=== PATIENT | female | born 1975 ===

== ENCOUNTER 2020-09-15 10:47 | Outpatient (REF) | payer MEDICAID, SELFPAY | END 2020-09-15 10:48 | disposition home or self-care (01) | LOC: HO.LAB 10:47 | PROVIDERS: Visit Provider Internal Medicine | DX: Z20.822 Contact with and (suspected) exposure to COVID-19 (principal) | CPT/HCPCS: 36415; C9803; U0003 ==

== ENCOUNTER 2020-10-30 13:14 | Outpatient (REF) | payer MEDICAID, SELFPAY | END 2020-10-30 13:15 | disposition home or self-care (01) | LOC: HO.LAB 13:14 | PROVIDERS: Visit Provider Internal Medicine | DX: Z20.822 Contact with and (suspected) exposure to COVID-19 (principal) | CPT/HCPCS: 36415; C9803; U0003; U0005 ==

== ENCOUNTER 2021-05-01 22:16 | Emergency (ER) | payer MEDICAID, SELFPAY ==
--- NOTE | ~2021-05-01 | XR_ITS ---
EXAMINATION: XR ANKLE, RIGHT CLINICAL INFORMATION: Trauma. COMPARISON: None TECHNIQUE: AP, lateral, and mortise views of the right ankle. FINDINGS: Soft tissue swelling at the lateral malleolus. There is no fracture. No dislocation. Ankle mortise is congruent. Small plantar calcaneal spur. XR/XR ankle RT 2V IMPRESSION: Soft tissue swelling at lateral malleolus. No acute osseous abnormality.
[2021-05-01 22:56] VITALS: BP 139/80; PULSE 77; RESP 16; TEMP 36.5; O2SAT 97; BMI 28.8
[2021-05-02] VITALS: BP 126/73; PULSE 63; RESP 16; TEMP 37.2; O2SAT 97
--- NOTE | 2021-05-02 00:45 | ED.LOWEXIN ---
HPI - Extremity Injury (Lower) General Chief Complaint: Extremity Injury, Lower Stated Complaint: Ankle sprain Time Seen by Provider: 05/02/21 00:44 Source: patient Mode of arrival: ambulatory Limitations: no limitations History of Present Illness HPI Narrative: 46 years old female is is here today after sustaining injury to her right ankle. Patient reports that she was walking on the sidewalk and stepped in to softer pavement and end up twisting her ankle. Patient denies any other injury, denies fall. MD complaint: ankle injury Onset (ago): hour(s) Type of Injury: eversion Place: street/outdoors Severity: moderate Relieving factors: nothing Related Data Previous Rx's Medication Instructions Recorded ibuprofen 600 mg tablet 600 mg PO Q8H PRN #20 tab 05/02/21 Allergies Allergy/AdvReac Type Severity Reaction Status Date / Time oxycodone [OXYCODONE] Allergy Unknown SEIZURES Verified 05/01/21 22:55 Review of Systems Review of Systems: Constitutional : No Weight loss, No Fever, No Chills, No Night Sweats, No Fatigue, No Malaise ENT/Mouth : No Hearing loss, No Ear Pain, No Nasal Congestion, No Sinus Pain, No Hoarseness, No sore throat, No Rhinorrhea, No Swallowing Difficulty Eyes: No Eye Pain, No Swelling, No Redness, No Foreign Body, No Discharge, No Vision Changes Cardiovascular : No Chest Pain, No SOB, No Dyspnea on Exertion, No Orthopnea, No Edema, No Palpitations Respiratory : No Cough, No Sputum, No Wheezing, No Smoke Exposure, No Dyspnea Gastrointestinal : No Nausea, No Vomiting, No Diarrhea, No Constipation, No abdominal Pain, No Hematochezia, No Melena Genitourinary : no irregular bleeding, No Dysuria, No Urinary Frequency, No Hematuria, No Urinary Incontinence, No Urgency, No Flank Pain, No Urinary Flow Changes, No Hesitancy Musculoskeletal : joint pain, No Myalgias, Joint Swelling, R ankle pain Skin : No Skin Lesions, No rash Neuro : No Weakness, No Numbness, No Paresthesias, No Loss of Consciousness, No Dizziness, No Headache Psych : No Anxiety/Panic, No Depression, No SI/HI/AH/VH, No Social Issues, Yes all other systems are reviewed and are negative [facility] Past Medical History Medical History (Updated 05/02/21 @ 00:56 by Priya Penaloza [facility]) Anxiety Depression Diabetes Social History Social History Advance Directives: No Advance Directives Information Provided: No Physical Exam Vital Signs: Vital Signs: Last Vital Signs Temp 98.9 F 05/02/21 00:00 Pulse 63 05/02/21 00:00 Resp 16 05/02/21 00:00 BP 126/73 05/02/21 00:00 Pulse Ox 97 05/02/21 00:00 Body Mass Index 28.8 Const: General: healthy appearing, no acute distress and well developed Nutritional Appearance: well nourished Orientation/consciousness: patient oriented x3 HENMT: Head: Yes normal to inspection, Yes normocephalic and Yes atraumatic Ears: hearing grossly normal bilaterally General nose exam: Normal external nose present Face and sinus: Yes normal facial exam Mouth: Normal oral and palatal mucosa present Neck: Neck: Yes normal visual inspection, Yes full ROM and Yes trachea midline Thyroid: Thyroid normal Resp: Auscultation: clear to auscultation bilaterally Cardio: Rate: regular rate Rhythm: regular rhythm GI: Inspection: Yes normal to inspection and No distended Palpation (GI): No hepatosplenomegaly present Auscultation: normal bowel sounds Skin: General skin exam: elasticity normal, turgor normal and dry skin Neuro: General: patient oriented x3 Extrem: Right upper extremity: normal to inspection, full ROM and normal capillary refill Left upper extremity: normal to inspection, full ROM and normal capillary refill Right lower extremity: normal capillary refill, cyanosis and ankle (Outer ankle swelling) Left lower extremity: normal to inspection and full ROM Course Course Course Narrative: 46 years old female is here today for complaints of right ankle pain. Patient was walking on the sidewalk stepped into a soft therapy pavement and twisted her ankle. Left outer ankle swelling. X-ray negative for fracture showed soft tissue swelling, will send patient home with air cast, ice for the next 3 days and ibuprofen. Patient is agreeable to plan of care and verbalizes understanding of instructions. She was given the opportunity to ask questions all questions answered. Discharge Plan Discharge Clinical Impression: Ankle sprain and strain Patient Disposition: Home, Self-Care Instructions: Ankle Sprain (ED) Additional Instructions: You were seen here today after sustaining an ankle injury. Your x-rays negative for fracture. There is mild swelling to the outer area of your ankle. Please make sure you ice the area for the next 3 days, elevate and rest. You may take ibuprofen to help with pain. Please follow-up with your primary care doctor next week. If your symptoms will not get better I am giving you phone number to orthopedic surgeon. You may return to emergency department if her symptoms will get worse or if you experience any additional concerning symptoms. Prescriptions: New ibuprofen 600 mg tablet 600 mg PO Q8H PRN (Reason: pain) Qty: 20 RF: 0 Referrals: Carlos Josue MD [Physician] - 2 days Name,MD Ney [Primary Care Provider] - 2 days Stand Alone Forms: Work/School Release Interventions: ED Discharge Assessment Last Done: 05/02/21 01:04 Discharge Date/Time: 05/02/21 01:04
[2021-05-02] MEDS: Ibuprofen 600 MG TABLET PO (01:01)
== END 2021-05-02 01:04 | disposition home or self-care (01) ==
PROVIDERS: Emergency Provider Internal Medicine; PCP Internal Medicine Geriatric Medicine
DX: S93.401A Sprain of unspecified ligament of right ankle, initial encounter (principal); M25.571 Pain in right ankle and joints of right foot; X50.1XXA Overexertion from prolonged static or awkward postures, initial encounter; Y93.9 Activity, unspecified; Y92.480 Sidewalk as the place of occurrence of the external cause; Y99.9 Unspecified external cause status
CPT/HCPCS: 73600; 99283; 99284

== ENCOUNTER 2021-07-14 14:27 | Outpatient (REF) | payer MEDICAID, SELFPAY ==
--- NOTE | ~2021-07-14 | MM_ITS ---
EXAMINATION: MM DIAGNOSTIC DIGITAL BREAST TOMOSYNTHESIS, BILATERAL US DIAGNOSTIC ULTRASOUND BREAST, RIGHT CLINICAL INFORMATION: Franklin sized nodule noted by patient 2-3 weeks, recently decreased in size. The lifetime risk of breast cancer based on the Tyrer-Cuzick Model is 6%. COMPARISON: Mammography: 04/10/2019, 03/09/2018, 06/28/2016 TECHNIQUE: Digital breast tomosynthesis is performed in both the craniocaudal and mediolateral oblique views along with computer-aided detection (CAD). Synthesized 2D images are generated from the tomosynthesis. Ultrasound right breast is targeted to the area of clinical concern periareolar 7:00 through 11:00 position. Grayscale imaging and color Doppler are performed without and with harmonics. FINDINGS: There are scattered areas of fibroglandular density (ACR BI-RADS breast composition Category b). Parenchymal pattern is similar to prior exams. There is no developing density or interval mass or architectural abnormality. No skin thickening or coarsening of the Javier's ligaments. The axilla and skin contours are unremarkable. There are some scattered vascular calcifications bilateral posterior breasts. Ultrasound demonstrates no cystic or solid mass or architectural abnormality. No focal duct ectasia. No skin thickening or edema tracking in soft tissue planes. Results are discussed with the patient at time of visit. MM/MM tomosynthesis diagnostic BI IMPRESSION: No mammographic evidence of malignancy. Unremarkable targeted right breast ultrasound. ASSESSMENT: BI-RADS 2: Benign RECOMMENDATION: 1. Patient should be managed based on the clinical impression. If clinically indicated, further evaluation may be considered with surgical consult. Decision to proceed with biopsy should be based on clinical grounds and degree of clinical concern. 2. Otherwise, routine annual screening mammography. This patient's information was entered into a reminder system with a target due date for their next mammogram.
== END 2021-07-14 14:28 | disposition home or self-care (01) ==
LOC: HO.MAMMO 14:27
PROVIDERS: PCP Internal Medicine Geriatric Medicine; Visit Provider Registered Nurse Community Health
DX: N63.13 Unspecified lump in the right breast, lower outer quadrant (principal)
CPT/HCPCS: 76642; 77062; 77066

== ENCOUNTER 2023-05-25 10:00 | Emergency (ER) | payer MEDICAID, SELFPAY ==
--- NOTE | ~2023-05-25 | CT_ITS ---
EXAMINATION: CT ANGIOGRAM OF THE CHEST WITH AND WITHOUT CONTRAST (CT PULMONARY ANGIOGRAM FOR PE) CLINICAL INFORMATION: Reason for Exam elevated D-dimer and hypoxia rule out PE COMPARISON: None available. TECHNIQUE: Prior to contrast administration, noncontrast localization images were obtained. Subsequently, multidetector volumetric imaging was performed from the thoracic inlet to below the diaphragms following the administration of 65 mL Omnipaque 350 intravenous contrast. No contrast reaction reported Sagittal, coronal, and MIP oblique sagittal reformatted images were obtained on the CT workstation, uploaded to PACS, and reviewed. This CT examination was performed using dose optimization techniques as appropriate, variously including the following: *Automated exposure control *Adjustment of mA and/or kV according to patient size (this includes techniques or standardized protocols for targeted exams where dose is matched to indication/reason for exam; i.e. extremities or head) *Use of iterative reconstruction technique Total exam dose-length product 250 mGy-cm FINDINGS: QUALITY OF STUDY/CONTRAST BOLUS: Satisfactory. PULMONARY ARTERIES: No pulmonary emboli. THORACIC AORTA: No aneurysm. LUNG: No focal consolidation, nodules or masses. PLEURA: No pleural effusion or pneumothorax. MEDIASTINUM: Normal heart size. No pericardial effusion. No hilar or mediastinal lymphadenopathy. No evidence of septal bowing or right heart strain. CORONARY ARTERY CALCIFICATION: None visualized on this study. CHEST WALL/AXILLA: No axillary or internal mammary lymphadenopathy. OSSEOUS STRUCTURES: No acute or suspicious osseous abnormality. UPPER ABDOMEN: Unremarkable. No reflux of contrast into the hepatic veins to suggest elevated right heart pressures. CT/CT angio chest PE protocol IMPRESSION: No evidence for pulmonary embolism. No active cardiopulmonary disease. VTE: negative
--- NOTE | ~2023-05-25 | XR_ITS ---
EXAMINATION: XR CHEST CLINICAL INFORMATION: Hypoxia. COMPARISON: None available. TECHNIQUE: Frontal view of the chest was obtained. FINDINGS: The lungs are well expanded. No focal consolidation. No pleural effusion. Cardiac silhouette is within normal limits. XR/XR chest 1V IMPRESSION: No acute abnormality.
[2023-05-25 10:05] VITALS: BP 179/103; PULSE 83; RESP 18; TEMP 36.6; O2SAT 85; BMI 26.6
[2023-05-25 10:19] LABS: MANUAL DIFF FLAG NO
[2023-05-25 10:21] LABS: Basophils Percent Auto 0.1 % (0-2); Eosinophils Absolute Auto 0.1 X10*3/uL (0.0-0.4); Eosinophils Percent Auto 0.9 % (0-4); Hemoglobin 11.6 g/dl (12.0-16.0); Imm Gran Abs Auto 0.03 X10*3/uL (0.00-0.03); Imm Gran Pct Auto 0.3 % (0.0-0.4); Lymphocytes Absolute Auto 1.3 X10*3/uL (1.2-4.9); Lymphocytes Percent Auto 14.4 % (20-40); Mean Corpuscular HGB Conc 35.2 g/dl (31.0-35.0); Mean Corpuscular Hemoglobin 30.1 pg (27.0-33.0); Mean Corpuscular Volume 85.5 fL (80.0-98.0); Mean Platelet Volume 10.6 fL (9.4-12.3); Monocytes Absolute Auto 0.4 X10*3/uL (0.1-1.2); Monocytes Percent Auto 4.6 % (2-11); Neutrophils Absolute Auto 7.3 x10*3/uL (2.0-8.3); Neutrophils Percent Auto 79.7 % (45-73); Platelet Count 251 X10*3/uL (160-400); Red Blood Count 3.86 X10*6/uL (4.20-5.50); Red Cell Distribution Width 12.1 % (11.0-16.0); White Blood Count 9.1 X10*3/uL (4.8-10.8)
[2023-05-25 10:46] LABS: Anion Gap 10 (12-20); Blood Urea Nitrogen 20 mg/dL (9-16); Calcium 9.2 mg/dL (8.4-10.2); Carbon Dioxide 24 mmol/L (22-29); Chloride 104 mmol/L (96-108); Creatinine Clr Calc Pharmacy 50.2; Estimated Glomerular Filt Rate 45; Glucose Random 392 mg/dL (60-115); Sodium 134 mmol/L (135-145)
--- NOTE | 2023-05-25 11:35 | ED_ITS ---
HPI - Nausea/Vomiting/Diarrhea General Chief complaint: Nausea/Vomiting/Diarrhea Stated complaint: High Blood Pressure Vomiting Etc Time Seen by Provider: 05/25/23 11:26 Source: patient Mode of arrival: ambulatory Limitations: no limitations History of Present Illness HPI Narrative: 48-year-old female with history of hypertension, and type 2 diabetes. Patient started this morning with nonbloody watery diarrhea and abdominal cramps then started to have nausea and vomiting, a family member also complaining of similar symptoms., patient declined eating a bad food, no recent travel, no recent use of antibiotic. No fever, no chills. Patient was sent from PCP office for possible dehydration. Related Data Previous Rx's Medication Instructions Recorded ibuprofen 600 mg tablet 600 mg PO Q8H PRN pain #20 tabs 05/02/21 Allergies Allergy/AdvReac Type Severity Reaction Status Date / Time oxycodone [OXYCODONE] Allergy Unknown SEIZURES Verified 05/25/23 10:05 Review of Systems 2 Review of Systems: All other systems are reviewed and are negative Constitutional: Reports as per HPI and Reports no additional constitutional complaints Eyes: Reports as per HPI and Reports no additional eye complaints Reports system reviewed and no additional complaints, except as documented Cardiovascular: Reports as per HPI and Reports no additional cardiovascular complaints Respiratory: Reports as per HPI and Reports no additional respiratory complaints Gastrointestinal: Reports as per HPI and Reports no additional gastrointestinal complaints Genitourinary: Reports no additional female genitourinary complaints Musculoskeletal: Reports no additional musculoskeletal complaints Skin/Breast: Reports system reviewed and no additional complaints, except as docu Psychiatric: Reports no additional psychiatric complaints Endocrine: Reports no additional endocrine complaints Hematologic/Lymphatic: Reports no additional hematologic/lymphatic complaints Allergic/Immunologic: Reports no additional allergic/immunologic complaints Reports system reviewed and no additional complaints, except as documented and Reports Abnormal speech present [facility] Past Medical History Medical History Depression Anxiety Diabetes Social History Social History Alcohol intake: never Smoked in Last 30 Days: No Use of substances other than those prescribed or required for medical reasons: No Advance Directives: No Advance Directives Information Provided: Yes Patient : No Physical Exam 2 Vital Signs: Vital Signs: Last Vital Signs Temp 98.8 F 05/25/23 15:36 Pulse 84 05/25/23 15:36 Resp 18 05/25/23 15:36 BP 184/98 H 05/25/23 15:36 Pulse Ox 97 05/25/23 15:36 O2 Del Method Room Air 05/25/23 15:36 BMI result Body Mass Index 26.6 Vital signs have been reviewed and appear to be correct. Blood pressure elevated. Heart rate normal. Respiratory rate normal. Temperature normal. Oxygen saturation normal. Appearance: Alert. Oriented X3. No acute distress. Head: Normal external exam. Normocephalic. Atraumatic. No Oneal signs noted. No raccoon eyes noted Eyes: PERRLA. EOMI. Conjunctiva and sclera normal. Eyelids normal. ENT: TM's Normal. Pharynx normal. Uvula midline. Moist mucous membranes. No trismus noted. No drooling noted. No muffled voice noted. Neck: Normal inspection. Neck supple. FROM. No adenopathy. Thyroid Normal. No meningeal signs. No neck mass noted. CVS: Normal heart rate and rhythm. Heart sound normal. No murmurs noted. Pulses normal throughout. Respiratory: No respiratory distress. Painless inspiration. Breath sounds normal. No wheezes/rales/rhonchi noted. Chest nontender. No accessory muscle usage noted or decreased air movement noted. Abdomen: Soft and nontender. Bowel sounds normal in all 4 quadrants. No distention noted. No organomegaly noted. No visible injury noted. Back: No CVA tenderness. Full range of motion noted. Skin: Skin warm and dry. Normal skin color. Normal skin turgor. No rashes/lesions/lacerations noted. Extremities: No lower extremity edema. Extremities exhibit normal range of motion. Extremities nontender. Neuro: Oriented X 3. Cranial nerve exam: II-XII are grossly intact No motor deficit. No sensory deficit. Reflexes normal. Course Course Course Narrative: a 48-year-old female with history of type 2 diabetes and hypertension came in with nausea, vomiting, and diarrhea with exposure to a sick contact ( daughter with similar symptoms at home). Could not take her blood pressure/diabetes medication have a high blood pressure in emergency department patient was given amlodipine 5 mg with partial improvement of blood pressure, headache is going away, able to tolerate p.o. intake. Due to elevated D-dimer patient had a CT angio of the chest which shows no pulmonary embolism. Patient was instructed to follow-up with PCP and keep monitoring blood pressure and BS at home Medications Administered Discontinued Medications Generic Name Dose Route Start Last Admin Trade Name Naseem PRN Reason Stop Dose Admin Al Hydroxide/Mg Hydroxide 30 ml 05/25/23 11:33 05/25/23 12:08 Magnesium Hydrox/Alum Hydrox 30 Ml Oral.Susp PO 05/25/23 11:34 30 ml ONCE ONE Administration Amlodipine Besylate 5 mg 05/25/23 14:30 05/25/23 14:42 Amlodipine Besylate 5 Mg Tablet PO 05/25/23 14:31 5 mg ONCE ONE Administration Protocol Famotidine 20 mg 05/25/23 11:33 05/25/23 12:08 Famotidine/Pf 20 Mg/2 Ml Vial IVPUSH 05/25/23 11:34 20 mg ONCE ONE Administration Sodium Chloride 1,000 mls @ 999 mls/hr 05/25/23 11:26 05/25/23 13:15 Ns IV 05/25/23 12:26 Infused .Q1H1M ONE Infusion Insulin Human Regular 5 unit 05/25/23 11:26 05/25/23 12:13 Insulin Regular, Human 100 Unit/Ml 3 Ml Vial IVPUSH 05/25/23 11:27 5 unit ONCE ONE Administration Iohexol 100 ml 05/25/23 14:47 05/25/23 14:47 Iohexol 350 Mg/Ml 100 Ml Infus..Btl IV 05/25/23 14:48 65 ml ONCE ONE Administration Loperamide HCl 2 mg 05/25/23 11:33 05/25/23 12:09 Loperamide Hcl 2 Mg Capsule PO 05/25/23 11:34 2 mg ONCE ONE Administration Ondansetron HCl 4 mg 05/25/23 11:33 05/25/23 12:08 Ondansetron Hcl 4 Mg/2 Ml Vial IVPUSH 05/25/23 11:34 4 mg ONCE ONE Administration Medical Decision Making Differential Diagnosis Differential Diagnoses: The differential diagnosis associated with the presentation includes ( pulmonary embolism, pneumonia, pneumothorax, gastroenteritis, dehydration, electrolyte abnormality, severe anemia, hypertensive emergency.) Admission/Observation Consideration of admission/observation: Escalation of care including admission/observation considered Lab Data MDM Lab Attestation statement: I reviewed the patient's lab results. 05/25/23 10:15 05/25/23 10:15 Labs: Lab Results 05/25/23 05/25/23 05/25/23 Range/Units 10:15 11:54 12:05 WBC 9.1 (4.8-10.8) X10*3/uL RBC 3.86 L (4.20-5.50) X10*6/uL Hgb 11.6 L (12.0-16.0) g/dl Hct 33.0 L (37.0-47.0) % MCV 85.5 (80.0-98.0) fL MCH 30.1 (27.0-33.0) pg MCHC 35.2 H (31.0-35.0) g/dl RDW 12.1 (11.0-16.0) % Plt Count 251 (160-400) X10*3/uL MPV 10.6 (9.4-12.3) fL Immature Gran % (Auto) 0.3 (0.0-0.4) % Neut % (Auto) 79.7 H (45-73) % Lymph % (Auto) 14.4 L (20-40) % [place] % (Auto) 4.6 (2-11) % Eos % (Auto) 0.9 (0-4) % Baso % (Auto) 0.1 (0-2) % Lymph # (Auto) 1.3 (1.2-4.9) X10*3/uL [place] # (Auto) 0.4 (0.1-1.2) X10*3/uL Eos # (Auto) 0.1 (0.0-0.4) X10*3/uL Baso # (Auto) 0.0 (0.0-0.2) X10*3/uL Abs Immat Gran (auto) 0.03 (0.00-0.03) X10*3/uL Absolute Neuts (auto) 7.3 (2.0-8.3) x10*3/uL Absolute Nucleated RBC 0.000 (0.0-0.012) X10*3/uL Nucleated RBC % (auto) 0.0 (0.0-0.2) /100WBC D-Dimer High Sensitivty 298 NG/ML Sodium 134 L (135-145) mmol/L Potassium 4.0 (3.3-5.1) mmol/L Chloride 104 (96-108) mmol/L Carbon Dioxide 24 (22-29) mmol/L Anion Gap 10 L (12-20) BUN 20 H (9-16) mg/dL Creatinine 1.27 (0.5-1.4) mg/dL Estim Creat Clear Calc 50.2 Estimated GFR 45 POC Glucose 364 H* (60-115) mg/dL Random Glucose 392 H* (60-115) mg/dL Calcium 9.2 (8.4-10.2) mg/dL Troponin I High Sens < 2.7 (<3.5-17.0) ng/L Urine Color Yellow Urine Appearance Clear Urine pH 6.0 (5.0-9.0) Ur Specific [place] 1.025 (1.005-1.025) Urine Protein >=1000 (4+) H (Neg-Trace) mg/dL Urine Glucose (UA) >=1000 H (Negative) mg/dL Urine Ketones Negative (Negative) mg/dL Urine Blood Small (1+) H (Negative) Urine Nitrite Negative (Negative) Ur Leukocyte Esterase Negative (Negative) Urine RBC 0-2 (0-2) /HPF Urine WBC 0-5 (0-5) /HPF Ur Squamous Epith Cells 0-2 (0-2) /HPF Urine Bacteria None Seen (None Seen) Hyaline Casts 0-2 (0-2) /LPF 05/25/23 Range/Units 13:38 WBC (4.8-10.8) X10*3/uL RBC (4.20-5.50) X10*6/uL Hgb (12.0-16.0) g/dl Hct (37.0-47.0) % MCV (80.0-98.0) fL MCH (27.0-33.0) pg MCHC (31.0-35.0) g/dl RDW (11.0-16.0) % Plt Count (160-400) X10*3/uL MPV (9.4-12.3) fL Immature Gran % (Auto) (0.0-0.4) % Neut % (Auto) (45-73) % Lymph % (Auto) (20-40) % [place] % (Auto) (2-11) % Eos % (Auto) (0-4) % Baso % (Auto) (0-2) % Lymph # (Auto) (1.2-4.9) X10*3/uL [place] # (Auto) (0.1-1.2) X10*3/uL Eos # (Auto) (0.0-0.4) X10*3/uL Baso # (Auto) (0.0-0.2) X10*3/uL Abs Immat Gran (auto) (0.00-0.03) X10*3/uL Absolute Neuts (auto) (2.0-8.3) x10*3/uL Absolute Nucleated RBC (0.0-0.012) X10*3/uL Nucleated RBC % (auto) (0.0-0.2) /100WBC D-Dimer High Sensitivty NG/ML Sodium (135-145) mmol/L Potassium (3.3-5.1) mmol/L Chloride (96-108) mmol/L Carbon Dioxide (22-29) mmol/L Anion Gap (12-20) BUN (9-16) mg/dL Creatinine (0.5-1.4) mg/dL Estim Creat Clear Calc Estimated GFR POC Glucose 205 H (60-115) mg/dL Random Glucose (60-115) mg/dL Calcium (8.4-10.2) mg/dL Troponin I High Sens (<3.5-17.0) ng/L Urine Color Urine Appearance Urine pH (5.0-9.0) Ur Specific [place] (1.005-1.025) Urine Protein (Neg-Trace) mg/dL Urine Glucose (UA) (Negative) mg/dL Urine Ketones (Negative) mg/dL Urine Blood (Negative) Urine Nitrite (Negative) Ur Leukocyte Esterase (Negative) Urine RBC (0-2) /HPF Urine WBC (0-5) /HPF Ur Squamous Epith Cells (0-2) /HPF Urine Bacteria (None Seen) Hyaline Casts (0-2) /LPF Independent Interpretation I performed an independent interpretation of an: CT Scan ( CTA chest: No evidence of pulmonary embolism.) Radiology Impression Discussion of test interpretation with radiology: I have reviewed the radiologist's reading. Chronic Conditions Patient?s care impacted by: Diabetes and Hypertension Discharge Plan Discharge Clinical Impression: Gastroenteritis, Hypertension, Diabetes Patient Disposition: Still a Patient Instructions: Gastroenteritis (ED) Additional Instructions: take your medication as directed and prescribed. Prescriptions: No Action ibuprofen 600 mg tablet 600 mg PO Q8H PRN (Reason: pain) Qty: 20 0RF Referrals: Name,MD Ney [Primary Care Provider] -
[2023-05-25 11:55] VITALS: BP 206/98; PULSE 91; RESP 18; TEMP 36.8; O2SAT 98
[2023-05-25 12:04] LABS: Appearance Urine Clear; Color Urine Yellow; Glucose Urine UA >=1000 mg/dL (Negative); Leukocyte Esterase Urine Negative (Negative); Nitrite Urine Negative (Negative); Specific Gravity - Urine 1.025 (1.005-1.025); UMIC TRIGGER UACC YES; Urine Blood Small (1+) (Negative); Urine Ketones Negative (Negative); Urine Protein >=1000 (4+) mg/dL (Neg-Trace)
[2023-05-25] MEDS: 0.9 % Sodium Chloride 1,000 ML 999 ML IV (12:08)
[2023-05-25] MEDS: ondansetron HCL 4 MG/2 ML VIAL IVPUSH (12:08)
[2023-05-25] MEDS: Famotidine/PF 20 MG/2 ML VIAL IVPUSH (12:08)
[2023-05-25] MEDS: Magnesium Hydrox/Alum Hydrox 30 ML ORAL.SUSP PO (12:08)
[2023-05-25] MEDS: Loperamide HCl 2 MG CAPSULE PO (12:09)
[2023-05-25 12:10] VITALS: BP 186/100; PULSE 90; RESP 20; O2SAT 98
[2023-05-25] MEDS: Insulin Regular, Human 100 UNIT/ML 3 ML VIAL IVPUSH (12:13)
[2023-05-25 12:15] LABS: Bacteria Urine None Seen (None Seen); Hyaline Casts Urine 0-2 /LPF (0-2); RBC Urine 0-2 /HPF (0-2); Squamous Epithelial Cell Urine 0-2 /HPF (0-2); WBC Urine 0-5 /HPF (0-5)
[2023-05-25 12:15] LABS: Glucose, Whole Blood 364 mg/dL (60-115)
[2023-05-25 12:16] VITALS: BP 180/93; PULSE 83
[2023-05-25 12:18] LABS: D Dimer High Sensitivity 298 NG/ML
[2023-05-25 12:23] LABS: Troponin-I High Sensitivity < 2.7 ng/L (<3.5-17.0)
[2023-05-25 13:44] LABS: Glucose, Whole Blood 205 mg/dL (60-115)
[2023-05-25 14:28] VITALS: BP 182/110; PULSE 90; RESP 13; TEMP 36.8; O2SAT 100
[2023-05-25] MEDS: amLODIPine Besylate 5 MG TABLET PO (14:42)
[2023-05-25] MEDS: iohexoL 350 MG/ML 100 ML INFUS..BTL IV (14:47)
--- NOTE | 2023-05-25 15:14 | PC.NURSE ---
Assumed care of patient at 1500, patient is resting on stretcher comfortably, offers no complaints to this RN other than headache. respirations even and unlabored, skin pwd, no apparent distress. Requesting sandwich, this RN educated patient that we are waiting on CT scan results then we can discuss the possibility of having food. Patient satisfied with answer
[2023-05-25 15:36] VITALS: BP 184/98; PULSE 84; RESP 18; TEMP 37.1; O2SAT 97
== END 2023-05-25 16:13 | disposition home or self-care (01) ==
PROVIDERS: Emergency Provider Emergency Medicine; PCP Internal Medicine Geriatric Medicine
DX: K52.9 Noninfective gastroenteritis and colitis, unspecified (principal); I10 Essential (primary) hypertension; E11.9 Type 2 diabetes mellitus without complications; R11.2 Nausea with vomiting, unspecified; Z79.899 Other long term (current) drug therapy
CPT/HCPCS: 36415; 71045; 71275; 80048; 81001; 81003; 82947; 84484; 85025; 85379; 96361; 96374; 96375; 99285; J2405; Q9967

== ENCOUNTER 2023-05-25 18:01 | Outpatient (REF) | payer MEDICAID, SELFPAY ==
[2023-05-25 18:59] LABS: Influenza A PCR NEGATIVE (Negative); Influenza B PCR NEGATIVE (Negative); Resp Syncy Virus RNA Qual PCR NEGATIVE (Negative); SARS COV2 PCR INHOUSE NEGATIVE (Negative)
== END 2023-05-25 18:02 | disposition home or self-care (01) ==
LOC: HO.HHCLNP 18:01
PROVIDERS: Visit Provider Emergency Medicine
DX: R68.89 Other general symptoms and signs (principal); Z20.822 Contact with and (suspected) exposure to COVID-19
CPT/HCPCS: 0241U

== ENCOUNTER 2023-08-05 19:53 | Outpatient (REF) | payer MEDICAID, SELFPAY ==
[2023-08-05 19:59] LABS: Appearance Urine Clear; Color Urine Yellow; Glucose Urine UA >=1000 mg/dL (Negative); Leukocyte Esterase Urine Negative (Negative); Nitrite Urine Positive (Negative); Specific Gravity - Urine >= 1.030 (1.005-1.025); UMIC TRIGGER UACC YES; Urine Blood Trace (Negative); Urine Ketones Negative (Negative); Urine Protein >=1000 (4+) mg/dL (Neg-Trace)
[2023-08-05 20:04] LABS: Bacteria Urine 2+ (None Seen); Hyaline Casts Urine 0-2 /LPF (0-2); RBC Urine 0-2 /HPF (0-2); UACC Culture Trigger YES
== END 2023-08-05 19:54 | disposition home or self-care (01) ==
LOC: HO.HHCLNP 19:53
PROVIDERS: Visit Provider Emergency Medicine
DX: R60.0 Localized edema (principal)
CPT/HCPCS: 81001; 87086

== ENCOUNTER 2023-08-06 07:45 | Outpatient (REF) | payer MEDICAID, SELFPAY ==
[2023-08-06 08:04] LABS: MANUAL DIFF FLAG NO
[2023-08-06 08:12] LABS: Basophils Percent Auto 0.5 % (0-2); Eosinophils Absolute Auto 0.1 X10*3/uL (0.0-0.4); Hematocrit 32.9 % (37.0-47.0); Imm Gran Abs Auto 0.02 X10*3/uL (0.00-0.03); Imm Gran Pct Auto 0.3 % (0.0-0.4); Lymphocytes Absolute Auto 1.8 X10*3/uL (1.2-4.9); Lymphocytes Percent Auto 27.9 % (20-40); Mean Corpuscular HGB Conc 33.4 g/dl (31.0-35.0); Mean Corpuscular Hemoglobin 28.9 pg (27.0-33.0); Mean Corpuscular Volume 86.4 fL (80.0-98.0); Mean Platelet Volume 11.2 fL (9.4-12.3); Monocytes Absolute Auto 0.5 X10*3/uL (0.1-1.2); Neutrophils Percent Auto 62.3 % (45-73); Platelet Count 223 X10*3/uL (160-400); Red Blood Count 3.81 X10*6/uL (4.20-5.50); Red Cell Distribution Width 12.2 % (11.0-16.0); White Blood Count 6.4 X10*3/uL (4.8-10.8)
[2023-08-06 08:38] LABS: B Type Natriuretic Peptide 140 pg/mL (<100)
[2023-08-06 08:45] LABS: Alanine Aminotransferase 10 U/L (0-31); Albumin Level 2.6 g/dL (3.5-5.0); Alkaline Phosphatase 78 U/L (39-117); Anion Gap 13 (12-20); Aspartate Amino Transferase 11 U/L (5-31); Bilirubin Total 0.2 mg/dL (0.0-1.0); Blood Urea Nitrogen 33 mg/dL (9-16); Calcium 8.4 mg/dL (8.4-10.2); Carbon Dioxide 21 mmol/L (22-29); Chloride 105 mmol/L (96-108); Estimated Glomerular Filt Rate 35; Potassium 4.5 mmol/L (3.3-5.1); Sodium 134 mmol/L (135-145); Total Protein 6.3 g/dL (6.5-8.0)
[2023-08-06 08:56] LABS: Glucose Random 442 mg/dL (60-115)
[2023-08-06 08:57] LABS: TSH reflex Free T4 1.27 uIU/mL (0.32-4.0)
== END 2023-08-06 07:46 | disposition home or self-care (01) ==
LOC: HO.LAB 07:45
PROVIDERS: Visit Provider Emergency Medicine
DX: R60.0 Localized edema (principal)
CPT/HCPCS: 36415; 80053; 83880; 84443; 85025

== ENCOUNTER 2023-08-26 10:02 | Emergency (ER) | payer MEDICAID, SELFPAY ==
--- NOTE | ~2023-08-26 | CT_ITS ---
EXAMINATION: CT ABDOMEN AND PELVIS WITHOUT CONTRAST CLINICAL INFORMATION: Kidney stone, blood in UA COMPARISON: 05/27/2023 TECHNIQUE: Multidetector volumetric imaging was performed from the superior aspect of the liver through the pubic symphysis. Sagittal and coronal reformatted images were obtained on the technologist's workstation. This CT examination was performed using dose optimization techniques as appropriate, variously including the following: *Automated exposure control *Adjustment of mA and/or kV according to patient size (this includes techniques or standardized protocols for targeted exams where dose is matched to indication/reason for exam; i.e. 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 Phleboliths. Nonobstructive bowel pattern. Grade 1 anterolisthesis L5 on S1 LUNG BASES: The visualized lung bases are unremarkable. LIVER, GALLBLADDER, AND BILIARY TREE: The liver is normal in size, shape, and attenuation. No focal hepatic lesion or biliary ductal dilatation is present. Possible gallbladder sludge with no evidence of radiopaque gallstones, gallbladder wall thickening, or obvious pericholecystic inflammatory changes. PANCREAS: Unremarkable. SPLEEN: Unremarkable. ADRENAL GLANDS: Unremarkable. KIDNEYS AND URETERS: The kidneys are normal in size, shape, and attenuation. No hydronephrosis or hydroureter. Tiny left renal calcifications appear to be related to vessels when comparing with 05/25/2019 contrast-enhanced CT. No perinephric stranding. BLADDER: Decompressed. GASTROINTESTINAL TRACT: Moderately distended stomach, mild wall thickening not excluded. Nonobstructive bowel pattern. Possible mild terminal ileum thickening but no inflammatory changes. Appendix not seen. No right lower quadrant inflammatory stranding. Nonobstructive bowel pattern. No colonic pathology recognized. ABDOMINAL WALL: Small fat filled umbilical hernia. LYMPH NODES: Normal. VASCULAR: Atherosclerotic calcifications nonaneurysmal aorta. Normal caliber inferior vena cava. PELVIC VISCERA: Possible small right-sided uterine fibroid. Likely bilateral ovarian cysts. Phleboliths. OSSEOUS STRUCTURES: Bilateral pars defects, grade 1 anterolisthesis L5 on S1. CT/CT abdomen pelvis wo IV con IMPRESSION: No significant intra-abdominal or pelvic pathology. Possible terminal ileal thickening without inflammatory changes. Gallbladder sludge not excluded. Fleischner guidelines were followed.
[2023-08-26 10:17] VITALS: BP 150/86; PULSE 96; RESP 18; TEMP 36.8; O2SAT 99; BMI 26.2
--- NOTE | 2023-08-26 11:43 | ECG_ITS ---
Test Reason : STOMACH BURNING Blood Pressure : / mmHG Vent. Rate : 103 BPM Atrial Rate : 103 BPM P-R Int : 160 ms QRS Dur : 076 ms QT Int : 354 ms P-R-T Axes : 066 056 062 degrees QTc Int : 463 ms Sinus tachycardia Otherwise normal ECG No previous ECGs available Referred By: Tan Porter Electronically Signed By:LUKE MILLS
[2023-08-26 12:08] LABS: MANUAL DIFF FLAG NO
[2023-08-26 12:10] LABS: Basophils Percent Auto 0.3 % (0-2); Eosinophils Percent Auto 0.1 % (0-4); Hematocrit 34.1 % (37.0-47.0); Hemoglobin 11.8 g/dl (12.0-16.0); Imm Gran Abs Auto 0.03 X10*3/uL (0.00-0.03); Imm Gran Pct Auto 0.4 % (0.0-0.4); Lymphocytes Absolute Auto 1.6 X10*3/uL (1.2-4.9); Lymphocytes Percent Auto 21.1 % (20-40); Mean Corpuscular HGB Conc 34.6 g/dl (31.0-35.0); Mean Corpuscular Hemoglobin 29.1 pg (27.0-33.0); Mean Corpuscular Volume 84.2 fL (80.0-98.0); Mean Platelet Volume 11.1 fL (9.4-12.3); Monocytes Absolute Auto 0.5 X10*3/uL (0.1-1.2); Monocytes Percent Auto 6.7 % (2-11); Neutrophils Absolute Auto 5.3 x10*3/uL (2.0-8.3); Neutrophils Percent Auto 71.4 % (45-73); Platelet Count 248 X10*3/uL (160-400); Red Blood Count 4.05 X10*6/uL (4.20-5.50); Red Cell Distribution Width 12.4 % (11.0-16.0); White Blood Count 7.4 X10*3/uL (4.8-10.8)
[2023-08-26 12:16] LABS: INTERNATIONAL NORM RATIO 0.9 (0.9-1.1); Prothrombin Time 11.5 SEC (11.1-13.3)
[2023-08-26 12:18] LABS: Partial Thromboplastin Time 25.8 SEC (26.0-36.4)
[2023-08-26 12:31] LABS: Troponin-I High Sensitivity 6.8 ng/L (<3.5-17.0)
--- NOTE | 2023-08-26 12:33 | ED.GENADULT ---
HPI - General Adult General Chief complaint: General Medical Stated complaint: Vomiting Not Feeling Well Time Seen by Provider: 08/26/23 11:33 Source: patient Mode of arrival: ambulatory Limitations: no limitations History of Present Illness HPI narrative: 48-year-old female history of diabetes, GERD, and hypertension presents to ED headache and acid burning sensation in the abdomen since 08/24. patient denies any diarrhea, chest pain, shortness of breath, dysuria hematuria. Patient states no fever or chills. Related Data Previous Rx's Medication Instructions Recorded ibuprofen 600 mg tablet 600 mg PO Q8H PRN pain #20 tabs 05/02/21 famotidine 20 mg tablet (Pepcid) 20 mg PO BID 5 days #10 tabs 08/26/23 naproxen 500 mg tablet 500 mg PO BID PRN pain 7 days #14 08/26/23 tabs losartan 50 mg tablet 50 mg PO DAILY #30 tabs 08/31/23 metoclopramide HCl 10 mg tablet 10 mg PO Q6H PRN nausea and 08/31/23 (Reglan) vomiting #14 tabs Allergies Allergy/AdvReac Type Severity Reaction Status Date / Time oxycodone [OXYCODONE] Allergy Unknown SEIZURES Verified 08/31/23 13:44 Review of Systems Review of Systems: acid burning sensation in abdomen since 08/14 and headache. Yes all other systems are reviewed and are negative PMF Past Medical History Medical History Depression Anxiety Diabetes Social History Social History Unable to assess alcohol history related to: Unable to respond Alcohol intake: never Smoked in Last 30 Days: No Use of substances other than those prescribed or required for medical reasons: Yes Substance Use Type: Marijuana Advance Directives: No Advance Directives Information Provided: No Patient : No Physical Exam ED Vital Signs: Vital Signs - 24 hr 08/26/23 10:17 08/26/23 14:35 08/26/23 16:39 Temperature 98.2 F 98.7 F Pulse Rate 96 80 Respiratory Rate 18 18 18 Blood Pressure 150/86 H 182/88 H Pulse Oximetry 99 99 Oxygen Delivery Method Room Air Room Air BMI result Body Mass Index 26.2 Const General: cooperative, healthy appearing, comfortable, no acute distress, well developed, alert, awake and Physically active Orientation/consciousness: oriented to person, oriented to place, oriented to time and patient oriented x3 [facility] Head: Yes normal to inspection, Yes No palpable skull fracture present, Yes normocephalic and Yes atraumatic Throat: Yes posterior oropharynx normal, Yes tonsils normal and Yes uvula midline Eyes General: appearance normal, both eyes and all related structures Neck Neck: Yes normal visual inspection, Yes full ROM, Yes no lymphadenopathy, Yes no meningeal signs, Yes trachea midline, Yes supple, No anterior neck swelling and No tender Chest Chest palpation & inspection: normal inspection of the chest and normal palpation of entire chest wall Resp Effort & Inspection: normal respiratory effort and able to speak in complete sentences Auscultation: clear to auscultation bilaterally Cardio Jugular venous distension: no JVD Heart sounds: S1 normal heart sound present and S2 normal heart sound present GI Inspection: Yes normal to inspection Palpation (GI): Soft to palpation, not firm, nontender, no guarding and not rigid General: Yes no CVA tenderness Back/Spine/Pelvis Back: no CVA tenderness and No back tenderness Skin General skin exam: no rashes or lesions noted, elasticity normal and turgor normal Neuro General: oriented to person, oriented to place, oriented to time, patient oriented x3, gait normal, tone normal, moves all extremities, Normal light touch and pain sensation, no meningeal signs, no focal motor deficits, CN's II-XI intact bilaterally and normal sensation to monofilament Extrem General: Yes normal to inspection and Yes full ROM Psych Appearance: grossly normal, well kempt and not disheveled Medications Administered Discontinued Medications Generic Name Dose Route Start Last Admin Trade Name Edgarq PRN Reason Stop Dose Admin Al Hydroxide/Mg Hydroxide 30 ml 08/26/23 12:28 08/26/23 13:39 Magnesium Hydrox/Alum Hydrox 30 Ml Oral.Susp PO 08/26/23 12:29 30 ml ONCE ONE Administration Belladonna Alkaloids/Phenobarbital 10 ml 08/26/23 12:28 08/26/23 13:39 Phenobarb/Hyoscy/Atropine/Scop 10 Ml Elixir PO 08/26/23 12:29 10 ml ONCE ONE Administration Famotidine 20 mg 08/26/23 12:28 08/26/23 13:39 Famotidine 20 Mg Tablet PO 08/26/23 12:29 20 mg ONCE ONE Administration Sodium Chloride 1,000 mls @ 999 mls/hr 08/26/23 12:44 08/26/23 16:01 Ns IV 08/26/23 13:44 Infused .Q1H1M STA Infusion Sodium Chloride 1,000 mls @ 999 mls/hr 08/26/23 12:45 08/26/23 16:02 Ns IV 08/26/23 13:45 Infused .Q1H1M KIRT Infusion Ketorolac Tromethamine 30 mg 08/26/23 14:20 08/26/23 14:32 Ketorolac Tromethamine 30 Mg/Ml Vial IVPUSH 08/26/23 14:21 30 mg ONCE ONE Administration Lidocaine HCl 15 ml 08/26/23 12:28 08/26/23 13:39 Lidocaine Hcl Viscous 2 % 15 Ml Solution MUCOUS MEM 08/26/23 12:29 15 ml ONCE ONE Administration Ondansetron HCl 4 mg 08/26/23 14:20 08/26/23 14:31 Ondansetron Hcl 4 Mg/2 Ml Vial IVPUSH 08/26/23 14:21 4 mg ONCE ONE Administration Medical Decision Making Medical Decision Making MDM Narrative: 48-year-old female history of diabetes hypertension and GERD presents to ED for acid burning sensation and stomach since the 24 of August with some nausea. Patient states no fever chills diarrhea chest pain or shortness of breath. Patient denies any recent trauma. EKG labs ordered. GI cocktail ordered. 5:37pm: Patient's 2 troponin negative. EKG negative STEMI. COVID influenza swab negative. Urine shows some blood patient was sent for CT scans to make sure there is no kidney stones. CT scan came back negative for kidney stones. CT scan showed sludge in the gallbladder without any signs of cholecystitis. Patient informed of this. Patient's symptoms resolved after fluids Zofran and Toradol. lipase 80. CT scan CT scan normal. Differential Diagnosis Differential Diagnoses: The differential diagnosis associated with the presentation includes ( Myocardial infarction, acid reflux, cholecystitis, pancreatitis,) Lab Data 08/26/23 12:02 08/26/23 12:02 Labs: Lab Results 08/26/23 08/26/23 08/26/23 Range/Units 12: 14:30 14:35 WBC 7.4 (4.8-10.8) X10*3/uL RBC 4.05 L (4.20-5.50) X10*6/uL Hgb 11.8 L (12.0-16.0) g/dl Hct 34.1 L (37.0-47.0) % MCV 84.2 (80.0-98.0) fL MCH 29.1 (27.0-33.0) pg MCHC 34.6 (31.0-35.0) g/dl RDW 12.4 (11.0-16.0) % Plt Count 248 (160-400) X10*3/uL MPV 11.1 (9.4-12.3) fL Immature Gran % (Auto) 0.4 (0.0-0.4) % Neut % (Auto) 71.4 (45-73) % Lymph % (Auto) 21.1 (20-40) % [place] % (Auto) 6.7 (2-11) % Eos % (Auto) 0.1 (0-4) % Baso % (Auto) 0.3 (0-2) % Lymph # (Auto) 1.6 (1.2-4.9) X10*3/uL [place] # (Auto) 0.5 (0.1-1.2) X10*3/uL Eos # (Auto) 0.0 (0.0-0.4) X10*3/uL Baso # (Auto) 0.0 (0.0-0.2) X10*3/uL Abs Immat Gran (auto) 0.03 (0.00-0.03) X10*3/uL Absolute Neuts (auto) 5.3 (2.0-8.3) x10*3/uL Absolute Nucleated RBC 0.000 (0.0-0.012) X10*3/uL Nucleated RBC % (auto) 0.0 (0.0-0.2) /100WBC PT 11.5 (11.1-13.3) SEC INR 0.9 (0.9-1.1) APTT 25.8 L (26.0-36.4) SEC Sodium 133 L (135-145) mmol/L Potassium 3.8 (3.3-5.1) mmol/L Chloride 101 (96-108) mmol/L Carbon Dioxide 23 (22-29) mmol/L Anion Gap 13 (12-20) BUN 15 (9-16) mg/dL Creatinine 1.33 (0.5-1.4) mg/dL Estim Creat Clear Calc 47.5 Estimated GFR 43 POC Glucose (60-115) mg/dL Random Glucose 370 H* (60-115) mg/dL Calcium 8.9 (8.4-10.2) mg/dL Magnesium 1.7 (1.6-2.6) mg/dL Total Bilirubin 0.4 (0.0-1.0) mg/dL AST 13 (5-31) U/L ALT 11 (0-31) U/L Alkaline Phosphatase 89 (39-117) U/L Troponin I High Sens 6.8 D 6.7 (<3.5-17.0) ng/L Total Protein 6.7 (6.5-8.0) g/dL Albumin 2.8 L (3.5-5.0) g/dL Lipase 80 H (8-78) U/L Beta HCG, Quant < 2 mIU/mL Urine Color Yellow Urine Appearance Clear Urine pH 7.5 (5.0-9.0) Ur Specific [place] 1.025 (1.005-1.025) Urine Protein >=1000 (4+) H (Neg-Trace) mg/dL Urine Glucose (UA) >=1000 H (Negative) mg/dL Urine Ketones Trace (Negative) mg/dL Urine Blood Trace H (Negative) Urine Nitrite Negative (Negative) Ur Leukocyte Esterase Negative (Negative) Urine RBC 3-5 H (0-2) /HPF Urine WBC 6-10 H (0-5) /HPF Ur Squamous Epith Cells 3-5 (0-2) /HPF Urine Bacteria 1+ (None Seen) Hyaline Casts 3-5 (0-2) /LPF COVID-19 ([place]) Negative (Negative) COVID-19 Clin Com See Note Influenza Type A (K[facility]) Negative (Negative) Influenza Type B (KAM) Negative (Negative) Influenza A & B Note See Note S. pyogenes GrpA KAM Negative (Negative) 08/26/23 Range/Units 15:47 WBC (4.8-10.8) X10*3/uL RBC (4.20-5.50) X10*6/uL Hgb (12.0-16.0) g/dl Hct (37.0-47.0) % MCV (80.0-98.0) fL MCH (27.0-33.0) pg MCHC (31.0-35.0) g/dl RDW (11.0-16.0) % Plt Count (160-400) X10*3/uL MPV (9.4-12.3) fL Immature Gran % (Auto) (0.0-0.4) % Neut % (Auto) (45-73) % Lymph % (Auto) (20-40) % [place] % (Auto) (2-11) % Eos % (Auto) (0-4) % Baso % (Auto) (0-2) % Lymph # (Auto) (1.2-4.9) X10*3/uL [place] # (Auto) (0.1-1.2) X10*3/uL Eos # (Auto) (0.0-0.4) X10*3/uL Baso # (Auto) (0.0-0.2) X10*3/uL Abs Immat Gran (auto) (0.00-0.03) X10*3/uL Absolute Neuts (auto) (2.0-8.3) x10*3/uL Absolute Nucleated RBC (0.0-0.012) X10*3/uL Nucleated RBC % (auto) (0.0-0.2) /100WBC PT (11.1-13.3) SEC INR (0.9-1.1) APTT (26.0-36.4) SEC Sodium (135-145) mmol/L Potassium (3.3-5.1) mmol/L Chloride (96-108) mmol/L Carbon Dioxide (22-29) mmol/L Anion Gap (12-20) BUN (9-16) mg/dL Creatinine (0.5-1.4) mg/dL Estim Creat Clear Calc Estimated GFR POC Glucose 325 H (60-115) mg/dL Random Glucose (60-115) mg/dL Calcium (8.4-10.2) mg/dL Magnesium (1.6-2.6) mg/dL Total Bilirubin (0.0-1.0) mg/dL AST (5-31) U/L ALT (0-31) U/L Alkaline Phosphatase (39-117) U/L Troponin I High Sens (<3.5-17.0) ng/L Total Protein (6.5-8.0) g/dL Albumin (3.5-5.0) g/dL Lipase (8-78) U/L Beta HCG, Quant mIU/mL Urine Color Urine Appearance Urine pH (5.0-9.0) Ur Specific [place] (1.005-1.025) Urine Protein (Neg-Trace) mg/dL Urine Glucose (UA) (Negative) mg/dL Urine Ketones (Negative) mg/dL Urine Blood (Negative) Urine Nitrite (Negative) Ur Leukocyte Esterase (Negative) Urine RBC (0-2) /HPF Urine WBC (0-5) /HPF Ur Squamous Epith Cells (0-2) /HPF Urine Bacteria (None Seen) Hyaline Casts (0-2) /LPF COVID-19 ([place]) (Negative) COVID-19 Clin Com Influenza Type A ([facility]) (Negative) Influenza Type B ([facility]) (Negative) Influenza A & B Note S. pyogenes GrpA KAM (Negative) Independent Interpretation I performed an independent interpretation of an: CT Scan Radiology Impression Discussion of test interpretation with radiology: I have reviewed the radiologist's reading. Prescription Management I considered prescription management with: Pain Medication and Other Discharge Plan Discharge Clinical Impression: Gastroesophageal reflux disease, Sludge in gallbladder, Hyperglycemia due to diabetes mellitus Patient Disposition: Home, Self-Care Instructions: Biliary Colic (ED), Gastroesophageal Reflux Disease (ED), Diabetic Hyperglycemia (ED) Additional Instructions: EKG and blood work came back negative for signs of heart attack. Urine came back negative for infection. CT scan showed sludge in the gallbladder Without any signs of cholecystitis. CT scan negative for pancreatitis. You're strep, covid, and infleunza came back negative. You will be given copy of CAT scan and follow-up with your primary care provider. return to ED for any worsening abdominal pain, nausea, vomiting, fever, chills, flank pain, back pain, dysuria, hematuria, inability tolerate solid food / liquid, or any other concerning symptoms. Prescriptions: New famotidine [Pepcid] 20 mg tablet 20 mg PO BID 5 Days Qty: 10 0RF naproxen 500 mg tablet 500 mg PO BID PRN (Reason: pain) 7 Days Qty: 14 0RF No Action ibuprofen 600 mg tablet 600 mg PO Q8H PRN (Reason: pain) Qty: 20 0RF metoclopramide HCl [Reglan] 10 mg tablet 10 mg PO Q6H PRN (Reason: nausea and vomiting) Qty: 14 0RF losartan 50 mg tablet 50 mg PO DAILY Qty: 30 0RF Stand Alone Forms: Work/School Release Interventions: ED Discharge Assessment Last Done: 08/26/23 17:57 Discharge Date/Time: 08/26/23 17:57 Print Language: Singaporean
[2023-08-26 12:38] LABS: Alanine Aminotransferase 11 U/L (0-31); Albumin Level 2.8 g/dL (3.5-5.0); Alkaline Phosphatase 89 U/L (39-117); Anion Gap 13 (12-20); Aspartate Amino Transferase 13 U/L (5-31); Bilirubin Total 0.4 mg/dL (0.0-1.0); Blood Urea Nitrogen 15 mg/dL (9-16); Calcium 8.9 mg/dL (8.4-10.2); Carbon Dioxide 23 mmol/L (22-29); Chloride 101 mmol/L (96-108); Creatinine Clr Calc Pharmacy 47.5; Estimated Glomerular Filt Rate 43; Glucose Random 370 mg/dL (60-115); HCG Quantitative < 2 mIU/mL; Lipase 80 U/L (8-78); Magnesium 1.7 mg/dL (1.6-2.6); Potassium 3.8 mmol/L (3.3-5.1); Sodium 133 mmol/L (135-145); Total Protein 6.7 g/dL (6.5-8.0)
[2023-08-26] MEDS: 0.9 % Sodium Chloride 1,000 ML 999 ML IV ×2 (13:10→14:33)
[2023-08-26] MEDS: Magnesium Hydrox/Alum Hydrox 30 ML ORAL.SUSP PO (13:39)
[2023-08-26] MEDS: Lidocaine HCl Viscous 2 % 15 ML SOLUTION MUCOUS MEM (13:39)
[2023-08-26] MEDS: PHENobarb/Hyoscy/Atropine/Scop 10 ML ELIXIR PO (13:39)
[2023-08-26] MEDS: Famotidine 20 MG TABLET PO (13:39)
[2023-08-26] MEDS: ondansetron HCL 4 MG/2 ML VIAL IVPUSH (14:31)
[2023-08-26] MEDS: Ketorolac Tromethamine 30 MG/ML VIAL IVPUSH (14:32)
[2023-08-26 14:35] VITALS: RESP 18
[2023-08-26 14:44] LABS: Appearance Urine Clear; Color Urine Yellow; Glucose Urine UA >=1000 mg/dL (Negative); Leukocyte Esterase Urine Negative (Negative); Nitrite Urine Negative (Negative); PH 7.5 (5.0-9.0); Specific Gravity - Urine 1.025 (1.005-1.025); UMIC TRIGGER UACC YES; Urine Blood Trace (Negative); Urine Ketones Trace mg/dL (Negative); Urine Protein >=1000 (4+) mg/dL (Neg-Trace)
[2023-08-26 14:54] LABS: Bacteria Urine 1+ (None Seen); IDNOW Serial# 08D9AD1C; Strep A Nucleic Acid Negative (Negative); UACC Culture Trigger YES
[2023-08-26 14:59] LABS: COVID-19 Test Negative (Negative); IDNOW Serial# 9DB6401D; IDNOW Serial# BCCEAD1C; Influenza A Negative (Negative); Influenza B2 Negative (Negative)
[2023-08-26 15:04] LABS: Troponin-I High Sensitivity 6.7 ng/L (<3.5-17.0)
[2023-08-26 15:52] LABS: Glucose, Whole Blood 325 mg/dL (60-115)
[2023-08-26 16:39] VITALS: BP 182/88; PULSE 80; RESP 18; TEMP 37.1; O2SAT 99
== END 2023-08-26 17:57 | disposition home or self-care (01) ==
PROVIDERS: Physician Assistant; Emergency Provider Emergency Medicine; PCP Internal Medicine Geriatric Medicine
DX: K21.9 Gastro-esophageal reflux disease without esophagitis (principal); E11.65 Type 2 diabetes mellitus with hyperglycemia; K82.9 Disease of gallbladder, unspecified; R51.9 Headache, unspecified; I10 Essential (primary) hypertension; E11.9 Type 2 diabetes mellitus without complications; Z11.52 Encounter for screening for COVID-19
CPT/HCPCS: 36415; 74176; 80053; 81001; 82947; 83690; 83735; 84484; 84702; 85025; 85610; 85730; 87086; 87502; 87635; 87651; 93005; 96361; 96374; 96375; 99284; 99285; J1885; J2405

== ENCOUNTER → 2023-08-26 11:43 | Outpatient (BNV) | payer MEDICAID, SELFPAY | PROVIDERS: Emergency Provider Emergency Medicine; PCP Internal Medicine Geriatric Medicine; Visit Provider Internal Medicine | DX: R11.10 Vomiting, unspecified (principal) | CPT/HCPCS: 93010 ==

== ENCOUNTER 2023-08-31 13:12 | Emergency (ER) | payer MEDICAID, SELFPAY ==
--- NOTE | 2023-08-31 13:39 | ED.GENADULT ---
HPI - General Adult General Chief complaint: Abdominal Pain Stated complaint: L Eye Infection Stomach Pain Vomiting Related Data Previous Rx's Medication Instructions Recorded ibuprofen 600 mg tablet 600 mg PO Q8H PRN pain #20 tabs 05/02/21 famotidine 20 mg tablet (Pepcid) 20 mg PO BID 5 days #10 tabs 08/26/23 naproxen 500 mg tablet 500 mg PO BID PRN pain 7 days #14 08/26/23 tabs losartan 50 mg tablet 50 mg PO DAILY #30 tabs 08/31/23 metoclopramide HCl 10 mg tablet 10 mg PO Q6H PRN nausea and 08/31/23 (Reglan) vomiting #14 tabs Allergies Allergy/AdvReac Type Severity Reaction Status Date / Time oxycodone [OXYCODONE] Allergy Unknown SEIZURES Verified 08/31/23 13:44 [facility] Past Medical History Onset Date is defined in the Problem List Problems that require an onset date and time if occurred within 24 hrs of arrival to the ED Aortic Dissection and Rupture; Neurologic impairment; Cardiopulmonary Arrest; Endotracheal Intubation; Insertion or Replacement of Mechanical Circulatory Assist Device Medical History Depression Anxiety Diabetes Social History Social History Unable to assess alcohol history related to: Unable to respond Alcohol intake: never Smoked in Last 30 Days: No Use of substances other than those prescribed or required for medical reasons: Yes Substance Use Type: Marijuana Advance Directives: No Advance Directives Information Provided: No Patient : No Physical Exam ED Vital Signs: BMI result Body Mass Index 25.8 Course Course Course Narrative: RME: 48 yo F w/ PMHx DM, GERD, HTN presenting to the ED c/o N/V, lightheadedness, and L eye pain x Tuesday. Was seen in our ED on 08/26 for abdominal sx and had negative w/u. Saw PCP yesterday and as given Rx Augmentin for eye but has been unable to keep it down. +decreased PO intake abdomen soft w/RUQ/epiagstric ttp. Pt keeping L eye closed on exam. No appreciable crusting/erythema or swelling Labs, UA, VA ordered Full HPI, ROS and PE to be performed by primary ED provider. Medical Decision Making Lab Data 08/31/23 14:28 08/31/23 14:28 Labs: Lab Results 08/31/23 Range/Units 14:28 WBC 9.2 (4.8-10.8) X10*3/uL RBC 4.32 (4.20-5.50) X10*6/uL Hgb 12.6 (12.0-16.0) g/dl Hct 36.0 L (37.0-47.0) % MCV 83.3 (80.0-98.0) fL MCH 29.2 (27.0-33.0) pg MCHC 35.0 (31.0-35.0) g/dl RDW 12.6 (11.0-16.0) % Plt Count 255 (160-400) X10*3/uL MPV 11.3 (9.4-12.3) fL Immature Gran % (Auto) 0.3 (0.0-0.4) % Neut % (Auto) 80.1 H (45-73) % Lymph % (Auto) 14.0 L (20-40) % [place] % (Auto) 5.1 (2-11) % Eos % (Auto) 0.1 (0-4) % Baso % (Auto) 0.4 (0-2) % Lymph # (Auto) 1.3 (1.2-4.9) X10*3/uL [place] # (Auto) 0.5 (0.1-1.2) X10*3/uL Eos # (Auto) 0.0 (0.0-0.4) X10*3/uL Baso # (Auto) 0.0 (0.0-0.2) X10*3/uL Abs Immat Gran (auto) 0.03 (0.00-0.03) X10*3/uL Absolute Neuts (auto) 7.4 (2.0-8.3) x10*3/uL Absolute Nucleated RBC 0.000 (0.0-0.012) X10*3/uL Nucleated RBC % (auto) 0.0 (0.0-0.2) /100WBC Sodium 136 (135-145) mmol/L Potassium 4.0 (3.3-5.1) mmol/L Chloride 103 (96-108) mmol/L Carbon Dioxide 23 (22-29) mmol/L Anion Gap 14 (12-20) BUN 20 H (9-16) mg/dL Creatinine 1.45 H (0.5-1.4) mg/dL Estim Creat Clear Calc 43.3 Estimated GFR 39 Random Glucose 431 H* (60-115) mg/dL Calcium 9.1 (8.4-10.2) mg/dL Magnesium 1.8 (1.6-2.6) mg/dL Total Bilirubin 0.5 (0.0-1.0) mg/dL Direct Bilirubin 0.1 (0.0-0.5) mg/dL AST 13 (5-31) U/L ALT 11 (0-31) U/L Alkaline Phosphatase 90 (39-117) U/L Total Protein 7.3 (6.5-8.0) g/dL Albumin 3.0 L (3.5-5.0) g/dL Lipase 46 (8-78) U/L Discharge Plan Discharge Clinical Impression: Abdominal pain Patient Disposition: Left W/O Completing Treatment Prescriptions: No Action ibuprofen 600 mg tablet 600 mg PO Q8H PRN (Reason: pain) Qty: 20 0RF metoclopramide HCl [Reglan] 10 mg tablet 10 mg PO Q6H PRN (Reason: nausea and vomiting) Qty: 14 0RF losartan 50 mg tablet 50 mg PO DAILY Qty: 30 0RF famotidine [Pepcid] 20 mg tablet 20 mg PO BID 5 Days Qty: 10 0RF naproxen 500 mg tablet 500 mg PO BID PRN (Reason: pain) 7 Days Qty: 14 0RF Discharge Date/Time: 08/31/23 16:53
[2023-08-31 13:41] VITALS: BP 184/101; PULSE 100; RESP 20; TEMP 37.1; O2SAT 99; BMI 25.8
[2023-08-31 15:12] LABS: Alanine Aminotransferase 11 U/L (0-31); Alkaline Phosphatase 90 U/L (39-117); Anion Gap 14 (12-20); Aspartate Amino Transferase 13 U/L (5-31); Bilirubin Direct 0.1 mg/dL (0.0-0.5); Bilirubin Total 0.5 mg/dL (0.0-1.0); Blood Urea Nitrogen 20 mg/dL (9-16); Calcium 9.1 mg/dL (8.4-10.2); Carbon Dioxide 23 mmol/L (22-29); Chloride 103 mmol/L (96-108); Creatinine Clr Calc Pharmacy 43.3; Estimated Glomerular Filt Rate 39; Glucose Random 431 mg/dL (60-115); Lipase 46 U/L (8-78); Magnesium 1.8 mg/dL (1.6-2.6); Sodium 136 mmol/L (135-145); Total Protein 7.3 g/dL (6.5-8.0)
== END 2023-08-31 16:53 | disposition left against medical advice (07) ==
PROVIDERS: Physician Assistant; Emergency Provider Emergency Medicine; PCP Internal Medicine Geriatric Medicine
DX: R10.9 Unspecified abdominal pain (principal); I10 Essential (primary) hypertension; H57.12 Ocular pain, left eye
CPT/HCPCS: 36415; 76705; 80048; 80076; 83690; 83735; 85025; 99281; 99284

== ENCOUNTER 2023-08-31 16:48 | Emergency (ER) | payer MEDICAID, SELFPAY ==
[2023-08-31 17:29] VITALS: BP 166/81; PULSE 84; RESP 17; TEMP 36.8; O2SAT 98; BMI 25.7
--- NOTE | 2023-08-31 17:59 | ED.GENADULT ---
HPI - General Adult General Chief complaint: Eye Problems Stated complaint: hyperglycemia Time Seen by Provider: 08/31/23 17:27 History of Present Illness HPI narrative: Patient is a 48-year-old female with a history of diabetes. Baseline on metformin which she is noncompliant. Was seen here 2 days ago at that time had some nausea vomiting epigastric pain. CT scan at that time done showed no evidence of obstruction abscess perforation. Patient presented earlier in the day for the high sugar and nausea. She was seen yesterday for a possible preseptal cellulitis to the left thigh. Patient unable to take her antibiotics because she feel nauseous. Not taking her metformin. Labs were drawn in the emergency department earlier shows sugar in the 450 range. Luckily patient's bicarb is normal patient's anion gap is normal. There is no evidence for diabetic ketoacidosis. An ultrasound was done earlier today. The ultrasound showed no evidence of biliary disease. Patient came back from urgent care because of the sugar being too high. She is unable to keep down any fluids. Related Data Previous Rx's Medication Instructions Recorded ibuprofen 600 mg tablet 600 mg PO Q8H PRN pain #20 tabs 05/02/21 famotidine 20 mg tablet (Pepcid) 20 mg PO BID 5 days #10 tabs 08/26/23 naproxen 500 mg tablet 500 mg PO BID PRN pain 7 days #14 08/26/23 tabs losartan 50 mg tablet 50 mg PO DAILY #30 tabs 08/31/23 metoclopramide HCl 10 mg tablet 10 mg PO Q6H PRN nausea and 08/31/23 (Reglan) vomiting #14 tabs Allergies Allergy/AdvReac Type Severity Reaction Status Date / Time oxycodone [OXYCODONE] Allergy Unknown SEIZURES Verified 08/31/23 13:44 Review of Systems Review of Systems: Positive nausea Positive eye pain to the left side Yes all other systems are reviewed and are negative PMFSH Past Medical History Attestation statement: The following information was validated with the patient. Onset Date is defined in the Problem List Problems that require an onset date and time if occurred within 24 hrs of arrival to the ED Aortic Dissection and Rupture; Neurologic impairment; Cardiopulmonary Arrest; Endotracheal Intubation; Insertion or Replacement of Mechanical Circulatory Assist Device Medical History Depression Anxiety Diabetes Social History Social History Unable to assess alcohol history related to: Unable to respond Alcohol intake: never Smoked in Last 30 Days: No Use of substances other than those prescribed or required for medical reasons: Yes Substance Use Type: Marijuana Advance Directives: No Advance Directives Information Provided: No Patient : No Physical Exam ED Vital Signs: Vital Signs - 24 hr 08/31/23 17:29 08/31/23 20:11 08/31/23 20:11 Temperature 98.2 F 98.4 F Pulse Rate 84 103 H Respiratory Rate 17 18 Blood Pressure 166/81 H 217/103 H 205/115 H Pulse Oximetry 98 98 Oxygen Delivery Method Room Air Room Air BMI result Body Mass Index 25.7 Appearance: Alert. Oriented X3. No acute distress. Eyes: Pupils equal, round and reactive to light. Positive redness to the upper eyelid on the left side. There is no probe proptosis. Extraocular muscle was intact. There is no midface tenderness. There is no gross visual changes. There is no mandibular pain. There is no malocclusion noted. There is no mastoid tenderness elicited on palpation ENT: Pharynx normal. Neck: Normal inspection. Neck supple. No lymph nodes noted. No crepitus CVS: Normal heart rate and rhythm. Pulses normal. Normal S1 and S2 Respiratory: No respiratory distress. Breath sounds normal. No Wheezing. No rales Abdomen: Soft and nontender. No rigidity. No distention. good BS x4 Skin: Skin warm and dry. Normal skin color. Normal skin turgor. Extremities: No lower extremity edema. Neurovascular intact to all extremities. No Lacerations. No Rash Neuro: Oriented X 3. No motor deficit. No sensory deficit. Moving all extermities. No slurred speech Medications Administered Discontinued Medications Generic Name Dose Route Start Last Admin Trade Name Freq PRN Reason Stop Dose Admin Sodium Chloride 1,000 mls @ 999 mls/hr 08/31/23 18:00 08/31/23 19:36 Ns IV 08/31/23 19:00 999 mls/hr .Q1H1M KIRT Administration Sodium Chloride 1,000 mls @ 999 mls/hr 08/31/23 18:00 08/31/23 19:36 Ns IV 08/31/23 19:00 999 mls/hr .Q1H1M KIRT Administration Ceftriaxone Sodium 1 gm/ 50 mls @ 100 mls/hr 08/31/23 17:56 08/31/23 20:11 Sodium Chloride IV 08/31/23 18:25 100 mls/hr ONCE ONE Administration Insulin Human Regular 7 unit 08/31/23 17:56 08/31/23 19:37 Insulin Regular, Human 100 Unit/Ml 3 Ml Vial 0.1 unit/kg (7 unit) 08/31/23 17:57 7 unit IVPUSH Administration ONCE ONE Metoclopramide HCl 10 mg 08/31/23 17:55 08/31/23 19:35 Metoclopramide Hcl 10 Mg/2 Ml Vial IVPUSH 08/31/23 17:56 10 mg ONCE ONE Administration Tetracaine HCl 3 drop 08/31/23 18:26 08/31/23 19:29 Tetracaine Hcl 0.5% Oph Kimi 5 Ml Drops EYE-LEFT 08/31/23 18:27 3 drop ONCE ONE Administration Medical Decision Making Medical Decision Making MDM Narrative: Will give patient 2 L of IV fluid. A small dose of insulin. Nausea medication. Monitor closely. CT scan of the head and orbits ordered to rule out the possibility of having orbital cellulitis. Currently in stable condition a dose of antibiotic was ordered. CT scan of the head and CT scan of the orbits showed no acute evidence of bleeding no fracture. There is no evidence for orbital cellulitis. Only preseptal inflammation noted on the left side. Patient's visual acuity on the left is 20 50. Twenty 70 on the right side actually better on the affected side. Patient neurologically intact. Given Reglan given IV fluid given insulin. Sugar coming down. Patient's electrolyte was checked earlier. There is no evidence of diabetic ketoacidosis. Will discharge patient home. Explained to patient the need to take her blood pressure medication along with her diabetes medicine. Patient states understanding. Patient will also take her antibiotic and be closely follow up on an outpatient basis. She had a CT scan done a couple days ago which showed no evidence of obstruction felt there was no need for additional CT scan at this time. Patient also had an ultrasound done earlier today. It showed no evidence of biliary disease. After IV fluids patient's sugar returned to a proximally 220. Nausea resolved. Will discharge patient home Differential Diagnosis Differential Diagnoses: The differential diagnosis associated with the presentation includes Diabetic ketoacidosis, hyperglycemia, hypertension, gastroparesis, preseptal cellulitis, orbital cellulitis Admission/Observation Consideration of admission/observation: Escalation of care including admission/observation considered No need for admission as patient's symptoms improving Lab Data MDM Lab Attestation statement: I reviewed the patient's lab results. Labs: Lab Results 08/31/23 08/31/23 Range/Units 18:51 18:52 Lactic Acid 1.7 (0.5-2.0) mmol/L Urine Color Yellow Urine Appearance Clear Urine pH 7.5 (5.0-9.0) Ur Specific [employer] >= 1.030 H (1.005-1.025) Urine Protein >=1000 (4+) H (Neg-Trace) mg/dL Urine Glucose (UA) >=1000 H (Negative) mg/dL Urine Ketones Trace (Negative) mg/dL Urine Blood Trace H (Negative) Urine Nitrite Negative (Negative) Ur Leukocyte Esterase Negative (Negative) Urine RBC 3-5 H (0-2) /HPF Urine WBC 0-5 (0-5) /HPF Ur Squamous Epith Cells 0-2 (0-2) /HPF Urine Bacteria None Seen (None Seen) Hyaline Casts 11-20 (0-2) /LPF Urine Test NEGATIVE (NEGATIVE) Independent Interpretation I performed an independent interpretation of an: CT Scan (CT scan head was negative. CT scan of the orbits showed no acute evidence of orbital cellulitis) Radiology Impression Discussion of test interpretation with radiology: I have reviewed the radiologist's reading. External Record Review Previous outpatient lab in Prescription Management Nausea medication will be prescribed Chronic Conditions Patient?s care impacted by: Diabetes and Hypertension Discharge Plan Discharge Clinical Impression: Periorbital cellulitis, Acute hyperglycemia Patient Disposition: Home, Self-Care Instructions: Diabetic Hyperglycemia (ED), Periorbital Cellulitis in Adults (ED) Prescriptions: New metoclopramide HCl [Reglan] 10 mg tablet 10 mg PO Q6H PRN (Reason: nausea and vomiting) Qty: 14 0RF losartan 50 mg tablet 50 mg PO DAILY Qty: 30 0RF No Action ibuprofen 600 mg tablet 600 mg PO Q8H PRN (Reason: pain) Qty: 20 0RF famotidine [Pepcid] 20 mg tablet 20 mg PO BID 5 Days Qty: 10 0RF naproxen 500 mg tablet 500 mg PO BID PRN (Reason: pain) 7 Days Qty: 14 0RF Referrals: Physician,Unknown J [Primary Care Provider] - 09/02/23
--- NOTE | 2023-08-31 19:54 | PC.NURSE ---
visual acuity left 20/50 and right 20/70
[2023-08-31 20:11] VITALS: BP 205/115; BP 217/103; PULSE 103; RESP 18; TEMP 36.9; O2SAT 98
--- NOTE | 2023-08-31 20:12 | MHC.EDTECH ---
This tech assumed care of patient at 1900, Hourly rounds and vitals completed BP is elevated 217/103 LT arm, 205/115 RT arm, Avery RN aware at bedside. Second set of blood Cultures obtained and sent to lab. Family at bedside and call [facility] within reach.
[2023-08-31 21:09] VITALS: BP 192/97; PULSE 97; RESP 18; TEMP 36.9; O2SAT 97
== END 2023-08-31 22:20 | disposition home or self-care (01) ==
PROVIDERS: Emergency Provider Emergency Medicine Emergency Medical Services
DX: L03.213 Periorbital cellulitis (principal); E11.65 Type 2 diabetes mellitus with hyperglycemia; R11.2 Nausea with vomiting, unspecified; R10.13 Epigastric pain; R82.90 Unspecified abnormal findings in urine
CPT/HCPCS: 36415; 70450; 70480; 81001; 81025; 82947; 83605; 87040; 96374; 96375; 99284; J0696; J2765

== ENCOUNTER 2023-09-09 13:05 | Emergency (ER) | payer MEDICAID, SELFPAY ==
[2023-09-09 13:11] VITALS: BP 166/98; PULSE 83; O2SAT 99
[2023-09-09 13:50] VITALS: BP 183/92; PULSE 70; RESP 16; TEMP 36.6; O2SAT 98; BMI 25.7
--- NOTE | 2023-09-09 13:50 | ED_ITS ---
HPI - General Adult General Chief complaint: Eye Problems Stated complaint: HAYES/N/V [id number] PER EMS Time Seen by Provider: 09/09/23 15:12 Source: patient Mode of arrival: ambulatory Limitations: no limitations History of Present Illness HPI narrative: Patient is a 48 year old assigned female at with a history of DM presenting to the emergency department today with continued eye pain and feeling generally unwell. Patient states that she has been on antibiotics for her eye but it doesn't seem to be getting better and now she is feeling generally unwell after being exposed to her grand daughter with COVID-19 and RSV. Patient denies any dizziness, lightheadedness, abdominal pain, nausea, vomiting, fever, chills, double vision, loss of vision, chest pain, difficulty breathing, shortness of breath, back pain, night sweats, pain with urination, increased urinary frequency, increased urinary urgency, blood in her urine or stool, syncope or a near syncopal episode, recent trauma or falls, bowel incontinence, bladder incontinence, bowel retention, bladder retention, or any other complaints at this time. Onset (ago): day(s) Location: eyes Severity: mild Severity scale (1-10): 3 Relieving factors: none Exacerbating factors: none Associated symptoms: denies other symptoms Treatments prior to arrival: none Related Data Previous Rx's Medication Instructions Recorded ibuprofen 600 mg tablet 600 mg PO Q8H PRN pain #20 tabs 05/02/21 famotidine 20 mg tablet (Pepcid) 20 mg PO BID 5 days #10 tabs 08/26/23 naproxen 500 mg tablet 500 mg PO BID PRN pain 7 days #14 08/26/23 tabs losartan 50 mg tablet 50 mg PO DAILY #30 tabs 08/31/23 metoclopramide HCl 10 mg tablet 10 mg PO Q6H PRN nausea and 08/31/23 (Reglan) vomiting #14 tabs Allergies Allergy/AdvReac Type Severity Reaction Status Date / Time oxycodone [OXYCODONE] Allergy Unknown SEIZURES Verified 09/09/23 13:50 Review of Systems Constitutional: Constitutional: Reports no additional constitutional complaints, Denies chills, Denies fever(s) and Denies night sweats Eyes: Eyes: Reports no additional eye complaints, Denies blurry vision, Denies change in vision, Denies diplopia, Denies eye discharge, Denies loss of vision and Reports eye pain ENT: Denies dizziness Cardiovascular: Cardiovascular: Reports no additional cardiovascular complaints, Denies chest pain, Denies lightheadedness, Denies Loss of Consciousness and Denies dyspnea Respiratory: Respiratory: Reports no additional respiratory complaints and Denies dyspnea Gastrointestinal: Gastrointestinal: Reports no additional gastrointestinal complaints, Denies abdominal pain, Denies melena, Denies hematochezia, Denies change in bowel habits and Denies change in stool character Genitourinary: Genitourinary: Denies hematuria, Denies urinary frequency, Denies dysuria, Denies urinary incontinence, Denies urinary hesitancy and Denies urinary urgency Musculoskeletal: Musculoskeletal: Reports no additional musculoskeletal complaints, Denies numbness and Denies tingling Neurologic: Denies dizziness, Denies loss of vision, Denies numbness and Denies tingling Psychiatric: Psychiatric: Reports no additional psychiatric complaints Endocrine: Endocrine: Reports no additional endocrine complaints Hematologic/Lymphatic: Hematologic/Lymphatic: Reports no additional hematologic/lymphatic complaints Allergic/Immunologic: Allergic/Immunologic: Reports no additional allergic/immunologic complaints PMFSH Past Medical History Attestation statement: The following information was validated with the patient. Source: old records reviewed and nursing notes reviewed Onset Date is defined in the Problem List Problems that require an onset date and time if occurred within 24 hrs of arrival to the ED Aortic Dissection and Rupture; Neurologic impairment; Cardiopulmonary Arrest; Endotracheal Intubation; Insertion or Replacement of Mechanical Circulatory Assist Device Medical History Depression Anxiety Diabetes Social History Social History Unable to assess alcohol history related to: Unable to respond Alcohol intake: never Substance Use Type: Marijuana Advance Directives: No Advance Directives Information Provided: No Physical Exam ED Vital Signs: Vital Signs - 24 hr 09/09/23 13:50 Temperature 98 F Pulse Rate 70 Respiratory Rate 16 Blood Pressure 183/92 H Pulse Oximetry 98 Oxygen Delivery Method Room Air BMI result Body Mass Index 25.7 Const General: cooperative, no acute distress, alert and awake Nutritional Appearance: well nourished Orientation/consciousness: patient oriented x3 Limitations: no limitations HENMT Head: Yes normal to inspection and Yes atraumatic Ears: hearing grossly normal bilaterally and external ears normal General nose exam: Normal external nose present, no nasal discharge noted and no epistaxis Face and sinus: Yes normal facial exam, No abrasion and No laceration Mouth: Normal oral and palatal mucosa present, no drooling and no muffled voice Eyes General: appearance normal, both eyes and all related structures Periorbital: periorbital findings normal Eyelids: Yes eyelids normal Conjunctivae: conjunctivae normal Pupils: Equal, round and reactive pupils present EOM: EOMs intact bilaterally Neck Neck: Yes normal visual inspection, Yes full ROM and Yes no lymphadenopathy Chest Chest palpation & inspection: normal inspection of the chest Resp Effort & Inspection: normal respiratory effort and able to speak in complete sentences GI Inspection: Yes normal to inspection Neuro General: patient oriented x3 and moves all extremities Cranial nerves: Yes Equal, round and reactive pupils present Cognition (Neuro): normal cognition Motor exam (neuro): 5/5 motor strength present throughout Sensory Exam: Normal double simultaneous stimulation for sensation Coordination: [id number] test normal Extrem General: Yes normal to inspection, Yes full ROM and Yes capillary refill normal Psych Appearance: grossly normal Mental Status: mental status grossly normal Affect: normal affect Attitude: cooperative Thought process: Normal thought process present Thought content: Normal thought content present Insight: Good insight present (Psych) Course Course Course Narrative: This is an RME: Additional HPI, ROS, PE not included below will be deferred to primary provider. Patient is a 48-year-old female who presents to the emergency department via EMS for evaluation of, she said she has been on oral antibiotics for 10 days for an infection to her left eye, with blurred vision, she states she continues to have severe pain with left eye that radiates to the back of the head. She reports no improvement in symptoms since starting antibiotics. Experiencing nausea and vomiting. She also states that her granddaughter has just test is positive for COVID-19/RSV and she lives with this granddaughter. She has been seen in the emergency department a few times over 2 weeks with similar complaint in addition to her PCP. Of note she did have orbital CT 08/31/2023 without evidence of septal cellulitis. Plan: Labs, viral testing, placed in [facility] pending bed availability Medical Decision Making Medical Decision Making MDM Narrative: Patient is a 48 year old assigned female at with a history of DM presenting to the emergency department today with continued eye pain and feeling generally unwell. Patient's physical exam was unremarkable. Patient refused any lab work. Patient's COVID-19 and influenza tests were negative. I explained my physical exam findings as well as all test results to the patient. I answered all questions asked by the patient. Patient informed me that while she was waiting, she got a phone call from her doctor and was told that her eye issue is from her diabetes and they are going to be managing it. I stressed the importance of the patient taking her medication as prescribed. I stressed the importance of the patient following up with her primary care provider. I stressed the importance of the patient returning to the emergency department im mediately if her symptoms were to worsen or if she were to develop any dizziness, shortness of breath, difficulty breathing, chest pain, blurry vision, loss of vision, nausea, vomiting, abdominal pain, fever, chills, back pain, or any other complaints. Patient verbalized agreement and understanding with this treatment plan and discharge. Differential Diagnosis Differential Diagnoses: The differential diagnosis associated with the presentation includes COVID-19 Influenza Diabetic retinopathy Viral illness Admission/Observation Consideration of admission/observation: Escalation of care including admission/observation considered Patient would have been admitted to the hospital had her work up had any findings where hospital admission was appropriate and her clinical presentation warranted hospital admission. Lab Data MDM Lab Attestation statement: I reviewed the patient's lab results. My interpretation of these studies and their corresponding values is that they are grossly normal. Labs: Lab Results 09/09/23 Range/Units 15:22 COVID-19 ([facility]) Negative (Negative) COVID-19 Clin Com See Note Influenza Type A ([facility]) Negative (Negative) Influenza Type B ([facility]) Negative (Negative) Influenza A & B Note See Note Discharge Plan Discharge Clinical Impression: Viral illness Patient Disposition: Home, Self-Care Instructions: Viral Syndrome (ED) Additional Instructions: Follow up with your primary care provider. Return to the emergency department immediately if your symptoms worsen or if you develop any dizziness, shortness of breath, difficulty breathing, chest pain, blurry vision, loss of vision, nausea, vomiting, abdominal pain, fever, chills, back pain, or any other complaints. Prescriptions: No Action ibuprofen 600 mg tablet 600 mg PO Q8H PRN (Reason: pain) Qty: 20 0RF metoclopramide HCl [Reglan] 10 mg tablet 10 mg PO Q6H PRN (Reason: nausea and vomiting) Qty: 14 0RF losartan 50 mg tablet 50 mg PO DAILY Qty: 30 0RF famotidine [Pepcid] 20 mg tablet 20 mg PO BID 5 Days Qty: 10 0RF naproxen 500 mg tablet 500 mg PO BID PRN (Reason: pain) 7 Days Qty: 14 0RF Referrals: Name,MD Ney [Primary Care Provider] - Print Language: [place]
[2023-09-09 15:50] LABS: IDNOW Serial# 9DB6401D; Influenza A Negative (Negative); Influenza B2 Negative (Negative)
[2023-09-09 16:04] LABS: IDNOW Serial# 152EDE1D
[2023-09-09 16:05] LABS: COVID-19 Test Negative (Negative)
--- NOTE | 2023-09-09 16:16 | PC.NURSE ---
Negative workup pt cleared for dc home by PA.
[2023-09-09 16:21] VITALS: BP 175/85; PULSE 70; RESP 18; TEMP 36.6; O2SAT 99
[2023-09-09] MEDS: Ibuprofen 400 MG TABLET PO (16:25)
== END 2023-09-09 16:27 | disposition home or self-care (01) ==
PROVIDERS: Nurse Practitioner Family; Emergency Provider Emergency Medicine; PCP Internal Medicine Geriatric Medicine
DX: B34.9 Viral infection, unspecified (principal); R51.9 Headache, unspecified; R11.2 Nausea with vomiting, unspecified; Z11.52 Encounter for screening for COVID-19; Z20.828 Contact with and (suspected) exposure to other viral communicable diseases
CPT/HCPCS: 87502; 87635; 99283; 99284

== ENCOUNTER 2023-09-19 11:18 | Emergency (ER) | payer MEDICAID, SELFPAY ==
[2023-09-19] VITALS (7 sets, daily range): BP systolic 150–187; BP diastolic 60–103; PULSE 70–106; RESP 18–20; TEMP 36.7; O2SAT 98–99; BMI 26.3
--- NOTE | 2023-09-19 | ECG_ITS ---
Test Reason : DIZZINESS Blood Pressure : / mmHG Vent. Rate : 073 BPM Atrial Rate : 073 BPM P-R Int : 156 ms QRS Dur : 076 ms QT Int : 416 ms P-R-T Axes : 056 063 074 degrees QTc Int : 458 ms Normal sinus rhythm Possible Left atrial enlargement Borderline ECG When compared with ECG of 26-AUG-2023 11:51, No significant change was found Referred By: Generic ED Physician Electronically Signed By:Roberto Anna
[2023-09-19 12:21] LABS: MANUAL DIFF FLAG NO
[2023-09-19 12:37] LABS: Alanine Aminotransferase 10 U/L (0-31); Albumin Level 2.6 g/dL (3.5-5.0); Alkaline Phosphatase 61 U/L (39-117); Anion Gap 7 (12-20); Aspartate Amino Transferase 13 U/L (5-31); Bilirubin Total 0.1 mg/dL (0.0-1.0); Blood Urea Nitrogen 23 mg/dL (9-16); Calcium 8.4 mg/dL (8.4-10.2); Carbon Dioxide 27 mmol/L (22-29); Chloride 108 mmol/L (96-108); Creatinine Clr Calc Pharmacy 54.8; Estimated Glomerular Filt Rate 48; Glucose Random 163 mg/dL (60-115); Magnesium 1.7 mg/dL (1.6-2.6); Potassium 4.4 mmol/L (3.3-5.1); Sodium 138 mmol/L (135-145); Total Protein 5.9 g/dL (6.5-8.0)
[2023-09-19 12:45] LABS: Troponin-I High Sensitivity 3.1 ng/L (<3.5-17.0)
[2023-09-19 12:53] LABS: Basophils Percent Auto 0.2 % (0-2); Eosinophils Absolute Auto 0.1 X10*3/uL (0.0-0.4); Hematocrit 29.3 % (37.0-47.0); Hemoglobin 9.8 g/dl (12.0-16.0); Imm Gran Abs Auto 0.02 X10*3/uL (0.00-0.03); Imm Gran Pct Auto 0.4 % (0.0-0.4); Lymphocytes Absolute Auto 1.4 X10*3/uL (1.2-4.9); Lymphocytes Percent Auto 29.1 % (20-40); Mean Corpuscular HGB Conc 33.4 g/dl (31.0-35.0); Mean Corpuscular Hemoglobin 29.3 pg (27.0-33.0); Mean Corpuscular Volume 87.5 fL (80.0-98.0); Mean Platelet Volume 10.5 fL (9.4-12.3); Monocytes Absolute Auto 0.3 X10*3/uL (0.1-1.2); Monocytes Percent Auto 5.2 % (2-11); Neutrophils Absolute Auto 3.1 x10*3/uL (2.0-8.3); Neutrophils Percent Auto 64.1 % (45-73); Platelet Count 262 X10*3/uL (160-400); Red Blood Count 3.35 X10*6/uL (4.20-5.50); Red Cell Distribution Width 12.8 % (11.0-16.0); White Blood Count 4.9 X10*3/uL (4.8-10.8)
--- NOTE | 2023-09-19 13:40 | ED_ITS ---
HPI - Dizziness General Chief Complaint: Dizziness Stated Complaint: DIZZY,HIGH BP 170/102,NO MEDS TODAY PER EMS Time Seen by Provider: 09/19/23 13:26 Source: patient Mode of arrival: EMS Limitations: no limitations History of Present Illness HPI Narrative: Patient comes to the emergency room complaining of a near syncopal episode. Patient states that today she was eating breakfast, got up from the chair started walking in the kitchen, started feeling lightheaded and was able to lower herself to the ground. Patient did not pass out. Patient denies chest pain or shortness of breath. Patient initially thought that it was her glucose being low. Her daughter checked immediately and it was in the 120s. Then, patient proceeded to check her blood pressure and it was in the 220s systolic. Patient's family called EMS, blood pressure then was in the 180s. Patient states that she is supposed to be taking losartan but did not take it this morning. At this time, patient states that she feels much better, no chest pain or shortness of breath, no lightheadedness. Of note Patient states that she recently started taking all of her prescribed medications on August 30. For about 7-8 months prior, patient has stopped taking all of her medications due to a ?tragedy? in her family. Patient recently decided to start taking care of herself. Patient denies SI or HI Related Data Previous Rx's Medication Instructions Recorded ibuprofen 600 mg tablet 600 mg PO Q8H PRN pain #20 tabs 05/02/21 famotidine 20 mg tablet (Pepcid) 20 mg PO BID 5 days #10 tabs 08/26/23 naproxen 500 mg tablet 500 mg PO BID PRN pain 7 days #14 08/26/23 tabs losartan 50 mg tablet 50 mg PO DAILY #30 tabs 08/31/23 metoclopramide HCl 10 mg tablet 10 mg PO Q6H PRN nausea and 08/31/23 (Reglan) vomiting #14 tabs ondansetron 4 mg disintegrating 4 mg PO Q8H 3 days #9 tabs 09/09/23 tablet Allergies Allergy/AdvReac Type Severity Reaction Status Date / Time oxycodone [OXYCODONE] Allergy Unknown SEIZURES Verified 09/19/23 11:29 Review of Systems 2 Review of Systems: Constitutional : No Weight loss, No Fever, No Chills, No Night Sweats, No Fatigue, No Malaise ENT/Mouth : No Hearing loss, No Ear Pain, No Nasal Congestion, No Sinus Pain, No Hoarseness, No sore throat, No Rhinorrhea, No Swallowing Difficulty Eyes: No Eye Pain, No Swelling, No Redness, No Foreign Body, No Discharge, No Vision Changes Cardiovascular : No Chest Pain, No SOB, No Dyspnea on Exertion, No Orthopnea, No Edema, No Palpitations Respiratory : No Cough, No Sputum, No Wheezing, No Smoke Exposure, No Dyspnea Gastrointestinal : No Nausea, No Vomiting, No Diarrhea, No Constipation, No abdominal Pain, No Hematochezia, No Melena Genitourinary : no irregular bleeding, No Dysuria, No Urinary Frequency, No Hematuria, No Urinary Incontinence, No Urgency, No Flank Pain, No Urinary Flow Changes, No Hesitancy Musculoskeletal : No joint pain, No Myalgias, No Joint Swelling Skin : No Skin Lesions, No rash Neuro : No Weakness, No Numbness, No Paresthesias, complaining of near syncopal episode Psych : No Anxiety/Panic, No Depression, No SI/HI/AH/VH, No Social Issues, Heme/Lymph: No Bruising, No Bleeding,No Lymphadenopathy Endocrine : No Polyuria, No Polydipsia, No Temperature Intolerance PMFSH Past Medical History Medical History Depression Anxiety Diabetes Social History Social History Unable to assess alcohol history related to: Unable to respond Alcohol intake: never Substance Use Type: Marijuana Advance Directives: No Advance Directives Information Provided: Yes Physical Exam 2 Vital Signs: Vital Signs: Last Vital Signs Temp 98.0 F 09/19/23 11:24 Pulse 78 09/19/23 13:50 Resp 20 09/19/23 13:50 BP 160/82 H 09/19/23 15:27 Pulse Ox 99 09/19/23 13:50 O2 Del Method Room Air 09/19/23 13:50 BMI result Body Mass Index 26.3 Const: Other: Appearance: Alert. Oriented X3. No acute distress. Eyes: Pupils equal, round and reactive to light. ENT: Pharynx normal. Neck: Normal inspection. Neck supple. No lymph nodes noted. No crepitus CVS: Normal heart rate and rhythm. Pulses normal. Normal S1 and S2 Respiratory: No respiratory distress. Breath sounds normal. No Wheezing. No rales Abdomen: Soft and nontender. No rigidity. No distention. Skin: Skin warm and dry. Normal skin color. Normal skin turgor. Extremities: No lower extremity edema. No Lacerations. No Rash Neuro: Oriented X 3. No motor deficit. No sensory deficit. Moving all extremities. No slurred speech. CN 2 through 12 grossly intact Psych: calm, cooperative, normal affect Medications Administered Discontinued Medications Generic Name Dose Route Start Last Admin Trade Name Naseem PRN Reason Stop Dose Admin Losartan Potassium 50 mg 09/19/23 13:39 09/19/23 13:58 Losartan Potassium 50 Mg Tablet PO 09/19/23 13:40 25 mg ONCE ONE Administration Protocol Medical Decision Making Medical Decision Making [facility] Narrative: -my interpretation of labs: Hematology 9.8, slightly lower than usual, patient does have chronic anemia. Troponin negative, chemistry unremarkable -orthostatic vitals negative -patient's blood pressure in the 180s, patient receiving her p.o. dose of losartan 50 mg which she has not taken yet. -patient was given losartan 25 mg. Patient was scared to take the 50 mg that she usually takes. Blood pressure improved to 160 systolic. Patient asymptomatic. -patient states that she is willing to continue taking 50 mg daily. Patient admits that she has not compliant with her medication. At this time, no changes in her blood pressure, patient needs to be compliant with her medications 1st. Patient will keep a log of blood pressures and then follow-up with her primary care physician. -patient states that she has enough tablets at home. Patient will continue taking 50 mg Differential Diagnosis Differential Diagnoses: The differential diagnosis associated with the presentation includes (Hypertension, near syncope, orthostatic hypotension) Admission/Observation Consideration of admission/observation: Escalation of care including admission/observation considered (Given patient's initial symptoms and vitals, patient was considered) Lab Data [facility] Lab Attestation statement: I reviewed the patient's lab results. 09/19/23 12:15 09/19/23 12:15 Labs: Lab Results 09/19/23 09/19/23 Range/Units 12:14 12:15 WBC 4.9 (4.8-10.8) X10*3/uL RBC 3.35 L D (4.20-5.50) X10*6/uL Hgb 9.8 L D (12.0-16.0) g/dl Hct 29.3 L (37.0-47.0) % MCV 87.5 (80.0-98.0) fL MCH 29.3 (27.0-33.0) pg MCHC 33.4 (31.0-35.0) g/dl RDW 12.8 (11.0-16.0) % Plt Count 262 (160-400) X10*3/uL MPV 10.5 (9.4-12.3) fL Immature Gran % (Auto) 0.4 (0.0-0.4) % Neut % (Auto) 64.1 (45-73) % Lymph % (Auto) 29.1 (20-40) % [place] % (Auto) 5.2 (2-11) % Eos % (Auto) 1.0 (0-4) % Baso % (Auto) 0.2 (0-2) % Lymph # (Auto) 1.4 (1.2-4.9) X10*3/uL [place] # (Auto) 0.3 (0.1-1.2) X10*3/uL Eos # (Auto) 0.1 (0.0-0.4) X10*3/uL Baso # (Auto) 0.0 (0.0-0.2) X10*3/uL Abs Immat Gran (auto) 0.02 (0.00-0.03) X10*3/uL Absolute Neuts (auto) 3.1 (2.0-8.3) x10*3/uL Absolute Nucleated RBC 0.000 (0.0-0.012) X10*3/uL Nucleated RBC % (auto) 0.0 (0.0-0.2) /100WBC Sodium 138 (135-145) mmol/L Potassium 4.4 (3.3-5.1) mmol/L Chloride 108 (96-108) mmol/L Carbon Dioxide 27 (22-29) mmol/L Anion Gap 7 L (12-20) BUN 23 H (9-16) mg/dL Creatinine 1.20 (0.5-1.4) mg/dL Estim Creat Clear Calc 54.8 Estimated GFR 48 Random Glucose 163 H (60-115) mg/dL Calcium 8.4 D (8.4-10.2) mg/dL Magnesium 1.7 (1.6-2.6) mg/dL Total Bilirubin 0.1 (0.0-1.0) mg/dL AST 13 (5-31) U/L ALT 10 (0-31) U/L Alkaline Phosphatase 61 (39-117) U/L Troponin I High Sens 3.1 D (<3.5-17.0) ng/L Total Protein 5.9 L (6.5-8.0) g/dL Albumin 2.6 L (3.5-5.0) g/dL Independent Interpretation I performed an independent interpretation of an: EKG Critical Care Time Critical Care Time Critical Care Time: Yes Total Critical Care Time: 60 Attestation: I have personally provided critical care time. Time includes review of lab data, radiology results, discussion with consultants, and monitoring for potential decompensation. Intervention performed as documented. Discharge Plan Discharge Clinical Impression: Hypertension, Near syncope Patient Disposition: Home, Self-Care Instructions: Hypertension (ED) Additional Instructions: Continue taking losartan 50 mg, please be compliant with your medication. Please follow-up with your primary care physician tomorrow. If you have any worsening or new symptoms, please return to the emergency room or call 911 Prescriptions: No Action ibuprofen 600 mg tablet 600 mg PO Q8H PRN (Reason: pain) Qty: 20 0RF metoclopramide HCl [Reglan] 10 mg tablet 10 mg PO Q6H PRN (Reason: nausea and vomiting) Qty: 14 0RF losartan 50 mg tablet 50 mg PO DAILY Qty: 30 0RF famotidine [Pepcid] 20 mg tablet 20 mg PO BID 5 Days Qty: 10 0RF naproxen 500 mg tablet 500 mg PO BID PRN (Reason: pain) 7 Days Qty: 14 0RF ondansetron 4 mg tablet,disintegrating 4 mg PO Q8H 3 Days Qty: 9 0RF
[2023-09-19] MEDS: Losartan Potassium 50 MG TABLET PO (13:58)
== END 2023-09-19 15:57 | disposition home or self-care (01) ==
PROVIDERS: Emergency Provider Emergency Medicine; PCP Internal Medicine Geriatric Medicine
DX: I10 Essential (primary) hypertension (principal); R55 Syncope and collapse; Z91.148 Patient's other noncompliance with medication regimen for other reason; E11.9 Type 2 diabetes mellitus without complications
CPT/HCPCS: 36415; 80053; 83735; 84484; 85025; 93005; 99283; 99285

== ENCOUNTER → 2023-09-19 12:02 | Outpatient (BNV) | payer MEDICAID, SELFPAY | PROVIDERS: Emergency Provider Emergency Medicine; PCP Internal Medicine Geriatric Medicine; Visit Provider Internal Medicine Cardiovascular Disease | DX: I10 Essential (primary) hypertension (principal) | CPT/HCPCS: 93010 ==

== ENCOUNTER 2023-09-20 12:52 | Emergency (ER) | payer MEDICAID, SELFPAY ==
[2023-09-20 13:23] VITALS: BP 186/93; BP 192/82; PULSE 86; PULSE 88; RESP 16; TEMP 37; O2SAT 98; O2SAT 99; BMI 28.3
--- NOTE | 2023-09-20 13:32 | PC.NURSE ---
Pt reports that she was seen here yesterday for similar symptoms, received blood pressure medications and was able to be discharged home. However, symptoms returned this am. Pt endorses 9/10 headache, intermittent tingling in the left arm and bilateral eye blurriness. Pt is alert and oriented x4, skin pwd, respirations even and unlabored, no apparent distress at this time
[2023-09-20 13:35] LABS: Glucose, Whole Blood 190 mg/dL (60-115)
[2023-09-20 14:00] VITALS: PULSE 87; RESP 16; O2SAT 99
[2023-09-20 14:37] LABS: Appearance Urine Clear; Color Urine Yellow; Glucose Urine UA 500 mg/dL (Negative); Leukocyte Esterase Urine Negative (Negative); Nitrite Urine Negative (Negative); PH 6.5 (5.0-9.0); UMIC TRIGGER UACC YES; Urine Blood Negative (Negative); Urine Ketones Negative (Negative); Urine Protein >=1000 (4+) mg/dL (Neg-Trace)
[2023-09-20 14:42] LABS: Bacteria Urine None Seen (None Seen); RBC Urine 0-2 /HPF (0-2); Squamous Epithelial Cell Urine 0-2 /HPF (0-2); WBC Urine 0-5 /HPF (0-5)
[2023-09-20 14:46] LABS: MANUAL DIFF FLAG NO
[2023-09-20 14:47] LABS: Basophils Percent Auto 0.2 % (0-2); Eosinophils Percent Auto 0.5 % (0-4); Hematocrit 31.5 % (37.0-47.0); Hemoglobin 10.7 g/dl (12.0-16.0); Imm Gran Abs Auto 0.01 X10*3/uL (0.00-0.03); Imm Gran Pct Auto 0.2 % (0.0-0.4); Lymphocytes Absolute Auto 1.9 X10*3/uL (1.2-4.9); Lymphocytes Percent Auto 32.8 % (20-40); Mean Corpuscular Hemoglobin 29.1 pg (27.0-33.0); Mean Corpuscular Volume 85.6 fL (80.0-98.0); Mean Platelet Volume 10.2 fL (9.4-12.3); Monocytes Absolute Auto 0.4 X10*3/uL (0.1-1.2); Monocytes Percent Auto 6.3 % (2-11); Neutrophils Absolute Auto 3.5 x10*3/uL (2.0-8.3); Platelet Count 253 X10*3/uL (160-400); Red Blood Count 3.68 X10*6/uL (4.20-5.50); Red Cell Distribution Width 12.5 % (11.0-16.0); White Blood Count 5.9 X10*3/uL (4.8-10.8)
--- NOTE | 2023-09-20 14:49 | ED_ITS ---
HPI - General Adult General Chief complaint: General Medical Stated complaint: DIZZY,HIGH BP 192/82,L ARM/NECK PAIN PER EMS Time Seen by Provider: 09/20/23 14:47 Source: patient Mode of arrival: EMS Limitations: no limitations History of Present Illness HPI narrative: 48-year-old female history of diabetes mellitus, hypertension, depression who presents emergency department for evaluation of headache, blurred vision, numbness, tingling this, lightheadedness, double vision and elevated blood pressures. The patient states that she stopped her blood pressure medications for about 7 months and then restarted them 3 weeks ago. Patient was seen here in the emergency department on 08/31/2023 and diagnosed with periorbital cellulitis and hyperglycemia. At that time the patient had a negative CT scan of the head that a CT scan of the left orbit which was consistent with cellulitis. Patient was seen again yesterday in the emergency department diagnosed with hypertension in your syncope. Patient states that she has not feeling better so she came back to the emergency department. Patient is currently complaining of left-sided headache behind her left eye that wraps around the back of her head. She states this headache is been constant for 1 month. She describes it as a dull, pounding sensation which is 9/10 at its worst. 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 She states that her blood pressure at home was 179/119 and paramedics got a blood pressure of 192/82. Patient states that she has been feeling lightheaded and dizzy. She states that she gets episodes where her lips get numb both hands and feet get numb and she feels like she is going to pass out. She states she has been compliant with her blood pressure medications. Related Data Previous Rx's Medication Instructions Recorded ibuprofen 600 mg tablet 600 mg PO Q8H PRN pain #20 tabs 05/02/21 famotidine 20 mg tablet (Pepcid) 20 mg PO BID 5 days #10 tabs 08/26/23 naproxen 500 mg tablet 500 mg PO BID PRN pain 7 days #14 08/26/23 tabs losartan 50 mg tablet 50 mg PO DAILY #30 tabs 08/31/23 metoclopramide HCl 10 mg tablet 10 mg PO Q6H PRN nausea and 08/31/23 (Reglan) vomiting #14 tabs ondansetron 4 mg disintegrating 4 mg PO Q8H 3 days #9 tabs 09/09/23 tablet [id number] 250 2 tab PO Q6H PRN headache #30 tabs 09/20/23 mg-250 mg-65 mg tablet (Excedrin Migraine) diphenhydramine HCl 25 mg capsule 25 mg PO Q6H PRN headache, 09/20/23 nausea, vomiting #20 caps lorazepam 1 mg tablet 1 mg PO TID PRN anxiety #14 tabs 09/20/23 lorazepam 1 mg tablet (Ativan) 1 mg PO TID PRN anxiety #14 tabs 09/20/23 metoclopramide HCl 10 mg tablet 10 mg PO Q6H PRN nausea and 09/20/23 (Reglan) vomiting #14 tabs Allergies Allergy/AdvReac Type Severity Reaction Status Date / Time oxycodone [OXYCODONE] Allergy Unknown SEIZURES Verified 09/19/23 11:29 Review of Systems 2 Review of Systems: Yes all other systems are reviewed and are negative [facility] Past Medical History Attestation statement: The following information was validated with the patient. [facility] Narrative: Past medical history: Diabetes mellitus, hypertension, depression, anxiety Medical History Depression Anxiety Diabetes Social History Social History Unable to assess alcohol history related to: Unable to respond Alcohol intake: never Smoked in Last 30 Days: No Use of substances other than those prescribed or required for medical reasons: Yes Substance Use Type: Marijuana Substance Use Frequency: Occasionally Advance Directives: No Advance Directives Information Provided: No Patient : No Physical Exam ED Vital Signs: Vital Signs - 24 hr 09/20/23 13:23 09/20/23 14:00 Temperature 98.6 F Pulse Rate 86 87 Respiratory Rate 16 16 Blood Pressure 186/93 H Pulse Oximetry 98 99 Oxygen Delivery Method Room Air Room Air BMI result Body Mass Index 28.3 Vital signs did reveal an elevated blood pressure of 186/93. Exam: General: Awake, alert in no distress Head: Normocephalic, atraumatic EENT: PERRL, patient's left eye is shut but you can open her eye widely. Extraocular muscles reveal a lag of the left eye when it is moving medially and the patient does have double vision, blurred contact however normal, periorbital area has no erythema, increased warmth or proptosis Neck: Supple, no adenopathy, no trachea midline or C-spine tenderness Lung: breath sounds symmetric, no wheezing, rales or rhonchi Chest: symmetric movement, nontender Heart: regular rate and rhythm, normal S1, S2 no murmurs or rubs Abdomen: soft, non-tender, nondistended, normal bowel sounds Back: no vertebral tenderness, no CVAT Extremities: no deformities, moves all extremities symmetrically Neuro: Awake, alert, oriented, normal speech, cranial nerves intact, moves all extremities symmetrically Psych: Pleasant, anxious, cooperative Medications Administered Discontinued Medications Generic Name Dose Route Start Last Admin Trade Name Freq PRN Reason Stop Dose Admin Acetaminophen 975 mg 09/20/23 15:33 09/20/23 15:41 Acetaminophen 325 Mg Tablet PO 09/20/23 15:34 975 mg ONCE STA Administration Diphenhydramine HCl 25 mg 09/20/23 15:33 09/20/23 15:41 Diphenhydramine Hcl 25 Mg Capsule PO 09/20/23 15:34 25 mg ONCE ONE Administration Lorazepam 0.5 mg 09/20/23 15:33 09/20/23 15:41 Lorazepam 0.5 Mg Tablet PO 09/20/23 15:34 0.5 mg ONCE ONE Administration Metoclopramide HCl 10 mg 09/20/23 15:33 09/20/23 15:41 Metoclopramide Hcl 10 Mg Tablet PO 09/20/23 15:34 10 mg ONCE STA Administration Medical Decision Making Medical Decision Making [facility] Narrative: 48-year-old female history of diabetes mellitus, hypertension, depression who presents emergency department for evaluation of headache, blurred vision, numbness, tingling this, lightheadedness, double vision and elevated blood pressures. Patient was noncompliant with a blood pressure medications for 7 month but restarted in 3 months prior pain. Vital signs did reveal an elevated blood pressure otherwise were unremarkable. Examination did reveal a left eye cranial nerve 3 palsy which explains the patient's double vision. Exam is otherwise unremarkable. Following evaluation was ordered: CBC, CMP, urinalysis Patient was treated with the following medications: Acetaminophen 975 mg orally, Ativan 0.5 mg orally, Reglan 10 mg orally and Benadryl 25 mg orally. 16:52 My interpretation patient's laboratory evaluation is as follows: Anemia with an H&H of 10.7 and 31.5. Elevated glucose 158. Patient's headache is most likely consistent with a migraine headache. The patient's symptoms of numbness, lightheadedness, dizziness is most consistent with hyperventilation syndrome secondary to anxiety Patient did get significant improvement of her headache with the above medications. I did discuss hypertension and the fact that antihypertension medications sometimes take 4-6 weeks before they take effect and that she should continue taking medications as prescribed. She was advised to check her blood pressure on Tuesday and Tuesday mornings and not repeat her blood pressure throughout the day. She said do this for 2 weeks and then review them with her PCP. Patient was treated with the following migraine regimen: Reglan 10 mg, Benadryl 25 mg, Excedrin migraine 2 tablets every 6 hours as needed. She was also prescribe Ativan 1.0 mg every 6 hours as needed for anxiety. Differential Diagnosis Differential Diagnoses: The differential diagnosis associated with the presentation includes Differential diagnosis includes was not limited to migraine headache, hypertensive crisis, electrolyte abnormalities, anxiety Admission/Observation Consideration of admission/observation: Escalation of care including admission/observation considered Lab Data [facility] Lab Attestation statement: I reviewed the patient's lab results. 09/20/23 14:42 09/20/23 14:42 Labs: Lab Results 09/20/23 09/20/23 09/20/23 Range/Units 13:32 14:27 14:42 WBC 5.9 (4.8-10.8) X10*3/uL RBC 3.68 L (4.20-5.50) X10*6/uL Hgb 10.7 L (12.0-16.0) g/dl Hct 31.5 L (37.0-47.0) % MCV 85.6 (80.0-98.0) fL MCH 29.1 (27.0-33.0) pg MCHC 34.0 (31.0-35.0) g/dl RDW 12.5 (11.0-16.0) % Plt Count 253 (160-400) X10*3/uL MPV 10.2 (9.4-12.3) fL Immature Gran % (Auto) 0.2 (0.0-0.4) % Neut % (Auto) 60.0 (45-73) % Lymph % (Auto) 32.8 (20-40) % [place] % (Auto) 6.3 (2-11) % Eos % (Auto) 0.5 (0-4) % Baso % (Auto) 0.2 (0-2) % Lymph # (Auto) 1.9 (1.2-4.9) X10*3/uL [place] # (Auto) 0.4 (0.1-1.2) X10*3/uL Eos # (Auto) 0.0 (0.0-0.4) X10*3/uL Baso # (Auto) 0.0 (0.0-0.2) X10*3/uL Abs Immat Gran (auto) 0.01 (0.00-0.03) X10*3/uL Absolute Neuts (auto) 3.5 (2.0-8.3) x10*3/uL Absolute Nucleated RBC 0.000 (0.0-0.012) X10*3/uL Nucleated RBC % (auto) 0.0 (0.0-0.2) /100WBC Sodium 139 (135-145) mmol/L Potassium 3.9 (3.3-5.1) mmol/L Chloride 107 (96-108) mmol/L Carbon Dioxide 24 (22-29) mmol/L Anion Gap 12 (12-20) BUN 20 H (9-16) mg/dL Creatinine 1.04 (0.5-1.4) mg/dL Estim Creat Clear Calc 63.1 Estimated GFR 57 POC Glucose 190 H (60-115) mg/dL Random Glucose 158 H (60-115) mg/dL Calcium 8.6 (8.4-10.2) mg/dL Total Bilirubin 0.2 (0.0-1.0) mg/dL AST 14 (5-31) U/L ALT 10 (0-31) U/L Alkaline Phosphatase 62 (39-117) U/L Total Protein 6.4 L (6.5-8.0) g/dL Albumin 2.8 L (3.5-5.0) g/dL Urine Color Yellow Urine Appearance Clear Urine pH 6.5 (5.0-9.0) Ur Specific [place] 1.020 (1.005-1.025) Urine Protein >=1000 (4+) H (Neg-Trace) mg/dL Urine Glucose (UA) 500 H (Negative) mg/dL Urine Ketones Negative (Negative) mg/dL Urine Blood Negative (Negative) Urine Nitrite Negative (Negative) Ur Leukocyte Esterase Negative (Negative) Urine RBC 0-2 (0-2) /HPF Urine WBC 0-5 (0-5) /HPF Ur Squamous Epith Cells 0-2 (0-2) /HPF Urine Bacteria None Seen (None Seen) Hyaline Casts 3-5 (0-2) /LPF Prescription Management I considered prescription management with: Other (Migraine medications, antianxiety medications) Chronic Conditions Patient?s care impacted by: Diabetes and Hypertension Discharge Plan Discharge Clinical Impression: Anxiety, Acute hyperventilation syndrome Headache, migraine Qualifiers: Migraine type: unspecified Status migrainosus presence: with status migrainosus Intractability: not intractable Qualified Code(s): G43.901 - Migraine, unspecified, not intractable, with status migrainosus Cranial nerve III palsy Qualifiers: Laterality: left Qualified Code(s): 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 Take your blood pressure in the mornings, Mondays , Wednesdays and Fridays and then write down these readings to discuss them with your doctor at your next visit. Do this for 2 weeks. If your doctor thinks that your blood pressures are too high then they will either increase your high blood pressure medication or start you on a more high blood pressure medication. If your doctor changes your blood pressure medications it will take anywhere from 4-6 week before these medications work to reduce your blood pressure. Follow-up with your doctor to discuss your blood pressure readings in 2 weeks Your headache symptoms are consistent with a migraine. I want you to take the following 3 medications together every 6 hours as needed for headache, nausea or vomiting. ? Reglan (metoclopramide) in 10 mg, 1 pill Benadryl 25 mg, 1 pill Excedrin migraine, 2 pills. After you take these medications, lie down in a dark quiet room and try to fall asleep. ?These medications will make you sleepy, do not drive or work after taking these medications. Follow-up with your doctor in 2 days. Please return to the emergency department if your symptoms get worse or if you develop any symptoms that are concerning to you. Take Ativan 1 mg pills, 1 pill every 6 hours as needed for anxiety. ?This medication will make you sleepy, do not drive or work while taking this medication. ?This medication can be addicting, if your concerned about addiction you can ask the pharmacist for less medications or do not get the prescription filled. Prescriptions: New diphenhydramine HCl 25 mg capsule 25 mg PO Q6H PRN (Reason: headache, nausea, vomiting) Qty: 20 0RF lorazepam 1 mg tablet 1 mg PO TID PRN (Reason: anxiety) Qty: 14 0RF Rx Instructions: Patient may ask for partial fill Excedrin Migraine 250-250-65 mg tablet 2 tab PO Q6H PRN (Reason: headache) Qty: 30 0RF metoclopramide HCl [Reglan] 10 mg tablet 10 mg PO Q6H PRN (Reason: nausea and vomiting) Qty: 14 0RF lorazepam [Ativan] 1 mg tablet 1 mg PO TID PRN (Reason: anxiety) Qty: 14 0RF Rx Instructions: Patient may request partial fill if concern for addiction No Action ibuprofen 600 mg tablet 600 mg PO Q8H PRN (Reason: pain) Qty: 20 0RF metoclopramide HCl [Reglan] 10 mg tablet 10 mg PO Q6H PRN (Reason: nausea and vomiting) Qty: 14 0RF losartan 50 mg tablet 50 mg PO DAILY Qty: 30 0RF famotidine [Pepcid] 20 mg tablet 20 mg PO BID 5 Days Qty: 10 0RF naproxen 500 mg tablet 500 mg PO BID PRN (Reason: pain) 7 Days Qty: 14 0RF ondansetron 4 mg tablet,disintegrating 4 mg PO Q8H 3 Days Qty: 9 0RF
[2023-09-20 15:03] LABS: Alanine Aminotransferase 10 U/L (0-31); Albumin Level 2.8 g/dL (3.5-5.0); Alkaline Phosphatase 62 U/L (39-117); Anion Gap 12 (12-20); Aspartate Amino Transferase 14 U/L (5-31); Bilirubin Total 0.2 mg/dL (0.0-1.0); Blood Urea Nitrogen 20 mg/dL (9-16); Calcium 8.6 mg/dL (8.4-10.2); Carbon Dioxide 24 mmol/L (22-29); Chloride 107 mmol/L (96-108); Creatinine Clr Calc Pharmacy 63.1; Estimated Glomerular Filt Rate 57; Glucose Random 158 mg/dL (60-115); Potassium 3.9 mmol/L (3.3-5.1); Sodium 139 mmol/L (135-145); Total Protein 6.4 g/dL (6.5-8.0)
[2023-09-20] MEDS: LORazepam 0.5 MG TABLET PO (15:41)
[2023-09-20] MEDS: diphenhydrAMINE HCL 25 MG CAPSULE PO (15:41)
[2023-09-20] MEDS: Acetaminophen 325 MG TABLET 975 MG PO (15:41)
[2023-09-20] MEDS: Metoclopramide HCl 10 MG TABLET PO (15:41)
== END 2023-09-20 22:12 | disposition home or self-care (01) ==
PROVIDERS: Emergency Provider Emergency Medicine Emergency Medical Services; PCP Internal Medicine Geriatric Medicine
DX: F41.9 Anxiety disorder, unspecified (principal); R06.4 Hyperventilation; G43.901 Migraine, unspecified, not intractable, with status migrainosus; H49.02 Third [oculomotor] nerve palsy, left eye; E11.9 Type 2 diabetes mellitus without complications; Z79.899 Other long term (current) drug therapy
CPT/HCPCS: 36415; 80053; 81001; 82947; 85025; 99283; 99284

== ENCOUNTER 2023-11-11 01:27 | Emergency (ER) | payer MEDICAID, SELFPAY ==
[2023-11-11] VITALS (8 sets, daily range): BP systolic 134–176; BP diastolic 73–87; PULSE 82–101; RESP 16–18; TEMP 36.1–37.1; O2SAT 97–100; BMI 31.9
--- NOTE | ~2023-11-11 | XR_ITS ---
EXAMINATION: XR CHEST CLINICAL INFORMATION: Dyspnea. Cough. COMPARISON: 05/25/2023. TECHNIQUE: Frontal view of the chest was obtained. FINDINGS: No significant abnormality is noted involving the heart, lungs, mediastinum, bony thorax or soft tissues. XR/XR chest 1V IMPRESSION: Unremarkable examination.
--- NOTE | ~2023-11-11 | XR_ITS ---
EXAMINATION: XR KNEE, LEFT CLINICAL INFORMATION: Left knee pain after fall COMPARISON: None available. TECHNIQUE: 2 views of of the left knee. FINDINGS: Bones have normal alignment and joint spaces are maintained. No fracture, subluxation or joint effusion. No arthritic deformity. Peripheral vascular calcifications are noted. XR/XR knee LT 2V IMPRESSION: No acute osseous injury at the left knee.
--- NOTE | ~2023-11-11 | XR_ITS ---
EXAMINATION: XR HIP, LEFT CLINICAL INFORMATION: Left hip pain after fall COMPARISON: None available. TECHNIQUE: Two views of the left hip. FINDINGS: The femoral head is well-positioned within the intact acetabulum. The hip joint space is maintained. No evidence of proximal femoral fracture or acetabular injury. There is no evidence of any significant degenerative or inflammatory arthropathy at the hip. The visualized soft tissues of the hip are unremarkable. There is iliac and femoral artery calcification. Multiple phleboliths are seen in the pelvis. XR/XR hip LT w PEL1V IMPRESSION: No acute abnormality at the left hip.
--- NOTE | ~2023-11-11 | US_ITS ---
EXAMINATION: US VENOUS ULTRASOUND WITH DOPPLER LOWER EXTREMITY, BILATERAL CLINICAL INFORMATION: Pitting edema of lower extremities. COMPARISON: None available. TECHNIQUE: Ultrasound of the deep veins is performed from the hip to the calf with compression sonography and color and pulse Doppler assessment. Spectral analysis with color-flow imaging is performed. FINDINGS: The common femoral vein is compressible and exhibits a normal phasic waveform, bilaterally; this suggests that the iliac veins are widely patent above. Within each proximal thigh, the visualized profunda femoris vein is patent. The visualized greater saphenous veins and saphenofemoral junctions are normal. Superficial femoral vein is patent in the proximal, mid and distal aspect of each thigh. Popliteal veins are normal to the level of the trifurcation, bilaterally, and the visualized posterior tibial and peroneal veins are grossly patent. No evidence of Leonard's cyst. There is edema within subcutaneous tissues of the legs. US/US venous duplex LE BI IMPRESSION: No evidence of deep vein thrombosis in either lower extremity.
[2023-11-11 02:09] LABS: MANUAL DIFF FLAG NO
[2023-11-11 02:12] LABS: Basophils Percent Auto 0.4 % (0-2); Eosinophils Absolute Auto 0.2 X10*3/uL (0.0-0.4); Eosinophils Percent Auto 2.5 % (0-4); Hematocrit 26.2 % (37.0-47.0); Hemoglobin 8.9 g/dl (12.0-16.0); Imm Gran Abs Auto 0.02 X10*3/uL (0.00-0.03); Imm Gran Pct Auto 0.3 % (0.0-0.4); Lymphocytes Absolute Auto 1.9 X10*3/uL (1.2-4.9); Lymphocytes Percent Auto 26.6 % (20-40); Mean Corpuscular Hemoglobin 29.8 pg (27.0-33.0); Mean Corpuscular Volume 87.6 fL (80.0-98.0); Mean Platelet Volume 10.1 fL (9.4-12.3); Monocytes Absolute Auto 0.6 X10*3/uL (0.1-1.2); Monocytes Percent Auto 7.9 % (2-11); Neutrophils Absolute Auto 4.6 x10*3/uL (2.0-8.3); Neutrophils Percent Auto 62.3 % (45-73); Platelet Count 289 X10*3/uL (160-400); Red Blood Count 2.99 X10*6/uL (4.20-5.50); White Blood Count 7.3 X10*3/uL (4.8-10.8)
[2023-11-11 02:29] LABS: Anion Gap 13 (12-20); Blood Urea Nitrogen 34 mg/dL (9-16); Calcium 8.4 mg/dL (8.4-10.2); Carbon Dioxide 20 mmol/L (22-29); Chloride 109 mmol/L (96-108); Creatinine Clr Calc Pharmacy 42.2; Estimated Glomerular Filt Rate 33; Glucose Random 134 mg/dL (60-115); Sodium 138 mmol/L (135-145)
[2023-11-11 03:09] LABS: B Type Natriuretic Peptide 132 pg/mL (<100)
[2023-11-11 05:28] LABS: Glucose, Whole Blood 121 mg/dL (60-115)
--- NOTE | 2023-11-11 07:28 | ED_ITS ---
HPI - General Adult General Chief complaint: Extremity Injury, Lower Stated complaint: swollen legs, high bp, fall Time Seen by Provider: 11/11/23 07:19 Source: patient, RN notes reviewed and old records reviewed Mode of arrival: ambulatory Limitations: no limitations History of Present Illness HPI narrative: 48 year old female with pmhx significant for DM, HTN, depression, and anxiety presents to the ED today for evaluation of LE edema x3 days. She reports swelling of both legs up to her knees. Denies associated pain with this. Denies recent travel or long car rides. Endorses previous OCP use. She reports history of high blood pressure and states her PCP recently increased her amlodipine from 5 mg to 10 mg approximately 7 days ago. Admits to chest discomfort over the past few weeks. No clear relieving or exacerbating factors. Denies chest pain. She denies headache, dizziness, vision changes, shortness of breath, dyspnea, palpitations, nausea or vomiting, numbness/tingling/weakness of the lower extremities. Additionally endorses left knee and left hip pain s/p mechanical slip and fall while at the movies with her grandchildren 4 days ago. Denies head strike or LOC. Takes Aspirin 81 mg daily. No AC. Has been ambulating with steady gait. Related Data Previous Rx's Medication Instructions Recorded ibuprofen 600 mg tablet 600 mg PO Q8H PRN pain #20 tabs 05/02/21 famotidine 20 mg tablet (Pepcid) 20 mg PO BID 5 days #10 tabs 08/26/23 naproxen 500 mg tablet 500 mg PO BID PRN pain 7 days #14 08/26/23 tabs losartan 50 mg tablet 50 mg PO DAILY #30 tabs 08/31/23 metoclopramide HCl 10 mg tablet 10 mg PO Q6H PRN nausea and 08/31/23 (Reglan) vomiting #14 tabs ondansetron 4 mg disintegrating 4 mg PO Q8H 3 days #9 tabs 09/09/23 tablet [id number]-pwinhkvwvddbk-[id number] 250 2 tab PO Q6H PRN headache #30 tabs 09/20/23 mg-250 mg-65 mg tablet (Excedrin Migraine) diphenhydramine HCl 25 mg capsule 25 mg PO Q6H PRN headache, 09/20/23 nausea, vomiting #20 caps lorazepam 1 mg tablet 1 mg PO TID PRN anxiety #14 tabs 09/20/23 lorazepam 1 mg tablet (Ativan) 1 mg PO TID PRN anxiety #14 tabs 09/20/23 metoclopramide HCl 10 mg tablet 10 mg PO Q6H PRN nausea and 09/20/23 (Reglan) vomiting #14 tabs Allergies Allergy/AdvReac Type Severity Reaction Status Date / Time oxycodone [OXYCODONE] Allergy Unknown SEIZURES Verified 09/19/23 11:29 Review of Systems 2 Review of Systems: Constitutional: No fever, chills, fatigue, night sweats, weight changes ENT/Mouth: No ear pain, hearing loss, nasal congestion, sinus pain, rhinorrhea, sore throat Eyes: No eye pain, swelling, redness, vision changes, discharge Cardio: No chest pain, palpitations, DIETZ, orthopnea, + 1+ pitting edema to b/l LE Pulm: No SOB, cough, sputum, wheezing, dyspnea, hemoptysis GI: No nausea, vomiting, hematemesis, abdominal pain, diarrhea, constipation, hematochezia, melena : No irregular bleeding, dysuria, frequency, urgency, hesitancy, hematuria, flank pain, urinary flow changes, urinary incontinence or retention MSK: No back pain, neck pain, joint pain, myalgias Skin: No lesions, rashes Neuro: No weakness, numbness, paresthesias, LOC, dizziness, headache Psych: No anxiety/panic, depression, SI/HI, AH/VH All other systems reviewed and are negative. [facility] Past Medical History Attestation statement: The following information was validated with the patient. Source: old records reviewed and nursing notes reviewed Medical History Depression Anxiety Diabetes Social History Social History Unable to assess alcohol history related to: Unable to respond Alcohol intake: never Substance Use Type: Marijuana Advance Directives: No Advance Directives Information Provided: No Physical Exam ED Vital Signs: Vital Signs - 24 hr 11/11/23 01:41 11/11/23 05:19 11/11/23 06:14 Temperature 97.0 F 98.4 F 97.7 F Pulse Rate 95 97 101 H Respiratory Rate 18 18 16 Blood Pressure 154/73 H 156/84 H 176/85 H Pulse Oximetry 98 100 98 Oxygen Delivery Method Room Air Room Air Room Air 11/11/23 08:41 11/11/23 08:42 11/11/23 08:42 Temperature Pulse Rate 89 89 93 Respiratory Rate 16 Blood Pressure 154/80 H 154/80 H 134/87 Pulse Oximetry 98 Oxygen Delivery Method Room Air 11/11/23 08:43 Temperature Pulse Rate 94 Respiratory Rate Blood Pressure 151/86 H Pulse Oximetry Oxygen Delivery Method BMI result Body Mass Index 31.9 Hypertensive, vitals otherwise WNL brief episode of tachycardia, no normalized. Const General: cooperative, comfortable and no acute distress Orientation/consciousness: patient oriented x3 Limitations: no limitations HENMT Head: Yes normal to inspection, Yes normocephalic and Yes atraumatic Eyes General: appearance normal, both eyes and all related structures Conjunctivae: conjunctivae normal Sclerae: sclerae normal Pupils: Equal, round and reactive pupils present Neck Neck: Yes normal visual inspection, Yes full ROM, Yes no lymphadenopathy and Yes no JVD Chest Chest palpation & inspection: normal inspection of the chest and normal palpation of entire chest wall Resp Effort & Inspection: normal respiratory effort and able to speak in complete sentences Auscultation: clear to auscultation bilaterally and no crackles Cardio Other: + 2+ popliteal, DP/PT pulses b/l. Jugular venous distension: no JVD Rate: regular rate Rhythm: regular rhythm GI Inspection: Yes normal to inspection Palpation (GI): Soft to palpation and nontender General: Yes no CVA tenderness Back/Spine/Pelvis Back: no CVA tenderness Skin General skin exam: no rashes or lesions noted, no ecchymosis, no petechiae and no purpura Neuro Other: Strength 5/5 intact throughout.?Sensation intact to light touch.? Neurovascular intact distally.? General: patient oriented x3, gait normal and moves all extremities Cranial nerves: Yes Equal, round and reactive pupils present Gait exam (Neuro): Normal gait present Motor exam (neuro): 5/5 motor strength present throughout Extrem Other: + No calf tenderness bilaterally. Bilateral 1+ pitting edema to lower extremities, nontender. 2+PT/DP pulses b/l. 2+ popliteal pulses b/l. No obvious joint effusion or cellulitic changes/ warmth noted to skin. Full ROM intact to left hip and left knee. There small abrasions noted to anterior left knee. No active bleeding or cellulitic changes. Strength 5/5 intact throughout. Ambulating with steady gait. General: Yes full ROM, Yes capillary refill normal and Yes normal exam except as noted Course Course Course Narrative: 906-- CBC showing a normocytic anemia with an H&H of 8.9/26.2. This is decreased from H&H of 10.7/31.5 on 09/20/2023 and H&H of 9.8/29.3 on 09/19/2023. Patient endorses mild fatigue over the last few months. I discussed this finding with my attending physician Dr. Prakash who recommends ortho vitals and OBS. If both are negative, she can follow up outpatient for this. We discussed possible blood transfusion and have decided against this as hemoglobin of approximately 9 does not warrant transfusion. Chemistry without acute electrolyte abnormality requiring intervention. BNP 132. No concern for congestive heart failure or fluid overload. ANGELIA with a BUN of 34 and creatinine of 1.65. When compared to priors, this appears chronic and to be around patient's baseline. This was also discussed with my attending physician. Lasix will be held at this time to prevent further ANGELIA. Chest x-ray unremarkable. > awaiting venous duplex of lower extremities and x-rays. 1036-- delta troponin flat > unlikely ACS. Given patient's normocytic anemia, OBS was obtained and returned negative. There is no concern for acute GI bleed. Patient does state that her menstrual period began yesterday however I do not believe this is the cause of the drop in H&H. Orthostatic vital signs show a decrease in systolic from 15 to 134 from supine to seated however this corrected on standing with a systolic BP of 151. She was asymptomatic during orthostatic vital signs. Venous duplex of bilateral lower extremities do not exhibit acute DVT. X-ray of left knee does not exhibit acute fracture or dislocation. X-ray of left hip does not show acute fracture or dislocation. Informed patient of all workup results. Advised patient to elevate legs to help with swelling. I do not feel it necessary to start her on Lasix at this time given her chronic kidney function. Educated on compression stockings. Patient has remained stable throughout ED visit today. Discussed worrisome signs and symptoms and when to return to the ED. All questions answered at this time. Patient is agreeable with disposition and stable for discharge. Medical Decision Making Medical Decision Making [facility] Narrative: 48 year old female with pmhx significant for DM, HTN, depression, and anxiety presents to the ED today for evaluation of LE edema x3 days. Patient is slightly hypertensive, vitals otherwise WNL. Reports taking her blood pressure medication yesterday however has not taken it today. Patient is nontoxic appearing in no acute distress. RRR. No chest wall tenderness or crepitus. Lungs CTA bilaterally, no crackles. No calf tenderness bilaterally. Bilateral 1+ pitting edema to lower extremities, nontender. 2+PT/DP pulses b/l. 2+ popliteal pulses b/l. No obvious joint effusion or cellulitic changes/ warmth noted to skin. Full ROM intact to left hip and left knee. There small abrasions noted to anterior left knee. No active bleeding or cellulitic changes. Strength 5/5 intact throughout. Ambulating with steady gait. Differential diagnosis includes anemia, electrolyte abnormality, DVT, CHF, fracture. Low suspicion for gout, pseudogout, lymphedema, septic arthritis, OA, NV compromise, threat to limb, compartment syndrome. Plan for labs, troponin, chest x-ray, ultrasound and x-rays. Differential Diagnosis Differential Diagnoses: The differential diagnosis associated with the presentation includes as above Admission/Observation Not indicated Lab Data [facility] Lab Attestation statement: I reviewed the patient's lab results. As above 11/11/23 02:04 11/11/23 02:04 Labs: Lab Results 11/11/23 11/11/23 11/11/23 Range/Units 02:04 05:23 08:49 WBC 7.3 (4.8-10.8) X10*3/uL RBC 2.99 L (4.20-5.50) X10*6/uL Hgb 8.9 L (12.0-16.0) g/dl Hct 26.2 L (37.0-47.0) % MCV 87.6 (80.0-98.0) fL MCH 29.8 (27.0-33.0) pg MCHC 34.0 (31.0-35.0) g/dl RDW 13.0 (11.0-16.0) % Plt Count 289 (160-400) X10*3/uL MPV 10.1 (9.4-12.3) fL Immature Gran % (Auto) 0.3 (0.0-0.4) % Neut % (Auto) 62.3 (45-73) % Lymph % (Auto) 26.6 (20-40) % [place] % (Auto) 7.9 (2-11) % Eos % (Auto) 2.5 (0-4) % Baso % (Auto) 0.4 (0-2) % Lymph # (Auto) 1.9 (1.2-4.9) X10*3/uL [place] # (Auto) 0.6 (0.1-1.2) X10*3/uL Eos # (Auto) 0.2 (0.0-0.4) X10*3/uL Baso # (Auto) 0.0 (0.0-0.2) X10*3/uL Abs Immat Gran (auto) 0.02 (0.00-0.03) X10*3/uL Absolute Neuts (auto) 4.6 (2.0-8.3) x10*3/uL Absolute Nucleated RBC 0.000 (0.0-0.012) X10*3/uL Nucleated RBC % (auto) 0.0 (0.0-0.2) /100WBC Sodium 138 (135-145) mmol/L Potassium 4.0 (3.3-5.1) mmol/L Chloride 109 H (96-108) mmol/L Carbon Dioxide 20 L (22-29) mmol/L Anion Gap 13 (12-20) BUN 34 H (9-16) mg/dL Creatinine 1.65 H (0.5-1.4) mg/dL Estim Creat Clear Calc 42.2 Estimated GFR 33 POC Glucose 121 H (60-115) mg/dL Random Glucose 134 H (60-115) mg/dL Calcium 8.4 (8.4-10.2) mg/dL Troponin I High Sens 3.0 3.2 (<3.5-17.0) ng/L B-Natriuretic Peptide 132 H (<100) pg/mL Stool Occult Blood (NEGATIVE) 11/11/23 11/11/23 Range/Units 08:51 10:09 WBC (4.8-10.8) X10*3/uL RBC (4.20-5.50) X10*6/uL Hgb (12.0-16.0) g/dl Hct (37.0-47.0) % MCV (80.0-98.0) fL MCH (27.0-33.0) pg MCHC (31.0-35.0) g/dl RDW (11.0-16.0) % Plt Count (160-400) X10*3/uL MPV (9.4-12.3) fL Immature Gran % (Auto) (0.0-0.4) % Neut % (Auto) (45-73) % Lymph % (Auto) (20-40) % [place] % (Auto) (2-11) % Eos % (Auto) (0-4) % Baso % (Auto) (0-2) % Lymph # (Auto) (1.2-4.9) X10*3/uL [place] # (Auto) (0.1-1.2) X10*3/uL Eos # (Auto) (0.0-0.4) X10*3/uL Baso # (Auto) (0.0-0.2) X10*3/uL Abs Immat Gran (auto) (0.00-0.03) X10*3/uL Absolute Neuts (auto) (2.0-8.3) x10*3/uL Absolute Nucleated RBC (0.0-0.012) X10*3/uL Nucleated RBC % (auto) (0.0-0.2) /100WBC Sodium (135-145) mmol/L Potassium (3.3-5.1) mmol/L Chloride (96-108) mmol/L Carbon Dioxide (22-29) mmol/L Anion Gap (12-20) BUN (9-16) mg/dL Creatinine (0.5-1.4) mg/dL Estim Creat Clear Calc Estimated GFR POC Glucose 129 H (60-115) mg/dL Random Glucose (60-115) mg/dL Calcium (8.4-10.2) mg/dL Troponin I High Sens (<3.5-17.0) ng/L B-Natriuretic Peptide (<100) pg/mL Stool Occult Blood NEGATIVE (NEGATIVE) Independent Interpretation I performed an independent interpretation of an: Plain X-Ray and Ultrasound Interpretation: I personally reviewed chest x-ray and agree with radiologist's interpretation. I personally reviewed x-ray left knee and agree with radiologist's interpretation. I personally reviewed x-ray left hip and agree with radiologist's interpretation. I personally reviewed venous duplex ultrasound and agree with radiologist's interpretation. Radiology Impression Discussion of test interpretation with radiology: I have reviewed the radiologist's reading. Radiologist Impression: XR chest 1V IMPRESSION: Unremarkable examination. EXAMINATION: US VENOUS ULTRASOUND WITH DOPPLER LOWER EXTREMITY, BILATERAL CLINICAL INFORMATION: Pitting edema of lower extremities. COMPARISON: None available. TECHNIQUE: Ultrasound of the deep veins is performed from the hip to the calf with compression sonography and color and pulse Doppler assessment. Spectral analysis with color-flow imaging is performed. FINDINGS: The common femoral vein is compressible and exhibits a normal phasic waveform, bilaterally; this suggests that the iliac veins are widely patent above. Within each proximal thigh, the visualized profunda femoris vein is patent. The visualized greater saphenous veins and saphenofemoral junctions are normal. Superficial femoral vein is patent in the proximal, mid and distal aspect of each thigh. Popliteal veins are normal to the level of the trifurcation, bilaterally, and the visualized posterior tibial and peroneal veins are grossly patent. No evidence of Leonard's cyst. There is edema within subcutaneous tissues of the legs. US/US venous duplex LE BI IMPRESSION: No evidence of deep vein thrombosis in either lower extremity. External Record Review External record reviewed: Inpatient record, Office record, Outpatient record, Prior outpatient labs, Prior outpatient radiology, Primary care record and Outside ED record Prescription Management I considered prescription management with: Pain Medication Chronic Conditions Patient?s care impacted by: Hypertension Social Determinants Patient?s care significantly limited by Social Determinants of Health including: Other Social Determinant of Health Critical Care Time Critical Care Time Critical Care Time: Yes Total Critical Care Time: 36 Attestation: Critical care time in the amount of 36 minutes has been provided to the patient in terms of direct patient care, frequent reevaluation, review and interpretation of medical data and results, and management of potentially life- threatening conditions. This is all outside of any medical procedures. Discharge Plan Discharge Clinical Impression: Swelling of both lower extremities, Anemia Knee pain Qualifiers: Laterality: left Hip pain Qualifiers: Laterality: left Qualified Code(s): M25.552 - Pain in left hip Patient Disposition: Home, Self-Care Instructions: AISHA Eating Plan (ED), GARDENIA Mclaughlin (DC) Additional Instructions: All of your lab results were discussed with you today. The ultrasound of both of your legs does not demonstrate clot. The x-ray of your left knee does not demonstrate fracture. The x-ray of your left hip does not demonstrate fracture. Make sure to elevate your legs above your heart to help with swelling. We discussed compression stockings that you should wear daily to reduce/ prevent leg swelling. You can purchase these at any drug store. Stick to a heart healthy and low-salt diet. Please follow-up with your primary care provider this week regarding results discussed today. Please return for new or worsening symptoms. Prescriptions: No Action ibuprofen 600 mg tablet 600 mg PO Q8H PRN (Reason: pain) Qty: 20 0RF metoclopramide HCl [Reglan] 10 mg tablet 10 mg PO Q6H PRN (Reason: nausea and vomiting) Qty: 14 0RF losartan 50 mg tablet 50 mg PO DAILY Qty: 30 0RF famotidine [Pepcid] 20 mg tablet 20 mg PO BID 5 Days Qty: 10 0RF naproxen 500 mg tablet 500 mg PO BID PRN (Reason: pain) 7 Days Qty: 14 0RF ondansetron 4 mg tablet,disintegrating 4 mg PO Q8H 3 Days Qty: 9 0RF diphenhydramine HCl 25 mg capsule 25 mg PO Q6H PRN (Reason: headache, nausea, vomiting) Qty: 20 0RF lorazepam 1 mg tablet 1 mg PO TID PRN (Reason: anxiety) Qty: 14 0RF Rx Instructions: Patient may ask for partial fill Excedrin Migraine 250-250-65 mg tablet 2 tab PO Q6H PRN (Reason: headache) Qty: 30 0RF metoclopramide HCl [Reglan] 10 mg tablet 10 mg PO Q6H PRN (Reason: nausea and vomiting) Qty: 14 0RF lorazepam [Ativan] 1 mg tablet 1 mg PO TID PRN (Reason: anxiety) Qty: 14 0RF Rx Instructions: Patient may request partial fill if concern for addiction Referrals: [facility] Family Medicine [Provider Group] [facility] [Provider Group] Interventions: ED Discharge Assessment Last Done: 11/11/23 12:51 Discharge Date/Time: 11/11/23 12:51
[2023-11-11 08:55] LABS: Glucose, Whole Blood 129 mg/dL (60-115)
[2023-11-11 09:17] LABS: Troponin-I High Sensitivity 3.2 ng/L (<3.5-17.0)
[2023-11-11 10:16] LABS: OBS Int Ctl Valid YES; OBS1 NEGATIVE (NEGATIVE)
== END 2023-11-11 12:51 | disposition home or self-care (01) ==
PROVIDERS: Physician Assistant Medical; Emergency Provider Emergency Medicine Emergency Medical Services; PCP Internal Medicine Geriatric Medicine
DX: R60.0 Localized edema (principal); M25.552 Pain in left hip; M25.562 Pain in left knee; D64.9 Anemia, unspecified; E11.9 Type 2 diabetes mellitus without complications; I10 Essential (primary) hypertension; Z79.82 Long term (current) use of aspirin; Z79.899 Other long term (current) drug therapy; Z91.81 History of falling
CPT/HCPCS: 36415; 71045; 73502; 73560; 80048; 82272; 82947; 83880; 84484; 85025; 93970; 99284

== ENCOUNTER 2023-12-19 17:31 | Outpatient (REF) | payer MEDICAID, SELFPAY ==
[2023-12-20 20:39] LABS: C. trachomatis RNA TMA NOT DETECTED (NOT DETECTED); N. gonorrhoeae RNA TMA NOT DETECTED (NOT DETECTED)
== END 2023-12-19 17:32 | disposition home or self-care (01) ==
LOC: HO.HHCLNP 17:31
PROVIDERS: Visit Provider Internal Medicine Geriatric Medicine
DX: N89.8 Other specified noninflammatory disorders of vagina (principal)
CPT/HCPCS: 36415; 81513; 87491; 87591

== ENCOUNTER 2023-12-20 08:35 | Outpatient (REF) | payer MEDICAID, SELFPAY ==
[2023-12-20 12:18] LABS: Creatinine Urine 40.63 mg/dL
[2023-12-20 12:19] LABS: B Type Natriuretic Peptide 112 pg/mL (<100)
[2023-12-20 12:36] LABS: Anion Gap 10 (12-20); Blood Urea Nitrogen 48 mg/dL (9-16); Calcium 8.6 mg/dL (8.4-10.2); Carbon Dioxide 23 mmol/L (22-29); Chloride 110 mmol/L (96-108); Cholesterol 269 mg/dL (<200); Estimated Glomerular Filt Rate 25; Glucose Random 88 mg/dL (60-115); HDL Cholesterol 72 mg/dL (>40); LDL Cholesterol Calculated 183 mg/dL (<100); Potassium 4.8 mmol/L (3.3-5.1); Sodium 138 mmol/L (135-145); Triglycerides 70 mg/dL (<150)
== END 2023-12-20 08:36 | disposition home or self-care (01) ==
LOC: HO.HHCL 08:35
PROVIDERS: Visit Provider Internal Medicine Geriatric Medicine
DX: E11.65 Type 2 diabetes mellitus with hyperglycemia (principal); E11.29 Type 2 diabetes mellitus with other diabetic kidney complication; R80.9 Proteinuria, unspecified
CPT/HCPCS: 36415; 80048; 80061; 82043; 82570; 83880

== ENCOUNTER 2023-12-26 09:42 | Outpatient (REF) | payer MEDICAID, SELFPAY ==
[2023-12-29 08:58] LABS: TS Negative Control Passed; TS Panel A 0; TS Panel B 0; TS Positive Control Passed; TSpotTB Negative (Negative)
== END 2023-12-26 09:43 | disposition home or self-care (01) ==
LOC: HO.HHCL 09:42
PROVIDERS: Visit Provider Internal Medicine Geriatric Medicine
DX: Z11.1 Encounter for screening for respiratory tuberculosis (principal)
CPT/HCPCS: 36415; 86481

== ENCOUNTER 2024-01-11 13:03 | Outpatient (AMB) | payer MEDICAID, SELFPAY ==
--- NOTE | 2024-01-11 13:05 | HO.NEPHOV_ITS ---
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 She was recently diagnosed with hypertension. Initially she was started with amlodipine and she started developing swelling. Amlodipine was discontinued. Hydrochlorothiazide 25 mg was added. Edema has subsided. Her baseline serum creatinine was around 1.04 mg/dL in August 2023. In October creatinine bumped up to 1.6 and as of November creatinine was 2.12 and hence this referral. She had a urine analysis which showed significant proteinuria with a urine protein creatinine ratio of 4630. She is on losartan 100 mg a day for control blood pressure and for renal protection. She has also been taking NSAIDs every now and then and last dose was 600 mg ibuprofen couple of weeks ago. No history of smoking cigarettes she uses smoke marijuana which he quit 5 months ago. 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 No history of renal colic abuse This is a strong family history of diabetes mellitus and mother from end st age renal disease Today she has no specific complaints. No headache nausea vomiting. No shortness of breath. No polyuria polydipsia. No edema. No rash no fever. [facility] Medical History (Updated 01/11/24 @ 13:43 by Spencer Bauman MD) Depression Anxiety Diabetes Social History Unable to assess alcohol history related to: Unable to respond Alcohol intake: never Substance Use Type: Marijuana Physical Exam Vital Signs: Last Vital Signs Pulse 94 01/11/24 13:06 BP 138/78 01/11/24 13:06 Pulse Ox 99 01/11/24 13:06 Oxygen Delivery Method Room Air 01/11/24 13:06 BMI result Body Mass Index 31.4 Blood pressure was 120/70. No orthostatic changes. Const General: comfortable Nutritional Appearance: well nourished Orientation/consciousness: patient oriented x3 HEENT Head: No normal to inspection Mouth: moist mucous membranes Neck Neck: Yes supple and Yes no JVD Resp Auscultation: clear to auscultation bilaterally, no rales and rub present Cardio Jugular venous distension: no JVD Palpation: no palpable S3 and no palpable S4 Heart sounds: no rubs GI Palpation (GI): Soft to palpation and nontender Percussion: No Fluid wave present General: Yes no CVA tenderness Back/Spine/Pelvis Back: no CVA tenderness Skin General skin exam: no rashes or lesions noted Neuro General: patient oriented x3 Extrem General: Yes no pedal edema and No clubbing Results Reviewed Nephrology Results: Hgb 8.9 g/dl (12.0-16.0) L 11/11/23 WBC 7.3 X10*3/uL (4.8-10.8) 11/11/23 Plt Count 289 X10*3/uL (160-400) 11/11/23 Sodium 138 mmol/L (135-145) 12/20/23 Potassium 4.8 mmol/L (3.3-5.1) 12/20/23 Chloride 110 mmol/L (96-108) H 12/20/23 Carbon Dioxide 23 mmol/L (22-29) 12/20/23 BUN 48 mg/dL (9-16) H 12/20/23 Creatinine 2.12 mg/dL (0.5-1.4) H 12/20/23 Calcium 8.6 mg/dL (8.4-10.2) 12/20/23 Urine Protein >=1000 (4+) mg/dL (Neg-Trace) H 4 Urine Creatinine 40.63 mg/dL 12/20/23 Assessment & Plan Assessment & Plan (1) CKD (chronic kidney disease): Code(s): N18.9 - Chronic kidney disease, unspecified Category: Medical Plan: . (2) Anemia: Code(s): D64.9 - Anemia, unspecified Category: Medical (3) Hypertension: Code(s): I10 - Essential (primary) hypertension Category: Medical (4) Diabetes: Code(s): E11.9 - Type 2 diabetes mellitus without complications Category: Medical Plan 48-year-old woman with chronic kidney disease with nephrotic range proteinuria in the setting of longstanding diabetes mellitus. She is ANGELIA superimposed on chronic kidney disease. Underlying CKD is most likely due to diabetic kidney disease. However nondiabetic causes should be ruled out. The superimposed ANGELIA may be due to hypoperfusion from use of diuretics along with ARB and NSAIDs. Obstructive uropathy should be ruled out. Clinically no reason to believe that she is any active glomerulonephritis or interstitial disease. Reason urine sediments were bland. Blood pressure is well controlled. She is mild anemia Plan Decrease HCTZ down to 12.5 mg a day and recheck renal panel to see if there is any improvement in renal function. Meantime stay on low-sodium diet and increase fluid intake. Workup ordered for CKD along with proteinuria. Since she is anemia along with CKD I will check serum electrophoresis as well. I have discussed importance of tight control of blood pressure and blood sugar to slow the progression of renal disease. Continue overt nephrotoxic agents and avoid NSAIDs. Agree with XIAO inhibition with losartan and continue with SGLT2 inhibitors for cardiorenal protection. Order renal ultrasonogram to assess echogenicity and to rule out hydronephrosis. Further workup will be determined by the outcome with a baseline investigations. I will keep you updated with the progress. Thank you Orders: Orders IRON PROFILE 1 Week N18.5 - Chronic kidney disease, stage 5, N18.9 - Chronic kidney disease, unspecified Comprehensive Met. Panel 1 Week N18.9 - Chronic kidney disease, unspecified Protein Electrophoresis, Serum 1 Week N18.9 - Chronic kidney disease, unspecified US renal BI Today N18.9 - Chronic kidney disease, unspecified Complete Blood Count Auto Diff 1 Week N18.30 - Chronic kidney disease, stage 3 unspecified, N18.9 - Chronic kidney disease, unspecified Parathyroid Hormone Intact 1 Week N18.9 - Chronic kidney disease, unspecified Complement C3 1 Week N18.9 - Chronic kidney disease, unspecified Complement C4 1 Week N18.9 - Chronic kidney disease, unspecified Medications: New hydrochlorothiazide 12.5 mg PO DAILY 30 tabs 0RF Discontinued ibuprofen Discontinued Reason: Doctor's Order 600 mg PO Q8H PRN 20 tabs 0RF pain metoclopramide HCl (Reglan) Discontinued Reason: Patient no longer taking 10 mg PO Q6H PRN 14 tabs 0RF nausea and vomiting [id number] 250-250-65 mg (Excedrin Migraine) Discontinued Reason: Patient Completed Course 2 tabs PO Q6H PRN 30 tabs 0RF headache diphenhydramine HCl Discontinued Reason: Patient no longer taking 25 mg PO Q6H PRN 20 caps 0RF headache, nausea, vomiting lorazepam (Ativan) Patient may request partial fill if concern for addiction Discontinued Reason: Patient no longer taking 1 mg PO TID PRN 14 tabs 0RF anxiety naproxen Discontinued Reason: Patient no longer taking 500 mg PO BID 7 days PRN 14 tabs 0RF pain losartan Discontinued Reason: Patient no longer taking 50 mg PO DAILY 30 tabs 0RF metoclopramide HCl (Reglan) Discontinued Reason: Patient no longer taking 10 mg PO Q6H PRN 14 tabs 0RF nausea and vomiting Coding Level of Care Code New Pt Level 4 (63528) Diagnoses CKD (chronic kidney disease) N18.9 Anemia D64.9 Hypertension I10 Diabetes E11.9
[2024-01-11 13:06] VITALS: BP 138/78; PULSE 94; O2SAT 99; BMI 31.4
== END 2024-01-11 13:41 | disposition home or self-care (01) ==
LOC: HO.HKAM 13:03
PROVIDERS: PCP Internal Medicine Geriatric Medicine; Referring Provider Internal Medicine Geriatric Medicine; Visit Provider Internal Medicine Hypertension Specialist
DX: I12.9 Hypertensive chronic kidney disease with stage 1 through stage 4 chronic kidney disease, or unspecified chronic kidney disease (principal); N18.9 Chronic kidney disease, unspecified; D64.9 Anemia, unspecified; E11.9 Type 2 diabetes mellitus without complications
CPT/HCPCS: 99204

== ENCOUNTER → 2024-01-11 13:03 | Outpatient (BNVA) | payer MEDICAID, SELFPAY | PROVIDERS: PCP Internal Medicine Geriatric Medicine; Referring Provider Internal Medicine Geriatric Medicine; Visit Provider Internal Medicine Hypertension Specialist | DX: E11.22 Type 2 diabetes mellitus with diabetic chronic kidney disease (principal); I12.9 Hypertensive chronic kidney disease with stage 1 through stage 4 chronic kidney disease, or unspecified chronic kidney disease; N18.9 Chronic kidney disease, unspecified; D64.9 Anemia, unspecified | CPT/HCPCS: 99202 ==

== ENCOUNTER 2024-01-18 09:59 | Outpatient (REF) | payer MEDICAID, SELFPAY | END 2024-01-18 10:00 | disposition home or self-care (01) | LOC: HO.MAMMO 09:59 | PROVIDERS: PCP Internal Medicine Geriatric Medicine; Visit Provider Internal Medicine Geriatric Medicine | DX: Z12.31 Encounter for screening mammogram for malignant neoplasm of breast (principal) | CPT/HCPCS: 36415; 77063; 77067; 80048; 83540; 84165; 85025; 86160 ==

== ENCOUNTER → 2024-01-18 10:30 | Outpatient (BNV) | payer MEDICAID, SELFPAY | PROVIDERS: PCP Internal Medicine Geriatric Medicine; Visit Provider Radiology Diagnostic Radiology | DX: Z12.31 Encounter for screening mammogram for malignant neoplasm of breast (principal) | CPT/HCPCS: 77063; 77067 ==

== ENCOUNTER 2024-01-18 11:20 | Outpatient (REF) | payer MEDICAID, SELFPAY ==
[2024-01-18 13:13] LABS: MANUAL DIFF FLAG NO
[2024-01-18 13:15] LABS: Basophils Percent Auto 0.3 % (0-2); Eosinophils Absolute Auto 0.2 X10*3/uL (0.0-0.4); Eosinophils Percent Auto 3.1 % (0-4); Hematocrit 31.2 % (37.0-47.0); Hemoglobin 10.3 g/dl (12.0-16.0); Imm Gran Abs Auto 0.02 X10*3/uL (0.00-0.03); Imm Gran Pct Auto 0.3 % (0.0-0.4); Lymphocytes Absolute Auto 1.4 X10*3/uL (1.2-4.9); Lymphocytes Percent Auto 23.6 % (20-40); Mean Corpuscular Hemoglobin 28.9 pg (27.0-33.0); Mean Corpuscular Volume 87.6 fL (80.0-98.0); Mean Platelet Volume 11.3 fL (9.4-12.3); Monocytes Absolute Auto 0.5 X10*3/uL (0.1-1.2); Monocytes Percent Auto 7.9 % (2-11); Neutrophils Percent Auto 64.8 % (45-73); Platelet Count 270 X10*3/uL (160-400); Red Blood Count 3.56 X10*6/uL (4.20-5.50); Red Cell Distribution Width 12.4 % (11.0-16.0); White Blood Count 6.1 X10*3/uL (4.8-10.8)
[2024-01-18 13:56] LABS: Anion Gap 13 (12-20); Blood Urea Nitrogen 76 mg/dL (9-16); Calcium 9.2 mg/dL (8.4-10.2); Carbon Dioxide 18 mmol/L (22-29); Chloride 110 mmol/L (96-108); Estimated Glomerular Filt Rate 22; Glucose Random 177 mg/dL (60-115); Iron 55 mcg/dL (30-160); Percent Iron Saturation 18 % (15-50); Potassium 4.4 mmol/L (3.3-5.1); Sodium 137 mmol/L (135-145); Total Iron Binding Capacity 307 mcg/dL (228-428); Unsaturated Iron Binding 252 ug/dL
[2024-01-19 23:03] LABS: Prot Elec - Albumin 3.5 g/dL (3.8-4.8); Prot Elec - Alpha1 0.3 g/dL (0.2-0.3); Prot Elec - Alpha2 0.8 g/dL (0.5-0.9); Prot Elec - Beta 1 0.6 g/dL (0.4-0.6); Prot Elec - Beta 2 0.9 g/dL (0.2-0.5); Prot Elec - Gamma 1.3 g/dL (0.8-1.7); Prot Elec - Total Protein 7.3 g/dL (6.1-8.1)
== END 2024-01-18 11:21 | disposition home or self-care (01) ==
LOC: HO.HHCL 11:20
PROVIDERS: Internal Medicine Hypertension Specialist; Visit Provider Internal Medicine Geriatric Medicine
DX: I10 Essential (primary) hypertension (principal); N18.9 Chronic kidney disease, unspecified; E11.65 Type 2 diabetes mellitus with hyperglycemia
CPT/HCPCS: 36415; 80048; 83540; 84165; 85025; 86160

== ENCOUNTER 2024-01-20 11:16 | Outpatient (REF) | payer MEDICAID, SELFPAY ==
--- NOTE | ~2024-01-20 | US_ITS ---
EXAMINATION: US RETROPERITONEAL LIMITED (RENAL ONLY) CLINICAL INFORMATION: Chronic kidney disease, unspecified. COMPARISON: Ultrasound abdomen limited 08/31/2023. CT abdomen and pelvis 08/26/2023. Renal ultrasound 08/24/2018. TECHNIQUE: Real-time imaging of the kidneys. FINDINGS: RIGHT KIDNEY: 9.8 x 4.6 x 5.2 cm (SAG x AP x TRV). The kidney is normal in size, contour, and echogenicity. Renal cortical thickness is normal. No calculi or focal parenchymal lesions. No hydronephrosis. LEFT KIDNEY: 10.0 x 7.3 x 5.9 cm (SAG x AP x TRV). The kidney is normal in size, contour, and echogenicity. Renal cortical thickness is normal. No calculi or focal parenchymal lesions. No hydronephrosis. US/US renal BI IMPRESSION: Normal renal ultrasound.
[2024-01-20 12:59] LABS: Alanine Aminotransferase 16 U/L (0-31); Albumin Level 3.2 g/dL (3.5-5.0); Alkaline Phosphatase 71 U/L (39-117); Anion Gap 12 (12-20); Aspartate Amino Transferase 15 U/L (5-31); Bilirubin Total 0.2 mg/dL (0.0-1.0); Blood Urea Nitrogen 69 mg/dL (9-16); Carbon Dioxide 19 mmol/L (22-29); Chloride 111 mmol/L (96-108); Estimated Glomerular Filt Rate 23; Glucose Random 285 mg/dL (60-115); Potassium 4.4 mmol/L (3.3-5.1); Sodium 138 mmol/L (135-145); Total Protein 7.6 g/dL (6.5-8.0)
[2024-01-20 13:04] LABS: Parathyroid Hormone Intact 111.6 pg/mL (8.7-77.1)
[2024-01-20 14:50] LABS: Creatinine Urine 36.44 mg/dL
[2024-01-25 02:47] LABS: Complement C3 106 mg/dL (83-193)
== END 2024-01-20 11:17 | disposition home or self-care (01) ==
LOC: HO.US 11:16
PROVIDERS: PCP Internal Medicine Geriatric Medicine; Visit Provider Internal Medicine Hypertension Specialist
DX: I12.9 Hypertensive chronic kidney disease with stage 1 through stage 4 chronic kidney disease, or unspecified chronic kidney disease (principal); E11.22 Type 2 diabetes mellitus with diabetic chronic kidney disease; N18.9 Chronic kidney disease, unspecified; E11.65 Type 2 diabetes mellitus with hyperglycemia
CPT/HCPCS: 36415; 76775; 80053; 82043; 82570; 83970; 86160

== ENCOUNTER 2024-02-01 13:05 | Outpatient (REF) | payer MEDICAID, SELFPAY ==
[2024-02-01 16:46] LABS: Anion Gap 17 (12-20); Blood Urea Nitrogen 42 mg/dL (9-16); Calcium 9.1 mg/dL (8.4-10.2); Carbon Dioxide 20 mmol/L (22-29); Chloride 105 mmol/L (96-108); Estimated Glomerular Filt Rate 27; Glucose Random 228 mg/dL (60-115); Potassium 4.7 mmol/L (3.3-5.1); Sodium 137 mmol/L (135-145)
== END 2024-02-01 13:06 | disposition home or self-care (01) ==
LOC: HO.HHCL 13:05
PROVIDERS: Visit Provider Internal Medicine Hypertension Specialist
DX: I12.9 Hypertensive chronic kidney disease with stage 1 through stage 4 chronic kidney disease, or unspecified chronic kidney disease (principal); E11.22 Type 2 diabetes mellitus with diabetic chronic kidney disease; N18.9 Chronic kidney disease, unspecified; D64.9 Anemia, unspecified
CPT/HCPCS: 36415; 80048; 99212

== ENCOUNTER 2024-02-01 13:17 | Outpatient (AMB) | payer MEDICAID, SELFPAY ==
[2024-02-01 13:19] VITALS: BP 134/94; PULSE 88; O2SAT 98; BMI 32.2
--- NOTE | 2024-02-01 13:19 | HO.NEPHOV ---
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 Accompanied by: Self / Same As Patient Allergies oxycodone [OXYCODONE] Allergy (Unknown, Verified 02/01/24 13:22) SEIZURES Medication List - Last Reconciled 02/01/24 by Spencer Bauman MD aspirin 1 tab PO QAM empagliflozin (Jardiance) 10 mg PO DAILY famotidine (Pepcid) 20 mg PO BID PRN glipizide ER 10 mg PO QAM hydralazine 25 mg PO TID losartan 50 mg PO DAILY metformin ER 1,000 mg PO DAILY ondansetron 4 mg PO Q8H PRN HPI Comments Details: Franny is a pleasant woman with a history of diabetes mellitus for more than 30 years referred for evaluation of renal insufficiency She tells me that her blood sugar has been reasonably well controlled with a recent A1c of 6.2%. She was recently diagnosed with hypertension. Initially she was started with amlodipine and she started developing swelling. Amlodipine was discontinued. Hydrochlorothiazide 25 mg was added. Edema has subsided. Her baseline serum creatinine was around 1.04 mg/dL in August 2023. In October creatinine bumped up to 1.6 and as of November creatinine was 2.12 and hence this referral. She had a urine analysis which showed significant proteinuria with a urine protein creatinine ratio of 4630. She is on losartan 100 mg a day for control blood pressure and for renal protection. She has also been taking NSAIDs every now and then and last dose was 600 mg ibuprofen couple of weeks ago. No history of smoking cigarettes she uses smoke marijuana which he quit 5 months ago. 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 No history of renal colic abuse This is a strong family history of diabetes mellitus and mother from end stage renal disease Today she has no specific complaints. No headache nausea vomiting. No shortness of breath. No polyuria polydipsia. No edema. No rash no fever. 02/01/2024. Given has stopped taking NSAIDs. She complains of left upper back pain. There is some confusion about her medications. She is stopped taking losartan. All medications were reviewed. COUNT INCLUDES THE [facility] Medical History (Updated 01/11/24 @ 13:43 by Spencer Bauman MD) Depression Anxiety Diabetes Social History Unable to assess alcohol history related to: Unable to respond Alcohol intake: never Substance Use Type: Marijuana Physical Exam Vital Signs: Last Vital Signs Pulse 88 02/01/24 13:19 BP 134/94 H 02/01/24 13:19 Pulse Ox 98 02/01/24 13:19 Oxygen Delivery Method Room Air 02/01/24 13:19 BMI result Body Mass Index 32.2 Blood pressure was 120/70. No orthostatic changes. Const General: comfortable Nutritional Appearance: well nourished Orientation/consciousness: patient oriented x3 HEENT Head: No normal to inspection Mouth: moist mucous membranes Neck Neck: Yes supple and Yes no JVD Resp Auscultation: clear to auscultation bilaterally, no rales and rub present Cardio Jugular venous distension: no JVD Palpation: no palpable S3 and no palpable S4 Heart sounds: no rubs GI Palpation (GI): Soft to palpation and nontender Percussion: No Fluid wave present General: Yes no CVA tenderness Back/Spine/Pelvis Back: no CVA tenderness Skin General skin exam: no rashes or lesions noted Neuro General: patient oriented x3 Extrem General: Yes no pedal edema and No clubbing Results Reviewed Nephrology Results: Hgb 10.3 g/dl (12.0-16.0) L 01/18/24 WBC 6.1 X10*3/uL (4.8-10.8) 01/18/24 Plt Count 270 X10*3/uL (160-400) 01/18/24 Sodium 138 mmol/L (135-145) 01/20/24 Potassium 4.4 mmol/L (3.3-5.1) 01/20/24 Chloride 111 mmol/L (96-108) H 01/20/24 Carbon Dioxide 19 mmol/L (22-29) L 01/20/24 BUN 69 mg/dL (9-16) H 01/20/24 Creatinine 2.31 mg/dL (0.5-1.4) H 01/20/24 Calcium 9.0 mg/dL (8.4-10.2) 01/20/24 PTH Intact 111.6 pg/mL (8.7-77.1) H 01/20/24 Urine Protein >=1000 (4+) mg/dL (Neg-Trace) H 09/20/23 Urine Creatinine 36.44 mg/dL 01/20/24 Renal US 01/20/24 Assessment & Plan Assessment & Plan (1) CKD (chronic kidney disease): Code(s): N18.9 - Chronic kidney disease, unspecified Category: Medical Plan: . (2) Anemia: Code(s): D64.9 - Anemia, unspecified Category: Medical (3) Hypertension: Code(s): I10 - Essential (primary) hypertension Category: Medical (4) Diabetes: Code(s): E11.9 - Type 2 diabetes mellitus without complications Category: Medical Plan 48-year-old woman with chronic kidney disease with nephrotic range proteinuria in the setting of longstanding diabetes mellitus. Underlying CKD is most likely due to diabetic kidney disease. However nondiabetic causes should be ruled out. The superimposed ANGELIA may be due to hypoperfusion from use of diuretics along with ARB and NSAIDs. No obstructive uropathy based on renal ultrasonogram . Clinically no reason to believe that she is any active glomerulonephritis or interstitial disease. Recent urinalysis showed bland sediment Creatinine is essentially unchanged No monoclonal proteins Serum complements C3 and C4 are normal. Blood pressure is acceptable She is mild anemia Hemoglobin is improved Plan Restart losartan 50 mg daily for renal protection in view of the proteinuria Meantime stay on low-sodium diet and increase fluid intake. I have discussed importance of tight control of blood pressure and blood sugar to slow the progression of renal disease. Continue overt nephrotoxic agents and avoid NSAIDs. continue with SGLT2 inhibitors for cardiorenal protection. Given the degree of renal failure I would avoid using metformin due to risk of lactic acidosis Medications: New losartan 50 mg PO DAILY 90 tabs 1RF Coding Level of Care Code Est Pt Level 4 (94101) Diagnoses CKD (chronic kidney disease) N18.9 Anemia D64.9 Hypertension I10 Diabetes E11.9
== END 2024-02-01 13:42 | disposition home or self-care (01) ==
LOC: HO.HKAM 13:17
PROVIDERS: PCP Internal Medicine Geriatric Medicine; Visit Provider Internal Medicine Hypertension Specialist
DX: I12.9 Hypertensive chronic kidney disease with stage 1 through stage 4 chronic kidney disease, or unspecified chronic kidney disease (principal); E11.22 Type 2 diabetes mellitus with diabetic chronic kidney disease; N18.9 Chronic kidney disease, unspecified; D63.1 Anemia in chronic kidney disease
CPT/HCPCS: 99214

== ENCOUNTER 2024-02-02 16:30 | Outpatient (REF) | payer MEDICAID, SELFPAY | END 2024-02-02 16:31 | disposition home or self-care (01) | LOC: HO.HHCLNP 16:30 | PROVIDERS: Visit Provider Internal Medicine | DX: R39.9 Unspecified symptoms and signs involving the genitourinary system (principal) | CPT/HCPCS: 87086 ==

== ENCOUNTER 2024-02-08 09:44 | Outpatient (REF) | payer MEDICAID, SELFPAY ==
[2024-02-08 11:38] LABS: Basophils Percent Auto 0.5 % (0-2); Eosinophils Absolute Auto 0.2 X10*3/uL (0.0-0.4); Eosinophils Percent Auto 3.7 % (0-4); Hematocrit 31.4 % (37.0-47.0); Hemoglobin 10.3 g/dl (12.0-16.0); Imm Gran Abs Auto 0.02 X10*3/uL (0.00-0.03); Imm Gran Pct Auto 0.4 % (0.0-0.4); Lymphocytes Absolute Auto 1.9 X10*3/uL (1.2-4.9); MANUAL DIFF FLAG SCAN; Mean Corpuscular HGB Conc 32.8 g/dl (31.0-35.0); Mean Corpuscular Hemoglobin 28.8 pg (27.0-33.0); Mean Corpuscular Volume 87.7 fL (80.0-98.0); Mean Platelet Volume 10.9 fL (9.4-12.3); Monocytes Absolute Auto 0.5 X10*3/uL (0.1-1.2); Monocytes Percent Auto 8.5 % (2-11); Neutrophils Absolute Auto 3.1 x10*3/uL (2.0-8.3); Neutrophils Percent Auto 53.9 % (45-73); Platelet Count 281 X10*3/uL (160-400); Red Blood Count 3.58 X10*6/uL (4.20-5.50); Red Cell Distribution Width 12.8 % (11.0-16.0); SCAN SMEAR FLAG 1; White Blood Count 5.7 X10*3/uL (4.8-10.8)
[2024-02-08 11:58] LABS: SLIDE REVIEW VERIFIED
[2024-02-08 12:19] LABS: Alanine Aminotransferase 13 U/L (0-31); Albumin Level 3.1 g/dL (3.5-5.0); Alkaline Phosphatase 59 U/L (39-117); Anion Gap 11 (12-20); Aspartate Amino Transferase 19 U/L (5-31); Bilirubin Total 0.1 mg/dL (0.0-1.0); Blood Urea Nitrogen 48 mg/dL (9-16); Calcium 8.5 mg/dL (8.4-10.2); Carbon Dioxide 17 mmol/L (22-29); Chloride 112 mmol/L (96-108); Estimated Glomerular Filt Rate 24; Glucose Random 110 mg/dL (60-115); Sodium 135 mmol/L (135-145); Total Protein 7.1 g/dL (6.5-8.0)
== END 2024-02-08 09:45 | disposition home or self-care (01) ==
LOC: HO.HHCL 09:44
PROVIDERS: Visit Provider Student in an Organized Health Care Education/Training Program
DX: R10.9 Unspecified abdominal pain (principal)
CPT/HCPCS: 36415; 80053; 85025

== ENCOUNTER 2024-02-08 12:54 | Outpatient (REF) | payer MEDICAID, SELFPAY ==
--- NOTE | ~2024-02-08 | CT_ITS ---
EXAMINATION: CT ABDOMEN AND PELVIS WITHOUT CONTRAST CLINICAL INFORMATION: Right upper quadrant and right flank pain. COMPARISON: CT scans dated August 26, 2023 and May 25, 2019. TECHNIQUE: Multidetector volumetric imaging was performed from the superior aspect of the liver through the pubic symphysis. Sagittal and coronal reformatted images were obtained on the technologist's workstation. This CT examination was performed using dose optimization techniques as appropriate, variously including the following: *Automated exposure control *Adjustment of mA and/or kV according to patient size (this includes techniques or standardized protocols for targeted exams where dose is matched to indication/reason for exam; i.e. extremities or head) *Use of iterative reconstruction technique DLP: 551 mGy-cm FINDINGS: LUNG BASES: The lung bases appear clear, with no evidence of inflammation or nodules. Partially imaged coronary arterial calcification. Heart normal in size. No pericardial effusion. LIVER, GALLBLADDER, AND BILIARY TREE: The liver appears unremarkable in size, shape, and attenuation. No focal hepatic lesion or biliary ductal dilatation is appreciated. Unremarkable appearance of the gallbladder. PANCREAS: Unremarkable SPLEEN: Unremarkable ADRENAL GLANDS: Unremarkable KIDNEYS AND URETERS: The kidneys appear unremarkable in size, shape, and attenuation. No hydronephrosis, hydroureter, or calculi seen. BLADDER: Unremarkable GASTROINTESTINAL TRACT: The small and large bowel appear unremarkable. ABDOMINAL WALL: No significant hernia is appreciated. LYMPH NODES: No evidence of adenopathy by size criteria. VASCULAR: Bilateral pelvic phleboliths. PELVIC VISCERA: Unremarkable OSSEOUS STRUCTURES: Bilateral spondylolysis with severe disc degenerative change and grade 2 anterolisthesis of L5 on S1. CT/CT abdomen pelvis wo IV con IMPRESSION: No acute finding.
== END 2024-02-08 12:55 | disposition home or self-care (01) ==
LOC: HO.CT 12:54
PROVIDERS: PCP Student in an Organized Health Care Education/Training Program; Visit Provider Student in an Organized Health Care Education/Training Program
DX: R10.11 Right upper quadrant pain (principal)
CPT/HCPCS: 36415; 74176; 80053; 85025

== ENCOUNTER 2024-02-09 06:18 | Emergency (ER) | payer MEDICAID, SELFPAY ==
--- NOTE | ~2024-02-09 | XR_ITS ---
EXAMINATION: XR RIBS, RIGHT CLINICAL INFORMATION: Right-sided pain COMPARISON: None available. TECHNIQUE: 3 views of the right ribs were obtained. FINDINGS: Lungs are clear. No consolidation, pneumothorax, or pleural effusion. The cardiomediastinal silhouette and pulmonary vasculature are normal. Osseous structures are unremarkable. Ribs are intact. No fractures are identified. XR/XR ribs RT min 3V w CXR1V IMPRESSION: Unremarkable examination.
[2024-02-09 06:29] VITALS: BP 145/80; PULSE 90; RESP 20; TEMP 36.4; O2SAT 100; BMI 32.8
[2024-02-09 07:38] VITALS: BP 161/90; PULSE 83; RESP 16; TEMP 36.4; O2SAT 100
--- NOTE | 2024-02-09 08:08 | ED_ITS ---
HPI - General Adult General Chief complaint: General Medical Stated complaint: kidney/gallbladder pain Time Seen by Provider: 02/09/24 07:34 Source: patient and old records reviewed Mode of arrival: ambulatory Limitations: no limitations History of Present Illness ED Provider: RIVERA MORIN narrative: 48 yo female with PMH of DM, HTN, depression, CKD, anxiety who was just seen by PCP yesterday for abdominal pain had labs done no change from baseline and had negative CT scan - she comes to the ED today with c/o R rib pain x 11 days no trauma no travel, OCP use, procedures. She notes it hurts to move or touch the ribs. She has no associated vomiting, diarrhea, urinary symptoms. She could not sleep last night due to pain. MD complaint: rib pain Onset (ago): day(s) () Location: chest Radiation: non-radiation Severity: moderate Pain Consistency: constant Relieving factors: none Exacerbating factors: movement and other (palpation) Associated symptoms: denies other symptoms Treatments prior to arrival: none Related Data Home Medications ?Medication ?Instructions ?Recorded ?Confirmed aspirin 81 mg chewable tablet 1 tab PO QAM 01/11/24 02/01/24 empagliflozin 10 mg tablet 10 mg PO DAILY 01/11/24 02/01/24 (Jardiance) famotidine 20 mg tablet (Pepcid) 20 mg PO BID PRN 01/11/24 02/01/24 glipizide 10 mg tablet, extended 10 mg PO QAM 01/11/24 02/01/24 release 24 hr metformin 500 mg tablet,extended 1,000 mg PO DAILY 01/11/24 02/01/24 release 24 hr ondansetron 4 mg disintegrating 4 mg PO Q8H PRN 01/11/24 02/01/24 tablet hydralazine 25 mg tablet 25 mg PO TID 02/01/24 02/01/24 Previous Rx's ?Medication ?Instructions ?Recorded losartan 50 mg tablet 50 mg PO DAILY #90 tabs 02/01/24 lidocaine 5 % topical patch 1 patch topical DAILY #30 ea 02/09/24 Allergies Allergy/AdvReac Type Severity Reaction Status Date / Time oxycodone [OXYCODONE] Allergy Unknown SEIZURES Verified 02/09/24 06:30 Review of Systems Review of Systems: Constitutional : No Weight loss, No Fever, No Chills ENT/Mouth : No sore throat, No Rhinorrhea Eyes: No Eye Pain, No Swelling Cardiovascular : pos rib Pain, no SOB, no Dyspnea on Exertion, No Orthopnea, No Edema, No Palpitations Respiratory : No Cough, No Sputum Gastrointestinal : no Nausea, No Vomiting, No Diarrhea, No abdominal Pain, No Hematochezia, No Melena Genitourinary : No Dysuria, No Urinary Frequency Musculoskeletal : No joint pain, No Myalgias, No Joint Swelling Skin : No Skin Lesions, No rash Neuro : No Weakness, No Numbness, No Dizziness, No Headache Psych : No Anxiety/Panic, No Depression Heme/Lymph: No Bruising, No Lymphadenopathy Endocrine : No Polyuria, No Polydipsia All other systems reviewed and are negative [facility] Past Medical History Attestation statement: The following information was validated with the patient. Source: old records reviewed Medical History Depression Anxiety Diabetes Social History Social History Unable to assess alcohol history related to: Unable to respond Alcohol intake: never Substance Use Type: Marijuana Advance Directives: No Advance Directives Information Provided: Yes Do you have a plan to hurt others: No Plan Physical Exam ED Vital Signs: Vital Signs - 24 hr 02/09/24 06:29 02/09/24 07:38 Temperature 97.6 F 97.6 F Pulse Rate 90 83 Respiratory Rate 20 16 Blood Pressure 145/80 H 161/90 H Pulse Oximetry 100 100 Oxygen Delivery Method Room Air Room Air BMI result Body Mass Index 32.8 Appearance: Alert. Oriented X3. No acute distress. Eyes: Pupils equal, round and reactive to light. ENT: Pharynx normal. Neck: Normal inspection. Neck supple. CVS: Normal heart rate and rhythm. Pulses normal. Chest: R sided rib pain no rash reproduces pain Respiratory: No respiratory distress. Breath sounds normal. Abdomen: Soft and nontender. neg morris's sign Skin: Skin warm and dry. Normal skin color. Normal skin turgor. Extremities: No lower extremity edema. No calf ttp Neuro: Oriented X 3. No motor deficit. No sensory deficit. Medications Administered Discontinued Medications Generic Name Dose Route Start Last Admin Trade Name Freq PRN Reason Stop Dose Admin Hydromorphone HCl 2 mg 02/09/24 08:20 02/09/24 09:16 Hydromorphone Hcl 2 Mg Tablet PO 02/09/24 08:21 2 mg ONCE ONE Administration Lidocaine 1 patch 02/09/24 08:20 02/09/24 09:16 Lidocaine 4 % Patch Adh..Patch TRANSDERMA 02/09/24 08:21 1 patch ONCE ONE Administration Protocol Medical Decision Making Medical Decision Making [facility] Narrative: 48 yo female with PMH of DM, HTN, depression, CKD, anxiety here with c/o reproduceable R rib pain without VTE risk factors and no OCP use - she is PERC negative pain is MSK in nature atypical for ACS at this time just had negative labs and CT scan for R flank pain. Rib xray, PO pain control and UA ordered. Differential Diagnosis Differential Diagnoses: The differential diagnosis associated with the p resentation includes strain, rib pain, MSK pain PERC negative doubt VTE Admission/Observation Consideration of admission/observation: Escalation of care including admission/observation considered MSK pain recent negative labs and CT scan stable for outpatient management Lab Data [facility] Lab Attestation statement: I reviewed the patient's lab results. Labs: Lab Results 02/09/24 Range/Units 09:13 Urine Color Yellow Urine Appearance Clear Urine pH 6.0 (5.0-9.0) Ur Specific [place] 1.025 (1.005-1.025) Urine Protein 300 (3+) H (Neg-Trace) mg/dL Urine Glucose (UA) 500 H (Negative) mg/dL Urine Ketones Negative (Negative) mg/dL Urine Blood Trace (Negative) Urine Nitrite Negative (Negative) Ur Leukocyte Esterase Negative (Negative) Urine RBC 0-2 (0-2) /HPF Urine WBC 0-5 (0-5) /HPF Ur Squamous Epith Cells 0-2 (0-2) /HPF Urine Bacteria None Seen (None Seen) Hyaline Casts 0-2 (0-2) /LPF Independent Interpretation I performed an independent interpretation of an: Plain X-Ray (normal ) Radiology Impression Discussion of test interpretation with radiology: I have reviewed the radiologist's reading. Independent Historian Clinical information obtained from an independent historian. History obtained from or confirmed by: Spouse External Record Review External record reviewed: Inpatient record, Office record, Prior outpatient labs and Prior outpatient radiology Prescription Management I considered prescription management with: Pain Medication and Other Discharge Plan Discharge Clinical Impression: Rib pain on right side Patient Disposition: Home, Self-Care Instructions: Chest Wall Pain (ED) Additional Instructions: urine normal, xray normal labs and CT scan reassuring yesterday please follow up with your doctor for further workup there are no acute findings noted Prescriptions: New lidocaine 5 % adhesive patch,medicated 1 patch topical DAILY Qty: 30 0RF Rx Instructions: leave on most painful area for up to 12 hrs No Action hydralazine 25 mg tablet 25 mg PO TID losartan 50 mg tablet 50 mg PO DAILY Qty: 90 1RF metformin 500 mg tablet extended release 24 hr 1,000 mg PO DAILY glipizide 10 mg tablet extended release 24hr 10 mg PO QAM Jardiance 10 mg tablet 10 mg PO DAILY aspirin 81 mg tablet,chewable 1 tab PO QAM famotidine [Pepcid] 20 mg tablet 20 mg PO BID PRN ondansetron 4 mg tablet,disintegrating 4 mg PO Q8H PRN Print Language: Armenian
[2024-02-09] MEDS: Lidocaine 4 % Patch ADH..PATCH 1 PATCH TRANSDERMA (09:16)
[2024-02-09] MEDS: HYDROmorphone HCl 2 MG TABLET PO (09:16)
[2024-02-09 09:19] LABS: Appearance Urine Clear; Color Urine Yellow; Glucose Urine UA 500 mg/dL (Negative); Leukocyte Esterase Urine Negative (Negative); Nitrite Urine Negative (Negative); Specific Gravity - Urine 1.025 (1.005-1.025); UMIC TRIGGER UACC YES; Urine Blood Trace (Negative); Urine Ketones Negative (Negative); Urine Protein 300 (3+) mg/dL (Neg-Trace)
[2024-02-09 09:22] LABS: Bacteria Urine None Seen (None Seen); Hyaline Casts Urine 0-2 /LPF (0-2); RBC Urine 0-2 /HPF (0-2); Squamous Epithelial Cell Urine 0-2 /HPF (0-2); WBC Urine 0-5 /HPF (0-5)
[2024-02-09] MEDS: LORazepam 1 MG TABLET PO (11:00)
[2024-02-09 11:01] VITALS: BP 140/79; PULSE 77; RESP 17; TEMP 36.7; O2SAT 99
[2024-02-09 11:38] VITALS: BP 140/79; PULSE 77; RESP 17; TEMP 36.7; O2SAT 99
== END 2024-02-09 11:38 | disposition home or self-care (01) ==
PROVIDERS: Emergency Provider Emergency Medicine; PCP Internal Medicine Geriatric Medicine
DX: R07.81 Pleurodynia (principal); E11.22 Type 2 diabetes mellitus with diabetic chronic kidney disease; I12.9 Hypertensive chronic kidney disease with stage 1 through stage 4 chronic kidney disease, or unspecified chronic kidney disease; N18.9 Chronic kidney disease, unspecified
CPT/HCPCS: 71101; 81001; 99283

== ENCOUNTER 2024-02-14 10:27 | Outpatient (AMB) | payer MEDICAID, SELFPAY ==
--- NOTE | 2024-02-14 10:30 | A.OFFVIS_ITS ---
Vital Signs 3 02/14/24 10:31 Height 5 ft 3 in Weight 183 lb 13.848 oz BMI 32.6 BP 162/78 H Blood Pressure Location Rt brachial Position Sitting Pulse 83 Intake Visit Reasons: Colonoscopy Screening Intake Note: Franny presents to in office visit today as a new patient for colonoscopy screening. CC: Patient reports occasional constipation, abdominal pain when constipated, and acid reflux.Denies other GI concerns today. 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 She is referred by [facility]. P.m. X Obesity-BMI 31 Hypertension High cholesterol Chronic kidney disease Diabetes Diabetic retinopathy Depression with anxiety/panic attacks Migraines Chronic pain syndrome GERD * SURGICAL HISTORY CARPAL TUNNEL RELEASE BILATERAL TUBAL LIGATION Appendectomy section Right foot surgery * ALLERGIES Oxycodone XIAO inhibitors * [employer] LABS: Laboratory Tests 01/20/24 02/08/24 12:14 09:46 WBC 5.7 RBC 3.58 L Hgb 10.3 L Hct 31.4 L MCV 87.7 MCH 28.8 Plt Count 281 Estimated GFR 24 Total Bilirubin 0.1 AST 19 ALT 13 Alkaline Phosphatase 59 PTH Intact 111.6 H TODAY'S VISIT This is her first colonoscopy. She suffers CIC that she treats successfully with Rebecca syrup. No upper GI problems. She denies any cardiac or respiratory problems There are no prior problems with anesthesia or sedation. No ID problems. NO known FHX crc or polyps. [facility] Medical History (Updated 02/14/24 @ 10:36 by LUIS A Norman) CKD (chronic kidney disease) Chronic kidney disease, stage 3 Depression Anxiety Diabetes Surgical History Status post right foot surgery History of section History of appendectomy History of tubal ligation S/p bilateral carpal tunnel release Family History (Updated 02/14/24 @ 10:43 by SAW Ferguson) Maternal Aunt Throat cancer Social History Unable to assess alcohol history related to: Unable to respond Alcohol intake: never Substance Use Type: Marijuana Review of Systems Const Denies fatigue, Denies fever(s), Denies night sweats, Denies poor appetite and Denies weight loss ENT Reports Normal hearing present, Denies dental pain, Denies dysphagia, Denies hearing loss, Denies mouth pain, Denies odynophagia, Denies throat swelling, Denies tongue swelling and Reports other (Dentition adequate) Card Reports no additional complaints Resp Reports no additional complaints GI Details: Denies abdominal pain, Denies melena, Denies bloating, Denies hematochezia, Denies constipation, Denies GI cramping, Denies dysphagia, Denies excessive flatus, Denies early satiety, Denies heartburn, Denies diarrhea, Denies nausea, Denies odynophagia, Denies vomiting and Denies hematemesis Skin/Breast Denies pruritus, Denies lesions, Denies rash and Denies jaundice Neuro Reports Normal hearing present and Denies Abnormal speech present Endo Denies fatigue Aller/Immun Denies throat swelling and Denies tongue swelling Physical Exam Vital Signs: Last Vital Signs Pulse 83 02/14/24 10:31 BP 162/78 H 02/14/24 10:31 BMI result Body Mass Index 32.6 Const General: cooperative, no acute distress, well developed and well groomed Nutritional Appearance: well nourished and obese Orientation/consciousness: oriented to person, oriented to place and oriented to time Limitations: No language barrier HEENT Head: Yes normocephalic and Yes atraumatic Eyes General: appearance normal, both eyes and all related structures Pupils: Equal, round and reactive pupils present Neck Neck: Yes normal visual inspection and Yes no lymphadenopathy Thyroid: Thyroid normal Resp Effort & Inspection: normal respiratory effort and able to speak in complete sentences Auscultation: clear to auscultation bilaterally Cardio Rate: regular rate Rhythm: regular rhythm Heart sounds: Normal, physiologic split S2 sound present Peripheral pulses: radial pulses present and posterior tibial pulses present GI Inspection: No distended, Yes Abdominal panniculus present, Yes obesity, Yes scar and Yes striae Palpation (GI): Soft to palpation, nontender, no guarding, not rigid and No hepatosplenomegaly present Percussion: Yes normal to percussion Auscultation: normal bowel sounds Rectal Exam - Female: deferred Abdomen image: 2 1. surgical scars 2. Back/Spine/Pelvis Other: lidocaine patch on middle back Skin General skin exam: no rashes or lesions noted, turgor normal, skin not dry, no jaundice, No spider nevi and no striae Rashes: no rashes Nails: normal Neuro General: oriented to person, oriented to place and oriented to time Cranial nerves: Yes Equal, round and reactive pupils present and Yes Normal hearing present Speech: No Abnormal speech present Extrem General: Yes normal to inspection, No clubbing, No cyanosis and No edema Psych Appearance: grossly normal and well kempt Mental Status: mental status grossly normal Speech and movement: Normal speech and movement present Affect: normal affect Attitude: cooperative Thought process: Normal thought process present and not confabulating Thought content: Normal thought content present Insight: Fair insight present (Psych) Judgement: Fair judgement present (Psych) Results Reviewed Results Reviewed: Laboratory Tests 01/20/24 02/08/24 12:14 09:46 WBC 5.7 RBC 3.58 L Hgb 10.3 L Hct 31.4 L MCV 87.7 MCH 28.8 Plt Count 281 Estimated GFR 24 Total Bilirubin 0.1 AST 19 ALT 13 Alkaline Phosphatase 59 PTH Intact 111.6 H Assessment & Plan Assessment & Plan (1) CKD (chronic kidney disease) stage 4, GFR 15-29 ml/min: Code(s): N18.4 - Chronic kidney disease, stage 4 (severe) Category: Medical (2) Pre-op examination: Code(s): Z01.818 - Encounter for other preprocedural examination Category: Medical Plan This is her first colonoscopy. She suffers CIC that she treats successfully with Rebecca syrup. No upper GI problems. She denies any cardiac or respiratory problems There are no prior problems with anesthesia or sedation. No ID problems. NO known FHX crc or polyps Orders: Orders 2 Colonoscopy - GI Use Only Today Z01.818 - Encounter for other preprocedural examination Medications: New 2 peg 3350-electrolytes 236-22.74-6.74 -5.86 gram (Golytely) until fecal effluent is clear; do not exceed a total volume of 2,000 mL 240 mL PO Q10M 4,000 mL 0RF 1 day Z12.11 - Encounter for screening for malignant neoplasm of colon Coding Level of Care Code New Pt Level 3 (96557) Diagnoses CKD (chronic kidney disease) stage 4, GFR 15-29 ml/min N18.4 Pre-op examination Z01.818
[2024-02-14 10:31] VITALS: BP 162/78; PULSE 83; BMI 32.6
== END 2024-02-14 11:00 | disposition home or self-care (01) ==
PROVIDERS: PCP Internal Medicine Geriatric Medicine; Visit Provider Nurse Practitioner
DX: N18.4 Chronic kidney disease, stage 4 (severe) (principal); Z01.818 Encounter for other preprocedural examination
CPT/HCPCS: 99203

== ENCOUNTER → 2024-02-14 10:27 | Outpatient (BNVA) | payer MEDICAID, SELFPAY | PROVIDERS: PCP Internal Medicine Geriatric Medicine; Visit Provider Nurse Practitioner | DX: Z01.818 Encounter for other preprocedural examination (principal); N18.4 Chronic kidney disease, stage 4 (severe) | CPT/HCPCS: 99212 ==

== ENCOUNTER 2024-03-14 12:59 | Outpatient (REF) | payer MEDICAID, SELFPAY ==
[2024-03-14 16:18] LABS: Anion Gap 13 (12-20); Blood Urea Nitrogen 49 mg/dL (9-16); Calcium 9.4 mg/dL (8.4-10.2); Carbon Dioxide 20 mmol/L (22-29); Chloride 108 mmol/L (96-108); Estimated Glomerular Filt Rate 24; Glucose Random 276 mg/dL (60-115); Potassium 4.8 mmol/L (3.3-5.1); Sodium 136 mmol/L (135-145)
== END 2024-03-14 13:00 | disposition home or self-care (01) ==
LOC: HO.HHCL 12:59
PROVIDERS: Visit Provider Internal Medicine Geriatric Medicine
DX: E11.65 Type 2 diabetes mellitus with hyperglycemia (principal)
CPT/HCPCS: 36415; 80048

== ENCOUNTER 2024-03-30 09:44 | Outpatient (REF) | payer MEDICAID, SELFPAY ==
--- NOTE | 2024-03-30 09:47 | EMG_ITS ---
Chief complaint: Electrical sensation coming from right thumb going proximally History of bilateral Carpal Tunnel Syndrome surgeries 2007. History of right wrist injury 7 years ago. History of type 2 diabetes diagnosed since age 15. Reason for referral: Evaluate for Carpal Tunnel Syndrome Referred by: Dr. Hernandez Procedure done: Right upper extremity NCS/EMG Precautions and/or limitations: None The limb temperature was monitored continuously and remained between 32-36 degrees C during the performance of the NCS. Ulnar motor NCS was performed with moderate elbow flexion between 70-90 degrees, with across-elbow distance of 10 cm. Nerve Conduction Studies Anti Sensory Summary Table ?Stim Site NR Onset (ms) Norm Onset (ms) Peak (ms) Norm Peak (ms) O-P Amp (?V) Norm O-P Amp Site1 Site2 Delta-0 (ms) Dist (cm) Barry (m/s) Norm Barry (m/s) Right Median Anti Sensory (2nd Digit) Wrist ? 3.9 4.8 <3.6 6.0 >10 Wrist 2nd Digit 3.9 14.0 36 Right Radial Anti Sensory (Thumb) Forearm ? 1.7 2.3 <3.1 4.5 Forearm Thumb 1.7 0.0 Right Ulnar Anti Sensory (5th Digit) Wrist ? 2.6 3.8 <3.7 6.7 >15.0 Wrist 5th Digit 2.6 14.0 54 Motor Summary Table ?Stim Site NR Onset (ms) Norm Onset (ms) O-P Amp (mV) Norm O-P Amp iAmp (mV) Amp (1st) (%) Site1 Site2 Delta-0 (ms) Dist (cm) Barry (m/s) Norm Barry (m/s) Right Median Motor (Abd Poll Brev) Wrist ? 5.3 <3.9 6.9 >4.5 8.1 100.0 Elbow Wrist 4.8 21.0 44 >45 Elbow ? 10.1 6.2 7.2 89.9 Right Ulnar Motor (Abd Dig Minimi) Wrist ? 3.0 <3.0 6.6 >5 8.4 100.0 B Elbow Wrist 4.3 21.0 49 >45 B Elbow ? 7.3 6.8 8.8 103.0 A Elbow B Elbow 1.8 10.0 56 >45 A Elbow ? 9.1 6.2 8.3 93.9 EMG ?Side Muscle Nerve Root Ins Act Fibs Psw Amp Dur Poly Recrt Int Pat Comment Right 1stDorInt Ulnar C8-T1 Nml Nml Nml Nml Nml 0 Nml Complete Right FlexCarRad Median C6-7 Nml Nml Nml Nml Nml 0 Nml Complete Right Biceps Musculocut C5-6 Nml Nml Nml Nml Nml 0 Nml Complete Right Triceps Radial C6-7-8 Nml Nml Nml Nml Nml 0 Nml Complete Right Deltoid Axillary C5-6 Nml Nml Nml Nml Nml 0 Nml Complete FINDINGS: Right median motor nerve showed prolonged distal latency, normal amplitude and slow conduction velocity. Right median sensory nerve showed prolonged distal latency, normal amplitude and normal conduction velocity. Right ulnar and radial sensory nerve showed small amplitude. Concentric needle EMG was performed in selected muscles of the right upper extremity. Study did not reveal signs of electric abnormalities as shown in the table above. IMPRESSION: 1. This is an abnormal study. 2. There is electrodiagnostic evidence for right moderate-severe median neuropathy, consistent with Carpal Tunnel Syndrome. 3. There are electrodiagnostic findings suggestive of sensory neuropathy. 4. There is no electrodiagnostic evidence for ulnar neuropathy at the elbow, brachial plexopathy or cervical radiculopathy. CLINICAL COMMENT: If peripheral neuropathy is suspected, please reorder EMG for lower extremities.. Further clinical correlation recommended. Thank you for your kind referral. Buffy Farris MD, AUTUMN Board Certified, [place] Board [employer] and Rehabilitation (ABPMR) Board Certified, [place] Board of Electrodiagnostic Medicine (ABEM) CODIN [id number] MTDD
== END 2024-03-30 09:45 | disposition home or self-care (01) ==
LOC: HO.NEURO 09:44
PROVIDERS: PCP Internal Medicine Geriatric Medicine; Visit Provider Internal Medicine Geriatric Medicine
DX: M79.641 Pain in right hand (principal); R20.0 Anesthesia of skin
CPT/HCPCS: 95886; 95909

== ENCOUNTER → 2024-03-30 09:47 | Outpatient (BNV) | payer MEDICAID, SELFPAY | PROVIDERS: PCP Internal Medicine Geriatric Medicine; Visit Provider Physical Medicine & Rehabilitation | DX: G56.01 Carpal tunnel syndrome, right upper limb (principal) | CPT/HCPCS: 95886; 95909 ==

== ENCOUNTER 2024-04-17 14:44 | Outpatient (AMB) | payer MEDICAID, SELFPAY ==
--- NOTE | 2024-04-17 14:45 | HO.NEPHOV_ITS ---
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 Required: No Accompanied by: Self / Same As Patient Allergies oxycodone [OXYCODONE] Allergy (Unknown, Verified 04/17/24 14:48) SEIZURES XIAO Inhibitors Adverse Reaction (Intermediate, Verified 04/17/24 14:48) Cough Medication List - Last Reconciled 04/17/24 by Spencer Bauman MD acetaminophen ER 1,300 mg PO Q8H PRN aspirin 1 tab PO QAM empagliflozin (Jardiance) 10 mg PO DAILY famotidine (Pepcid) 20 mg PO BID PRN glipizide ER 10 mg PO QAM hydralazine 25 mg PO BID lidocaine 5% 1 patch topical DAILY losartan 50 mg PO DAILY metformin ER 1,000 mg PO DAILY ondansetron 4 mg PO Q8H PRN peg 3350-electrolytes 236-22.74-6.74 -5.86 gram (Golytely) 240 mL PO Q10M 1 day HPI Comments Details: Franny is a pleasant woman with a history of diabetes mellitus for more than 30 years referred for evaluation of renal insufficiency She tells me that her blood sugar has been reasonably well controlled with a recent A1c of 6.2%. She was recently diagnosed with hypertension. Initially she was started with amlodipine and she started developing swelling. Amlodipine was discontinued. Hydrochlorothiazide 25 mg was added. Edema has subsided. Her baseline serum creatinine was around 1.04 mg/dL in August 2023. In October creatinine bumped up to 1.6 and as of November creatinine was 2.12 and hence this referral. She had a urine analysis which showed significant proteinuria with a urine protein creatinine ratio of 4630. She is on losartan 100 mg a day for control blood pressure and for renal protection. She has also been taking NSAIDs every now and then and last dose was 600 mg ibuprofen couple of weeks ago. No history of smoking cigarettes she uses smoke marijuana which he quit 5 months ago. 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 No history of renal colic abuse This is a strong family history of diabetes mellitus and mother from end stage renal disease Today she has no specific complaints. No headache nausea vomiting. No shortness of breath. No polyuria polydipsia. No edema. No rash no fever. 02/01/2024. Given has stopped taking NSAIDs. She complains of left upper back pain. There is some confusion about her medications. She is stopped taking losartan. All medications were reviewed. Still with left sided upper back pain [facility] Medical History (Updated 02/14/24 @ 10:36 by LUIS A Norman) CKD (chronic kidney disease) Chronic kidney disease, stage 3 Depression Anxiety Diabetes Surgical History Status post right foot surgery History of section History of appendectomy History of tubal ligation S/p bilateral carpal tunnel release Family History Maternal Aunt Throat cancer Social History Unable to assess alcohol history related to: Unable to respond Alcohol intake: never Substance Use Type: Marijuana Physical Exam Vital Signs: Last Vital Signs Pulse 94 04/17/24 14:46 BP 142/80 H 04/17/24 14:46 Pulse Ox 98 04/17/24 14:46 Oxygen Delivery Method Room Air 04/17/24 14:46 BMI result Body Mass Index 33.8 Const General: comfortable; No acute distress Orientation/consciousness: patient oriented x3 Eyes General: appearance normal, both eyes and all related structures Visual Fountain: normal visual fountain by confrontation Neck Neck: Yes supple and Yes no JVD Resp Effort & Inspection: normal respiratory effort and respiratory effort not decreased Auscultation: rhonchi Cardio Palpation: no palpable S3 and no palpable S4 Heart sounds: no rubs GI Inspection: Yes normal to inspection Palpation (GI): Soft to palpation Percussion: Yes normal to percussion Auscultation: normal bowel sounds General: Yes no CVA tenderness Back/Spine/Pelvis Back: no CVA tenderness Skin General skin exam: no petechiae and no purpura Neuro General: patient oriented x3 and no focal motor deficits Extrem General: No clubbing and No edema Results Reviewed Nephrology Results: Hgb 10.3 g/dl (12.0-16.0) L 02/08/24 WBC 5.7 X10*3/uL (4.8-10.8) 02/08/24 Plt Count 281 X10*3/uL (160-400) 02/08/24 Sodium 136 mmol/L (135-145) 03/14/24 Potassium 4.8 mmol/L (3.3-5.1) 03/14/24 Chloride 108 mmol/L (96-108) 03/14/24 Carbon Dioxide 20 mmol/L (22-29) L 03/14/24 BUN 49 mg/dL (9-16) H 03/14/24 Creatinine 2.17 mg/dL (0.5-1.4) H 03/14/24 Calcium 9.4 mg/dL (8.4-10.2) 03/14/24 PTH Intact 111.6 pg/mL (8.7-77.1) H 01/20/24 Urine Protein 300 (3+) mg/dL (Neg-Trace) H 02/09/24 Urine Creatinine 36.44 mg/dL 01/20/24 Renal US 01/20/24 Assessment & Plan Assessment & Plan (1) CKD (chronic kidney disease): Code(s): N18.9 - Chronic kidney disease, unspecified Category: Medical Plan: . (2) Anemia: Code(s): D64.9 - Anemia, unspecified Category: Medical (3) Hypertension: Code(s): I10 - Essential (primary) hypertension Category: Medical (4) Diabetes: Code(s): E11.9 - Type 2 diabetes mellitus without complications Category: Medical (5) CKD (chronic kidney disease) stage 4, GFR 15-29 ml/min: Code(s): N18.4 - Chronic kidney disease, stage 4 (severe) Category: Medical Plan 48-year-old woman with chronic kidney disease with nephrotic range proteinuria in the setting of longstanding diabetes mellitus. Underlying CKD is most likely due to diabetic kidney disease. However nondiabetic causes should be ruled out. The superimposed ANGELIA may be due to hypoperfusion from use of diuretics along with ARB and NSAIDs. No obstructive uropathy based on renal ultrasonogram . Clinically no reason to believe that she is any active glomerulonephritis or interstitial disease. Recent urinalysis showed bland sediment Creatinine is essentially unchanged No monoclonal proteins Serum complements C3 and C4 are normal. Blood pressure is acceptable She is mild anemia Hemoglobin is improved Plan Keep losartan 50 mg daily for renal protection in view of the proteinuria Meantime stay on low-sodium diet and increase fluid intake. I have discussed importance of tight control of blood pressure and blood sugar to slow the progression of renal disease. Continue to avoid nephrotoxic agents includingNSAIDs. continue with SGLT2 inhibitors for cardiorenal protection. Given the degree of renal failure I would avoid using metformin due to risk of lactic acidosis Repeat urine studies ordered due ot back pain Orders: Orders Basic Metabolic Panel Today N18.4 - Chronic kidney disease, stage 4 (severe) UA and rflx microscopic Today N18.4 - Chronic kidney disease, stage 4 (severe) Complete Blood Count Auto Diff Today N18.4 - Chronic kidney disease, stage 4 (severe) Urine Culture Today N18.4 - Chronic kidney disease, stage 4 (severe) Parathyroid Hormone Intact Today N18.4 - Chronic kidney disease, stage 4 (severe) Coding Level of Care Code Est Pt Level 4 (62402) Diagnoses CKD (chronic kidney disease) N18.9 Anemia D64.9 Hypertension I10 Diabetes E11.9 CKD (chronic kidney disease) stage 4, GFR 15-29 ml/min N18.4
[2024-04-17 14:46] VITALS: BP 142/80; PULSE 94; O2SAT 98; BMI 33.8
== END 2024-04-17 15:01 | disposition home or self-care (01) ==
LOC: HO.HKA 14:44
PROVIDERS: PCP Internal Medicine Geriatric Medicine; Referring Provider Internal Medicine Geriatric Medicine; Visit Provider Internal Medicine Hypertension Specialist
DX: I12.9 Hypertensive chronic kidney disease with stage 1 through stage 4 chronic kidney disease, or unspecified chronic kidney disease (principal); E11.22 Type 2 diabetes mellitus with diabetic chronic kidney disease; N18.4 Chronic kidney disease, stage 4 (severe); D63.1 Anemia in chronic kidney disease
CPT/HCPCS: 99214

== ENCOUNTER 2024-04-17 14:44 | Outpatient (REF) | payer MEDICAID, SELFPAY ==
[2024-04-17 15:29] LABS: MANUAL DIFF FLAG NO
[2024-04-17 16:06] LABS: Appearance Urine Clear; Color Urine Yellow; Glucose Urine UA >=1000 mg/dL (Negative); Leukocyte Esterase Urine Negative (Negative); Nitrite Urine Negative (Negative); PH 6.5 (5.0-9.0); UMIC TRIGGER UA YES; Urine Blood Negative (Negative); Urine Ketones Negative (Negative); Urine Protein 300 (3+) mg/dL (Neg-Trace)
[2024-04-17 16:11] LABS: Bacteria Urine None Seen (None Seen); Hyaline Casts Urine 0-2 /LPF (0-2); RBC Urine 0-2 /HPF (0-2); Squamous Epithelial Cell Urine 0-2 /HPF (0-2); WBC Urine 0-5 /HPF (0-5)
[2024-04-17 16:25] LABS: Basophils Percent Auto 0.5 % (0-2); Eosinophils Absolute Auto 0.2 X10*3/uL (0.0-0.4); Eosinophils Percent Auto 2.9 % (0-4); Hematocrit 30.5 % (37.0-47.0); Hemoglobin 9.9 g/dl (12.0-16.0); Imm Gran Abs Auto 0.03 X10*3/uL (0.00-0.03); Imm Gran Pct Auto 0.5 % (0.0-0.4); Lymphocytes Absolute Auto 1.5 X10*3/uL (1.2-4.9); Lymphocytes Percent Auto 24.9 % (20-40); Mean Corpuscular HGB Conc 32.5 g/dl (31.0-35.0); Mean Corpuscular Hemoglobin 28.9 pg (27.0-33.0); Mean Corpuscular Volume 88.9 fL (80.0-98.0); Mean Platelet Volume 10.9 fL (9.4-12.3); Monocytes Absolute Auto 0.5 X10*3/uL (0.1-1.2); Monocytes Percent Auto 7.8 % (2-11); Neutrophils Absolute Auto 3.8 x10*3/uL (2.0-8.3); Neutrophils Percent Auto 63.4 % (45-73); Platelet Count 328 X10*3/uL (160-400); Red Blood Count 3.43 X10*6/uL (4.20-5.50); Red Cell Distribution Width 13.2 % (11.0-16.0); White Blood Count 5.9 X10*3/uL (4.8-10.8)
[2024-04-17 16:47] LABS: Parathyroid Hormone Intact 154.7 pg/mL (8.7-77.1)
[2024-04-17 16:51] LABS: Anion Gap 14 (12-20); Blood Urea Nitrogen 45 mg/dL (9-16); Calcium 9.1 mg/dL (8.4-10.2); Carbon Dioxide 19 mmol/L (22-29); Chloride 111 mmol/L (96-108); Estimated Glomerular Filt Rate 24; Glucose Random 190 mg/dL (60-115); Potassium 4.1 mmol/L (3.3-5.1); Sodium 140 mmol/L (135-145)
== END 2024-04-17 14:45 | disposition home or self-care (01) ==
LOC: HO.LAB 14:44
PROVIDERS: PCP Internal Medicine Geriatric Medicine; Visit Provider Internal Medicine Hypertension Specialist
DX: I12.9 Hypertensive chronic kidney disease with stage 1 through stage 4 chronic kidney disease, or unspecified chronic kidney disease (principal); E11.22 Type 2 diabetes mellitus with diabetic chronic kidney disease; N18.4 Chronic kidney disease, stage 4 (severe); D64.9 Anemia, unspecified
CPT/HCPCS: 36415; 80048; 81001; 81003; 83970; 85025; 87086; 99212

== ENCOUNTER 2024-04-18 09:57 | Emergency (ER) | payer MEDICAID, SELFPAY ==
[2024-04-18 10:03] VITALS: BP 182/83; PULSE 81; RESP 18; TEMP 36.5; O2SAT 99; BMI 33.8
[2024-04-18 10:20] LABS: MANUAL DIFF FLAG NO
[2024-04-18 10:24] LABS: Appearance Urine Clear; Color Urine Yellow; Glucose Urine UA >=1000 mg/dL (Negative); Leukocyte Esterase Urine Negative (Negative); Nitrite Urine Negative (Negative); PH 5.5 (5.0-9.0); UMIC TRIGGER UACC YES; Urine Blood Negative (Negative); Urine Ketones Negative (Negative); Urine Protein >=1000 (4+) mg/dL (Neg-Trace)
[2024-04-18 10:25] LABS: Basophils Percent Auto 0.5 % (0-2); Eosinophils Absolute Auto 0.2 X10*3/uL (0.0-0.4); Eosinophils Percent Auto 3.5 % (0-4); Hematocrit 31.6 % (37.0-47.0); Hemoglobin 10.5 g/dl (12.0-16.0); Imm Gran Abs Auto 0.02 X10*3/uL (0.00-0.03); Imm Gran Pct Auto 0.3 % (0.0-0.4); Lymphocytes Absolute Auto 1.3 X10*3/uL (1.2-4.9); Lymphocytes Percent Auto 21.8 % (20-40); Mean Corpuscular HGB Conc 33.2 g/dl (31.0-35.0); Mean Corpuscular Hemoglobin 29.1 pg (27.0-33.0); Mean Corpuscular Volume 87.5 fL (80.0-98.0); Mean Platelet Volume 10.3 fL (9.4-12.3); Monocytes Absolute Auto 0.5 X10*3/uL (0.1-1.2); Neutrophils Absolute Auto 3.9 x10*3/uL (2.0-8.3); Neutrophils Percent Auto 65.9 % (45-73); Platelet Count 315 X10*3/uL (160-400); Red Blood Count 3.61 X10*6/uL (4.20-5.50); Red Cell Distribution Width 13.2 % (11.0-16.0)
[2024-04-18 10:31] LABS: Bacteria Urine None Seen (None Seen); Hyaline Casts Urine 0-2 /LPF (0-2); RBC Urine 0-2 /HPF (0-2); Squamous Epithelial Cell Urine 0-2 /HPF (0-2); WBC Urine 0-5 /HPF (0-5)
[2024-04-18 10:42] LABS: Alanine Aminotransferase 16 U/L (0-31); Albumin Level 3.1 g/dL (3.5-5.0); Alkaline Phosphatase 73 U/L (39-117); Anion Gap 12 (12-20); Aspartate Amino Transferase 16 U/L (5-31); Bilirubin Total 0.2 mg/dL (0.0-1.0); Blood Urea Nitrogen 37 mg/dL (9-16); Calcium 8.8 mg/dL (8.4-10.2); Carbon Dioxide 18 mmol/L (22-29); Chloride 111 mmol/L (96-108); Creatinine Clr Calc Pharmacy 34.9; Estimated Glomerular Filt Rate 26; Glucose Random 135 mg/dL (60-115); Potassium 4.2 mmol/L (3.3-5.1); Sodium 137 mmol/L (135-145); Total Protein 7.3 g/dL (6.5-8.0)
--- NOTE | 2024-04-18 12:15 | ED.GENADULT ---
HPI - General Adult General Chief complaint: Back Pain/Injury Stated complaint: back pain Time Seen by Provider: 04/18/24 12:14 Source: patient Mode of arrival: ambulatory Limitations: no limitations History of Present Illness ED Provider: Yue Cobb PA-C HPI narrative: 49 year old female with a medical history of chronic pain syndrome, anemia, diabetes, and CKD presenting to the ED for concerns of constant sharp and stabbing left sided thoracic back pain associated with tingling sensation that started 4 days ago. She reports that the pain starts in her upper back and makes it's way to her lower back on the left side. She states movement exacerbates her pain. Patients reports the use of topical lidocaine patches with minimal relief. She denies falls, trauma to the area, urinary symptoms, issues with bowel movements, abdominal pain, fevers, shortness of breath, chest pain, cough, weakness, and dizziness. Onset (ago): day(s) (4) Location: back Relieving factors: none Exacerbating factors: none Associated symptoms: denies other symptoms Treatments prior to arrival: other (lidocaine patch) Related Data Home Medications ?Medication ?Instructions ?Recorded ?Confirmed aspirin 81 mg chewable tablet 1 tab PO QAM 01/11/24 02/01/24 empagliflozin 10 mg tablet 10 mg PO DAILY 01/11/24 02/01/24 (Jardiance) famotidine 20 mg tablet (Pepcid) 20 mg PO BID PRN 01/11/24 02/01/24 glipizide 10 mg tablet, extended 10 mg PO QAM 01/11/24 02/01/24 release 24 hr metformin 500 mg tablet,extended 1,000 mg PO DAILY 01/11/24 02/01/24 release 24 hr ondansetron 4 mg disintegrating 4 mg PO Q8H PRN 01/11/24 02/01/24 tablet acetaminophen 650 mg 1,300 mg PO Q8H PRN moderate pain 04/17/24 tablet,extended release hydralazine 25 mg tablet 25 mg PO BID 04/17/24 Previous Rx's ?Medication ?Instructions ?Recorded losartan 50 mg tablet 50 mg PO DAILY #90 tabs 02/01/24 lidocaine 5 % topical patch 1 patch topical DAILY #30 ea 02/09/24 peg 3350-electrolytes 236 240 ml PO Q10M 1 day #4,000 mL 02/14/24 gram-22.74 gram-6.74 gram-5.86 gram solution (Golytely) cyclobenzaprine 5 mg tablet 5 mg PO TID PRN pain 7 days #21 04/18/24 tabs lidocaine 4 % topical patch 1 patch topical DAILY PRN pain #30 04/18/24 ea lidocaine 5 % topical patch 1 patch topical DAILY #30 ea 04/18/24 Allergies Allergy/AdvReac Type Severity Reaction Status Date / Time oxycodone [OXYCODONE] Allergy Unknown SEIZURES Verified 04/18/24 10:06 XIAO Inhibitors AdvReac Intermediate Cough Verified 04/18/24 10:06 Review of Systems Constitutional: Constitutional: Reports no additional constitutional complaints, Denies chills, Denies fever(s) and Denies night sweats Eyes: Eyes: Reports no additional eye complaints, Denies blurry vision, Denies change in vision, Denies diplopia, Denies eye discharge, Denies loss of vision and Denies eye pain ENT: Denies dizziness Cardiovascular: Cardiovascular: Reports no additional cardiovascular complaints, Denies chest pain, Denies lightheadedness, Denies Loss of Consciousness and Denies dyspnea Respiratory: Respiratory: Reports no additional respiratory complaints and Denies dyspnea Gastrointestinal: Gastrointestinal: Reports no additional gastrointestinal complaints, Denies abdominal pain, Denies melena, Denies hematochezia, Denies change in bowel habits and Denies change in stool character Genitourinary: Genitourinary: Denies hematuria, Denies urinary frequency, Denies dysuria, Denies urinary incontinence, Denies urinary hesitancy and Denies urinary urgency Musculoskeletal: Musculoskeletal: Reports no additional musculoskeletal complaints, Reports back pain, Denies numbness and Denies tingling Neurologic: Denies dizziness, Denies loss of vision, Denies numbness and Denies tingling Psychiatric: Psychiatric: Reports no additional psychiatric complaints Endocrine: Endocrine: Reports no additional endocrine complaints Hematologic/Lymphatic: Hematologic/Lymphatic: Reports no additional hematologic/lymphatic complaints Allergic/Immunologic: Allergic/Immunologic: Reports no additional allergic/immunologic complaints PMFSH Past Medical History Attestation statement: The following information was validated with the patient. Source: old records reviewed and nursing notes reviewed Medical History CKD (chronic kidney disease) Chronic kidney disease, stage 3 Depression Anxiety Diabetes Surgical History Status post right foot surgery History of section History of appendectomy History of tubal ligation S/p bilateral carpal tunnel release Family History Family History Maternal Aunt Throat cancer Social History Social History Unable to assess alcohol history related to: Unable to respond Alcohol intake: never Substance Use Type: Marijuana Advance Directives: No Advance Directives Information Provided: No Do you have a plan to hurt others: No Plan Physical Exam ED Vital Signs: Vital Signs - 24 hr 04/18/24 10:03 04/18/24 12:23 04/18/24 12:49 Temperature 97.7 F 97.9 F 97.9 F Pulse Rate 81 77 77 Respiratory Rate 18 16 16 Blood Pressure 182/83 H 167/79 H 167/79 H Pulse Oximetry 99 99 99 Oxygen Delivery Method Room Air Room Air Room Air BMI result Body Mass Index 33.8 Const General: cooperative, no acute distress, alert and awake Nutritional Appearance: well nourished Orientation/consciousness: patient oriented x3 Limitations: no limitations HENMT Head: Yes normal to inspection and Yes atraumatic Ears: hearing grossly normal bilaterally and external ears normal General nose exam: Normal external nose present, no nasal discharge noted and no epistaxis Face and sinus: Yes normal facial exam, No abrasion and No laceration Mouth: Normal oral and palatal mucosa present, no drooling and no muffled voice Eyes General: appearance normal, both eyes and all related structures Periorbital: periorbital findings normal Eyelids: Yes eyelids normal Conjunctivae: conjunctivae normal Pupils: Equal, round and reactive pupils present EOM: EOMs intact bilaterally Neck Neck: Yes normal visual inspection, Yes full ROM and Yes no lymphadenopathy Chest Chest palpation & inspection: normal inspection of the chest Resp Effort & Inspection: normal respiratory effort and able to speak in complete sentences GI Inspection: Yes normal to inspection Neuro General: patient oriented x3 and moves all extremities Cranial nerves: Yes Equal, round and reactive pupils present Cognition (Neuro): normal cognition Extrem General: Yes normal to inspection, Yes full ROM and Yes capillary refill normal Psych Appearance: grossly normal Mental Status: mental status grossly normal Affect: normal affect Attitude: cooperative Thought process: Normal thought process present Thought content: Normal thought content present Insight: Good insight present (Psych) Medications Administered Discontinued Medications Generic Name Dose Route Start Last Admin Trade Name Naseem PRN Reason Stop Dose Admin Lidocaine 1 patch 04/18/24 12:40 04/18/24 12:45 Lidocaine 4 % Patch Adh..Patch TRANSDERMA 04/18/24 12:41 1 patch ONCE ONE Administration Protocol Medical Decision Making Medical Decision Making [facility] Narrative: Patient is a 49 year old assigned female at with a history of chronic pain syndrome, CKD, anemia, and DM presenting to the emergency department today with left sided thoracic back pain. Patient's physical exam was unremarkable. Patient's blood work was unremarkable. Patient's urine showed no acute process. I explained my physical exam findings as well as all test results to the patient. I answered all questions asked by the patient. I stressed the importance of the patient taking her medication as directed (either prescribed or as the over the counter packaging recommends). I stressed the importance of the patient following up with her primary care provider. I stressed the importance of the patient returning to the emergency department immediately if her symptoms were to worsen or if she were to develop any dizziness, shortness of breath, difficulty breathing, chest pain, blurry vision, loss of vision, nausea, vomiting, abdominal pain, fever, chills, back pain, or any other complaints. Patient verbalized agreement and understanding with this treatment plan and discharge. Differential Diagnosis Differential Diagnoses: The differential diagnosis associated with the presentation includes Thoracic back pain Admission/Observation Consideration of admission/observation: Escalation of care including admission/observation considered Patient would have been admitted to the hospital had her work up had any findings where hospital admission was appropriate and her clinical presentation warranted hospital admission. Lab Data [facility] Lab Attestation statement: I reviewed the patient's lab results. My interpretation of these results are in the [facility] Rationale portion of this note. 04/18/24 10:16 04/18/24 10:16 Labs: Lab Results 04/18/24 Range/Units 10:16 WBC 6.0 (4.8-10.8) X10*3/uL RBC 3.61 L (4.20-5.50) X10*6/uL Hgb 10.5 L (12.0-16.0) g/dl Hct 31.6 L (37.0-47.0) % MCV 87.5 (80.0-98.0) fL MCH 29.1 (27.0-33.0) pg MCHC 33.2 (31.0-35.0) g/dl RDW 13.2 (11.0-16.0) % Plt Count 315 (160-400) X10*3/uL MPV 10.3 (9.4-12.3) fL Immature Gran % (Auto) 0.3 (0.0-0.4) % Neut % (Auto) 65.9 (45-73) % Lymph % (Auto) 21.8 (20-40) % [place] % (Auto) 8.0 (2-11) % Eos % (Auto) 3.5 (0-4) % Baso % (Auto) 0.5 (0-2) % Lymph # (Auto) 1.3 (1.2-4.9) X10*3/uL [place] # (Auto) 0.5 (0.1-1.2) X10*3/uL Eos # (Auto) 0.2 (0.0-0.4) X10*3/uL Baso # (Auto) 0.0 (0.0-0.2) X10*3/uL Abs Immat Gran (auto) 0.02 (0.00-0.03) X10*3/uL Absolute Neuts (auto) 3.9 (2.0-8.3) x10*3/uL Absolute Nucleated RBC 0.000 (0.0-0.012) X10*3/uL Nucleated RBC % (auto) 0.0 (0.0-0.2) /100WBC Sodium 137 (135-145) mmol/L Potassium 4.2 (3.3-5.1) mmol/L Chloride 111 H (96-108) mmol/L Carbon Dioxide 18 L (22-29) mmol/L Anion Gap 12 (12-20) BUN 37 H (9-16) mg/dL Creatinine 2.03 H (0.5-1.4) mg/dL Estim Creat Clear Calc 34.9 Estimated GFR 26 Random Glucose 135 H (60-115) mg/dL Calcium 8.8 (8.4-10.2) mg/dL Total Bilirubin 0.2 (0.0-1.0) mg/dL AST 16 (5-31) U/L ALT 16 (0-31) U/L Alkaline Phosphatase 73 (39-117) U/L Total Protein 7.3 (6.5-8.0) g/dL Albumin 3.1 L (3.5-5.0) g/dL Urine Color Yellow Urine Appearance Clear Urine pH 5.5 (5.0-9.0) Ur Specific [place] 1.020 (1.005-1.025) Urine Protein >=1000 (4+) H (Neg-Trace) mg/dL Urine Glucose (UA) >=1000 H (Negative) mg/dL Urine Ketones Negative (Negative) mg/dL Urine Blood Negative (Negative) Urine Nitrite Negative (Negative) Ur Leukocyte Esterase Negative (Negative) Urine RBC 0-2 (0-2) /HPF Urine WBC 0-5 (0-5) /HPF Ur Squamous Epith Cells 0-2 (0-2) /HPF Urine Bacteria None Seen (None Seen) Hyaline Casts 0-2 (0-2) /LPF Tests considered The following testing was considered but not selected: I considered obtaining imaging of the thoracic back however the patient's current clinical presentation did not warrant this. I discussed this with the patient who verbalized agreement and understanding. Prescription Management I considered prescription management with: Pain Medication (patient prescribed pain medication) Chronic Conditions Patient?s care impacted by: Diabetes Discharge Plan Discharge Clinical Impression: Thoracic back pain Patient Disposition: Home, Self-Care Instructions: Thoracic Pain (ED) Additional Instructions: Follow up with your primary care provider. Return to the emergency department immediately if your symptoms worsen or if you develop any dizziness, shortness of breath, difficulty breathing, chest pain, blurry vision, loss of vision, nausea, vomiting, abdominal pain, fever, chills, back pain, or any other complaints. Prescriptions: New cyclobenzaprine 5 mg tablet 5 mg PO TID PRN (Reason: pain) 7 Days Qty: 21 0RF lidocaine 4 % adhesive patch,medicated 1 patch topical DAILY PRN (Reason: pain) Qty: 30 0RF lidocaine 5 % adhesive patch,medicated 1 patch topical DAILY Qty: 30 0RF Rx Instructions: leave on most painful area for up to 12 hrs No Action lidocaine 5 % adhesive patch,medicated 1 patch topical DAILY Qty: 30 0RF Rx Instructions: leave on most painful area for up to 12 hrs losartan 50 mg tablet 50 mg PO DAILY Qty: 90 1RF hydralazine 25 mg tablet 25 mg PO BID metformin 500 mg tablet extended release 24 hr 1,000 mg PO DAILY glipizide 10 mg tablet extended release 24hr 10 mg PO QAM Jardiance 10 mg tablet 10 mg PO DAILY aspirin 81 mg tablet,chewable 1 tab PO QAM famotidine [Pepcid] 20 mg tablet 20 mg PO BID PRN ondansetron 4 mg tablet,disintegrating 4 mg PO Q8H PRN peg 3350-electrolytes [Golytely] 236-22.74-6.74 -5.86 gram recon soln 240 ml PO Q10M 1 Days Qty: 4000 0RF Rx Instructions: until fecal effluent is clear; do not exceed a total volume of 2,000 mL acetaminophen 650 mg tablet extended release 1,300 mg PO Q8H PRN (Reason: moderate pain) Referrals: Name,MD Ney [Primary Care Provider] - Interventions: ED Discharge Assessment Last Done: 04/18/24 12:49 Discharge Date/Time: 04/18/24 12:50 Print Language: Hungarian
[2024-04-18 12:23] VITALS: BP 167/79; PULSE 77; RESP 16; TEMP 36.6; O2SAT 99
[2024-04-18] MEDS: Lidocaine 4 % Patch ADH..PATCH 1 PATCH TRANSDERMA (12:45)
[2024-04-18 12:49] VITALS: BP 167/79; PULSE 77; RESP 16; TEMP 36.6; O2SAT 99
== END 2024-04-18 12:50 | disposition home or self-care (01) ==
PROVIDERS: Emergency Provider Emergency Medicine; PCP Internal Medicine Geriatric Medicine
DX: M54.6 Pain in thoracic spine (principal); E11.22 Type 2 diabetes mellitus with diabetic chronic kidney disease; N18.30 Chronic kidney disease, stage 3 unspecified
CPT/HCPCS: 36415; 80053; 81001; 85025; 99283

== ENCOUNTER 2024-06-06 13:47 | Outpatient (AMB) | payer MEDICAID, SELFPAY ==
[2024-06-06 13:52] VITALS: BMI 33.7
--- NOTE | 2024-06-06 13:52 | A.OFFVIS_ITS ---
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 Denies finger locking. Patient states she experiences sporadic shooting sensation from the right thumb to the right arm. Reports bilateral CTR, 2007, at [facility]. Denies recent injuries to the right hand. Patient reports history of diabetic neuropathy. Per patient, most recent A1C 7.2% last month. 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 She complains of numbness in the right thumb, index, and middle fingers. Symptoms intermittent, but daily, worse at night. 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 This is more occasional and not as bad as her right side She also complains of pain in her right forearm which radiates into her thumb. She has a Hx of bilateral carpal tunnel release in ~2007. She says her sensation was normal in her hands following surgery. She says her numbness began to return ~1 year ago. She works as a [employer]. She says she has a Hx of a [ ] injury, which lacerated her nerve, and she now has dense numbness in her [ ]. She has anxiety & a panic disorder, as well as a Hx of CKD IV and CPS. [facility] Medical History CKD (chronic kidney disease) Chronic kidney disease, stage 3 Depression Anxiety Diabetes Surgical History Status post right foot surgery History of section History of appendectomy History of tubal ligation S/p bilateral carpal tunnel release Family History Maternal Aunt Throat cancer Social History (Updated 06/06/24 @ 13:59 by PRISCILLA Pearce) Unable to assess alcohol history related to: Unable to respond Alcohol intake: never Substance Use Type: Marijuana Current occupation: rt handed Review of Systems Const All systems reviewed & are unremarkable except as noted in HPI and below Physical Exam Vital Signs: BMI result Body Mass Index 33.7 Const General: cooperative, healthy appearing and no acute distress Orientation/consciousness: patient oriented x3 HEENT Head: Yes normocephalic and Yes atraumatic Eyes EOM: EOMs intact bilaterally Resp Effort & Inspection: normal respiratory effort and able to speak in complete sentences Cardio Jugular venous distension: no JVD Skin General skin exam: turgor normal Rashes: no rashes Neuro General: patient oriented x3 Extrem Other: Evaluation of Right Upper Extremity: The patient is alert, oriented, and in no acute distress Neuro: Median, Ulnar, Radial nerves motor and sensory intact and sensation is normal to the tips of all digits No thenar or intrinsic wasting Good APB muscle belly firing and good finger cross Vascular: Cap refill brisk ROM: She can make a fist and extend all her digits No locking or catching Skin: No lacerations or abrasions. General: No Ecchymosis. No Erythema or evidence of infection. Nerve Conduction Study: Right-side only IMPRESSION: 1. This is an abnormal study. 2. There is electrodiagnostic evidence for right moderate-severe median neuropathy, consistent with Carpal Tunnel Syndrome. 3. There are electrodiagnostic findings suggestive of sensory neuropathy. 4. There is no electrodiagnostic evidence for ulnar neuropathy at the elbow, brachial plexopathy or cervical radiculopathy. Buffy Farris MD, AUTUMN 03/30/24 Psych Appearance: grossly normal Affect: normal affect Attitude: cooperative Assessment & Plan Assessment & Plan (1) Carpal tunnel syndrome of right wrist: Code(s): G56.01 - Carpal tunnel syndrome, right upper limb Category: Medical (2) Diabetes: Code(s): E11.9 - Type 2 diabetes mellitus without complications Category: Medical (3) History of bilateral carpal tunnel release: Code(s): Z98.890 - Other specified postprocedural states Category: Surgical (4) Numbness and tingling in left hand: Code(s): R20.0 - Anesthesia of skin; R20.2 - Paresthesia of skin Category: Medical Plan Assessment & Plan: 1. Right carpal tunnel syndrome, moderate-severe Recurrent S/P release in ~2007 Symptoms intermittent, but daily, worse at night I educated her about this condition I discussed operative and non-operative treatment options The patient would like to proceed with surgery The risks and benefits of operative treatment were discussed with the patient and the patient wishes to proceed with surgery. These risks include, but are not limited to risk of damage to blood vessels, nerves, tendons, infection, recurrence, incomplete relief of preoperative symptoms, persistent pain, possible need for further surgery and the risks associated with regional blocks and anesthesia. The plan is to take the patient to the operating room sometime in the next few weeks for the following procedures: 1. Right REPEAT carpal tunnel release, under local All of the preoperative paperwork including the consent was reviewed today. All the patient's questions were answered. The patient understands that they will be contacted by our finished carpet inspector soon to schedule this procedure She denies blood thinners, asthma, heart, lung She is a Diabetic and says her most recent HgA1c was 7.2% sometime last month. She has a Hx of CPS, CKD IV, and panic attacks. She is somewhat anxious about having surgery while awake She has a Hx of seizures from taking Oxycodone 2. Left hand numbness In the median nerve distribution Hx of carpal tunnel release in ~2007, with normal sensation following surgery Symptoms intermittent & occasional I ordered a new NCS to assess for peripheral neuropathy She can follow up when completed for review Scribed for Nancy Ball MD by Shon Zaman, medical supervisor, on 06/06/24 at 2:05 PM, EST. Orders: Orders NE nerve conduction velocity Today R20.0 - Anesthesia of skin, R20.2 - Paresthesia of skin Coding Level of Care Code New Pt Level 4 (75197) Diagnoses Carpal tunnel syndrome of right wrist G56.01 Diabetes E11.9 History of bilateral carpal tunnel release Z98.890 Numbness and tingling in left hand R20.0; R20.2
== END 2024-06-06 14:33 | disposition home or self-care (01) ==
PROVIDERS: PCP Internal Medicine Geriatric Medicine; Referring Provider Internal Medicine Geriatric Medicine; Visit Provider Orthopaedic Surgery
DX: G56.01 Carpal tunnel syndrome, right upper limb (principal); E11.9 Type 2 diabetes mellitus without complications; Z98.890 Other specified postprocedural states; R20.0 Anesthesia of skin; R20.2 Paresthesia of skin
CPT/HCPCS: 99204

== ENCOUNTER → 2024-06-06 13:47 | Outpatient (BNVA) | payer MEDICAID, SELFPAY | PROVIDERS: PCP Internal Medicine Geriatric Medicine; Visit Provider Orthopaedic Surgery | DX: G56.01 Carpal tunnel syndrome, right upper limb (principal); R20.0 Anesthesia of skin; R20.2 Paresthesia of skin; E11.42 Type 2 diabetes mellitus with diabetic polyneuropathy; N18.30 Chronic kidney disease, stage 3 unspecified; Z98.890 Other specified postprocedural states | CPT/HCPCS: 99202 ==

== ENCOUNTER 2024-06-29 09:03 | Outpatient (REF) | payer MEDICAID, SELFPAY ==
--- NOTE | ~2024-06-29 | XR_ITS ---
EXAMINATION: XR KNEE, LEFT CLINICAL INFORMATION: Chronic pain COMPARISON: Left knee pain TECHNIQUE: Four views of the left knee. FINDINGS: No fracture or joint effusion. Alignment is anatomic. Joint spaces are maintained. No abnormal soft tissue calcification. There is atherosclerotic disease. XR/XR knee LT 4V IMPRESSION: Unremarkable examination. Electronically signed by: Amanda Vilchis MD 06/29/2024 10:13 AM EDT
[2024-06-29 11:44] LABS: Estimated Average Glucose 140 mg/dL; Hemoglobin A1C 135.6328 umol/L; Hemoglobin A1c % 6.5 % (<6.0); Total Hemoglobin (HGBA1C) 2867.1415 umol/L
[2024-06-29 12:27] LABS: Anion Gap 13 (12-20); Blood Urea Nitrogen 32 mg/dL (9-16); Calcium 9.7 mg/dL (8.4-10.2); Carbon Dioxide 20 mmol/L (22-29); Chloride 109 mmol/L (96-108); Estimated Glomerular Filt Rate 22; Glucose Random 142 mg/dL (60-115); Potassium 4.2 mmol/L (3.3-5.1); Sodium 138 mmol/L (135-145)
[2024-06-29 12:30] LABS: Creatinine Urine 54.99 mg/dL
[2024-06-29 13:09] LABS: Microalbumin Urine > 2000.0 mg/L
== END 2024-06-29 09:04 | disposition home or self-care (01) ==
LOC: HO.HHCL 09:03
PROVIDERS: Visit Provider Internal Medicine Geriatric Medicine
DX: E11.65 Type 2 diabetes mellitus with hyperglycemia (principal); N18.4 Chronic kidney disease, stage 4 (severe); M25.562 Pain in left knee; G89.29 Other chronic pain
CPT/HCPCS: 36415; 73564; 80048; 82043; 82570; 83036

== ENCOUNTER 2024-06-29 12:36 | Outpatient (REF) | payer MEDICAID, SELFPAY ==
--- NOTE | 2024-06-29 | EMG_ITS ---
Chief complaint: Left hand numbness and pain Left CTR 2007 Right EMG/NCS done by me in March showed right Carpal Tunnel Syndrome. Scheduled for surgery. Reason for referral: Evaluate for Carpal Tunnel Syndrome Referred by: Dr. Ball Procedure done: Left upper extremity NCS/EMG Precautions and/or limitations: None The limb temperature was monitored continuously and remained between 32-36 degrees C during the performance of the NCS. Ulnar motor NCS was performed with moderate elbow flexion between 70-90 degrees, with across-elbow distance of 10 cm. Nerve Conduction Studies Anti Sensory Summary Table ?Stim Site NR Onset (ms) Norm Onset (ms) Peak (ms) Norm Peak (ms) O-P Amp (?V) Norm O-P Amp Site1 Site2 Delta-0 (ms) Dist (cm) Barry (m/s) Norm Barry (m/s) Left Median Anti Sensory (2nd Digit) Wrist NR <3.6 >10 Wrist 2nd Digit 14.0 Left Radial Anti Sensory (Thumb) Forearm ? 1.7 2.5 <3.1 20.4 Forearm Thumb 1.7 0.0 Left Ulnar Anti Sensory (5th Digit) Wrist ? 2.8 3.4 <3.7 10.4 >15.0 Wrist 5th Digit 2.8 14.0 50 Motor Summary Table ?Stim Site NR Onset (ms) Norm Onset (ms) O-P Amp (mV) Norm O-P Amp iAmp (mV) Amp (1st) (%) Site1 Site2 Delta-0 (ms) Dist (cm) Barry (m/s) Norm Barry (m/s) Left Median Motor (Abd Poll Brev) Wrist ? 4.5 <3.9 6.4 >4.5 7.8 100.0 Elbow Wrist 4.1 19.0 46 >45 Elbow ? 8.6 5.7 7.0 89.1 Left Ulnar Motor (Abd Dig Minimi) Wrist ? 3.4 <3.0 8.0 >5 9.4 100.0 B Elbow Wrist 3.6 18.5 51 >45 B Elbow ? 7.0 7.2 8.7 90.0 A Elbow B Elbow 1.8 10.0 56 >45 A Elbow ? 8.8 7.0 8.4 87.5 Left UlnarH Motor (FDI) Wrist ? 4.3 <3.0 5.2 >5 6.3 100.0 B Elbow Wrist 3.3 19.0 58 >45 B Elbow ? 7.6 5.1 6.2 98.1 A Elbow B Elbow 2.1 10.0 48 >45 A Elbow ? 9.7 3.1 3.7 59.6 EMG ?Side Muscle Nerve Root Ins Act Fibs Psw Amp Dur Poly Recrt Int Pat Comment Left 1stDorInt Ulnar C8-T1 Nml Nml Nml Nml Nml 0 Nml Complete Left Biceps Musculocut C5-6 Nml Nml Nml Nml Nml 0 Nml Complete Left Triceps Radial C6-7-8 Nml Nml Nml Nml Nml 0 Nml Complete Left Deltoid Axillary C5-6 Nml Nml Nml Nml Nml 0 Nml Complete Left FlexCarpiUln Ulnar C8,T1 Nml Nml Nml Nml Nml 0 Nml Complete FINDINGS: Left median motor nerve showed prolonged distal latency, normal amplitude and normal conduction velocity. Left ulnar motor nerve, recording at ADM muscle, showed prolonged distal latency, normal amplitude and normal conduction velocity. Left ulnar motor nerve, recording at FDI muscle, showed prolonged distal latency, drop in amplitude above the elbow and normal conduction velocity. Left median sensory nerve no response. Left ulnar sensory nerve showed prolonged peak latency but small amplitude. Left radial sensory nerve was within normal. Concentric needle EMG was performed in selected muscles of the left upper extremity. Study did not reveal signs of electric abnormalities as shown in the table above. IMPRESSION: 1. This is an abnormal study. 2. There is electrodiagnostic evidence for left moderate-severe median neuropathy at the wrist, consistent with carpal tunnel syndrome. 3. There is electrodiagnostic evidence for left ulnar neuropathy at the elbow. 4. There is no electrodiagnostic evidence for brachial plexopathy or cervical radiculopathy. Thank you for your kind referral. Buffy Farris MD, AUTUMN Board Certified, [place] Board [employer] and Rehabilitation (ABPMR) Board Certified, [place] Board of Electrodiagnostic Medicine (ABEM) [place] [id number] [facility]
== END 2024-06-29 12:37 | disposition home or self-care (01) ==
LOC: HO.NEURO 12:36
PROVIDERS: PCP Internal Medicine Geriatric Medicine; Visit Provider Orthopaedic Surgery
DX: R20.0 Anesthesia of skin (principal); R20.2 Paresthesia of skin
CPT/HCPCS: 95886; 95909

== ENCOUNTER → 2024-06-29 12:40 | Outpatient (BNV) | payer MEDICAID, SELFPAY | PROVIDERS: PCP Internal Medicine Geriatric Medicine; Visit Provider Physical Medicine & Rehabilitation | DX: G56.03 Carpal tunnel syndrome, bilateral upper limbs (principal); G56.22 Lesion of ulnar nerve, left upper limb | CPT/HCPCS: 95886; 95909 ==

== ENCOUNTER 2024-07-17 15:13 | Outpatient (AMB) | payer MEDICAID, SELFPAY ==
[2024-07-17 15:20] VITALS: BP 140/72; PULSE 87; O2SAT 97; BMI 34.0
--- NOTE | 2024-07-17 15:20 | HO.NEPHOV_ITS ---
Vital Signs 07/17/24 15:20 Height 5 ft 3 in Weight 192 lb BMI 34.0 BP 140/72 H Blood Pressure Location Lt brachial Position Sitting Pulse 87 Pulse Source Pulse Oximeter Pulse Oximetry (%) 97 Oxygen Delivery Method Room Air Intake Visit Reasons: RSCNG missed 06/21 appt/ Conf Lease Analyst Required: No Accompanied by: Self / Same As Patient Allergies oxycodone [OXYCODONE] Allergy (Unknown, Verified 07/17/24 15:26) SEIZURES XIAO Inhibitors Adverse Reaction (Intermediate, Verified 07/17/24 15:26) Cough HPI Comments Details: Franny is a pleasant woman with a history of diabetes mellitus for more than 30 years referred for evaluation of renal insufficiency She tells me that her blood sugar has been reasonably well controlled with a recent A1c of 6.2%. She was recently diagnosed with hypertension. Initially she was started with amlodipine and she started developing swelling. Amlodipine was discontinued. Hydrochlorothiazide 25 mg was added. Edema has subsided. Her baseline serum creatinine was around 1.04 mg/dL in August 2023. In October creatinine bumped up to 1.6 and as of November creatinine was 2.12 and hence this referral. She had a urine analysis which showed significant proteinuria with a urine protein creatinine ratio of 4630. She is on losartan 100 mg a day for control blood pressure and for renal protection. She has also been taking NSAIDs every now and then and last dose was 600 mg ibuprofen couple of weeks ago. No history of smoking cigarettes she uses smoke marijuana which he quit 5 months ago. 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 No history of renal colic abuse This is a strong family history of diabetes mellitus and mother from end stage renal disease Today she has no specific complaints. No headache nausea vomiting. No shortness of breath. No polyuria polydipsia. No edema. No rash no fever. 02/01/2024. Given has stopped taking NSAIDs. She complains of left upper back pain. There is some confusion about her medications. She is stopped taking losartan. All medications were reviewed. Still with left sided upper back pain 07/17/24 Feels better Off Metformin [facility] Medical History (Updated 06/29/24 @ 13:20 by Julia Clark RN) Anemia Chronic pain syndrome GERD (gastroesophageal reflux disease) Chronic renal insufficiency Depression Anxiety Diabetes Surgical History Status post right foot surgery History of section History of appendectomy History of tubal ligation S/p bilateral carpal tunnel release Family History Maternal Aunt Throat cancer Social History Unable to assess alcohol history related to: Unable to respond Alcohol intake: never Substance Use Type: Marijuana Current occupation: rt handed Physical Exam Vital Signs: Last Vital Signs Pulse 87 07/17/24 15:20 BP 140/72 H 07/17/24 15:20 Pulse Ox 97 07/17/24 15:20 Oxygen Delivery Method Room Air 07/17/24 15:20 BMI result Body Mass Index 34.0 Results Reviewed Nephrology Results: Hgb 10.5 g/dl (12.0-16.0) L 04/18/24 WBC 6.0 X10*3/uL (4.8-10.8) 04/18/24 Plt Count 315 X10*3/uL (160-400) 04/18/24 Sodium 138 mmol/L (135-145) 06/29/24 Potassium 4.2 mmol/L (3.3-5.1) 06/29/24 Chloride 109 mmol/L (96-108) H 06/29/24 Carbon Dioxide 20 mmol/L (22-29) L 06/29/24 BUN 32 mg/dL (9-16) H 06/29/24 Creatinine 2.37 mg/dL (0.5-1.4) H 06/29/24 Calcium 9.7 mg/dL (8.4-10.2) 06/29/24 PTH Intact 154.7 pg/mL (8.7-77.1) H 04/17/24 Urine Protein >=1000 (4+) mg/dL (Neg-Trace) H 4 Urine Creatinine 54.99 mg/dL 06/29/24 Assessment & Plan Assessment & Plan (1) CKD (chronic kidney disease): Code(s): N18.9 - Chronic kidney disease, unspecified Category: Medical Plan: . (2) Anemia: Code(s): D64.9 - Anemia, unspecified Category: Medical (3) Hypertension: Code(s): I10 - Essential (primary) hypertension Category: Medical (4) Diabetes: Code(s): E11.9 - Type 2 diabetes mellitus without complications Category: Medical (5) CKD (chronic kidney disease) stage 4, GFR 15-29 ml/min: Code(s): N18.4 - Chronic kidney disease, stage 4 (severe) Category: Medical Plan 48-year-old woman with chronic kidney disease with nephrotic range proteinuria in the setting of longstanding diabetes mellitus. Underlying CKD is most likely due to diabetic kidney disease. However nondiabe tic causes should be ruled out. The superimposed ANGELIA may be due to hypoperfusion from use of diuretics along with ARB and NSAIDs. No obstructive uropathy based on renal ultrasonogram . Clinically no reason to believe that she is any active glomerulonephritis or interstitial disease. Recent urinalysis showed bland sediment Creatinine is essentially unchanged No monoclonal proteins Serum complements C3 and C4 are normal. Blood pressure is better controlled and acceptable She is mild anemia Hemoglobin is improved Plan Keep losartan 50 mg daily for renal protection in view of the proteinuria Meantime stay on low-sodium diet and increase fluid intake. I have discussed importance of tight control of blood pressure and blood sugar to slow the progression of renal disease. Continue to avoid nephrotoxic agents includingNSAIDs. continue with SGLT2 inhibitors for cardiorenal protection. Given the degree of renal failure I agree with avoiding metformin due to risk of lactic acidosis Orders: Orders Creatinine Urine 3 Months N18.4 - Chronic kidney disease, stage 4 (severe) Basic Metabolic Panel 3 Months N18.4 - Chronic kidney disease, stage 4 (severe) Total Protein Urine Random 3 Months N18.4 - Chronic kidney disease, stage 4 (severe) Coding Level of Care Code Est Pt Level 4 (87868) Diagnoses CKD (chronic kidney disease) N18.9 Anemia D64.9 Hypertension I10 Diabetes E11.9 CKD (chronic kidney disease) stage 4, GFR 15-29 ml/min N18.4
== END 2024-07-17 15:38 | disposition home or self-care (01) ==
PROVIDERS: PCP Internal Medicine Geriatric Medicine; Visit Provider Internal Medicine Hypertension Specialist
DX: I12.9 Hypertensive chronic kidney disease with stage 1 through stage 4 chronic kidney disease, or unspecified chronic kidney disease (principal); E11.22 Type 2 diabetes mellitus with diabetic chronic kidney disease; N18.4 Chronic kidney disease, stage 4 (severe); D63.1 Anemia in chronic kidney disease
CPT/HCPCS: 99214

== ENCOUNTER → 2024-07-17 15:13 | Outpatient (BNVA) | payer MEDICAID, SELFPAY | PROVIDERS: PCP Internal Medicine Geriatric Medicine; Visit Provider Internal Medicine Hypertension Specialist | DX: E11.22 Type 2 diabetes mellitus with diabetic chronic kidney disease (principal); I12.9 Hypertensive chronic kidney disease with stage 1 through stage 4 chronic kidney disease, or unspecified chronic kidney disease; N18.4 Chronic kidney disease, stage 4 (severe); D64.9 Anemia, unspecified | CPT/HCPCS: 99212 ==

== ENCOUNTER 2024-07-30 07:49 | Day surgery (SDC) | payer MEDICAID, SELFPAY ==
[2024-07-29 11:43] VITALS: BMI 34.5
[2024-07-30 08:32] VITALS: BP 147/67; PULSE 76; RESP 18; TEMP 36.9; O2SAT 98
--- NOTE | 2024-07-30 09:50 | MHC.SHP ---
Pre-Procedural Eval Section A - 24 Hr Update-Section A only Date of Service: 07/30/24 The patient is an INPATIENT: No Changes since office visit: No Cold of Flu in the past 2 weeks, No New Medical Problems, No Changes in Medication and No Patient answered all questions The patient has been examined within 24 hours of the surgical procedure. The History & Physical has been completed within 30 days and I have reviewed it.: Yes Section B - Complete if H&P > 30 days Chief Complaint: Carpal tunnel syndrome, right upper limb Allergies: Allergies Allergy/AdvReac Type Severity Reaction Status Date / Time oxycodone [OXYCODONE] Allergy Unknown SEIZURES Verified 07/17/24 15:26 XIAO Inhibitors AdvReac Intermediate Cough Verified 07/17/24 15:26 Plan Diagnosis/Plan: Unchanged I have reviewed the history and physical and performed a pertinent physical examination on my patient. No changes have occurred unless specified. Time Spent With Patient Time: Total time managing care of this patient today ____ minutes.
--- NOTE | 2024-07-30 09:51 | W.PM.OPN ---
Operative Note Operative Note Date of Service: 07/30/24 Narrative: Preop diagnosis: 1. Recurrent right Carpal tunnel syndrome Postop diagnosis: same Procedure: 1. Repeat right Carpal tunnel release Surgeon: Nancy Ball MD Credit Director: None Anesthesia: local block using 1% lidocaine with epinephrine Findings: Thickened scar tissue extending into the palm EBL: Less than 5 mL Specimens: None Complications: None Disposition: Brought to recovery room in stable condition Plan: Follow-up for 10-14 days for wound check and suture removal Indications: The patient is 49 years old, with recurrent right carpal tunnel syndrome that has been unresponsive to nonoperative management. The risks and benefits of operative treatment including but not limited to risk of damage to blood vessels, nerves, tendons, infection, persistent pain, persistent symptoms, or possible need for additional surgery were discussed with the patient and the patient wishes to proceed with surgery. Procedure: Once consent was obtained a local block was performed using a combination of 1% lidocaine with epinephrine. The patient was then brought back to the operating suite and placed on the operative table in supine position. The right upper extremity was prepped and draped in a standard surgical fashion. Once assured that we had a good block, a 2.0 cm longitudinal incision was made centered over the carpal tunnel extended in a zigzag just proximal to the distal wrist crease. The incision was made through the skin to the subcutaneous tissues using a #15 blade. Beginning proximally I dissected down to the volar forearm fascia. The volar forearm fascia was carefully opened longitudinally using iris scissors. The median nerve was then visualized and was protected throughout the case. Protecting the median nerve I then incised the scar tissue over the carpal tunnel using a 15. Blade and then iris scissors under direct visualization. Once satisfied with our repeat carpal tunnel release the wound was copiously irrigated with normal saline and hemostasis was obtained with a brief period of local pressure. The skin edges were reapproximated with some 5.0 nylon suture material and a sterile dressing was applied. The patient appears to have tolerated the procedure well and with no complications. All digits were well vascularized at the conclusion of the case.
[2024-07-30 10:47] VITALS: BP 203/107; PULSE 81; RESP 16; O2SAT 98
== END 2024-07-30 10:50 | disposition home or self-care (01) ==
PROVIDERS: PCP Internal Medicine Geriatric Medicine; Visit Provider Orthopaedic Surgery
PROC: (CPT 64721; principal; 2024-07-30 08:50)
DX: G56.01 Carpal tunnel syndrome, right upper limb (principal); M79.631 Pain in right forearm; R20.0 Anesthesia of skin; R20.2 Paresthesia of skin; R53.1 Weakness; E11.22 Type 2 diabetes mellitus with diabetic chronic kidney disease; N18.4 Chronic kidney disease, stage 4 (severe); E11.40 Type 2 diabetes mellitus with diabetic neuropathy, unspecified; G89.4 Chronic pain syndrome; F41.9 Anxiety disorder, unspecified; F41.0 Panic disorder [episodic paroxysmal anxiety]; Z79.84 Long term (current) use of oral hypoglycemic drugs; Z79.85 Long-term (current) use of injectable non-insulin antidiabetic drugs; Z88.5 Allergy status to narcotic agent; Z88.8 Allergy status to other drugs, medicaments and biological substances; Z98.890 Other specified postprocedural states
CPT/HCPCS: 64721; J0171; J2003

== ENCOUNTER → 2024-07-30 07:49 | Outpatient (BNV) | payer MEDICAID, SELFPAY | PROVIDERS: PCP Internal Medicine Geriatric Medicine; Visit Provider Orthopaedic Surgery | DX: G56.01 Carpal tunnel syndrome, right upper limb (principal) | CPT/HCPCS: 64721 ==

== ENCOUNTER 2024-08-15 13:08 | Outpatient (AMB) | payer MEDICAID, SELFPAY ==
--- NOTE | 2024-08-15 13:23 | MHC.OFFVIS ---
Vital Signs 08/15/24 13:24 Height 5 ft 3 in Weight 195 lb BMI 34.5 Handedness Right Intake Visit Reasons: PO RT repeat CTR 07/30/24 AR Intake Note: Franny is a 49 year old right hand dominant female who presents today for a post operative s/p Left Carpal Tunnel Release DOS: 07/30/24 w/ Dr Ball. Patient reports she is still having some numbness and tingling. She states she is having pain and swelling at her incision site. There is redness present. Sutures removed and steri strips applied. Allergies oxycodone [OXYCODONE] Allergy (Unknown, Verified 08/15/24 13:51) SEIZURES XIAO Inhibitors Adverse Reaction (Intermediate, Verified 08/15/24 13:51) Cough HPI HPI PO RT repeat CTR 07/30/24 AR: Details: Patient is a 49-year-old female who presents for postop evaluation status post right repeat carpal tunnel release, DOS 07/30/[address] Ball. Has patient reports that she is still experiencing some numbness and tingling, but this has improved since prior to surgery. The patient does report that she is having pain and tenderness around the incision site, and has noticed some increased redness and swelling about the most proximal part of the incision. Patient denies any discharge from the incision site. No other acute complaints or concerns at this time. COUNT INCLUDES [facility] Medical History Anemia Chronic pain syndrome GERD (gastroesophageal reflux disease) Chronic renal insufficiency Depression Anxiety Diabetes Surgical History Status post right foot surgery History of section History of appendectomy History of tubal ligation S/p bilateral carpal tunnel release Family History Maternal Aunt Throat cancer Social History Unable to assess alcohol history related to: Unable to respond Alcohol intake: never Substance Use Type: Marijuana Current occupation: rt handed Review of Systems Const All systems reviewed & are unremarkable except as noted in HPI and below Physical Exam Vital Signs: BMI result Body Mass Index 34.5 Const General: cooperative, healthy appearing and no acute distress Orientation/consciousness: patient oriented x3 HEENT Head: Yes normocephalic and Yes atraumatic Eyes EOM: EOMs intact bilaterally Resp Effort & Inspection: normal respiratory effort and able to speak in complete sentences Cardio Jugular venous distension: no JVD Skin General skin exam: turgor normal Rashes: no rashes Neuro General: patient oriented x3 Extrem Other: Evaluation of Right Upper Extremity: The patient is alert, oriented, and in no acute distress Neuro: Median, Ulnar, Radial nerves motor and sensory intact and sensation is normal to the tips of all digits No thenar or intrinsic wasting Good APB muscle belly firing and good finger cross Vascular: Cap refill brisk ROM: She can make a fist and extend all her digits No locking or catching Skin: Well approximated and well healing incision site noted on the volar aspect of the patient's right wrist General: No Ecchymosis. No Erythema or evidence of infection. Psych Appearance: grossly normal Affect: normal affect Attitude: cooperative Assessment & Plan Assessment & Plan (1) Left carpal tunnel syndrome: Code(s): G56.02 - Carpal tunnel syndrome, left upper limb Category: Medical Plan 1. Carpal tunnel syndrome, left, status post carpal tunnel release DOS 07/30/2024 Patient appears to be recovering fairly well postoperatively, but I am concerned that she may have some mild cellulitis surrounding the proximal part of the incision site Therefore, patient is given a one-week course of Keflex for this cellulitis Patient will follow-up in 1 week for repeat wound check If patient was improving at that time, she will not require any acute follow-up Patient was amenable to this plan Patient is also informed that it can take up to 9 months to get sensation back after carpal tunnel release patient states understanding of this Patient will follow-up in 1 week for wound check, sooner with any acute concerns Medications: New cephalexin 500 mg PO QID 7 days 28 caps 0RF Coding Level of Care Code Global (25532) Diagnoses Left carpal tunnel syndrome G56.02
[2024-08-15 13:24] VITALS: BMI 34.5
== END 2024-08-15 13:58 | disposition home or self-care (01) ==
PROVIDERS: PCP Internal Medicine Geriatric Medicine
DX: G56.02 Carpal tunnel syndrome, left upper limb (principal)
CPT/HCPCS: 99024

== ENCOUNTER → 2024-08-15 13:08 | Outpatient (BNVA) | payer MEDICAID, SELFPAY | PROVIDERS: PCP Internal Medicine Geriatric Medicine | DX: G56.02 Carpal tunnel syndrome, left upper limb (principal) | CPT/HCPCS: 99212 ==

== ENCOUNTER 2024-08-24 11:42 | Outpatient (AMB) | payer MEDICAID, SELFPAY ==
--- NOTE | 2024-08-24 11:53 | MHC.OFFVIS ---
Intake Visit Reasons: PO RT repeat CTR 07/30/24 AR-wound check Intake Note: Franny is a 49 year old right hand dominant female who presents today for a post operative and a wound check s/p Left Carpal Tunnel Release DOS: 07/30/24 w/ Dr Ball. Allergies oxycodone [OXYCODONE] Allergy (Unknown, Verified 08/24/24 11:56) SEIZURES XIAO Inhibitors Adverse Reaction (Intermediate, Verified 08/24/24 11:56) Cough HPI HPI PO RT repeat CTR 07/30/24 AR-wound check: Details: Patient is a 49-year-old female who presents for postoperative evaluation status post right repeat carpal tunnel release, DOS 07/30/2024. Patient states that the pain and redness she was previously experiencing have resolved, and then she has no acute concerns or complaints at this time. Reports complete resolution of her carpal tunnel symptoms. No other acute complaints or concerns at this time. [facility] Medical History Anemia Chronic pain syndrome GERD (gastroesophageal reflux disease) Chronic renal insufficiency Depression Anxiety Diabetes Surgical History Status post right foot surgery History of section History of appendectomy History of tubal ligation S/p bilateral carpal tunnel release Family History Maternal Aunt Throat cancer Social History Unable to assess alcohol history related to: Unable to respond Alcohol intake: never Substance Use Type: Marijuana Current occupation: rt handed Physical Exam Const General: cooperative, healthy appearing and no acute distress Orientation/consciousness: patient oriented x3 HEENT Head: Yes normocephalic and Yes atraumatic Eyes EOM: EOMs intact bilaterally Resp Effort & Inspection: normal respiratory effort and able to speak in complete sentences Cardio Jugular venous distension: no JVD Skin General skin exam: turgor normal Rashes: no rashes Neuro General: patient oriented x3 Extrem Other: Evaluation of Right Upper Extremity: The patient is alert, oriented, and in no acute distress Neuro: Median, Ulnar, Radial nerves motor and sensory intact and sensation is normal to the tips of all digits No thenar or intrinsic wasting Good APB muscle belly firing and good finger cross Vascular: Cap refill brisk ROM: She can make a fist and extend all her digits No locking or catching Skin: Well approximated and well healing incision site noted on the volar aspect of the patient's right wrist General: No Ecchymosis. No Erythema or evidence of infection. Psych Appearance: grossly normal Affect: normal affect Attitude: cooperative Assessment & Plan Assessment & Plan (1) Left carpal tunnel syndrome: Code(s): G56.02 - Carpal tunnel syndrome, left upper limb Category: Medical Plan 1. Carpal tunnel syndrome, left, status post carpal tunnel release DOS 07/30/2024 Patient appears to be recovering fairly well postoperatively Patient is educated about the typical recovery course Patient appears to have recovered well from any cellulitis that has been ongoing Patient will follow-up in 1 week for repeat wound check Patient is also informed that it can take up to 9 months to get sensation back after carpal tunnel release patient states understanding of this Patient will follow-up as needed with any acute concerns Coding Level of Care Code Global (30730) Diagnoses Left carpal tunnel syndrome G56.02
== END 2024-08-24 12:04 | disposition home or self-care (01) ==
PROVIDERS: PCP Internal Medicine Geriatric Medicine
DX: G56.02 Carpal tunnel syndrome, left upper limb (principal)
CPT/HCPCS: 99024

== ENCOUNTER → 2024-08-24 11:42 | Outpatient (BNVA) | payer MEDICAID, SELFPAY | PROVIDERS: PCP Internal Medicine Geriatric Medicine | DX: Z09 Encounter for follow-up examination after completed treatment for conditions other than malignant neoplasm (principal); Z86.69 Personal history of other diseases of the nervous system and sense organs; Z98.890 Other specified postprocedural states | CPT/HCPCS: 99212 ==

== ENCOUNTER 2024-11-20 09:47 | Outpatient (REF) | payer MEDICAID, SELFPAY ==
[2024-11-20 11:59] LABS: Alanine Aminotransferase 14 U/L (0-31); Alkaline Phosphatase 82 U/L (39-117); Anion Gap 11 (12-20); Aspartate Amino Transferase 16 U/L (5-31); Bilirubin Total 0.2 mg/dL (0.0-1.0); Blood Urea Nitrogen 50 mg/dL (9-16); Calcium 8.6 mg/dL (8.4-10.2); Carbon Dioxide 19 mmol/L (22-29); Chloride 114 mmol/L (96-108); Cholesterol 245 mg/dL (<200); Estimated Glomerular Filt Rate 15; Glucose Random 151 mg/dL (60-115); HDL Cholesterol 49 mg/dL (>40); LDL Cholesterol Calculated 170 mg/dL (<100); Potassium 4.7 mmol/L (3.3-5.1); Sodium 139 mmol/L (135-145); Total Protein 7.2 g/dL (6.5-8.0); Triglycerides 132 mg/dL (<150)
[2024-11-20 12:01] LABS: Appearance Urine Clear; Color Urine Yellow; Glucose Urine UA >=1000 mg/dL (Negative); Leukocyte Esterase Urine Negative (Negative); Nitrite Urine Negative (Negative); UMIC TRIGGER UA YES; Urine Blood Trace (Negative); Urine Ketones Negative (Negative); Urine Protein 300 (3+) mg/dL (Neg-Trace)
[2024-11-20 12:41] LABS: Bacteria Urine None Seen (None Seen); Creatinine Urine 52.55 mg/dL; Hyaline Casts Urine 0-2 /LPF (0-2); Microalbumin Urine > 2000.0 mg/L; RBC Urine 0-2 /HPF (0-2); Squamous Epithelial Cell Urine 0-2 /HPF (0-2); WBC Urine 0-5 /HPF (0-5)
[2024-11-20 12:51] LABS: Total Protein Urine Random 378 mg/dL (<12)
== END 2024-11-20 09:48 | disposition home or self-care (01) ==
LOC: HO.LAB 09:47
PROVIDERS: Absent Provider Internal Medicine Hypertension Specialist; PCP Internal Medicine Geriatric Medicine; Visit Provider Internal Medicine Geriatric Medicine
DX: I12.9 Hypertensive chronic kidney disease with stage 1 through stage 4 chronic kidney disease, or unspecified chronic kidney disease (principal); E11.22 Type 2 diabetes mellitus with diabetic chronic kidney disease; N18.4 Chronic kidney disease, stage 4 (severe); R80.9 Proteinuria, unspecified; E11.21 Type 2 diabetes mellitus with diabetic nephropathy; D64.9 Anemia, unspecified
CPT/HCPCS: 36415; 80053; 80061; 81001; 81003; 82043; 82570; 84156; 99212

== ENCOUNTER 2024-11-20 10:14 | Outpatient (AMB) | payer MEDICAID, SELFPAY ==
[2024-11-20 10:15] VITALS: BP 146/80; PULSE 96; O2SAT 99; BMI 34.4
--- NOTE | 2024-11-20 10:15 | HO.NEPHOV ---
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 Accompanied by: Self / Same As Patient Allergies oxycodone [OXYCODONE] Allergy (Unknown, Verified 11/20/24 10:18) SEIZURES XIAO Inhibitors Adverse Reaction (Intermediate, Verified 11/20/24 10:18) Cough Medication List - Last Reconciled 11/20/24 by Spencer Bauman MD acetaminophen ER 1,300 mg PO Q8H PRN aspirin 1 tab PO QAM cephalexin 500 mg PO QID 7 days dulaglutide (Trulicity) mg subcut QWEEK dulaglutide (Trulicity) 0.75 mg subcut QWEEK empagliflozin (Jardiance) 10 mg PO DAILY famotidine (Pepcid) 20 mg PO BID PRN fluticasone propionate 50 mcg/actuation intranasal glipizide ER 10 mg PO QAM hydralazine 25 mg PO BID hydrochlorothiazide 12.5 mg PO DAILY lidocaine 5% 1 patch topical DAILY losartan 50 mg PO DAILY ondansetron 4 mg PO Q8H PRN HPI Comments Details: Franny is a pleasant woman with a history of diabetes mellitus for more than 30 years referred for evaluation of renal insufficiency She tells me that her blood sugar has been reasonably well controlled with a recent A1c of 6.2%. She was recently diagnosed with hypertension. Initially she was started with amlodipine and she started developing swelling. Amlodipine was discontinued. Hydrochlorothiazide 25 mg was added. Edema has subsided. Her baseline serum creatinine was around 1.04 mg/dL in August 2023. In October creatinine bumped up to 1.6 and as of November creatinine was 2.12 and hence this referral. She had a urine analysis which showed significant proteinuria with a urine protein creatinine ratio of 4630. She is on losartan 100 mg a day for control blood pressure and for renal protection. She has also been taking NSAIDs every now and then and last dose was 600 mg ibuprofen couple of weeks ago. No history of smoking cigarettes she uses smoke marijuana which he quit 5 months ago. 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 No history of renal colic abuse This is a strong family history of diabetes mellitus and mother from end stage renal disease Today she has no specific complaints. No headache nausea vomiting. No shortness of breath. No polyuria polydipsia. No edema. No rash no fever. 02/01/2024. Given has stopped taking NSAIDs. She complains of left upper back pain. There is some confusion about her medications. She is stopped taking losartan. All medications were reviewed. ; Still with left sided upper back pain 07/17/24; Feels better, Off Metformin 11/20/24: s/p CArpel tunnel surgery Overall doing ok A1C was 7.2 in Aug 2024 [facility] Medical History Anemia Chronic pain syndrome GERD (gastroesophageal reflux disease) Chronic renal insufficiency Depression Anxiety Diabetes Surgical History Status post right foot surgery History of section History of appendectomy History of tubal ligation S/p bilateral carpal tunnel release Family History Maternal Aunt Throat cancer Social History Unable to assess alcohol history related to: Unable to respond Alcohol intake: never Substance Use Type: Marijuana Current occupation: rt handed Physical Exam Vital Signs: Last Vital Signs Pulse 96 11/20/24 10:15 BP 146/80 H 11/20/24 10:15 Pulse Ox 99 11/20/24 10:15 Oxygen Delivery Method Room Air 11/20/24 10:15 BMI result Body Mass Index 34.4 Const General: comfortable; No acute distress Orientation/consciousness: patient oriented x3 Eyes General: appearance normal, both eyes and all related structures Visual Fountain: normal visual fountain by confrontation Neck Neck: Yes supple and Yes no JVD Resp Effort & Inspection: normal respiratory effort and respiratory effort not decreased Auscultation: rhonchi Cardio Palpation: no palpable S3 and no palpable S4 Heart sounds: no rubs GI Inspection: Yes normal to inspection Palpation (GI): Soft to palpation Percussion: Yes normal to percussion Auscultation: normal bowel sounds General: Yes no CVA tenderness Back/Spine/Pelvis Back: no CVA tenderness Skin General skin exam: no petechiae and no purpura Neuro General: patient oriented x3 and no focal motor deficits Extrem General: No clubbing and No edema Results Reviewed Nephrology Results: Sodium 138 mmol/L (135-145) 06/29/24 Potassium 4.2 mmol/L (3.3-5.1) 06/29/24 Chloride 109 mmol/L (96-108) H 06/29/24 Carbon Dioxide 20 mmol/L (22-29) L 06/29/24 BUN 32 mg/dL (9-16) H 06/29/24 Creatinine 2.37 mg/dL (0.5-1.4) H 06/29/24 Calcium 9.7 mg/dL (8.4-10.2) 06/29/24 Urine Creatinine 54.99 mg/dL 06/29/24 Assessment & Plan Assessment & Plan (1) CKD (chronic kidney disease): Code(s): N18.9 - Chronic kidney disease, unspecified Category: Medical Plan: . (2) Anemia: Code(s): D64.9 - Anemia, unspecified Category: Medical (3) Hypertension: Code(s): I10 - Essential (primary) hypertension Category: Medical (4) Diabetes: Code(s): E11.9 - Type 2 diabetes mellitus without complications Category: Medical (5) CKD (chronic kidney disease) stage 4, GFR 15-29 ml/min: Code(s): N18.4 - Chronic kidney disease, stage 4 (severe) Category: Medical Plan 48-year-old woman with chronic kidney disease with nephrotic range proteinuria in the setting of longstanding diabetes mellitus. Underlying CKD is most likely due to diabetic kidney disease. However nondiabetic causes should be ruled out. The superimposed ANGELIA may be due to hypoperfusion from use of diuretics along with ARB and NSAIDs. No obstructive uropathy based on renal ultrasonogram . Clinically no reason to believe that she is any active glomerulonephritis or interstitial disease. Recent urinalysis showed bland sediment Creatinine is essentially unchanged No monoclonal proteins Serum complements C3 and C4 are normal. Blood pressure is better controlled and acceptable She is mild anemia Hemoglobin is improved Plan Keep losartan 50 mg daily for renal protection in view of the proteinuria Meantime stay on low-sodium diet and increase fluid intake. I have discussed importance of tight control of blood pressure and blood sugar to slow the progression of renal disease. Continue to avoid nephrotoxic agents including NSAIDs. continue with SGLT2 inhibitors for cardiorenal protection. Labs done today and pending. Orders: Orders Complete Blood Count no Diff 3 Months N18.4 - Chronic kidney disease, stage 4 (severe) Comprehensive Met. Panel 3 Months N18.4 - Chronic kidney disease, stage 4 (severe) Coding Level of Care Code Est Pt Level 4 (92410) Diagnoses CKD (chronic kidney disease) N18.9 Anemia D64.9 Hypertension I10 Diabetes E11.9 CKD (chronic kidney disease) stage 4, GFR 15-29 ml/min N18.4
[2024-11-20 10:26] VITALS: BP 130/70
== END 2024-11-20 10:28 | disposition home or self-care (01) ==
LOC: HO.HKA 10:15
PROVIDERS: PCP Internal Medicine Geriatric Medicine; Visit Provider Internal Medicine Hypertension Specialist
DX: I12.9 Hypertensive chronic kidney disease with stage 1 through stage 4 chronic kidney disease, or unspecified chronic kidney disease (principal); N18.9 Chronic kidney disease, unspecified; D64.9 Anemia, unspecified; E11.9 Type 2 diabetes mellitus without complications; N18.4 Chronic kidney disease, stage 4 (severe)
CPT/HCPCS: 99214

== ENCOUNTER 2025-01-30 10:47 | Outpatient (REF) | payer MEDICAID, SELFPAY ==
--- NOTE | ~2025-01-30 | XR_ITS ---
EXAMINATION: XR SHOULDER, RIGHT CLINICAL INFORMATION: Chronic pain and decreased ROM COMPARISON: None available. TECHNIQUE: AP external rotation, Grashey, scapular Y views of the right shoulder. FINDINGS: The a.c. and glenohumeral joints are intact. No degenerative changes are evident. No fractures are identified. XR/XR shoulder RT min 2V IMPRESSION: Unremarkable right shoulder Electronically signed by: Kody Atwood MD 01/30/2025 12:56 PM EDT
--- OUTSIDE RECORDS SUMMARY | 2025-01-30 11:36 | XMS_ITS | Clinical Summary ---
Author Organization [facility], Address [address] [place] [address] [place] [address] Phone Care Team Providers Care Juice Packaging Machines Setter Name Role Phone Name, Ney LEONG Primary Care Provider [phone] Allergies No known active allergies Medications Lancets (FREESTYLE) lancets Comments: Filled Date: May 10 2018 12:00AM Patient Notes: USE 1 LANCET BY TO SKIN ROUTE 2 TIMES EVERY DAY Duration: 8 Active glucose blood test strip Comments: Filled Date: Mar 13 2018 12:00AM Patient Notes: USE WITH GLUCOMETER TO CHECK BLOOD SUGAR TWICE DAILY Duration: 8 Active aspirin 81 MG chewable tablet Comments: Filled Date: May 16 2018 12:00AM Patient Notes: CHEW 1 TABLET BY MOUTH EVERY DAY Duration: 8 Active busPIRone (BUSPAR) 7.5 MG tablet Take 1 tablet by mouth 2 (two) times a day Active glipiZIDE (GLUCOTROL XL) 10 MG 24 hr tablet Comments: Filled Date: May 10 2018 12:00AM Patient Notes: TAKE 1 TABLET BY MOUTH EVERY DAY WITH BREAKFAST Duration: 8 Active meloxicam (MOBIC) 15 MG tablet Take 1 tablet by mouth 1 (one) time each day Active metFORMIN (FORTAMET) 1000 MG 24 hr tablet Take 1 tablet by mouth 2 (two) times a day Active pravastatin (PRAVACHOL) 20 MG tablet Comments: Filled Date: May 10 2018 12:00AM Patient Notes: TAKE 1 TABLET BY MOUTH EVERYDAY AT BEDTIME Duration: 8 Active sertraline (ZOLOFT) 100 MG tablet Take 1 tablet by mouth 1 (one) time each day Active traZODone (DESYREL) 150 MG tablet Take 1 tablet by mouth 1 (one) time each day Active losartan (COZAAR) 50 MG tablet Take 50 mg by mouth 1 (one) time each day Active metFORMIN (GLUCOPHAGE) 1000 MG tablet TAKE 1 TABLET BY MOUTH TWICE DAILY IN THE MORNING AND IN THE EVENING WITH MEALS 2 Active ciprofloxacin (CIPRO) 500 MG tablet Take 500 mg by mouth every 12 (twelve) hours 2 Active Blood Glucose Monitoring Suppl ([employer]her One Lite) w/Device kit TEST BLOOD SUGAR TWICE DAILY 2 Active atorvastatin (LIPITOR) 20 MG tablet Take 20 mg by mouth 1 (one) time each day 2 Active Acetaminophen Extra Strength 500 MG tablet TAKE 2 TABLETS BY MOUTH EVERY 6 HOURS NEEDED FOR PAIN 2 Active cefadroxil (DURICEF) 500 MG capsule Take 500 mg by mouth every 12 (twelve) hours 2 Active doxycycline (VIBRAMYCIN) 100 MG capsule Take 100 mg by mouth 2 Active fluconazole (DIFLUCAN) 100 MG tablet Take 100 mg by mouth 1 (one) time each day if needed 2 Active metFORMIN XR (GLUCOPHAGE-XR) 750 MG 24 hr tablet Take 750 mg by mouth in the morning and 750 mg in the evening. Take with meals. 2 Active Active Problems Problem Noted Date Diagnosed Date Stage 3a chronic kidney disease 12/27/2021 Renal disorder due to type 2 diabetes mellitus 0 10/19/2019 Proteinuria 10/19/2019 Microalbuminuria 10/19/2019 Hyperlipidemia 10/19/2019 Chronic kidney disease due to hypertension 10/19 Resolved Problems Problem Noted Date Diagnosed Date Resolved Date Chronic kidney disease stage 1 10/19/2019 12/27/2021 Social History Tobacco Use Types Packs/Day Years Used Date Smoking Tobacco: Former Comments:Smoking History Inf o:Unknown Comments Unknown Sex and Gender Information Value Date Recorded Sex Assigned at Not on file Legal Sex Female 4:31 PM EST Gender Identity Not on file Sexual Orientation Not on file Last Filed Vital Signs Vital Sign Reading Time Taken Comments Blood Pressure 168/88 12/28/2021 3:29 PM EDT Pulse - - Temperature - - Respiratory Rate - - Oxygen Saturation - - Inhaled Oxygen Concentration - - Weight 80.7 kg (178 lb) 10/22/2019 2:33 PM EST Height - - Body Mass Index - - Plan of Treatment Health Maintenance Due Date Last Done Comments Hepatitis B Vaccine (1 of 3 - 19+ 3-dose series) 03/26 Pneumococcal Vaccine: Peds ( 0 to 5 Years) and At-Risk Patients (6 to 49 Years) (1 of 2 - PCV) 1994 Diabetes: Ophthalmology Exam 10/19/2019 Diabetes: Pedal Pulse Checked 10/19/2019 Diabetes: Sensory Foot Exam 10/19/2019 Diabetes: Visual Foot Exam 10/19/2019 Diabetes: Hemoglobin A1C 01/20/2020 10/22/2019 Colorectal Cancer Screening: Annual FOBT 2024 Colorectal Cancer Screening: Colonoscopy 2024 Colorectal Cancer Screening: Sigmoidoscopy 2024 Influenza Vaccine (Season Ended) 2025 Procedures Procedure Name Priority Date/Time Associated Diagnosis Comments HEMOGLOBIN A1C Routine 10/22/2019 2:40 PM EST Other proteinuria from Last 3 Months or Most Recently Relevant to Health Maintenance Results * (ABNORMAL) Hemoglobin A1c (10/22/2019 2:40 PM EST) Hemoglobin A1C 10.2(H) (4.0-5.6) % [facility] Comment: Effective 10/01/19, hemoglobin A1c reference range changed. MONITORING: In known diabetic patients, hemoglobin A1c targets should be discussed with health care provider. DIAGNOSTIC USE: ??The [place] Diabetes Association (ADA) and the World Health Organization (WHO) recommend the use of HbA1c to diagnose diabetes using a threshold of 6.5%. Patients who have an HbA1c between 5.7% and 6.4% are considered at increased risk for developing diabetes in the future. CAUTION: Falsely low HbA1c results may be observed in patients with hemolytic anemia, homozygous forms of abnormal hemoglobin (e.g. SS, CC, SC), , recent blood loss or hemoglobin F greater than 7%. Fructosamine may be used as an alternate test in these cases. REFERENCE: ADA: Standards of Medical Care in Diabetes 2020, The Journal of Clinical and Applied Research and Education Volume 43, Supplement 1 Testing performed or reported by [facility] Reference [email or web address], a Service of [facility], [address] [place] [id number] Shante Delgado MD, Coldfusion Blood specimen (specimen) Venous blood / Unknown 10/22/2019 2:40 PM EST 10/22/2019 2:41 PM EST Homero Ortiz MD LAB BLOOD ORDERABLES Final Result [facility] from Last 3 Months or Most Recently Relevant to Health Maintenance Insurance Medicaid [place] [address] [address] [address] [address] Care Teams Juice Packaging Machines Setter Relationship Specialty Start Date End Date Name, MD Ney [address] [place] [address] PCP - General 07/03/19
== END 2025-01-30 10:48 | disposition home or self-care (01) ==
LOC: HO.HHCX 10:47
PROVIDERS: Visit Provider Internal Medicine Geriatric Medicine
DX: M25.511 Pain in right shoulder (principal)
CPT/HCPCS: 73030

== ENCOUNTER → 2025-01-30 10:48 | Outpatient (BNV) | payer MEDICAID, SELFPAY | PROVIDERS: Visit Provider Radiology Diagnostic Radiology | DX: M25.511 Pain in right shoulder (principal) | CPT/HCPCS: 73030 ==

== ENCOUNTER 2025-02-01 11:23 | Outpatient (REF) | payer MEDICAID, SELFPAY ==
[2025-02-01 12:02] LABS: Hematocrit 28.9 % (37.0-47.0); Hemoglobin 9.6 g/dl (12.0-16.0); Mean Corpuscular HGB Conc 33.2 g/dl (31.0-35.0); Mean Corpuscular Hemoglobin 27.9 pg (27.0-33.0); Mean Platelet Volume 10.6 fL (9.4-12.3); Platelet Count 283 X10*3/uL (160-400); Red Blood Count 3.44 X10*6/uL (4.20-5.50); Red Cell Distribution Width 13.7 % (11.0-16.0); White Blood Count 7.1 X10*3/uL (4.8-10.8)
--- OUTSIDE RECORDS SUMMARY | 2025-02-01 12:09 | XMS_ITS | Clinical Summary ---
Author Organization [facility], Address [address] [place] [address] [place] [address] Phone Care Team Providers Care Watch Caser Name Role Phone Name, Ney LEONG Primary Care Provider [phone] Allergies No known active allergies Medications Lancets [...] hours 2 Active Blood Glucose Monitoring Suppl (reeplay.it Lite) w/Device kit TEST BLOOD SUGAR TWICE [...] PM EST) Hemoglobin A1C 10.2(H) (4.0-5.6) % [facility] Comment: Effective 10/01/19, hemoglobin A1c reference range changed. MONITORING: In known diabetic patients, hemoglobin A1c targets should be discussed with health care provider. DIAGNOSTIC USE: ??The [place] Diabetes Association (ADA) and the World Health [...] Supplement 1 Testing performed or reported by [facility] Reference [employer], a Service of [facility], [address] [place] [id number] Shante Delgado MD, Managed Care Specialist Blood specimen (specimen) Venous blood / Unknown 10/22/2019 2:40 PM EST 10/22/2019 2:41 PM EST Homero Ortiz MD LAB BLOOD ORDERABLES Final Result [facility] from Last 3 Months or Most Recently Relevant to Health Maintenance Insurance Medicaid [place] [address] [address] [address] [place] [address] Care Teams Watch Caser Relationship Specialty Start Date End Date Name, MD Ney [address] [place] [address] PCP - General 07/03/19
[2025-02-01 12:40] LABS: Appearance Urine Clear; Color Urine Yellow; Glucose Urine UA >=1000 mg/dL (Negative); Leukocyte Esterase Urine Negative (Negative); Nitrite Urine Negative (Negative); PH 5.5 (5.0-9.0); Specific Gravity - Urine 1.025 (1.005-1.025); UMIC TRIGGER UA YES; Urine Blood Negative (Negative); Urine Ketones Negative (Negative); Urine Protein >=1000 (4+) mg/dL (Neg-Trace)
[2025-02-01 12:42] LABS: Alanine Aminotransferase 14 U/L (0-31); Albumin Level 3.2 g/dL (3.5-5.0); Alkaline Phosphatase 82 U/L (39-117); Anion Gap 12 (12-20); Aspartate Amino Transferase 20 U/L (5-31); Bilirubin Total 0.2 mg/dL (0.0-1.0); Blood Urea Nitrogen 57 mg/dL (9-16); Carbon Dioxide 18 mmol/L (22-29); Chloride 112 mmol/L (96-108); Estimated Glomerular Filt Rate 13; Glucose Random 147 mg/dL (60-115); Potassium 4.7 mmol/L (3.3-5.1); Sodium 137 mmol/L (135-145); Total Protein 7.2 g/dL (6.5-8.0)
[2025-02-01 13:52] LABS: Bacteria Urine None Seen (None Seen); RBC Urine 0-2 /HPF (0-2); Squamous Epithelial Cell Urine 0-2 /HPF (0-2); WBC Urine 0-5 /HPF (0-5)
== END 2025-02-01 11:24 | disposition home or self-care (01) ==
LOC: HO.LAB 11:23
PROVIDERS: PCP Internal Medicine Geriatric Medicine; Visit Provider Internal Medicine Hypertension Specialist
DX: N18.4 Chronic kidney disease, stage 4 (severe) (principal)
CPT/HCPCS: 36415; 80053; 81001; 81003; 85027

== ENCOUNTER 2025-02-04 11:08 | Outpatient (AMB) | payer MEDICAID, SELFPAY ==
--- NOTE | 2025-02-04 11:10 | HO.NEPHOV_ITS ---
Vital Signs 02/04/25 11:13 Height 5 ft 3 in Weight 189 lb 2 oz BMI 33.5 BP 140/80 H Blood Pressure Location Lt brachial Position Sitting Pulse 81 Pulse Source Pulse Oximeter Pulse Oximetry (%) 98 Oxygen Delivery Method Room Air Intake Visit Reasons: FU/ Conf Environmental Systems Coordinator Required: No Accompanied by: Self / Same As Patient Allergies oxycodone (OXYCODONE) Allergy (Unknown, Verified 02/04/25 11:13) SEIZURES XIAO Inhibitors Adverse Reaction (Intermediate, Verified 02/04/25 11:13) Cough Medication List - Last Reconciled 02/04/25 by Spencer Bauman MD acetaminophen ER 1,300 mg PO Q8H PRN aspirin 1 tab PO QAM atorvastatin 40 mg PO DAILY dulaglutide (Trulicity) mg subcut QWEEK empagliflozin (Jardiance) 10 mg PO DAILY famotidine (Pepcid) 20 mg PO BID PRN fluticasone propionate 50 mcg/actuation intranasal glipizide ER 5 mg PO DAILY hydralazine 25 mg PO BID hydrochlorothiazide 12.5 mg PO DAILY lidocaine 5% 1 patch topical DAILY losartan 50 mg PO DAILY ondansetron 4 mg PO Q8H PRN HPI Comments Details: Franny is a pleasant woman with a history of diabetes mellitus for more than 30 years referred for evaluation of renal insufficiency She tells me that her blood sugar has been reasonably well controlled with a recent A1c of 6.2%. She was recently diagnosed with hypertension. Initially she was started with amlodipine and she started developing swelling. Amlodipine was discontinued. Hydrochlorothiazide 25 mg was added. Edema has subsided. Her baseline serum creatinine was around 1.04 mg/dL in August 2023. In October creatinine bumped up to 1.6 and as of November creatinine was 2.12 and hence this referral. She had a urine analysis which showed significant proteinuria with a urine protein creatinine ratio of 4630. She is on losartan 100 mg a day for control blood pressure and for renal protection. She has also been taking NSAIDs every now and then and last dose was 600 mg ibuprofen couple of weeks ago. No history of smoking cigarettes she uses smoke marijuana which he quit 5 months ago. 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 No history of renal colic abuse This is a strong family history of diabetes mellitus and mother from end stage renal disease Today she has no specific complaints. No headache nausea vomiting. No shortness of breath. No polyuria polydipsia. No edema. No rash no fever. 02/01/2024. Given has stopped taking NSAIDs. She complains of left upper back pain. There is some confusion about her medications. She is stopped taking losartan. All medications were reviewed. ; Still with left sided upper back pain 07/17/24; Feels better, Off Metformin 11/20/24: s/p Carpel tunnel surgery Overall doing ok ; A1C was 7.2 in Aug 2024 02/04/25 The patient is a 49 year old female presenting with a follow-up visit regarding her Chronic Kidney Disease. She has a 30-year history of Type 2 Diabetes Mellitus, with her current Hemoglobin A1c being 6.7. Recently, her Trulicity dosage was adjusted to 1.5 mg weekly to aid in weight management, rather than due to any deterioration in her diabetes management. Over time, it has become evident that her renal function is declining, primarily due to the diabetic condition, evidenced by notable proteinuria measuring about 3,000 mg. Despite the administration of losartan, her kidney numbers continue to exhibit a downward trend, raising concerns of potential future dialysis or transplant necessity. She denies any respiratory, gastrointestinal, or urinary symptoms at present. Blood pressure readings are stable at home, though noted hypertensive during this visit. The patient has a maternal history of dialysis and adheres to Tylenol, specifically avoiding NSAIDs. [facility] Medical History Anemia Chronic pain syndrome GERD (gastroesophageal reflux disease) Chronic renal insufficiency Depression Anxiety Diabetes Surgical History Status post right foot surgery History of section History of appendectomy History of tubal ligation S/p bilateral carpal tunnel release Family History Maternal Aunt Throat cancer Social History Unable to assess alcohol history related to: Unable to respond Alcohol intake: never Substance Use Type: Marijuana Current occupation: rt handed Physical Exam Vital Signs: Last Vital Signs Pulse 81 02/04/25 11:13 BP 140/80 H 02/04/25 11:13 Pulse Ox 98 02/04/25 11:13 Oxygen Delivery Method Room Air 02/04/25 11:13 BMI result Body Mass Index 33.5 Results Reviewed Nephrology Results: Hgb, (12.0-16.0) 9.6 g/dl L 02/01/25 WBC, (4.8-10.8) 7.1 X10*3/uL 02/01/25 Plt Count, (160-400) 283 X10*3/uL 02/01/25 Sodium, (135-145) 137 mmol/L 02/01/25 Potassium, (3.3-5.1) 4.7 mmol/L 02/01/25 Chloride, (96-108) 112 mmol/L H 02/01/25 Carbon Dioxide, (22-29) 18 mmol/L L 02/01/25 BUN, (9-16) 57 mg/dL H 02/01/25 Creatinine, (0.5-1.4) 3.74 mg/dL H 02/01/25 Calcium, (8.4-10.2) 9.0 mg/dL 02/01/25 Urine Protein, (Neg-Trace) >=1000 (4+) mg/dL H 02/01/25 Urine Creatinine 54.20 mg/dL 11/20/24 Renal US 01/20/24 Assessment & Plan Assessment & Plan (1) CKD (chronic kidney disease): Code(s): N18.9 - Chronic kidney disease, unspecified Category: Medical Plan: . (2) Anemia: Code(s): D64.9 - Anemia, unspecified Category: Medical (3) Hypertension: Code(s): I10 - Essential (primary) hypertension Category: Medical (4) Diabetes: Code(s): E11.9 - Type 2 diabetes mellitus without complications Category: Medical (5) CKD (chronic kidney disease) stage 4, GFR 15-29 ml/min: Code(s): N18.4 - Chronic kidney disease, stage 4 (severe) Category: Medical Plan Middle aged woman with chronic kidney disease with nephrotic range proteinuria in the setting of longstanding diabetes mellitus. Underlying CKD is most likely due to diabetic kidney disease. However nondiabetic causes should be ruled out. The superimposed ANGELIA may be due to hypoperfusion from use of diuretics along with ARB and NSAIDs. No obstructive uropathy based on renal ultrasonogram . Clinically no reason to believe that she is any active glomerulonephritis or interstitial disease. Recent urinalysis showed bland sediment Creatinine is essentially unchanged No monoclonal proteins Serum complements C3 and C4 are normal. Blood pressure is better controlled and acceptable She is mild anemia Hemoglobin is improved Plan Keep losartan 50 mg daily for renal protection in view of the proteinuria Meantime stay on low-sodium diet and increase fluid intake. I have discussed importance of tight control of blood pressure and blood sugar to slow the progression of renal disease. Continue to avoid nephrotoxic agents including NSAIDs. continue with SGLT2 inhibitors for cardiorenal protection. 02/04/25 I discussed with the patient her current kidney function, noting its decline secondary to her diabetic condition. Emphasizing the importance of proteinuria management through losartan, I also highlighted potential future interventions, including dialysis or transplant. Blood pressure control was reviewed, with no immediate changes advised. I advised on maintaining water intake and reducing dietary sodium. We went over her current anemia management, considering her hemoglobin levels do not yet require treatment beyond monitoring. I reiterated avoiding NSAIDs, recommending Tylenol for analgesia. A follow-up in six weeks was scheduled to reassess kidney function, with a consideration of a kidney biopsy if warranted. Orders: Orders Basic Metabolic Panel 6 Weeks N18.4 - Chronic kidney disease, stage 4 (severe) Complete Blood Count no Diff 6 Weeks N18.4 - Chronic kidney disease, stage 4 (severe) IRON PROFILE 6 Weeks N18.4 - Chronic kidney disease, stage 4 (severe) Coding Level of Care Code Est Pt Level 4 (65596) Diagnoses CKD (chronic kidney disease) N18.9 Anemia D64.9 Hypertension I10 Diabetes E11.9 CKD (chronic kidney disease) stage 4, GFR 15-29 ml/min N18.4
[2025-02-04 11:13] VITALS: BP 140/80; PULSE 81; O2SAT 98; BMI 33.5
--- OUTSIDE RECORDS SUMMARY | 2025-02-04 12:47 | XMS_ITS | Clinical Summary ---
Author Organization [facility], Address [address] [place] [address] [place] [address] Phone Care Team Providers Care Massage Coordinator Name Role Phone Name, Ney LEONG Primary Care Provider [phone] Allergies No known active allergies Medications Lancets [...] hours 2 Active Blood Glucose Monitoring Suppl ([employer] Lite) w/Device kit TEST BLOOD SUGAR TWICE [...] PM EST) Hemoglobin A1C 10.2(H) (4.0-5.6) % [facility] Comment: Effective 10/01/19, hemoglobin A1c reference range changed. MONITORING: In known diabetic patients, hemoglobin A1c targets should be discussed with health care provider. DIAGNOSTIC USE: ??The [place] Diabetes Association (ADA) and the World Health [...] Supplement 1 Testing performed or reported by [facility] Reference [employer], a Service of [facility], [address] [place] [id number] Shante Delgado MD, Montessori Preschool Teacher Blood specimen (specimen) Venous blood / Unknown 10/22/2019 2:40 PM EST 10/22/2019 2:41 PM EST Homero Ortiz MD LAB BLOOD ORDERABLES Final Result [facility] from Last 3 Months or Most Recently Relevant to Health Maintenance Insurance Medicaid [place] [address], [place] [address] [address] [place] [address] Care Teams Massage Coordinator Relationship Specialty Start Date End Date Name, MD Ney [address] [place] [address] PCP - General 07/03/19
== END 2025-02-04 11:23 | disposition home or self-care (01) ==
LOC: HO.HKA 11:09
PROVIDERS: PCP Internal Medicine Geriatric Medicine; Visit Provider Internal Medicine Hypertension Specialist
DX: N18.9 Chronic kidney disease, unspecified (principal); D64.9 Anemia, unspecified; I12.9 Hypertensive chronic kidney disease with stage 1 through stage 4 chronic kidney disease, or unspecified chronic kidney disease; E11.9 Type 2 diabetes mellitus without complications; N18.4 Chronic kidney disease, stage 4 (severe)
CPT/HCPCS: 99214

== ENCOUNTER → 2025-02-04 11:08 | Outpatient (BNVA) | payer MEDICAID, SELFPAY | PROVIDERS: PCP Internal Medicine Geriatric Medicine; Visit Provider Internal Medicine Hypertension Specialist | DX: N18.4 Chronic kidney disease, stage 4 (severe) (principal); D64.9 Anemia, unspecified; I10 Essential (primary) hypertension; E11.9 Type 2 diabetes mellitus without complications | CPT/HCPCS: 99212 ==

== ENCOUNTER 2025-03-25 12:24 | Outpatient (REF) | payer MEDICAID, SELFPAY ==
[2025-03-25 13:04] LABS: Hematocrit 28.6 % (37.0-47.0); Hemoglobin 9.5 g/dl (12.0-16.0); Mean Corpuscular HGB Conc 33.2 g/dl (31.0-35.0); Mean Corpuscular Hemoglobin 28.3 pg (27.0-33.0); Mean Corpuscular Volume 85.1 fL (80.0-98.0); NRBC Abs Auto 0.000 X10*3/uL (0.0-0.012); NRBC Pct Auto 0.0 /100WBC (0.0-0.2); Platelet Count 288 X10*3/uL (160-400); Red Blood Count 3.36 X10*6/uL (4.20-5.50); White Blood Count 6.6 X10*3/uL (4.8-10.8)
--- OUTSIDE RECORDS SUMMARY | 2025-03-25 13:16 | XMS_ITS | Encounter Summary ---
Author Organization [employer] Address [address] [place] [address] Care Team Providers Care Automobile Mechanic Helper Name Role Phone Name, Ney LEONG Primary Care Provider [phone] Reason for Referral * Imaging (STAT) - Closed Specialty Diagnoses / Procedures Referred By Contac t Referred To Contact Radiology Diagnoses 3rd nerve palsy, complete, left Procedures MRA Head w/o Contrast Magy Huertas FNP [address] [place] [address] Phone: tel: fax: Diagnostic Imaging, [facility] [address] [facility] [address] [place] [address] Phone: tel: fax: Referral ID Status Reason Start Date Expiration Date Visits Re quested Visits Authorized [id number] Closed 09/06/2023 09/05/2024 1 1 Encounter Details Date Type Department Care Team (Late st Contact Info) Description 09/06/2023 Orders Only [facility] [address] [place], [place] [phone] Magy Huertas FNP [address] [place] [address] 3rd nerve palsy, complete, left (Primary Dx) Social History Tobacco Use Types Packs/Day Years Used Date Smoking Tobacco: Never Smokeless Tobacco: Never Housing Stability Answer Date Recorded What is your housing situation today? I have jana ortiz 06/21/[address] you li ve. Do you have problems with any of the following? None of the above 06/21/2023 Food Insecurity Answer Date Recorded Within the past 12 months, y ou worried that your food would run out before you got money to buy more: Never True 06/21/2023 Within the past 12 months,th e food you bought just didn't last and you didn't have enough money to get more: Never True Transportation Answer Date Recorded In the past 12 months, has l ack of transportation kept you from medical appts, meetings, work or from getting things needed for daily living? No 06/21/2023 Utilities Answer Date Recorded In the past 12 months, has t he electric, gas, oil or water company threatened to shut off services in your home? No 06/21/2023 Comments Unknown Sex and Gender Information Value Date Recorded Sex Assigned at Female 06/28/2022 10:16 AM EDT Legal Sex Female 10:16 AM EDT Gender Identity Female 06/28/2022 10:16 AM EDT Sexual Orientation Straight 06/28/2022 10 :16 AM EDT documented as of this encounter Plan of Treatment Upcoming Encounters Date Type Department Care Team (Late st Contact Info) Description 04/09/2025 2:30 PM EDT Office Visit [facility] OPTOMETRY [address] [place] [address] Eric, Nikki, OD [address] [place] [address] 05/17/2025 11:15 AM EDT Office Visit [facility] MEDICINE [address] [place] [address] Name, MD Ney [address] [place] [id number] Scheduled Orders Name Type Priority Associated Diagnoses Orde r Schedule MRA Head w/o Contrast Imaging STAT 3rd nerve palsy, complete, left Expected: 09/06/2023, Expires: 09/06/2024 documented as of this encounter Visit Diagnoses Diagnosis 3rd nerve palsy, complete, left- Primary documented in this encounter Care Teams Automobile Mechanic Helper Relationship Specialty Start Date End Date Ney Hernandez MD [address] [place] [id number] PCP - General Family Medicine 10/28/15 Magaly Sexton Property Management AssistantSlitter Scorer 07/28/23 Ronald Gardner Property Management AssistantSlitter Scorer 02/16/24 Moe Salmeron Property Management AssistantSlitter Scorer 01/24/25 documented as of this encounter
--- OUTSIDE RECORDS SUMMARY | 2025-03-25 13:16 | XMS_ITS | Clinical Summary ---
Author Organization [facility], Address [address] [place] [address] [place] [address] Phone Care Team Providers Care Fructose Loader Name Role Phone Name, Ney LEONG Primary Care Provider Allergies No known active allergies Medications Lancets [...] hours 2 Active Blood Glucose Monitoring Suppl ([employer] Lite) w/Device kit TEST BLOOD SUGAR TWICE [...] Colorectal Cancer Screening: Sigmoidoscopy 2024 Influenza Vaccine (#1) 2025 Procedures Procedure Name Priority Date/Time Associated Diagnosis Comments HEMOGLOBIN A1C Routine 10/22/2019 2:40 PM EST Other proteinuria from Last 3 Months or Most Recently Relevant to Health Maintenance Results * (ABNORMAL) Hemoglobin A1c (10/22/2019 2:40 PM EST) Hemoglobin A1C 10.2(H) (4.0-5.6) % [facility] Comment: Effective 10/01/19, hemoglobin A1c reference range changed. MONITORING: In known diabetic patients, hemoglobin A1c targets should be discussed with health care provider. DIAGNOSTIC USE: The [place] Diabetes Association (ADA) and the World Health [...] Supplement 1 Testing performed or reported by [facility] Reference [employer], a Service of [facility], [address] [place] [id number] Shante Delgado MD, Skin Care Specialist Blood specimen (specimen) Venous blood / Unknown 10/22/2019 2:40 PM EST 10/22/2019 2:41 PM EST Homero Ortiz MD LAB BLOOD ORDERABLES Final Result [facility] from Last 3 Months or Most Recently Relevant to Health Maintenance Insurance Medicaid [place] [address] [address] [address] [place] [address] Care Teams Fructose Loader Relationship Specialty Start Date End Date Name, MD Ney [address] [place] [address] PCP - General 07/03/19
[2025-03-25 13:45] LABS: Anion Gap 14 (12-20); Blood Urea Nitrogen 50 mg/dL (9-16); Calcium 8.5 mg/dL (8.4-10.2); Carbon Dioxide 20 mmol/L (22-29); Chloride 109 mmol/L (96-108); Estimated Glomerular Filt Rate 14; Iron 44 mcg/dL (30-160); Percent Iron Saturation 18 % (15-50); Potassium 4.4 mmol/L (3.3-5.1); Sodium 139 mmol/L (135-145); Total Iron Binding Capacity 249 mcg/dL (228-428); Unsaturated Iron Binding 205 ug/dL
[2025-03-25 17:07] LABS: Appearance Urine Clear; Glucose Urine UA >=1000 mg/dL (Negative); PH 5.5 (5.0-9.0); Specific Gravity - Urine 1.020 (1.005-1.025); UMIC TRIGGER UA YES
== END 2025-03-25 12:25 | disposition home or self-care (01) ==
LOC: HO.LAB 12:24
PROVIDERS: PCP Internal Medicine Geriatric Medicine; Visit Provider Internal Medicine Hypertension Specialist
DX: N18.4 Chronic kidney disease, stage 4 (severe) (principal)
CPT/HCPCS: 36415; 80048; 81001; 81003; 83540; 85027

== ENCOUNTER 2025-03-28 10:17 | Outpatient (AMB) | payer MEDICAID, SELFPAY ==
--- NOTE | 2025-03-28 10:19 | HO.NEPHOV ---
Vital Signs 03/28/25 10:20 Height 5 ft 3 in Weight 188 lb 8 oz BMI 33.4 BP 138/82 Blood Pressure Location Lt brachial Position Sitting Pulse 81 Pulse Source Pulse Oximeter Pulse Oximetry (%) 97 Oxygen Delivery Method Room Air Intake Visit Reasons: FU/ Conf Intake Note: Patient here for a follow-up, also will like to know her blood type. Qa Test Analyst Required: No Accompanied by: Self / Same As Patient Allergies oxycodone (OXYCODONE) Allergy (Unknown, Verified 03/28/25 10:22) SEIZURES XIAO Inhibitors Adverse Reaction (Intermediate, Verified 03/28/25 10:22) Cough Medication List - Last Reconciled 03/28/25 by Spencer Bauman MD acetaminophen ER 1,300 mg PO Q8H PRN aspirin 1 tab PO QAM atorvastatin 40 mg PO DAILY dulaglutide (Trulicity) mg subcut QWEEK empagliflozin (Jardiance) 10 mg PO DAILY famotidine (Pepcid) 20 mg PO BID PRN fluticasone propionate 50 mcg/actuation intranasal glipizide ER 5 mg PO DAILY hydralazine 25 mg PO BID lidocaine 5% 1 patch topical DAILY losartan 50 mg PO DAILY ondansetron 4 mg PO Q8H PRN Do you need a note to return to daycare/school/sports/work: No HPI Comments Details: Franny is a pleasant woman with a history of diabetes mellitus for more than 30 years referred for evaluation of renal insufficiency She tells me that her blood sugar has been reasonably well controlled with a recent A1c of 6.2%. She was recently diagnosed with hypertension. Initially she was started with amlodipine and she started developing swelling. Amlodipine was discontinued. Hydrochlorothiazide 25 mg was added. Edema has subsided. Her baseline serum creatinine was around 1.04 mg/dL in August 2023. In October creatinine bumped up to 1.6 and as of November creatinine was 2.12 and hence this referral. She had a urine analysis which showed significant proteinuria with a urine protein creatinine ratio of 4630. She is on losartan 100 mg a day for control blood pressure and for renal protection. She has also been taking NSAIDs every now and then and last dose was 600 mg ibuprofen couple of weeks ago. No history of smoking cigarettes she uses smoke marijuana which he quit 5 months ago. 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 No history of renal colic abuse This is a strong family history of diabetes mellitus and mother from end stage renal disease Today she has no specific complaints. No headache nausea vomiting. No shortness of breath. No polyuria polydipsia. No edema. No rash no fever. 02/01/2024. Given has stopped taking NSAIDs. She complains of left upper back pain. There is some confusion about her medications. She is stopped taking losartan. All medications were reviewed. ; Still with left sided upper back pain 07/17/24; Feels better, Off Metformin 11/20/24: s/p Carpel tunnel surgery Overall doing ok ; A1C was 7.2 in Aug 2024 02/04/25 The patient is a 49 year old female presenting with a follow-up visit regarding her Chronic Kidney Disease. She has a 30-year history of Type 2 Diabetes Mellitus, with her current Hemoglobin A1c being 6.7. Recently, her Trulicity dosage was adjusted to 1.5 mg weekly to aid in weight management, rather than due to any deterioration in her diabetes management. Over time, it has become evident that her renal function is declining, primarily due to the diabetic condition, evidenced by notable proteinuria measuring about 3,000 mg. Despite the administration of losartan, her kidney numbers continue to exhibit a downward trend, raising concerns of potential future dialysis or transplant necessity. She denies any respiratory, gastrointestinal, or urinary symptoms at present. Blood pressure readings are stable at home, though noted hypertensive during this visit. The patient has a maternal history of dialysis and adheres to Tylenol, specifically avoiding NSAIDs. 03/28/25 Doing OK . No new issues [facility] Medical History Anemia Chronic pain syndrome GERD (gastroesophageal reflux disease) Chronic renal insufficiency Depression Anxiety Diabetes Surgical History Status post right foot surgery History of section History of appendectomy History of tubal ligation S/p bilateral carpal tunnel release Family History Maternal Aunt Throat cancer Social History Unable to assess alcohol history related to: Unable to respond Alcohol intake: never Substance Use Type: Marijuana Current occupation: rt handed Physical Exam Vital Signs: Last Vital Signs Pulse 81 03/28/25 10:20 BP 138/82 03/28/25 10:20 Pulse Ox 97 03/28/25 10:20 Oxygen Delivery Method Room Air 03/28/25 10:20 BMI result Body Mass Index 33.4 Const General: comfortable; No acute distress Orientation/consciousness: patient oriented x3 Eyes General: appearance normal, both eyes and all related structures Visual Fountain: normal visual fountain by confrontation Neck Neck: Yes supple and Yes no JVD Resp Effort & Inspection: normal respiratory effort and respiratory effort not decreased Auscultation: rhonchi Cardio Palpation: no palpable S3 and no palpable S4 Heart sounds: no rubs GI Inspection: Yes normal to inspection Palpation (GI): Soft to palpation Percussion: Yes normal to percussion Auscultation: normal bowel sounds General: Yes no CVA tenderness Back/Spine/Pelvis Back: no CVA tenderness Skin General skin exam: no petechiae and no purpura Neuro General: patient oriented x3 and no focal motor deficits Extrem General: No clubbing and No edema Results Reviewed Nephrology Results: Hgb, (12.0-16.0) 9.5 g/dl L 03/25/25 WBC, (4.8-10.8) 6.6 X10*3/uL 03/25/25 Plt Count, (160-400) 288 X10*3/uL 03/25/25 Sodium, (135-145) 139 mmol/L 03/25/25 Potassium, (3.3-5.1) 4.4 mmol/L 03/25/25 Chloride, (96-108) 109 mmol/L H 03/25/25 Carbon Dioxide, (22-29) 20 mmol/L L 03/25/25 BUN, (9-16) 50 mg/dL H 03/25/25 Creatinine, (0.5-1.4) 3.48 mg/dL H 03/25/25 Calcium, (8.4-10.2) 8.5 mg/dL 03/25/25 Urine Protein, (Neg-Trace) 300 (3+) mg/dL H 03/25/25 Urine Creatinine 54.20 mg/dL 11/20/24 Renal US 01/20/24 Assessment & Plan Assessment & Plan (1) CKD (chronic kidney disease): Code(s): N18.9 - Chronic kidney disease, unspecified Category: Medical Plan: . (2) Anemia: Code(s): D64.9 - Anemia, unspecified Category: Medical (3) Hypertension: Code(s): I10 - Essential (primary) hypertension Category: Medical (4) Diabetes: Code(s): E11.9 - Type 2 diabetes mellitus without complications Category: Medical (5) CKD (chronic kidney disease) stage 4, GFR 15-29 ml/min: Code(s): N18.4 - Chronic kidney disease, stage 4 (severe) Category: Medical Plan Middle aged woman with chronic kidney disease with nephrotic range proteinuria in the setting of longstanding diabetes mellitus. Underlying CKD is most likely due to diabetic kidney disease. However nondiabetic causes should be ruled out. The superimposed ANGELIA may be due to hypoperfusion from use of diuretics along with ARB and NSAIDs. No obstructive uropathy based on renal ultrasonogram . Clinically no reason to believe that she is any active glomerulonephritis or interstitial disease. Recent urinalysis showed bland sediment Creatinine is essentially unchanged No monoclonal proteins Serum complements C3 and C4 are normal. Blood pressure is better controlled and acceptable She is mild anemia Hemoglobin is improved Plan Keep losartan 50 mg daily for renal protection in view of the proteinuria Meantime stay on low-sodium diet and increase fluid intake. I have discussed importance of tight control of blood pressure and blood sugar to slow the progression of renal disease. Continue to avoid nephrotoxic agents including NSAIDs. continue with SGLT2 inhibitors for cardiorenal protection. 02/04/25 I discussed with the patient her current kidney function, noting its decline secondary to her diabetic condition. Emphasizing the importance of proteinuria management through losartan, I also highlighted potential future interventions, including dialysis or transplant. Blood pressure control was reviewed, with no immediate changes advised. I advised on maintaining water intake and reducing dietary sodium. We went over her current anemia management, considering her hemoglobin levels do not yet require treatment beyond monitoring. I reiterated avoiding NSAIDs, recommending Tylenol for analgesia. A follow-up in six weeks was scheduled to reassess kidney function, with a consideration of a kidney biopsy if warranted. 03/28/25 BP acceptable Renal fx stable Fluid status OK Mild anemia due to CKD NO changes today Maintain BP < 130/80 and A1C < 7% Orders: Orders Complete Blood Count no Diff 6 Weeks N18.4 - Chronic kidney disease, stage 4 (severe) Parathyroid Hormone Intact 6 Weeks N18.4 - Chronic kidney disease, stage 4 (severe) Basic Metabolic Panel 6 Weeks N18.4 - Chronic kidney disease, stage 4 (severe) Coding Level of Care Code Est Pt Level 4 (19169) Diagnoses CKD (chronic kidney disease) N18.9 Anemia D64.9 Hypertension I10 Diabetes E11.9 CKD (chronic kidney disease) stage 4, GFR 15-29 ml/min N18.4
[2025-03-28 10:20] VITALS: BP 138/82; PULSE 81; O2SAT 97; BMI 33.4
--- OUTSIDE RECORDS SUMMARY | 2025-03-28 11:01 | XMS_ITS | Encounter Summary ---
Author Organization [employer] Address [address] [facility] [address] [place] [address] Care Team Providers Care Mat Making Machine Tender Name Role Phone Name, Ney LEONG Primary Care Provider [phone] Reason for Referral * Imaging (STAT) - Closed Specialty Diagnoses / Procedures Referred By Contac t Referred To Contact Radiology Diagnoses 3rd nerve palsy, complete, left Procedures MRA Head w/o Contrast Magy Huertas FNP [address] [place] [address] Phone: tel: fax: Diagnostic Imaging, [facility] [address] [facility] [address] [place] [address] Phone: tel: fax: Referral ID Status Reason Start Date Expiration Date Visits Re quested Visits Authorized [id number] Closed 09/06/2023 09/05/2024 1 1 Encounter Details Date Type Department Care Team (Late st Contact Info) Description 09/06/2023 Orders Only [facility] [address] [place], [place] [id number] Mgay Huertas FNP [address] [place] [address] 3rd nerve palsy, complete, left (Primary Dx) [...] Description 04/09/2025 2:30 PM EDT Office Visit [facility] [address] [place] [address] Eric, Nikki, OD [address] [place] [address] 05/17/2025 11:15 AM EDT Office Visit [facility] [address] [place] [address] Name, MD Ney [address] [place] [id number] Scheduled Orders Name Type Priority Associated Diagnoses Orde r Schedule MRA Head w/o Contrast Imaging STAT 3rd nerve palsy, complete, left Expected: 09/06/2023, Expires: 09/06/2024 documented as of this encounter Visit Diagnoses Diagnosis 3rd nerve palsy, complete, left- Primary documented in this encounter Care Teams Mat Making Machine Tender Relationship Specialty Start Date End Date Ney Hernandez MD [address] [place] [id number] PCP - General Family Medicine 10/28/15 Magaly Sexton Contract Management SpecialistWeatherization Operations Manager 07/28/23 Ronald Gardner Contract Management SpecialistWeatherization Operations Manager 02/16/24 Moe Salmeron Contract Management SpecialistWeatherization Operations Manager 01/24/25 documented as of this encounter
--- OUTSIDE RECORDS SUMMARY | 2025-03-28 11:01 | XMS_ITS | Clinical Summary ---
Author Organization [facility], Address [address] [place] [address] [place] [address] Phone Care Team Providers Care Senior Security Engineer Name Role Phone Name, Ney LEONG Primary Care Provider [phone] Allergies No known active allergies Medications Lancets [...] hours 2 Active Blood Glucose Monitoring Suppl ([employer]) w/Device kit TEST BLOOD SUGAR TWICE [...] Health Maintenance Due Date Last Done Comments Breast Cancer Screening 1975 Hepatitis B Vaccine (1 of 3 - 19+ 3-dose series) 03/26 Pneumococcal Vaccine: 50+ Years (1 of 2 - PCV) 994 Diabetes: Ophthalmology Exam 10/19/2019 Diabetes: Pedal Pulse [...] PM EST) Hemoglobin A1C 10.2(H) (4.0-5.6) % [facility] Comment: Effective 10/01/19, hemoglobin A1c reference range changed. MONITORING: In known diabetic patients, hemoglobin A1c targets should be discussed with health care provider. DIAGNOSTIC USE: The [place] Diabetes Association (ADA) and the World Health [...] Supplement 1 Testing performed or reported by [facility], a Service of [facility], [address] [place] [id number] Shante Delgado MD, Parole Director Blood specimen (specimen) Venous blood / Unknown 10/22/2019 2:40 PM EST 10/22/2019 2:41 PM EST Homero Ortiz MD LAB BLOOD ORDERABLES Final Result JERROD from Last 3 Months or Most Recently Relevant to Health Maintenance Insurance Medicaid [place] [address] [address] [address] [place] [address] Care Teams Senior Security Engineer Relationship Specialty Start Date End Date Name, MD Ney [address] [place] [address] PCP - General 07/03/19
== END 2025-03-28 10:35 | disposition home or self-care (01) ==
LOC: HO.HKA 10:18
PROVIDERS: PCP Internal Medicine Geriatric Medicine; Visit Provider Internal Medicine Hypertension Specialist
DX: N18.9 Chronic kidney disease, unspecified (principal); D64.9 Anemia, unspecified; I12.9 Hypertensive chronic kidney disease with stage 1 through stage 4 chronic kidney disease, or unspecified chronic kidney disease; E11.9 Type 2 diabetes mellitus without complications; N18.4 Chronic kidney disease, stage 4 (severe)
CPT/HCPCS: 99214

== ENCOUNTER → 2025-03-28 10:17 | Outpatient (BNVA) | payer MEDICAID, SELFPAY | PROVIDERS: PCP Internal Medicine Geriatric Medicine; Visit Provider Internal Medicine Hypertension Specialist | DX: I12.9 Hypertensive chronic kidney disease with stage 1 through stage 4 chronic kidney disease, or unspecified chronic kidney disease (principal); E11.22 Type 2 diabetes mellitus with diabetic chronic kidney disease; N18.4 Chronic kidney disease, stage 4 (severe); N17.9 Acute kidney failure, unspecified; D63.1 Anemia in chronic kidney disease; Z79.4 Long term (current) use of insulin | CPT/HCPCS: 99212 ==

== ENCOUNTER 2025-05-27 10:00 | Outpatient (AMB) | payer MEDICAID, SELFPAY ==
--- NOTE | 2025-05-27 10:00 | HO.NEPHOV_ITS ---
Vital Signs 05/27/25 10:01 05/27/25 10:13 Height 5 ft 3 in Weight 191 lb BMI 33.8 BP 142/70 H 132/70 Blood Pressure Location Lt brachial Lt brachial Position Sitting Sitting Pulse 88 Pulse Source Pulse Oximeter Pulse Oximetry (%) 97 Oxygen Delivery Method Room Air Intake Visit Reasons: FU Retail Reset Merchandiser Required: No Accompanied by: Self / Same As Patient Allergies oxycodone (OXYCODONE) Allergy (Unknown, Verified 05/27/25 10:04) SEIZURES XIAO Inhibitors Adverse Reaction (Intermediate, Verified 05/27/25 10:04) Cough Medication List - Last Reconciled 05/27/25 by Spencer Bauman MD acetaminophen ER 1,300 mg PO Q8H PRN aspirin 1 tab PO QAM atorvastatin 40 mg PO DAILY dulaglutide (Trulicity) mg subcut QWEEK empagliflozin (Jardiance) 10 mg PO DAILY famotidine (Pepcid) 20 mg PO BID PRN fluticasone propionate 50 mcg/actuation intranasal gabapentin 100 mg PO DAILY glipizide ER 5 mg PO DAILY hydralazine 25 mg PO BID hydroxyzine HCl 25 mg PO Q8H PRN lidocaine 5% 1 patch topical DAILY losartan 50 mg PO DAILY ondansetron 4 mg PO Q8H PRN HPI Comments Details: Franny is a pleasant woman with a history of diabetes mellitus for more than 30 years referred for evaluation of renal insufficiency She tells me that her blood sugar has been reasonably well controlled with a recent A1c of 6.2%. She was recently diagnosed with hypertension. Initially she was started with amlodipine and she started developing swelling. Amlodipine was discontinued. Hydrochlorothiazide 25 mg was added. Edema has subsided. Her baseline serum creatinine was around 1.04 mg/dL in August 2023. In October creatinine bumped up to 1.6 and as of November creatinine was 2.12 and hence this referral. She had a urine analysis which showed significant proteinuria with a urine protein creatinine ratio of 4630. She is on losartan 100 mg a day for control blood pressure and for renal protection. She has also been taking NSAIDs every now and then and last dose was 600 mg ibuprofen couple of weeks ago. No history of smoking cigarettes she uses smoke marijuana which he quit 5 months ago. 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 No history of renal colic abuse This is a strong family history of diabetes mellitus and mother from end stage renal disease Today she has no specific complaints. No headache nausea vomiting. No shortness of breath. No polyuria polydipsia. No edema. No rash no fever. 02/01/2024. Given has stopped taking NSAIDs. She complains of left upper back pain. There is some confusion about her medications. She is stopped taking losartan. All medications were reviewed. ; Still with left sided upper back pain 07/17/24; Feels better, Off Metformin 11/20/24: s/p Carpel tunnel surgery Overall doing ok ; A1C was 7.2 in Aug 2024 02/04/25 The patient is a 49 year old female presenting with a follow-up visit regarding her Chronic Kidney Disease. She has a 30-year history of Type 2 Diabetes Mellitus, with her current Hemoglobin A1c being 6.7. Recently, her Trulicity dosage was adjusted to 1.5 mg weekly to aid in weight management, rather than due to any deterioration in her diabetes management. Over time, it has become evident that her renal function is declining, primarily due to the diabetic condition, evidenced by notable proteinuria measuring about 3,000 mg. Despite the administration of losartan, her kidney numbers continue to exhibit a downw zita trend, raising concerns of potential future dialysis or transplant necessity. She denies any respiratory, gastrointestinal, or urinary symptoms at present. Blood pressure readings are stable at home, though noted hypertensive during this visit. The patient has a maternal history of dialysis and adheres to Tylenol, specifically avoiding NSAIDs. 03/28/25 Doing OK . No new issues 05/27/25 - The patient is a 50-year-old female presenting with a follow-up for Chronic Kidney Disease and Diabetes Mellitus management. - Chronic Kidney Disease: Regular monitoring for kidney function and proteinuria due to diabetes impact. - Diabetes Mellitus: Blood glucose level at 6.8, indicating controlled diabetes. Adherence to medication and lifestyle recommendations. [facility] Medical History Anemia Chronic pain syndrome GERD (gastroesophageal reflux disease) Chronic renal insufficiency Depression Anxiety Diabetes Surgical History Status post right foot surgery History of section History of appendectomy History of tubal ligation S/p bilateral carpal tunnel release Family History Maternal Aunt Throat cancer Social History Alcohol intake: never Substance Use Type: Marijuana Current occupation: rt handed Physical Exam Vital Signs: Last Vital Signs Pulse 88 05/27/25 10:01 BP 132/70 05/27/25 10:13 Pulse Ox 97 05/27/25 10:01 Oxygen Delivery Method Room Air 05/27/25 10:01 BMI result Body Mass Index 33.8 Comfortable Neck supple no JVD. Lungs entry equal no rales. Heart S1-S2 heard no gallop or rub. Abdomen soft nontender. Neuro alert awake oriented. No asterixis. Extremities no edema. Results Reviewed Nephrology Results: Hgb, (12.0-16.0) 8.1 g/dl L Today WBC, (4.8-10.8) 6.9 X10*3/uL Today Plt Count, (160-400) 274 X10*3/uL Today Sodium, (135-145) 139 mmol/L 03/25/25 Potassium, (3.3-5.1) 4.4 mmol/L 03/25/25 Chloride, (96-108) 109 mmol/L H 03/25/25 Carbon Dioxide, (22-29) 20 mmol/L L 03/25/25 BUN, (9-16) 50 mg/dL H 03/25/25 Creatinine, (0.5-1.4) 3.48 mg/dL H 03/25/25 Calcium, (8.4-10.2) 8.5 mg/dL 03/25/25 Urine Protein, (Neg-Trace) 300 (3+) mg/dL H Today Urine Creatinine 54.20 mg/dL 11/20/24 Renal US 01/20/24 Assessment & Plan Assessment & Plan (1) CKD (chronic kidney disease): Code(s): N18.9 - Chronic kidney disease, unspecified Category: Medical Plan: . (2) Anemia: Code(s): D64.9 - Anemia, unspecified Category: Medical (3) Hypertension: Code(s): I10 - Essential (primary) hypertension Category: Medical (4) Diabetes: Code(s): E11.9 - Type 2 diabetes mellitus without complications Category: Medical (5) CKD (chronic kidney disease) stage 4, GFR 15-29 ml/min: Code(s): N18.4 - Chronic kidney disease, stage 4 (severe) Category: Medical Plan Middle aged woman with chronic kidney disease with nephrotic range proteinuria in the setting of longstanding diabetes mellitus. Underlying CKD is most likely due to diabetic kidney disease. However nondiabetic causes should be ruled out. The superimposed ANGELIA may be due to hypoperfusion from use of diuretics along with ARB and NSAIDs. No obstructive uropathy based on renal ultrasonogram . Clinically no reason to believe that she is any active glomerulonephritis or interstitial disease. Recent urinalysis showed bland sediment Creatinine is essentially unchanged No monoclonal proteins Serum complements C3 and C4 are normal. Blood pressure is better controlled and acceptable She is mild anemia Hemoglobin is improved Plan Keep losartan 50 mg daily for renal protection in view of the proteinuria Meantime stay on low-sodium diet and increase fluid intake. I have discussed importance of tight control of blood pressure and blood sugar to slow the progression of renal disease. Continue to avoid nephrotoxic agents including NSAIDs. continue with SGLT2 inhibitors for cardiorenal protection. 02/04/25 I discussed with the patient her current kidney function, noting its decline secondary to her diabetic condition. Emphasizing the importance of proteinuria management through losartan, I also highlighted potential future interventions, including dialysis or transplant. Blood pressure control was reviewed, with no immediate changes advised. I advised on maintaining water intake and reducing dietary sodium. We went over her current anemia management, considering her hemoglobin levels do not yet require treatment beyond monitoring. I reiterated avoiding NSAIDs, recommending Tylenol for analgesia. A follow-up in six weeks was scheduled to reassess kidney function, with a consideration of a kidney biopsy if warranted. 03/28/25 BP acceptable Renal fx stable Fluid status OK Mild anemia due to CKD NO changes today Maintain BP < 130/80 and A1C < 7% 05/27/25 Worsening renal function Diabetic nephropathy Complete serology work up to r/o non diabetic causes Natural progression Optimize BP And blood sugar Keep on ARB Orders: Orders Basic Metabolic Panel Today D64.9 - Anemia, unspecified, E11.9 - Type 2 diabetes mellitus without complications, N18.4 - Chronic kidney disease, stage 4 (severe) Complete Blood Count no Diff Today D64.9 - Anemia, unspecified, E11.9 - Type 2 diabetes mellitus without complications, N18.4 - Chronic kidney disease, stage 4 (severe) Parathyroid Hormone Intact Today D64.9 - Anemia, unspecified, E11.9 - Type 2 diabetes mellitus without complications, N18.4 - Chronic kidney disease, stage 4 (severe) Anti Glomerular Basement Memb Today D64.9 - Anemia, unspecified, E11.9 - Type 2 diabetes mellitus without complications, N18.4 - Chronic kidney disease, stage 4 (severe) Creatinine Urine Today N18.4 - Chronic kidney disease, stage 4 (severe) UA and rflx microscopic Today N18.4 - Chronic kidney disease, stage 4 (severe) ELAYNE Reflex Titer and Pattern Today D64.9 - Anemia, unspecified, E11.9 - Type 2 diabetes mellitus without complications, N18.4 - Chronic kidney disease, stage 4 (severe) Neutrophil Cytoplasma Ab Today D64.9 - Anemia, unspecified, E11.9 - Type 2 diabetes mellitus without complications, N18.4 - Chronic kidney disease, stage 4 (severe) Protein Electrophoresis, Serum Today D64.9 - Anemia, unspecified, E11.9 - Type 2 diabetes mellitus without complications, N18.4 - Chronic kidney disease, stage 4 (severe) Phospholipase A2 Receptor Pnl Today D64.9 - Anemia, unspecified, E11.9 - Type 2 diabetes mellitus without complications, N18.4 - Chronic kidney disease, stage 4 (severe) Total Protein Urine Random Today N18.4 - Chronic kidney disease, stage 4 (severe) Coding Level of Care Code Est Pt Level 4 (84725) Diagnoses CKD (chronic kidney disease) N18.9 Anemia D64.9 Hypertension I10 Diabetes E11.9 CKD (chronic kidney disease) stage 4, GFR 15-29 ml/min N18.4
[2025-05-27 10:01] VITALS: BP 142/70; PULSE 88; O2SAT 97; BMI 33.8
[2025-05-27 10:13] VITALS: BP 132/70
--- OUTSIDE RECORDS SUMMARY | 2025-05-27 10:59 | XMS_ITS | Encounter Summary ---
Author Organization [email or web address] Address [address] [facility] 7t [place] [address] Care Team Providers Care News Copy Editor Name Role Phone Name, Ney LEONG Primary Care Provider [phone] Reason for Referral * Imaging (STAT) - Closed Specialty Diagnoses / Procedures Referred By Contac t Referred To Contact Radiology Diagnoses 3rd nerve palsy, complete, left Procedures MRA Head w/o Contrast Magy Huertas FNP [address] [place] [address] Phone: tel: fax: Diagnostic Imaging, [facility] [facility] [address] [place] [address] Phone: tel: fax: Referral ID Status Reason Start Date Expiration Date Visits Re quested Visits Authorized [id number] Closed 09/06/2023 09/05/2024 1 1 Encounter Details Date Type Department Care Team (Late st Contact Info) Description 09/06/2023 Orders Only [facility] MED [facility] PEDS [address] [place], [place] [phone] Magy Huertas FNP [address] [place] [address] 3rd nerve palsy, complete, left (Primary Dx) [...] Care Team (Late st Contact Info) Description 07/30/2025 3:30 PM EST Office Visit [facility] MEDICINE [address] [place] [address] Name, MD Ney [address] [place] [address] Scheduled Orders Name Type Priority Associated Diagnoses Orde r Schedule MRA Head w/o Contrast Imaging STAT 3rd nerve palsy, complete, left Expected: 09/06/2023, Expires: 09/06/2024 documented as of this encounter Visit Diagnoses Diagnosis 3rd nerve palsy, complete, left- Primary documented in this encounter Care Teams News Copy Editor Relationship Specialty Start Date End Date Name, MD Ney [address] [place] [address] PCP - General Family Medicine 10/28/15 Magaly Sexton SparmakerTool Chaser 07/28/23 Ronald Gardner SparmakerTool Chaser 02/16/24 Moe Salmeron SparmakerTool Chaser 01/24/25 documented as of this encounter
--- OUTSIDE RECORDS SUMMARY | 2025-05-27 10:59 | XMS_ITS | Encounter Summary ---
Demographics Address [address] [place] [address] Home Phone Mobile Phone Preferred Language es Marital Status Single Jewish Affiliation Unknown Race White Ethnic Group Unknown Author Organization [facility] Address [address] [place] [address] Phone Care Team Providers Care Brim Stiffener Name Role Phone Name, Ney LEONG Primary Care Provider [phone] Encounter Details Date Type Department Care Team (Late st Contact Info) Description 12/24/2021 Documentation Only [facility], [address] [place] [address] Name, MD Ney [address] [place] [address] Social History Tobacco Use Types Packs/Day Years Used Date Smoking Tobacco: Former Comments:Smoking History Inf o:Unknown Comments Unknown Sex and Gender Information Value Date Recorded Sex Assigned at Not on file Legal Sex Female 4:31 PM EST Gender Identity Not on file Sexual Orientation Not on file documented as of this encounter Plan of Treatment Not on file documented as of this encounter Visit Diagnoses Not on filedocumented in this encounter Care Teams Brim Stiffener Relationship Specialty Start Date End Date Name, MD Ney [address] [place] [address] PCP - General 07/03/19 documented as of this encounter
--- OUTSIDE RECORDS SUMMARY | 2025-05-27 10:59 | XMS_ITS | Encounter Summary ---
Author Organization [employer] Address [address] 7t [place] [address] Care Team Providers Care Deckhand Shrimp Boat Name Role Phone Name, Ney LEONG Primary Care Provider Reason for Visit * Reason Onset Date Comments Lab Orders 05/24/2025 Encounter Details Date Type Department Care Team ([facility] st Contact Info) Description 05/24/[address] [facility] MEDICINE [address] [place], [place] [phone] Name, MD Ney [address] [place] [address] Lab Orders Social History Tobacco Use Types Packs/Day Years Used Date Smoking Tobacco: Never Passive Smoke Exposure: Never Smokeless Tobacco: Never Alcohol Use Standard Drinks/Week Comments Never 0 (1 standard drink = 0.6 oz pur e alcohol) Alcohol Answer Date Recorded Frequency of Alcohol Consumption Not on file 03/06/2024 Average Number of Drinks Not on file 024 Frequency of Binge Drinking Not on file 04/2024 Score 0 03/06/2024 Depression Answer Date Recorded Patient Health Questionnaire-9 Score 4 10/05/2024 Patient Health Questionnaire-9 Score 4 10/05/2024 Last PHQ-9: Questionnaire Data Not on file 0 10/05/2024 Housing Stability Answer Date Recorded What is your housing situation today? I have jana ortiz 12/28/[address] you li ve. Do you have problems with any of the following? I am not sure 12/28/2024 Food Insecurity Answer Date Recorded Within the past 12 months, y ou worried that your food would run out before you got money to buy more: Never True 12/28/2024 Within the past 12 months,th e food you bought just didn't last and you didn't have enough money to get more: Never True 09/2024 Transportation Answer Date Recorded In the past 12 months, has l ack of transportation kept you from medical appts, meetings, work or from getting things needed for daily living? No 12/28/2024 Utilities Answer Date Recorded In the past 12 months, has t he electric, gas, oil or water company threatened to shut off services in your home? No 12/28/2024 Depression Answer Date Recorded Patient Health Questionnaire-2 Score 1 10/05/2024 Internet Access Answer Date Recorded Internet Access Q1 Yes 12/28/2024 Internet Access Q2 Not on file 12/28/2024 Comments Unknown Sex and Gender Information Value Date Recorded Sex Assigned at Female 06/28/2022 10:16 AM EDT Legal Sex Female 10:16 AM EDT Gender Identity Female 06/28/2022 10:16 AM EDT Sexual Orientation Straight 06/28/2022 10 :16 AM EDT documented as of this encounter Miscellaneous Notes * Telephone Encounter - Alisha Alvarado - 05/24/2025 10:07 AM EDT TC from [facility] reporting that the patient stated her muscle relaxer is not working. Patient???s leg cramps are returning. [facility] is requesting lab orders for iron and vitamin levels. Pt also report to [facility] that her paresthesia in the back of her head. Contact pt at [phone] documented in this encounter Plan of Treatment Upcoming Encounters Date Type Department Care Team (Late st Contact Info) Description 07/30/2025 3:30 PM EST Office Visit [facility] MEDICINE [address] [place] [address] Name, MD Ney [address] [place] [address] documented as of this encounter Visit Diagnoses Not on filedocumented in this encounter Additional Health Concerns Assessment Noted Time PHQ-9 Depression Total Score: 4 10/05/19 25 9:05 AM EST documented as of this encounter Care Teams Deckhand Shrimp Boat Relationship Specialty Start Date End Date Name, MD Ney [address] [place] [address] PCP - General Family Medicine 10/28/15 Magaly Sexton Wide Area Network EngineerPoliceman 07/28/23 Ronald Gardner Wide Area Network EngineerPoliceman 02/16/24 Moe Salmeron Wide Area Network EngineerPoliceman 01/24/25 documented as of this encounter
--- OUTSIDE RECORDS SUMMARY | 2025-05-27 10:59 | XMS_ITS | Encounter Summary ---
Author Organization [employer] Address [address] 7[address] [place] [address] Care Team Providers Care Electronics Teacher Name Role Phone Name, Ney LEONG Primary Care Provider [phone] Encounter Details Date Type Department Care Team (Late st Contact Info) Description 05/27/2025 Orders Only GENERIC EXTERNAL DATA DEPARTMENT Provider, Generic External Data Social History Tobacco Use Types Packs/Day Years [...] Description 07/30/2025 3:30 PM EST Office Visit [facility] MEDICINE [address] [place] [address] Name, MD Ney [address] [place] [address] documented as of this encounter Procedures Procedure Name Priority Date/Time Associated Diagnosis Comments CBC Routine 05/27/2025 10:45 AM EDT documented in this encounter Results * (ABNORMAL) CBC (05/27/2025 10:45 AM EDT) White Blood Count 6.9 4.8 - 10.8 X10*3/uL [facility] Red Blood Count 2.87(L) 4.20 - 5.50 X10*6/uL [facility] Hemoglobin 8.1(L) 12.0 - 16.0 g/dl [facility] Hematocrit 24.9(L) 37.0 - 47.0 % [facility] Mean Corpuscular Volume 86.8 80.0 - 98.0 fL [facility] Mean Corpuscular Hemoglobin 28.2 27.0 - 33.0 pg [facility] Mean Corpuscular HGB Conc 32.5 31.0 - 35.0 g/dl [facility] Red Cell Distribution Width 13.4 11.0 - 16.0 % [facility] Platelet Count 274 160 - 400 X10*3/uL [facility] Mean Platelet Volume 10.3 9.4 - 12.3 fL [facility] NRBC Pct Auto 0.0 0.0 - 0.2 /100WBC [facility] NRBC Abs Auto 0.000 0.0 - 0.012 X10*3/uL [facility] 05/27/2025 10:4 5 AM EDT 05/27/2025 10:45 AM EDT us Generic External Data Provider LAB BLOOD ORDERAB LES Final Result Performing Organization Address City/State/[facility] Co de Phone Number [facility] [address] [place] [phone] documented in this encounter Visit Diagnoses Not on filedocumented in this encounter Additional Health Concerns Assessment Noted Time PHQ-9 Depression Total Score: 4 10/05/19 25 9:05 AM EST documented as of this encounter Care Teams Electronics Teacher Relationship Specialty Start Date End Date Name, MD Ney [address] [place] [address] PCP - General Family Medicine 10/28/15 Magaly Sexton Food ServerMeter And Regulator Shop Supervisor 07/28/23 Ronald Gardner Food ServerMeter And Regulator Shop Supervisor 02/16/24 Moe Salmeron Food ServerMeter And Regulator Shop Supervisor 01/24/25 documented as of this encounter
--- OUTSIDE RECORDS SUMMARY | 2025-05-27 10:59 | XMS_ITS | Encounter Summary ---
Author Organization [employer] Address [address] 7t [place] [address] Care Team Providers Care Property Disposal Officer Name Role Phone Name, Ney LEONG Primary Care Provider [phone] Reason for Visit * Reason Onset Date Comments Nurse Triage 05/24/2025 Encounter Details Date Type Department Care Team ([facility] st Contact Info) Description 05/24/2025 Telephone [facility] MEDICINE [address] [place], [place] [phone] Name, MD Ney [address] [place] [address] Nurse Triage Social History Tobacco Use Types Packs/Day Years [...] encounter Miscellaneous Notes * Telephone Encounter - Jaquelin Mcdermott RN - 05/24/2025 11:07 AM EDT called pt to triage, spoke to pt. pt states persistent right shoulder pain. pt states started Gabapentin about a week ago but stopped helping much after the first few days. looking in the chart at her med orders and last visit a week ago, pt is on a progressive dose and should be increasing to 2 caps tonight for another 7 days followed by another increase to 2 caps twice daily. advised that as the dose is increased, she may start having more relief. also, pt has PT ordered and should be starting that soon. advised home care: rest, fluids, medication as prescribed, ice, heat, and call back as needed. also, pt states having a flare of scalp Psoriasis and needs the cream she was using. lookingin the meds, pt has 2 refills available to her and advised her to call her pharmacy for refill. pt understands and agrees with plan. Protocol Used: Shoulder Pain (Adult) Protocol-Based Disposition: Home Care Positive Triage Question: * Shoulder pain * All higher-acuity triage questions were negative Care Advice Discussed: * Reassurance and Education - Shoulder Pain * Pain Medicines * Reasons To Call Back - Severe pain lasts more than 2 hours after pain medicine - Moderate pain (such as interferes with normal activities) lasts over 3 days - Mild pain lasts over 7 days - Chest pain or difficulty breathing occurs - You become worse * Telephone Encounter - Alisha Rodolfo Rodriguezzquez - 05/24/2025 10:16 AM EDT Symptoms: Arm Pain - Not From Injury, Leg Pain - Not From Injury Outcome: Schedule an appointment to be seen within 24 hours Reason: Caller denied all higher acuity questions The caller accepted this outcome. Contact pt at [phone] documented in this encounter Plan of Treatment Upcoming Encounters Date Type Department Care Team (Late st Contact Info) Description 07/30/2025 3:30 PM EST Office Visit [facility] MEDICINE [address] [place] [address] Name, MD Ney [address] [place] [address] documented as of this encounter Visit Diagnoses Not on filedocumented in this encounter Additional Health Concerns Assessment Noted Time PHQ-9 Depression Total Score: 4 10/05/19 25 9:05 AM EST documented as of this encounter Care Teams Property Disposal Officer Relationship Specialty Start Date End Date Name, MD Ney [address] [place] [address] PCP - General Family Medicine 10/28/15 Magaly Sexton Flitch HangerPhotography Manager 07/28/23 Ronald Gardner Flitch HangerPhotography Manager 02/16/24 Moe Salmeron Flitch HangerPhotography Manager 01/24/25 documented as of this encounter
--- OUTSIDE RECORDS SUMMARY | 2025-05-27 10:59 | XMS_ITS | Clinical Summary ---
Author Organization [facility], Address [address] [place] [address] [place] [address] Phone Care Team Providers Care Skein Spooler Name Role Phone Name, Ney LEONG Primary Care Provider [phone] Allergies No known active allergies Medications Lancets [...] hours 2 Active Blood Glucose Monitoring Suppl (Loku Lite) w/Device kit TEST BLOOD SUGAR TWICE [...] PM EST) Hemoglobin A1C 10.2(H) (4.0-5.6) % [facility] Comment: Effective 10/01/19, hemoglobin A1c reference range changed. MONITORING: In known diabetic patients, hemoglobin A1c targets should be discussed with health care provider. DIAGNOSTIC USE: The [place] [employer] Association (ADA) and the World Health [...] Supplement 1 Testing performed or reported by [facility], a Service of [facility], [address] [place] [id number] Shante Delgado MD, Correction Officer Head Blood specimen (specimen) Venous blood / Unknown 10/22/2019 2:40 PM EST 10/22/2019 2:41 PM EST Homero Ortiz MD LAB BLOOD ORDERABLES Final Result JERROD from Last 3 Months or Most Recently Relevant to Health Maintenance Insurance Medicaid [place] [address] [address] [address] [address] Care Teams Skein Spooler Relationship Specialty Start Date End Date Name, MD Ney [address] [place] [address] PCP - General 07/03/19
--- OUTSIDE RECORDS SUMMARY | 2025-05-27 10:59 | XMS_ITS | Encounter Summary ---
Author Organization [employer] Address [address] 7t [place] [address] Care Team Providers Care Prep Cook Name Role Phone Name, Ney LEONG Primary Care Provider [phone] Reason for Visit * Reason Onset Date Comments Medication Question 12/21/2023 Encounter Details Date Type Department Care Team ([facility] st Contact Info) Description 12/21/2023 Telephone [facility] MEDICINE [address] [place], [place] [phone] Name, MD Ney [address] [place] [address] Medication Question Social History Tobacco Use Types Packs/Day Years Used Date Smoking Tobacco: Never Smokeless Tobacco: Never Alcohol Use Standard Drinks/Week Comments Never 0 (1 standard drink = 0.6 oz pur e alcohol) Depression Answer Date Recorded Patient Health Questionnaire-9 Score 20 10/20/2023 Patient Health Questionnaire-9 Score 20 10/20/2023 Last PHQ-9: Questionnaire Data Not on file 0 10/20/2023 Housing Stability Answer Date Recorded What is your housing situation today? I do not have housing (Staying with others, in a hotel, in a chcf, living outside on the street, on a beach, in a car, or in a park 10/03/[address] you li ve. Do you have problems with any of the following? None of the above 10/03/2023 Food Insecurity Answer Date Recorded Within the past 12 months, y ou worried that your food would run out before you got money to buy more: Never True 06/21/2023 Within the past 12 months,th e food you bought just didn't last and you didn't have enough money to get more: Never True 10/ Transportation Answer Date Recorded In the past 12 months, has l ack of transportation kept you from medical appts, meetings, work or from getting things needed for daily living? No 06/21/2023 Utilities Answer Date Recorded In the past 12 months, has t he electric, gas, oil or water company threatened to shut off services in your home? No 06/21/2023 Depression Answer Date Recorded Patient Health Questionnaire-2 Score 6 10/20/2023 Comments Unknown Sex and Gender Information Value Date Recorded Sex Assigned at Female 06/28/2022 10:16 AM EDT Legal Sex Female 10:16 AM EDT Gender Identity Female 06/28/2022 10:16 AM EDT Sexual Orientation Straight 06/28/2022 10 :16 AM EDT documented as of this encounter Miscellaneous Notes * Telephone Encounter - Floyd Uriarte RN - 12/22/2023 4:44 PM EDT T/C to pt. For below message, No answer. LVM to call back on [phone]. * Telephone Encounter - Fermín Armas - 12/21/2023 2:25 PM EDT Tc from requesting status on kidney medication prescribed last office visit 12/18. Pt stated she wasprescribed 2 medications, one is an antibiotic and one is a kidney medication (pt unsure on exact medication name). Pt confirmed she received metroNIDAZOLE (Flagyl) 500 MG tablet but still hasn't received medication for her kidney's. Please contact pt at [phone]. documented in this encounter Plan of Treatment Upcoming Encounters Date Type Department Care Team (Late st Contact Info) Description 07/30/2025 3:30 PM EST Office Visit [facility] MEDICINE [address] [place] [address] Name, MD Ney [address] [place] [address] documented as of this encounter Visit Diagnoses Not on filedocumented in this encounter Additional Health Concerns Assessment Noted Time PHQ-9 Depression Total Score: 20 024 3:59 PM EST documented as of this encounter Care Teams Prep Cook Relationship Specialty Start Date End Date Name, MD Ney [address] [place] [address] PCP - General Family Medicine 10/28/15 Magaly Sexton Emulsion CoaterAdjuster Piano Action 07/28/23 Ronald Gardner Emulsion CoaterAdjuster Piano Action 02/16/24 Moe Salmeron Emulsion CoaterAdjuster Piano Action 01/24/25 documented as of this encounter
--- OUTSIDE RECORDS SUMMARY | 2025-05-27 10:59 | XMS_ITS | Encounter Summary ---
Author Organization [employer] Address [address] 7t [place] [address] Care Team Providers Care Unemployment Claims Adjudicator Name Role Phone Name, Ney LEONG Primary Care Provider [phone] Reason for Visit * Reason Comments Med Refill Encounter Details Date Type Department Care Team ([facility] st Contact Info) Description 03/02/2024 Refill [facility] MEDICINE [address] [place], [place] [phone] Name, MD Ney [address] [place] [address] Social History Tobacco Use Types Packs/Day Years [...] 3:30 PM EST Office Visit [facility] MEDICINE [address] [place] [address] Name, MD Ney [address] [place] [address] documented as of this encounter Visit Diagnoses Not on filedocumented in this encounter Additional Health Concerns Assessment Noted Time PHQ-9 Depression Total Score: 20 024 3:59 PM EST documented as of this encounter Care Teams Unemployment Claims Adjudicator Relationship Specialty Start Date End Date Name, MD Ney [address] [place] [address] PCP - General Family Medicine 10/28/15 Magaly Sexton Nut CrackerStave Grader 07/28/23 Ronald Gardner Nut CrackerStave Grader 02/16/24 Moe Salmeron Nut CrackerStave Grader 01/24/25 documented as of this encounter
--- OUTSIDE RECORDS SUMMARY | 2025-05-27 10:59 | XMS_ITS | Encounter Summary ---
Demographics Address [address] [place] [address] Home Phone Mobile Phone Preferred Language es Marital Status Single Bahai Affiliation Unknown Race White Ethnic Group Unknown Author Organization [facility] Address [address] [place] [address] Phone Care Team Providers Care Aircraft Ordnance Technician Name Role Phone Name, Ney LEONG Primary Care Provider [phone] Encounter Details Date Type Department Care Team (Late st Contact Info) Description 12/24/2021 Documentation Only [facility], [address] [place] [address] Name, MD Ney [address] [place] [address] Social History Tobacco Use Types Packs/Day Years [...] on filedocumented in this encounter Care Teams Aircraft Ordnance Technician Relationship Specialty Start Date End Date Name, MD Ney [address] [place] [address] PCP - General 07/03/19 documented as of this encounter
--- OUTSIDE RECORDS SUMMARY | 2025-05-27 10:59 | XMS_ITS | Encounter Summary ---
Author Organization [employer] Address [address] 7t [place] [address] Care Team Providers Care Personnel Clerks Supervisor Name Role Phone Name, Ney LEONG Primary Care Provider [phone] Encounter Details Date Type Department Care Team ([facility] st Contact Info) Description 09/20/2023 Abstract [facility] MEDICINE [address] [place], [place] [phone] Name, MD Ney [address] [place], [place] [phone] Social History Tobacco Use Types Packs/Day Years Used Date Smoking Tobacco: Never Smokeless Tobacco: Never Housing Stability Answer Date Recorded What is your housing situation today? I have janaaric ortiz 06/21/[address] you [...] Description 07/30/2025 3:30 PM EST Office Visit [facility] MEDICINE [address] [place] [address] Name, MD Ney [address] [place] [address] documented as of this encounter Visit Diagnoses Not on filedocumented in this encounter Care Teams Personnel Clerks Supervisor Relationship Specialty Start Date End Date Name, MD Ney [address] [place] [address] PCP - General Family Medicine 10/28/15 Magaly Sexton Cellars SupervisorUnderwear Cutter 07/28/23 Ronald Gardner Cellars SupervisorUnderwear Cutter 02/16/24 Moe Salmeron Cellars SupervisorUnderwear Cutter 01/24/25 documented as of this encounter
--- OUTSIDE RECORDS SUMMARY | 2025-05-27 10:59 | XMS_ITS | Encounter Summary ---
Author Organization [employer] Address [address] [place] [address] 7t [place] [address] Care Team Providers Care Station Operator Name Role Phone Name, Ney LEONG Primary Care Provider [phone] Reason for Visit * Reason Comments Med Refill Encounter Details Date Type Department Care Team (Late st Contact Info) Description 12/23/2022 Refill [facility] MEDICINE [address] [place] [address] Ney Hernandez MD [address] [place] [address] Social History Tobacco Use Types Packs/Day Years Used Date Smoking Tobacco: Never Smokeless Tobacco: Never Comments Unknown Sex and Gender Information Value [...] Description 07/30/2025 3:30 PM EST Office Visit [facility] MEDICINE [address] [place] [address] Ney Hernandez MD [address] [place] [address] documented as of this encounter Visit Diagnoses Not on filedocumented in this encounter Care Teams Station Operator Relationship Specialty Start Date End Date Ney Hernandez MD [address] [place] [address] PCP - General Family Medicine 10/28/15 Magaly Sexton Concrete LayerChef Teacher 07/28/23 Ronald Gardner Concrete LayerChef Teacher 02/16/24 Moe Salmeron Concrete LayerChef Teacher 01/24/25 documented as of this encounter
--- OUTSIDE RECORDS SUMMARY | 2025-05-27 11:00 | XMS_ITS | Clinical Summary ---
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 suggested. For additional information please refer to http://education.EaglEyeMed/faq/KGV67l6 (This link is being provided for informational/ educational purposes only.) 07/04/2020 9:24 AM EST Shakir Corcoran MD HISTORICAL/NON ORDERABLE LABS Fi nal Result [facility] [address] * HIV 1/2 ANTIGEN/ANTIBODY,FOURTH GENERATION W/RFL (07/04/2020 9:24 AM EST) HIV-1/2 ANTIGEN AND ANTIBODIES, 4TH GENERATION W/ REFLEX NON-REACT MICHELLE NON-REACT MICHELLE [facility] Comment: HIV-1 antigen and HIV-1/HIV-2 antibodies were not detected. There is no laboratory evidence of HIV infection. PLEASE NOTE: This information has been disclosed to you from records whose confidentiality may be protected by state law. If your state requires such protection, then the state law prohibits you from making any further disclosure of the information without the specific written consent of the person to whom it pertains, or as otherwise permitted by law. A general authorization for the release of medical or other information is NOT sufficient for this purpose. For additional information please refer to http://education.EaglEyeMed/faq/XER600 (This link is being provided for informational/ educational purposes only.) The performance of this assay has not been clinically validated in patients less than 2 years old. 07/04/2020 9:24 AM EST Shakir Corcoran MD LAB BLOOD ORDERABLES Final Resul t [facility] [address] * HPV mRNA E6/E7 (02/28/2018 2:39 PM EDT) Pathologist [facility] HPV mRNA E6/E7 Not Detected NOT DETECTED [facility] Comment: This test was performed using the APTIMA(R) HPV Assay ([employer] This assay detects E6/E7 viral messenger RNA (mRNA) from 14 high-risk HPV types (16,18,31,33,35,39,45,51, 52,56,58,59,66,68). For additional information please refer to: http://[employer].EaglEyeMed/faq/RYY087o3 (This link is being provided for informational/ educational purposes only.) The analytical performance characteristics of this assay have been determined by [employer] [place], [place]. The modifications have not been cleared or approved by the FDA. This assay has been validated pursuant to the CLIA regulations and is used for clinical purposes. Test Performed by [facility], [employer] [place], [address] [place] [address] Raj Torres M.D., Ph.D., Director of Laboratories , CLIA [id number] Please note: Effective 05/10/2016, HPV testing will be performed using [employer]'s APTIMA test which targets mRNA. Detecting mRNA instead of DNA, as in older methods, offers significant improvements in specificity. 02/28/2018 2:39 PM EDT Franny Bass CNM HISTORICAL/NON ORDERABLE LABS Final Result [facility] [address] from Last 3 Months or Most Recently Relevant to Health Maintenance Insurance [facility] C3 Care Teams Transportation Mechanic Relationship Specialty Start Date End Date Name, MD Ney [address] [place] [address] PCP - General Family Medicine 10/28/15 Magaly Sexton Proof Technician HelperSocial Services Analyst 07/28/23 Ronald Gardner Proof Technician HelperSocial Services Analyst 02/16/24 Moe Salmeron Proof Technician HelperSocial Services Analyst 01/24/25
== END 2025-05-27 10:15 | disposition home or self-care (01) ==
LOC: HO.HKA 10:01
PROVIDERS: PCP Internal Medicine Geriatric Medicine; Visit Provider Internal Medicine Hypertension Specialist
DX: N18.9 Chronic kidney disease, unspecified (principal); D64.9 Anemia, unspecified; I12.9 Hypertensive chronic kidney disease with stage 1 through stage 4 chronic kidney disease, or unspecified chronic kidney disease; E11.9 Type 2 diabetes mellitus without complications; N18.4 Chronic kidney disease, stage 4 (severe)
CPT/HCPCS: 99214

== ENCOUNTER 2025-05-27 10:00 | Outpatient (REF) | payer MEDICAID, SELFPAY ==
[2025-05-27 10:55] LABS: Hematocrit 24.9 % (37.0-47.0); Hemoglobin 8.1 g/dl (12.0-16.0); Mean Corpuscular HGB Conc 32.5 g/dl (31.0-35.0); Mean Corpuscular Hemoglobin 28.2 pg (27.0-33.0); Mean Corpuscular Volume 86.8 fL (80.0-98.0); NRBC Abs Auto 0.000 X10*3/uL (0.0-0.012); NRBC Pct Auto 0.0 /100WBC (0.0-0.2); Platelet Count 274 X10*3/uL (160-400); Red Blood Count 2.87 X10*6/uL (4.20-5.50); White Blood Count 6.9 X10*3/uL (4.8-10.8)
[2025-05-27 11:10] LABS: Appearance Urine Clear; Glucose Urine UA >=1000 mg/dL (Negative); PH 5.5 (5.0-9.0); Specific Gravity - Urine 1.020 (1.005-1.025); UMIC TRIGGER UA YES
[2025-05-27 11:28] LABS: Anion Gap 12 (12-20); Blood Urea Nitrogen 63 mg/dL (9-16); Calcium 8.6 mg/dL (8.4-10.2); Carbon Dioxide 19 mmol/L (22-29); Chloride 110 mmol/L (96-108); Estimated Glomerular Filt Rate 13; Potassium 4.4 mmol/L (3.3-5.1); Sodium 137 mmol/L (135-145)
[2025-05-27 11:30] LABS: Parathyroid Hormone Intact 296.3 pg/mL (8.7-77.1)
[2025-05-27 12:39] LABS: Total Protein Urine Random 422 mg/dL (<12)
[2025-05-29 17:53] LABS: Anti Nuclear Antibody Screen NEGATIVE (NEGATIVE)
[2025-05-29 20:48] LABS: Prot Elec - Albumin 3.2 g/dL (3.8-4.8); Prot Elec - Alpha1 0.4 g/dL (0.2-0.3); Prot Elec - Alpha2 0.8 g/dL (0.5-0.9); Prot Elec - Beta 1 0.5 g/dL (0.4-0.6); Prot Elec - Beta 2 0.8 g/dL (0.2-0.5); Prot Elec - Gamma 1.2 g/dL (0.8-1.7); Prot Elec - Total Protein 6.9 g/dL (6.1-8.1)
[2025-05-30 13:23] LABS: Anti Glomerular Basement Memb <1.0 AI
[2025-05-31 09:14] LABS: Neutrophil Cyto Ab Screen NEGATIVE (NEGATIVE)
[2025-06-01 08:28] LABS: Phospholipase A2 IgG ELISA <4 RU/mL; Phospholipase A2 IgG IFA NEGATIVE (NEGATIVE)
== END 2025-05-27 10:01 | disposition home or self-care (01) ==
LOC: HO.LAB 10:00
PROVIDERS: PCP Internal Medicine Geriatric Medicine; Visit Provider Internal Medicine Hypertension Specialist
DX: I12.9 Hypertensive chronic kidney disease with stage 1 through stage 4 chronic kidney disease, or unspecified chronic kidney disease (principal); N18.4 Chronic kidney disease, stage 4 (severe); E11.22 Type 2 diabetes mellitus with diabetic chronic kidney disease; D63.8 Anemia in other chronic diseases classified elsewhere; Z79.899 Other long term (current) drug therapy; Z79.84 Long term (current) use of oral hypoglycemic drugs
CPT/HCPCS: 36415; 80048; 81001; 81003; 82570; 83520; 83970; 84156; 84165; 85027; 86036; 86038; 86255; 99212

== ENCOUNTER 2025-06-06 13:42 | Outpatient (REF) | payer MEDICAID, SELFPAY ==
--- NOTE | ~2025-06-06 | XR_ITS ---
EXAMINATION: XR SHOULDER, RIGHT CLINICAL INFORMATION: R shoulder pain s/p fall COMPARISON: January 30, 2025 TECHNIQUE: AP external rotation, Grashey, scapular Y, and axillary views of the right shoulder. FINDINGS: Linear calcific density extends up 3-4 mm from the greater tuberosity, less dense on the prior. Small marginal osteophyte is present involving the humeral head.. AC joint is intact. There is no dislocation. No fracture is identified. XR/XR shoulder RT min 2V IMPRESSION: Linear calcification extending up from the greater tuberosity could represent a small focus of calcific tendinitis in the rotator cuff. Electronically signed by: Kody Atwood MD 06/06/2025 03:09 PM EDT RP
--- NOTE | ~2025-06-06 | XR_ITS ---
EXAMINATION: XR RIBS, LEFT CLINICAL INFORMATION: lower L rib pain s/p fall COMPARISON: 02/09/2024 TECHNIQUE: PA view of the chest, and 3 views of the left ribs were obtained. FINDINGS: Lungs are clear. No consolidation, pneumothorax, or pleural effusion. The cardiomediastinal silhouette and pulmonary vasculature are normal. Osseous structures are unremarkable. Ribs are intact. No fractures are identified. XR/XR ribs LT min 3V w CXR1V IMPRESSION: No active pulmonary disease. No acute findings of the thorax. The ribs appear intact. Electronically signed by: Jeremie Dockery MD 06/06/2025 03:08 PM EDT
== END 2025-06-06 13:43 | disposition home or self-care (01) ==
LOC: HO.HHCX 13:42
PROVIDERS: Visit Provider Family Medicine
DX: M25.511 Pain in right shoulder (principal); G89.29 Other chronic pain; R07.89 Other chest pain
CPT/HCPCS: 71101; 73030

== ENCOUNTER → 2025-06-06 13:42 | Outpatient (BNV) | payer MEDICAID, SELFPAY | PROVIDERS: Visit Provider Radiology Diagnostic Radiology | DX: R07.89 Other chest pain (principal); M25.511 Pain in right shoulder; W19.XXXA Unspecified fall, initial encounter | CPT/HCPCS: 71101; 73030 ==

== ENCOUNTER 2025-06-29 13:30 | Emergency (ER) | payer MEDICAID, SELFPAY ==
--- OUTSIDE RECORDS SUMMARY | 2025-06-27 09:45 | XMS_ITS | Encounter Summary ---
Author Organization [employer] Address [address] [place] [address] Care Team Providers Care Tank Filler Name Role Phone Name, Ney LEONG Primary Care Provider Encounter Details Date Type Department Care Team ([facility] st Contact Info) Description 06/27/2025 9:45 AM EDT Office Visit [facility] OPTOM[facility]RY [address] [place] [address] Eric, Nikki, OD [address] [place] [address] Regular astigmatism of both eyes (Primary Dx) Social History Tobacco Use Types [...] AM EDT documented as of this encounter Progress Notes * Nikki Reyes OD - 06/27/2025 9:45 AM EDT MH glasses were dispensed, 1 of 2. documented in this encounter Plan of Treatment Upcoming Encounters Date Type Department Care Team (Late st Contact Info) Description 07/30/2025 3:30 PM EST Office Visit [facility] MEDICINE [address] [place] [phone] Name, MD Ney [address] [place] [phone] documented as of this encounter Visit Diagnoses Diagnosis Regular astigmatism of both eyes- Primary documented in this encounter Additional Health Concerns Assessment Noted Time PHQ-9 Depression Total Score: 4 10/05/19 25 9:05 AM EST documented as of this encounter Care Teams Tank Filler Relationship Specialty Start Date End Date Ney Hernandez MD [address] [place] [id number] PCP - General Family Medicine 10/28/15 Magaly Sexton [facility] Ward ClerkWet Mixer 07/28/23 Ronald Gardner [facility] Ward ClerkWet Mixer 02/16/24 Moe Salmeron [facility] Ward ClerkWet Mixer 01/24/25 documented as of this encounter
--- NOTE | ~2025-06-29 | CT_ITS ---
CLINICAL HISTORY: l flank pain, worsening renal function CT abdomen and pelvis without IV or oral contrast Comparison: CT/REG/SR - CT ABDOMEN PELVIS WO IV CON - 02/08/24 13:06 EDT Findings: Lung bases show no active disease. No dependent layering pleural effusions. The heart is not enlarged. No stones are identified in the kidneys, ureters or bladder. There is no hydronephrosis or perinephric stranding/fluid. Evaluation of the liver, spleen, adrenal glands and pancreas demonstrates no lesions. It should be noted that isodense masses may be obscured in the absence of intravenous contrast. Contracted gallbladder. Increased stool burden. No pathologically enlarged lymph nodes . No ascites demonstrated. Partially decompressed urinary bladder. Equivocal cystitis. Chronic L5 pars defect with grade 1 anterolisthesis L5 S1. Vacuum disc phenomenon. Impression: 1. No nephrolithiasis or urinary tract obstruction demonstrated. 2. Equivocal cystitis. 3. Stable ancillary findings This document has been electronically signed by: Bimal Sanchez MD on 06/29/2025 17:02:05
--- NOTE | ~2025-06-29 | US_ITS ---
CLINICAL HISTORY: LLE edema Left lower extremity duplex venous Doppler Comparison: US/SR - US LOWER EXTREMITY VEINS BILATERAL - 11/11/23 08:49 EDT Technique: Grayscale/Color/Duplex Doppler sonographic evaluation of the deep venous system within the left lower extremity. Findings: Left lower extremity Common femoral vein: Patent CFV/GSV junction: Patent Femoral vein: Patent Popliteal vein: Patent Infrapopliteal veins: Patent where seen Soft tissue: No focal abnormality Impression: 1. Negative for left lower extremity DVT. 2. No Leonard's cyst This document has been electronically signed by: Bimal Sanchez MD on 06/29/2025 16:19:25
[2025-06-29 13:43] VITALS: BP 178/82; PULSE 93; RESP 16; TEMP 36.6; O2SAT 98; BMI 34.4
--- NOTE | 2025-06-29 13:43 | ED.GENADULT ---
HPI - General Adult General Chief complaint: Urogenital-Female Stated complaint: left back pain, uti Time Seen by Provider: 06/29/25 14:56 Source: patient Mode of arrival: ambulatory Limitations: no limitations History of Present Illness ED Provider: Ashley Ruano APRN HPI narrative: This is a 50-year-old female with a history of chronic kidney disease, diabetes, hypertension who presents the ER with complaints of left-sided back pain. Patient reports 1 month ago she had a mechanical fall landing on the lower back. There was no head strike or loss of consciousness. She has had back pain since then. She went to urgent care reports negative x-rays but continued pain despite taking a muscle relaxant at home. She reports pain radiates to the left leg. There is no associated numbness or tingling in the legs. No numbness in the groin. No bowel or bladder incontinence. No fevers or chills. No urinary complaint. She did noticed some swelling in the left lower extremity over the last few weeks with no associated redness or warmth. No injury of the lower extremity. No recent travel. No recent hospitalizations. No history of DVT or PE. No OCP use. Related Data Home Medications ?Medication ?Instructions ?Recorded ?Confirmed aspirin 81 mg chewable tablet 1 tab PO QAM 01/11/24 05/27/25 empagliflozin 10 mg tablet 10 mg PO DAILY 01/11/24 05/27/25 (Jardiance) famotidine 20 mg tablet (Pepcid) 20 mg PO BID PRN Acid Reflux 01/11/24 05/27/25 ondansetron 4 mg disintegrating 4 mg PO Q8H PRN Nausea 01/11/24 05/27/25 tablet acetaminophen 650 mg 1,300 mg PO Q8H PRN moderate pain 04/17/24 05/27/25 tablet,extended release fluticasone propionate 50 intranasal 11/20/24 05/27/25 mcg/actuation nasal spray,suspension atorvastatin 40 mg tablet 40 mg PO DAILY 02/04/25 05/27/25 dulaglutide 1.5 mg/0.5 mL mg subcut QWEEK 02/04/25 05/27/25 subcutaneous [facility] glipizide 5 mg tablet, extended 5 mg PO DAILY 06/09/25 09/29/25 release 24 hr gabapentin 100 mg capsule 100 mg PO DAILY 05/27/25 05/27/25 hydroxyzine HCl 25 mg tablet 25 mg PO Q8H PRN anxiety 05/27/25 05/27/25 Previous Rx's ?Medication ?Instructions ?Recorded lidocaine 5 % topical patch 1 patch topical DAILY #30 ea 04/18/24 hydralazine 25 mg tablet 25 mg PO BID #180 tabs 06/20/24 losartan 50 mg tablet 50 mg PO DAILY #90 tabs 01/30/25 Allergies Allergy/AdvReac Type Severity Reaction Status Date / Time oxycodone (OXYCODONE) Allergy Unknown SEIZURES Verified 06/29/25 13:45 XIAO Inhibitors AdvReac Intermediate Cough Verified 06/29/25 13:45 Review of Systems Review of Systems: Yes all other systems are reviewed and are negative Constitutional: Constitutional: Reports no additional constitutional complaints, Denies body ache(s), Denies chills, Denies fever(s), Denies headache(s) and Denies weakness Eyes: Eyes: Reports no additional eye complaints and Denies change in vision ENT: Reports system reviewed and no additional complaints, except as documented, Denies dizziness, Denies headache(s), Denies nasal congestion, Denies nasal discharge and Denies neck pain Cardiovascular: Cardiovascular: Reports no additional cardiovascular complaints, Denies chest pain, Reports leg edema and Denies dyspnea Respiratory: Respiratory: Reports no additional respiratory complaints, Denies cough and Denies dyspnea Gastrointestinal: Gastrointestinal: Reports no additional gastrointestinal complaints, Denies abdominal pain, Denies diarrhea, Denies nausea and Denies vomiting Genitourinary: Genitourinary: Reports no additional female genitourinary complaints and Denies urinary incontinence Musculoskeletal: Musculoskeletal: Reports no additional musculoskeletal complaints, Reports back pain, Denies arthralgias, Denies joint swelling, Denies neck pain, Denies numbness, Reports radiating pain into limb and Denies tingling Integumentary/Breasts: Skin/Breast: Reports system reviewed and no additional complaints, except as docu and Denies rash Neurologic: Reports system reviewed and no additional complaints, except as documented, Denies Abnormal speech present, Denies dizziness, Denies headache(s), Denies numbness, Denies tingling and Denies weakness PMFSH Past Medical History Attestation statement: The following information was validated with the patient. Source: old records reviewed and nursing notes reviewed Medical History Anemia Chronic pain syndrome GERD (gastroesophageal reflux disease) Chronic renal insufficiency Depression Anxiety Diabetes Surgical History Status post right foot surgery History of section History of appendectomy History of tubal ligation S/p bilateral carpal tunnel release Family History Family History Maternal Aunt Throat cancer Social History Social History Alcohol intake: never Substance Use Type: Marijuana Advance Directives: No Advance Directives Information Provided: Yes Do you have a plan to hurt others: No Plan Current occupation: rt handed Physical Exam ED Vital Signs: Vital Signs - 24 hr 06/29/25 13:43 06/29/25 15:28 Temperature 97.9 F 98.5 F Pulse Rate 93 81 Respiratory Rate 16 16 Blood Pressure 178/82 H 162/80 H Pulse Oximetry 98 100 Oxygen Delivery Method Room Air Room Air BMI result Body Mass Index 34.4 Const General: cooperative, healthy appearing, comfortable and no acute distress Orientation/consciousness: patient oriented x3 Limitations: no limitations HENMT Head: Yes normal to inspection Ears: hearing grossly normal bilaterally General nose exam: Normal external nose present Face and sinus: Yes normal facial exam Mouth: Normal oral and palatal mucosa present Throat: Yes posterior oropharynx normal Eyes General: appearance normal, both eyes and all related structures Pupils: Equal, round and reactive pupils present Neck Neck: Yes normal visual inspection Chest Chest palpation & inspection: normal inspection of the chest Resp Effort & Inspection: normal respiratory effort Auscultation: clear to auscultation bilaterally Cardio Rate: regular rate Rhythm: regular rhythm Peripheral pulses: Peripheral pulses 2+ throughout GI Inspection: Yes normal to inspection Palpation (GI): Soft to palpation and nontender Auscultation: normal bowel sounds General: Yes CVA tenderness (Left side) Back/Spine/Pelvis Back: CVA tenderness (Left side) Thoracic/Lumbar Spine: thoracic and lumbar spine normal to inspection Skin General skin exam: no rashes or lesions noted Neuro General: patient oriented x3, moves all extremities, no focal motor deficits and normal sensation to monofilament Cranial nerves: Yes CN's II-XII intact bilaterally, Yes Equal, round and reactive pupils present, Yes Bilaterally intact EOM present, Yes Nystagmus not present, Yes Normal facial strength present and Yes Midline tongue present Cognition (Neuro): normal cognition Speech: No Abnormal speech present Gait exam (Neuro): Normal gait present Motor exam (neuro): 5/5 motor strength present throughout Extrem Other: There is some left calf tenderness by do not appreciate any swelling or redness or warmth. CMS is intact distally. General: Yes normal to inspection Course Course Course Narrative: This is a Rapid Medical Exam performed in triage by Federica Garza PA-C. Full HPI, ROS and PE to be performed by primary ED provider. 50 yo F w/PMHx CKD, DM, Anemia, presenting to the ED c/o left side low back pain x few days, now with dysuria. Also reports LLE swelling. denies fever, N/V, hematuria PE: Abdomen is soft and nontender. Left CVA tenderness noted. Left lower extremity with pitting edema. Plan: labs, UA, venous duplex ultrasound Reevaluation(s) Reevaluation #1: Ultrasound is negative for DVT. CT is unremarkable with the exception of some mild cystitis. There is no signs of infection the patient's urine. She does have some worsening renal function and some mild acidosis. I discussed her case with her apprentice lineman third step on-call and they will follow her closely. Reviewed worrisome signs and symptoms of when to return to the emergency room. Comfortable for discharge home Medications Administered Discontinued Medications Generic Name Dose Route Start Last Admin Trade Name Naseem PRN Reason Stop Dose Admin Acetaminophen 975 mg 06/29/25 15:19 06/29/25 15:58 Acetaminophen 325 Mg Tablet PO 06/29/25 15:20 975 mg ONCE ONE Administration Lidocaine 1 patch 06/29/25 15:19 06/29/25 15:58 Lidocaine 4 % Patch Adh..Patch TRANSDERMA 06/29/25 15:20 1 patch ONCE ONE Administration Protocol Medical Decision Making Medical Decision Making MDM Narrative: This is a 50-year-old female with a history of chronic kidney disease, diabetes, hypertension who presents the ER with complaints of left-sided back pain. Patient reports 1 month ago she had a mechanical fall landing on the lower back. There was no head strike or loss of consciousness. She has had back pain since then. She went to urgent care reports negative x-rays but continued pain despite taking a muscle relaxant at home. She reports pain radiates to the left leg. There is no associated numbness or tingling in the legs. No numbness in the groin. No bowel or bladder incontinence. No fevers or chills. No urinary complaint. She did noticed some swelling in the left lower extremity over the last few weeks with no associated redness or warmth. No injury of the lower extremity. No recent travel. No recent hospitalizations. No history of DVT or PE. No OCP use. L CVAT NO focal AB Will need labs, UA, CT There is some left calf tenderness by do not appreciate any swelling or redness or warmth. CMS is intact distally. Will need US Differential Diagnosis Differential Diagnoses: The differential diagnosis associated with the presentation includes 1) renal colic, pyelonephritis 2) DVT, low suspicion for cellulitis Admission/Observation Consideration of admission/observation: Escalation of care including admission/observation considered Consult Healthcare Provider Management of the patient was discussed with: Staff Research Scientist Patient with worsening renal function, unknown cause. Normal potassium. Spoke to her apprentice lineman third step on-call (Macho) who will follow up with her short-term next week in the office a repeat labs Patient reports she has an appt on Tuesday with them Lab Data MDM Lab Attestation statement: I reviewed the patient's lab results. 06/29/25 13:56 06/29/25 13:56 Labs: Lab Results 06/29/25 06/29/25 Range/Units 13:56 14:15 WBC 5.3 (4.8-10.8) X10*3/uL RBC 3.10 L (4.20-5.50) X10*6/uL Hgb 8.6 L (12.0-16.0) g/dl Hct 27.3 L (37.0-47.0) % MCV 88.1 (80.0-98.0) fL MCH 27.7 (27.0-33.0) pg MCHC 31.5 (31.0-35.0) g/dl RDW 13.6 (11.0-16.0) % Plt Count 188 D (160-400) X10*3/uL MPV 10.8 (9.4-12.3) fL Immature Gran % (Auto) 0.4 (0.0-0.4) % Neut % (Auto) 63.3 (45-73) % Lymph % (Auto) 24.5 (20-40) % Bowie % (Auto) 8.0 (2-11) % Eos % (Auto) 3.4 (0-4) % Baso % (Auto) 0.4 (0-2) % Lymph # (Auto) 1.3 (1.2-4.9) X10*3/uL Bowie # (Auto) 0.4 (0.1-1.2) X10*3/uL Eos # (Auto) 0.2 (0.0-0.4) X10*3/uL Baso # (Auto) 0.0 (0.0-0.2) X10*3/uL Abs Immat Gran (auto) 0.02 (0.00-0.03) X10*3/uL Absolute Neuts (auto) 3.3 (2.0-8.3) x10*3/uL Absolute Nucleated RBC 0.000 (0.0-0.012) X10*3/uL Nucleated RBC % (auto) 0.0 (0.0-0.2) /100WBC Sodium 140 (135-145) mmol/L Potassium 4.8 (3.3-5.1) mmol/L Chloride 113 H (96-108) mmol/L Carbon Dioxide 17 L (22-29) mmol/L Anion Gap 15 (12-20) BUN 45 H (9-16) mg/dL Creatinine 4.18 H* (0.5-1.4) mg/dL Estim Creat Clear Calc 16.9 Estimated GFR 11 Random Glucose 114 (60-115) mg/dL Calcium 8.4 (8.4-10.2) mg/dL Magnesium 2.0 (1.6-2.6) mg/dL Total Bilirubin 0.2 (0.0-1.0) mg/dL Direct Bilirubin < 0.2 (0.0-0.5) mg/dL AST 24 (5-31) U/L ALT 16 (0-31) U/L Alkaline Phosphatase 88 (39-117) U/L NT-Pro-B Natriuret Pep 2255.4 H (<300) pg/mL Total Protein 6.9 (6.5-8.0) g/dL Albumin 3.1 L (3.5-5.0) g/dL Lipase 39 (8-78) U/L Urine Color Yellow Urine Appearance Clear Urine pH 6.0 (5.0-9.0) Ur Specific [place] 1.020 (1.005-1.025) Urine Protein 300 (3+) H (Neg-Trace) mg/dL Urine Glucose (UA) 500 H (Negative) mg/dL Urine Ketones Negative (Negative) mg/dL Urine Blood Trace H (Negative) Urine Nitrite Negative (Negative) Ur Leukocyte Esterase Negative (Negative) Urine RBC 0-2 (0-2) /HPF Urine WBC 6-10 (0-5) /HPF Ur Squamous Epith Cells 3-5 (0-2) /HPF Urine Bacteria None Seen (None Seen) Hyaline Casts 0-2 (0-2) /LPF Independent Interpretation I performed an independent interpretation of an: Ultrasound and CT Scan Interpretation: I independently viewed the ultrasound/CT scan agree with the radiology report Radiology Impression Discussion of test interpretation with radiology: I have reviewed the radiologist's reading. Radiologist Impression: [place] [id number] Ultrasound Report Signed Patient: Franny Delvalle MR#: [id number] : 1975 Acct:[id number] Age/Sex: 50 / F ADM Date: 06/29/25 Loc: .ED Attending Dr: Ordering Physician: Federica Garza Date of Service: 06/29/25 Procedure(s): US venous duplex LE LT Accession Number(s): [id number] cc: Name,Ney LEONG; Federica Garza~ Reason for Exam: LLE edema CLINICAL HISTORY: LLE edema Left lower extremity duplex venous Doppler Comparison: US/SR - US LOWER EXTREMITY VEINS BILATERAL - 11/11/23 08:49 EDT Technique: Grayscale/Color/Duplex Doppler sonographic evaluation of the deep venous system within the left lower extremity. Findings: Left lower extremity Common femoral vein: Patent CFV/GSV junction: Patent Femoral vein: Patent Popliteal vein: Patent Infrapopliteal veins: Patent where seen Soft tissue: No focal abnormality Impression: 1. Negative for left lower extremity DVT. 2. No Leonard's cyst This document has been electronically signed by: Bimal Sanchez MD on 06/29/2025 16:19:[address] [place] [id number] [address] Scan Report Signed Patient: Franny Delvalle MR#: [id number] : 1975 Acct:[id number] Age/Sex: 50 / F ADM Date: 06/29/25 Loc: HO.ED Attending Dr: Ordering Physician: Ashley Ruano NP Date of Service: 06/29/25 Procedure(s): CT abdomen pelvis wo IV con Accession Number(s): [id number] cc: David,Ney LEONG; Ashley Ruano NP~ Report Number: [id number]: Total DLP = 0.00 mGy-cm Reason for Exam: l flank pain, worsening renal function CLINICAL HISTORY: l flank pain, worsening renal function CT abdomen and pelvis without IV or oral contrast Comparison: CT/REG/SR - CT ABDOMEN PELVIS WO IV CON - 02/08/24 13:06 EDT Findings: Lung bases show no active disease. No dependent layering pleural effusions. The heart is not enlarged. No stones are identified in the kidneys, ureters or bladder. There is no hydronephrosis or perinephric stranding/fluid. Evaluation of the liver, spleen, adrenal glands and pancreas demonstrates no lesions. It should be noted that isodense masses may be obscured in the absence of intravenous contrast. Contracted gallbladder. Increased stool burden. No pathologically enlarged lymph nodes . No ascites demonstrated. Partially decompressed urinary bladder. Equivocal cystitis. Chronic L5 pars defect with grade 1 anterolisthesis L5 S1. Vacuum disc phenomenon. Impression: 1. No nephrolithiasis or urinary tract obstruction demonstrated. 2. Equivocal cystitis. 3. Stable ancillary findings This document has been electronically signed by: Bimal Sanchez MD on 06/29/2025 17:02:05 Dictated By: Bimal Sanchez MD Signed By: <Electronically wilmar Discharge Plan Discharge Clinical Impression: CKD (chronic kidney disease) stage 4, GFR 15-29 ml/min, Back pain Patient Disposition: Home, Self-Care Instructions: Chronic Kidney Disease (ED), Back Pain (ED) Additional Instructions: Keep your appointment on Tuesday with your apprentice lineman third step Your kidney function is worsened today. I did speak to your apprentice lineman third step and they will see you on Tuesday. Prescriptions: No Action hydralazine 25 mg tablet 25 mg PO BID Qty: 180 0RF losartan 50 mg tablet 50 mg PO DAILY Qty: 90 1RF lidocaine 5 % adhesive patch,medicated 1 patch topical DAILY Qty: 30 0RF Rx Instructions: leave on most painful area for up to 12 hrs Jardiance 10 mg tablet 10 mg PO DAILY aspirin 81 mg tablet,chewable 1 tab PO QAM famotidine [Pepcid] 20 mg tablet 20 mg PO BID PRN (Reason: Acid Reflux) ondansetron 4 mg tablet,disintegrating 4 mg PO Q8H PRN (Reason: Nausea) acetaminophen 650 mg tablet extended release 1,300 mg PO Q8H PRN (Reason: moderate pain) fluticasone propionate 50 mcg/actuation spray,suspension intranasal atorvastatin 40 mg tablet 40 mg PO DAILY Trulicity 1.5 mg/0.5 mL pen injector subcut QWEEK glipizide 5 mg tablet extended release 24hr 5 mg PO DAILY hydroxyzine HCl 25 mg tablet 25 mg PO Q8H PRN (Reason: anxiety) gabapentin 100 mg capsule 100 mg PO DAILY Print Language: Welsh
[2025-06-29 14:19] LABS: Hematocrit 27.3 % (37.0-47.0); Hemoglobin 8.6 g/dl (12.0-16.0); Imm Gran Abs Auto 0.02 X10*3/uL (0.00-0.03); Imm Gran Pct Auto 0.4 % (0.0-0.4); Lymphocytes Absolute Auto 1.3 X10*3/uL (1.2-4.9); Mean Corpuscular HGB Conc 31.5 g/dl (31.0-35.0); Mean Corpuscular Hemoglobin 27.7 pg (27.0-33.0); Mean Corpuscular Volume 88.1 fL (80.0-98.0); NRBC Abs Auto 0.000 X10*3/uL (0.0-0.012); NRBC Pct Auto 0.0 /100WBC (0.0-0.2); Red Blood Count 3.10 X10*6/uL (4.20-5.50)
[2025-06-29 14:20] LABS: Platelet Count 188 X10*3/uL (160-400); White Blood Count 5.3 X10*3/uL (4.8-10.8)
[2025-06-29 14:24] LABS: Appearance Urine Clear; Glucose Urine UA 500 mg/dL (Negative); PH 6.0 (5.0-9.0); Specific Gravity - Urine 1.020 (1.005-1.025); UMIC TRIGGER UACC YES
[2025-06-29 14:38] LABS: UACC Culture Trigger YES
[2025-06-29 14:41] LABS: Alanine Aminotransferase 16 U/L (0-31); Albumin Level 3.1 g/dL (3.5-5.0); Alkaline Phosphatase 88 U/L (39-117); Anion Gap 15 (12-20); Aspartate Amino Transferase 24 U/L (5-31); Blood Urea Nitrogen 45 mg/dL (9-16); Calcium 8.4 mg/dL (8.4-10.2); Carbon Dioxide 17 mmol/L (22-29); Chloride 113 mmol/L (96-108); Creatinine Clr Calc Pharmacy 16.9; Estimated Glomerular Filt Rate 11; Lipase 39 U/L (8-78); Magnesium 2.0 mg/dL (1.6-2.6); Potassium 4.8 mmol/L (3.3-5.1); Sodium 140 mmol/L (135-145); Total Protein 6.9 g/dL (6.5-8.0)
[2025-06-29 14:42] LABS: NT Pro B Type Natriuretic Pept 2255.4 pg/mL (<300)
--- OUTSIDE RECORDS SUMMARY | 2025-06-29 14:45 | XMS_ITS | Clinical Summary ---
Author Organization [facility], Address [address] [place] [address] [place] [address] Phone Care Team Providers Care Ship'S Officer Name Role Phone Name, Ney LEONG Primary Care Provider [phone] Allergies No known active allergies Medications Lancets [...] hours 2 Active Blood Glucose Monitoring Suppl (Send[employer]Home[employer] Lite) w/Device kit TEST BLOOD SUGAR TWICE [...] PM EST) Hemoglobin A1C 10.2(H) (4.0-5.6) % [facility] Comment: Effective 10/01/19, hemoglobin A1c reference range changed. MONITORING: In known diabetic patients, hemoglobin A1c targets should be discussed with health care provider. DIAGNOSTIC USE: The [place] Diabetes Association (ADA) and the World Health [...] reported by [facility], a Service of [facility], [address] [place] [address] Shante Delgado MD, Addictions Recovery Specialist Blood specimen (specimen) Venous blood / Unknown 10/22/2019 2:40 PM EST 10/22/2019 2:41 PM EST Homero Ortiz MD LAB BLOOD ORDERABLES Final Result JERROD from Last 3 Months or Most Recently Relevant to Health Maintenance Insurance Medicaid [address] [place] [address] [address], [place] [address] Care Teams Ship'S Officer Relationship Specialty Start Date End Date Name, MD Ney [address] [place] [address] PCP - General 07/03/19
--- OUTSIDE RECORDS SUMMARY | 2025-06-29 14:45 | XMS_ITS | Encounter Summary ---
Author Organization [employer] Address [address] [place] [address] Care Team Providers Care Qc Tech Name Role Phone Name, Ney LEONG Primary Care Provider [phone] Reason for Referral * Imaging (STAT) - Closed Specialty Diagnoses / Procedures Referred By Contac t Referred To Contact Radiology Diagnoses 3rd nerve palsy, complete, left Procedures MRA Head w/o Contrast Magy Huertas FNP [address] [place] [address] Phone: tel: fax: Diagnostic Imaging, [facility] [address] [facility] [address] [place] [address] Phone: tel: fax: Referral ID Status Reason Start Date Expiration Date Visits Re quested Visits Authorized [id number] Closed 09/06/2023 09/05/2024 1 1 Encounter Details Date Type Department Care Team (Late st Contact Info) Description 09/06/2023 Orders Only [facility] MED & PEDS [address] [place], [place] [phone] Magy Huertas FNP [address] [place] [address] 3rd nerve palsy, complete, left (Primary Dx) [...] 3:30 PM EST Office Visit [facility] MEDICINE [address] [place] [phone] Name, MD Ney [address] [place] [id number] Scheduled Orders Name Type Priority Associated Diagnoses Orde r Schedule MRA Head w/o Contrast Imaging STAT 3rd nerve palsy, complete, left Expected: 09/06/2023, Expires: 09/06/2024 documented as of this encounter Visit Diagnoses Diagnosis 3rd nerve palsy, complete, left- Primary documented in this encounter Care Teams Qc Tech Relationship Specialty Start Date End Date Name, MD Ney [address] [place] [address] PCP - General Family Medicine 10/28/15 Magaly Sexton Refuge ManagerMental Health Aides Teacher 07/28/23 Ronald Gardner Refuge ManagerMental Health Aides Teacher 02/16/24 Moe Salmeron Refuge ManagerMental Health Aides Teacher 01/24/25 documented as of this encounter
--- OUTSIDE RECORDS SUMMARY | 2025-06-29 14:45 | XMS_ITS | Encounter Summary ---
Demographics Address [address] [place] [address] Home Phone Mobile Phone Preferred Language es Marital Status Single Restorationist Affiliation Unknown Race White Ethnic Group Unknown Author Organization [facility] Address [address] [place] [address] Phone Care Team Providers Care Test Tube Maker Name Role Phone Name, Ney LEONG Primary Care Provider [phone] Encounter Details Date Type Department Care Team (Late st Contact Info) Description 12/24/2021 Documentation Only [facility], [address] [place] [address] Name, MD Ney [address] [place] [address] Social History Tobacco Use Types Packs/Day Years [...] on filedocumented in this encounter Care Teams Test Tube Maker Relationship Specialty Start Date End Date Name, MD Ney [address] [place] [address] PCP - General 07/03/19 documented as of this encounter
--- OUTSIDE RECORDS SUMMARY | 2025-06-29 14:45 | XMS_ITS | Encounter Summary ---
Author Organization [employer] Address [address] [place] [address] Care Team Providers Care Billet Worker Name Role Phone Name, Ney LEONG Primary Care Provider [phone] Encounter Details Date Type Department Care Team ([facility] st Contact Info) Description 09/20/2023 Abstract [facility] MEDICINE [address] [place], [place] [phone] Name, MD Ney [address] [place], [place] [phone] Social History Tobacco Use Types Packs/Day Years [...] 07/30/2025 3:30 PM EST Office Visit [facility] MEDICINE [address] [place] [address] Name, MD Ney [address] [place] [address] documented as of this encounter Visit Diagnoses Not on filedocumented in this encounter Care Teams Billet Worker Relationship Specialty Start Date End Date Name, MD Ney [address] [place] [address] PCP - General Family Medicine 10/28/15 Magaly Sexton Drupal DeveloperMarketing And Development Coordinator 07/28/23 Ronald Gardner Drupal DeveloperMarketing And Development Coordinator 02/16/24 Moe Salmeron Drupal DeveloperMarketing And Development Coordinator 01/24/25 documented as of this encounter
--- OUTSIDE RECORDS SUMMARY | 2025-06-29 14:46 | XMS_ITS | Encounter Summary ---
Author Organization [employer] Address [address] [place] [address] Care Team Providers Care Chief Compressor Station Engineer Name Role Phone Name, Ney LEONG Primary Care Provider [phone] Reason for Visit * Reason Comments Med Refill Encounter Details Date Type Department Care Team ([facility] st Contact Info) Description 03/02/2024 Refill [facility] MED[facility]INE [address] [place], [place] [phone] Name, MD Nye [address] [place] [address] Social History Tobacco Use Types Packs/Day Years [...] with others, in a hotel, in a snf, living outside on the street, on a [...] Description 07/30/2025 3:30 PM EST Office Visit [facility] [address] [place] [address] Name, MD Ney [address] [place] [address] documented as of this encounter Visit Diagnoses Not on filedocumented in this encounter Additional Health Concerns Assessment Noted Time PHQ-9 Depression Total Score: 20 024 3:59 PM EST documented as of this encounter Care Teams Chief Compressor Station Engineer Relationship Specialty Start Date End Date Name, MD Ney [address] [place] [address] PCP - General Family Medicine 10/28/15 Magaly Sexton Clinical Services ConsultantCable Reeler 07/28/23 Ronald Gardner Clinical Services ConsultantCable Reeler 02/16/24 Moe Salmeron Clinical Services ConsultantCable Reeler 01/24/25 documented as of this encounter
--- OUTSIDE RECORDS SUMMARY | 2025-06-29 14:46 | XMS_ITS | Encounter Summary ---
Author Organization [employer] Address [address] [place] [address] Care Team Providers Care Analyst Name Role Phone Name, Ney LEONG Primary Care Provider [phone] Reason for Visit * Reason Onset Date Comments Medication Question 12/21/2023 Encounter Details Date Type Department Care Team ([facility] st Contact Info) Description 12/21/2023 Telephone [facility] [address] [place], [place] [phone] Name, MD Ney [address] [place] [address] Medication Question Social History Tobacco Use Types [...] with others, in a hotel, in a halfway, living outside on the street, on a [...] No answer. LVM to call back on [phone]. * Telephone Encounter - Fermín Armas - [...] for her kidney's. Please contact pt at [phone]. documented in this encounter Plan of Treatment Upcoming Encounters Date Type Department Care Team (Late st Contact Info) Description 07/30/2025 3:30 PM EST Office Visit [facility] [address] [place] [address] Name, MD Ney [address] [place] [address] documented as of this encounter Visit Diagnoses Not on filedocumented in this encounter Additional Health Concerns Assessment Noted Time PHQ-9 Depression Total Score: 20 024 3:59 PM EST documented as of this encounter Care Teams Analyst Relationship Specialty Start Date End Date Name, MD Ney [address] [place] [address] PCP - General Family Medicine 10/28/15 Magaly Sexton Radio CommentatorGold Prospector 07/28/23 Ronald Gardner Radio CommentatorGold Prospector 02/16/24 Moe Salmeron Radio CommentatorGold Prospector 01/24/25 documented as of this encounter
--- OUTSIDE RECORDS SUMMARY | 2025-06-29 14:46 | XMS_ITS | Encounter Summary ---
Author Organization [employer] Address [address] [place] [address] Care Team Providers Care Parking Ramp Attendant Name Role Phone Name, Ney LEONG Primary Care Provider [phone] Encounter Details Date Type Department Care Team (Late st Contact Info) Description 06/29/2025 Orders Only GENERIC EXTERNAL DATA DEPARTMENT Provider, [...] 3:30 PM EST Office Visit [facility] [address] [place] [address] [phone] Name, MD Ney [address] [place] [address] documented as of this encounter Procedures Procedure Name Priority Date/Time Associated Diagnosis Comments URINALYSIS, COMPLETE, WITH REFLEX TO CULTURE Routine 06/29/2025 2:15 PM EDT NT-PROBNP Routine 06/29/2025 1:56 PM EDT CBC WITH AUTO DIFFERENTIAL Routine 06/29/2025 1:56 PM EDT MAGNESIUM Routine 06/29/2025 1:56 PM EDT LIPASE Routine 06/29/2025 1:56 PM EDT HEPATIC FUNCTION PANEL Routine 06/29/2025 1:56 PM EDT BASIC METABOLIC PANEL Routine 06/29/2025 1:56 PM EDT documented in this encounter Results * (ABNORMAL) Urinalysis, Complete, with Reflex to Culture (06/29/2025 2:15 PM EDT) Color Urine Yellow [facility] Appearance Urine Clear [facility] PH 6.0 5.0 - 9.0 [facility] Glucose Urine UA 500(A) Negative mg/dL [facility] Urine Blood Trace(A) Negative [facility] Specific [place] - Urine 1.020 1.005 - 1.025 [facility] Urine Protein 300 (3+)(A) Neg-Trace mg/dL [facility] Urine Ketones Negative Negative mg/dL [facility] Nitrite Urine Negative Negative [facility] Leukocyte Esterase Urine Negative Negative [facility] RBC Urine 0-2 0 - 2 /HPF [facility] Urine WBC 6-10 0 - 5 /HPF [facility] Urine Squamous Epithelial Cell 3-5 0 - 2 /HPF [facility] Urine Bacteria None Seen None Seen [facility] Hyaline Casts, Urine 0-2 0 - 2 /LPF [facility] 06/29/2025 2:15 PM EDT 06/29/2025 2:21 PM EDT Narrative [facility] - 06/29/2025 2:39 PM EDT [id number], Clean Catch us Generic External Data Provider LAB URINE ORDERAB LES Final Result [facility] [address] [place] [phone] * (ABNORMAL) NT-proBNP (06/29/2025 1:56 PM EDT) NT-proBNP 2,255.4(H ) <300 pg/mL [facility] Comment:Reference Range:Age Group (years) NT-proBNP (pg/ml) InterpretationAll <300 Negative: HF unlikelyFor patients presenting to the ED with clinical suspicion ofnew onset or worsening HF, see below:18 to <50 >299.9 to <450.0 Grayzone: [id number] to 75 >299.9 to <900.0 other causes of>75 >299.9 to <1800.0 NT-proBNP [id number] to <50 >449.9 Positive: HF [id number] >899.9>75 >1799.9Note: Elevated NT-proBNP levels should be interpreted inthe context of other clinical information. 06/29/2025 1:56 PM EDT 06/29/2025 2:13 PM EDT Generic External Data Provider LAB BLOOD ORDERAB LES Final Result Performing Organization Address [facility] Co de Phone Number [facility] [address] [place] [phone] * Lipase (06/29/2025 1:56 PM EDT) Pathologist [facility] Lipase 39 8 - 78 U/L [facility] 06/29/2025 1:56 PM EDT 06/29/2025 2:13 PM EDT Generic External Data Provider LAB BLOOD ORDERAB LES Final Result Performing Organization Address [facility] de Phone Number [facility] [address] [place] [phone] * Magnesium (06/29/2025 1:56 PM EDT) Pathologist [facility] Magnesium 2.0 1.6 - 2.6 mg/dL [facility] 06/29/2025 1:56 PM EDT 06/29/2025 2:13 PM EDT Generic External Data Provider LAB BLOOD ORDERAB LES Final Result Performing Organization Address [facility] de Phone Number [facility] [address] [place] [phone] * (ABNORMAL) Basic Metabolic Panel (06/29/2025 1:56 PM EDT) Sodium 140 135 - 145 mmol/L [facility] Potassium 4.8 3.3 - 5.1 mmol/L [facility] Chloride 113(H) 96 - 108 mmol/L [facility] Carbon Dioxide 17(L) 22 - 29 mmol/L [facility] Anion Gap 15 12 - 20 [facility] Urea Nitrogen (BUN) 45(H) 9 - 16 mg/dL [facility] Creatinine, Serum 4.18(HH) 0.5 - 1.4 mg/dL [facility] Comment:Critical value for C REAT: Results called to and read backby: PRISCILA Person calling: SEAN Date: 06/29/25 Time: 1441 Creatinine Clr Calc Pharmacy 16.9 [facility] Comment:Provided height and weight: 160.02 cm,88.2 kg.eGFR (calculated from the MDRD study equation) and eCrCl(calculated from the Cockcroft-Gault equation) are based ondifferent parameters and may not yield comparable results.If eCrCl result is absurd, please check patient'sheight/weight. Estimated Glomerular Filt Rate 11 [facility] Comment:Chronic Kidney Disea se: Estimated GFR < 60 mL/min/1.05p5Ozchiq Kidney Disease: Estimated GFR < 15 mL/min/1.73m2 Glucose 114 60 - 115 mg/dL [facility] Calcium 8.4 8.4 - 10.2 mg/dL [facility] 06/29/2025 1:56 PM EDT 06/29/2025 2:13 PM EDT us Generic External Data Provider LAB BLOOD ORDERAB LES Final Result [facility] [address] [place] [address] [phone] * (ABNORMAL) Hepatic Function Panel (06/29/2025 1:56 PM EDT) Bilirubin, Total 0.2 0.0 - 1.0 mg/dL [facility] Bilirubin, Direct <0.2 0.0 - 0.5 mg/dL [facility] Aspartate Amino Transferase 24 5 - 31 U/L [facility] Alanine Aminotransferase 16 0 - 31 U/L [facility] Total Protein 6.9 6.5 - 8.0 g/dL [facility] Albumin Level 3.1(L) 3.5 - 5.0 g/dL [facility] Alkaline Phosphatase 88 39 - 117 U/L [facility] 06/29/2025 1:56 PM EDT 06/29/2025 2:13 PM EDT us Generic External Data Provider LAB BLOOD ORDERAB LES Final Result [facility] [address] [place] [phone] * (ABNORMAL) CBC auto differential (06/29/2025 1:56 PM EDT) White Blood Count 5.3 4.8 - 10.8 X10*3/uL [facility] Red Blood Count 3.10(L) 4.20 - 5.50 X10*6/uL [facility] Hemoglobin 8.6(L) 12.0 - 16.0 g/dl [facility] Hematocrit 27.3(L) 37.0 - 47.0 % [facility] Mean Corpuscular Volume 88.1 80.0 - 98.0 fL [facility] Mean Corpuscular Hemoglobin 27.7 27.0 - 33.0 pg [facility] Mean Corpuscular HGB Conc 31.5 31.0 - 35.0 g/dl [facility] Red Cell Distribution Width 13.6 11.0 - 16.0 % [facility] Platelet Count 188 160 - 400 X10*3/uL [facility] Mean Platelet Volume 10.8 9.4 - 12.3 fL [facility] Neutrophils Percent Auto 63.3 45 - 73 % [facility] Imm Gran Pct Auto 0.4 0.0 - 0.4 % [facility] Lymphocytes Percent Auto 24.5 20 - 40 % [facility] Monocytes Percent Auto 8.0 2 - 11 % [facility] Eosinophils Percent Auto 3.4 0 - 4 % [facility] Basophils Percent Auto 0.4 0 - 2 % [facility] NRBC Pct Auto 0.0 0.0 - 0.2 /100WBC [facility] Neutrophils Absolute Auto 3.3 2.0 - 8.3 x10*3/uL [facility] Imm Gran Abs Auto 0.02 0.00 - 0.03 X10*3/uL [facility] Lymphocytes Absolute Auto 1.3 1.2 - 4.9 X10*3/uL [facility] Monocytes Absolute Auto 0.4 0.1 - 1.2 X10*3/uL [facility] Eosinophils Absolute Auto 0.2 0.0 - 0.4 X10*3/uL [facility] Basophils Absolute Auto 0.0 0.0 - 0.2 X10*3/uL [facility] NRBC Abs Auto 0.000 0.0 - 0.012 X10*3/uL [facility] 06/29/2025 1:56 PM EDT 06/29/2025 2:13 PM EDT us Generic External Data Provider LAB BLOOD ORDERAB LES Edited Result - Final [facility] [address] [place] [phone] documented in this encounter Visit Diagnoses Not on filedocumented in this encounter Additional Health Concerns Assessment Noted Time PHQ-9 Depression Total Score: 4 10/05/19 25 9:05 AM EST documented as of this encounter Care Teams Parking Ramp Attendant Relationship Specialty Start Date End Date Name, MD Ney [address] [place] [address] PCP - General Family Medicine 10/28/15 Magaly Sexton Registered Nurse Surgical ServicesService Order Dispatcher Chief 07/28/23 Ronald Gardner Registered Nurse Surgical ServicesService Order Dispatcher Chief 02/16/24 Moe Salmeron Registered Nurse Surgical ServicesService Order Dispatcher Chief 01/24/25 documented as of this encounter
--- OUTSIDE RECORDS SUMMARY | 2025-06-29 14:46 | XMS_ITS | Encounter Summary ---
Author Organization [employer] Address [address] [place] [address] 7t [place] [address] Care Team Providers Care Sfdc Architect Name Role Phone Name, Ney LEONG Primary Care Provider [phone] Reason for Visit * Reason Comments Med Refill Encounter Details Date Type Department Care Team (Late st Contact Info) Description 12/23/2022 Refill [facility] [address] [place] [phone] Ney Hernandez MD [address] [place] [phone] Social History Tobacco Use Types Packs/Day Years [...] Description 07/30/2025 3:30 PM EST Office Visit [facility] [address] [place] [phone] Ney Hernandez MD [address] [place] [address] documented as of this encounter Visit Diagnoses Not on filedocumented in this encounter Care Teams Sfdc Architect Relationship Specialty Start Date End Date Ney Hernandez MD [address] [place] [phone] PCP - General Family Medicine 10/28/15 Magaly Sexton Risk Control ConsultantTaker Down 07/28/23 Ronald Gardner Risk Control ConsultantTaker Down 02/16/24 Moe Salmeron Risk Control ConsultantTaker Down 01/24/25 documented as of this encounter
--- OUTSIDE RECORDS SUMMARY | 2025-06-29 14:46 | XMS_ITS | Encounter Summary ---
Demographics Address [address] [place] [address] Home Phone Mobile Phone Preferred Language es Marital Status Single Yazidism Affiliation Unknown Race White Ethnic Group Unknown Author Organization [facility] Address [address] [place] [address] Phone Care Team Providers Care Director Telecommunications Name Role Phone Name, Ney LEONG Primary Care Provider [phone] Encounter Details Date Type Department Care Team (Late st Contact Info) Description 12/24/2021 Documentation Only [facility], [address] [place] [address] Name, MD Ney [address] [place] [address] Social History Tobacco Use Types Packs/Day Years [...] on filedocumented in this encounter Care Teams Director Telecommunications Relationship Specialty Start Date End Date Name, MD Ney [address] [place] [address] PCP - General 07/03/19 documented as of this encounter
--- OUTSIDE RECORDS SUMMARY | 2025-06-29 14:46 | XMS_ITS | Encounter Summary ---
Author Organization [employer] Address [address] [place] [address] Care Team Providers Care Cashier Host/Hostess Name Role Phone Name, Ney LEONG Primary Care Provider [phone] Encounter Details Date Type Department Care Team (Latest Contact Info) Description 06/28/2025 Outside Procedure [facility] [address] [place] [address] Eric, Nikki, OD [address] [place] [address] Presbyopia (Primary Dx) Social History Tobacco Use Types [...] your housing situation today? I have jana otriz 12/28/[address] you li [...] Progress Notes * Nikki Reyes OD - 06/28/2025 4:12 PM EDT MH glasses were dispensed, 2 of 2. documented in this encounter Plan of Treatment Upcoming Encounters Date Type Department Care Team (Late st Contact Info) Description 07/30/2025 3:30 PM EST Office Visit [facility] [address] [place] [phone] Name, MD Ney [address] [place] [phone] documented as of this encounter Visit Diagnoses Diagnosis Presbyopia- Primary documented in this encounter Additional Health Concerns Assessment Noted Time PHQ-9 Depression Total Score: 4 10/05/19 25 9:05 AM EST documented as of this encounter Care Teams Cashier Host/Hostess Relationship Specialty Start Date End Date Name, MD Ney [address] [place] [phone] PCP - General Family Medicine 10/28/15 Magaly Sexton Ham PasserResearch Programmer 07/28/23 Ronald Gardner Ham PasserResearch Programmer 02/16/24 Moe Salmeron Ham PasserResearch Programmer 01/24/25 documented as of this encounter
--- OUTSIDE RECORDS SUMMARY | 2025-06-29 14:46 | XMS_ITS | Clinical Summary ---
Author Organization [employer] Address [address] [place] [address] Care Team Providers Care Exhaust Equipment Operator Name Role Phone Name, Ney LEONG Primary Care Provider [phone] Allergies Active Allergy Reactions Criticality Noted Date Comments Nayan Inhibitors Cough High 04/18/2024 Oxycodone 09/09/2023 Other reaction(s): SEIZURES Other Reaction(s): SEIZURES Oxycodone-Acetaminophen Other 11/10/2022 Medications * This document contains information received from the source organization and may not represent a complete record from that organization. TRUEplus Lancets 33G miscIndications: Poorly controlled diabetes mellitus (HCC) Use to test blood sugar twice daily 100 each 11 023 Active Blood Glucose Monitoring Suppl (FreeStyle Winthrop Lite) w/Device kitIndications:P oorly controlled diabetes mellitus (HCC) Use to test blood sugar, as directed 1 kit 023 Active FREESTYLE LITE test stripIndications :Poorly controlled diabetes mellitus (HCC) Use to test blood sugar twice daily, as directed 100 each 11 023 Active busPIRone (Buspar) 7.5 MG tabletIndication s:Persistent depressive disorder Take 1 tablet by mouth in the morning and 1 tablet in the evening. Active glucose 4 g chewable tablet Chew 4 tablets (16 g) if needed for low blood sugar. 50 tablet 12 024 Active LORazepam (Ativan) 1 MG tablet 024 Active Banophen 25 MG capsule 024 Active [facility] Glucose 4-6 GM-MG oral gel 024 Active hyoscyamine (Anaspaz) 0.125 MG disintegrating tabletIndication s:Right flank pain Take 2 tablets (0.25 mg) by mouth every 8 (eight) hours if needed (for flank pain as needed). 30 tablet Active cyclobenzaprine (Flexeril) 10 MG tabletIndication s:Right flank pain Take 1 tablet (10 mg) [...] Once per day. 30 tablet 2025 Active hydroCHLOROthiaz leland (HYDRODiuril) 25 MG tabletIndication s:Type 2 diabetes mellitus with hyperglycemia, without long-term current use of insulin (HCC),Primary hypertension Take 1 tablet (25 mg) by mouth Once per day. 30 tablet 2025 Active hydrALAZINE (Apresoline) 25 MG tablet Take 1 tablet (25 mg) by mouth 2 times daily. 60 tablet 2025 Active betamethasone, augmented, (Diprolene) 0.05 % lotionIndication s:Scalp psoriasis Apply topically 2 times daily. 60 [...] mL 3 Active lidocaine (Lidoderm) 5 % patchIndications :Chronic bilateral low back pain with left-sided sciatica APPLY 1 PATCH TOPICALLY ONCE PER DAY. REMOVE & DISCARD PATCH WITHIN 12 HOURS OR DIRECTED BY . 30 patch 3 Active gabapentin (Neurontin) 100 MG capsule Take 1 capsule (100 mg) by mouth at bedtime for 7 days, THEN 1 capsule (100 mg) 2 times daily for 7 days, THEN 2 capsules (200 mg) 2 times daily. 141 capsule 025 2024 Active hydrOXYzine HCl (Atarax) 25 MG tablet TAKE 1 TABLET BY MOUTH EVERY 8 HOURS IF NEEDED FOR ANXIETY. 90 tablet Active acetaminophen (Tylenol 8 Hour) 650 MG ER tablet Take 1 tablet (650 mg) by mouth every 8 (eight) hours if needed for mild pain. Do not crush, chew, or split. 60 tablet 1 025 2025 Active Diclofenac Sodium 1 % gel Apply 2 g topically if needed in the morning, at noon, in the evening, and at bedtime (pain). 150 g 3 Active methocarbamol (Robaxin) 500 MG tablet Take 1 tablet (500 mg) by mouth every 8 (eight) hours if needed for muscle spasms. 40 tablet 1 025 2025 Active Alcohol Swabs (Alcohol Prep) padsIndications: Type 2 diabetes mellitus with hyperglycemia, without long-term current use of insulin (HCC) Use twice daily as directed 100 each 11 025 Active Alcohol Swabs (Alcohol Prep) padsIndications: Type 2 diabetes mellitus with hyperglycemia, without long-term current use of insulin (HCC) Use twice daily as directed 100 each 11 024 2024 Discontinued(R eorder (will not trigger notification to Pharmacy)) hydrOXYzine HCl (Atarax) 25 MG tablet TAKE 1 TABLET BY MOUTH EVERY 8 HOURS IF NEEDED FOR ANXIETY. 90 tablet 025 2024 Discontinued Acetaminophen Extra Strength 500 MG tablet Take 1 tablet by mouth every 8 (eight) hours if needed for moderate pain. 025 2024 Discontinued Active Problems Problem Noted [...] Health Integration Plan Internal Follow up with [facility], Referral to [facility] Patient Self Plan Patient to utilize skills provided in intervention , [facility], Comply with medication , and Patient to reach out to [facility] as needed Rule Out Diagnoses n/a Behavioral Health Diagnoses At this time Franny meets criteria for Visit Diagnoses: Problem List Items Addressed This Visit Other Severe major depression without psychotic features (CMS/HCC) MACIEL (generalized anxiety disorder) Panic attacks Grief reaction Panic attacks 10/04/2023 Gastroesophageal reflux disease 09/30/2023 09/30/2023 Hyperglycemia due to diabetes mellitus 09/30/2023 Sludge in gallbladder 09/30/2023 09/30/2023 Diabetic [...] Encounters Date Type Department Care Team Description 06/29/2025 Orders Only GENERIC EXTERNAL DATA DEPARTMENT Provider, Generic External Data 06/28/2025 Outside Procedure [facility] [address] [place] [phone] Abhishek Reyesn, OD Presbyopia (Primary Dx) 06/27/2025 9:45 AM EDT Office Visit [facility] [address] [place] [address] [phone] Abhishek Reyesn, OD Regular astigmatism of both eyes (Primary Dx) 06/21/2025 Telephone [facility] [address] [place] [address] Ney Hernandez MD Results 06/13/2025 Telephone [facility] [address] [place] [address] 57[address] Ney Hernandez MD Med Refill 06/13/2025 Refill [facility] [address] [place] [address] Ney Hernandez MD Type 2 diabetes mellitus with hyperglycemia, without long-term current use of insulin (HCC) 06/11/2025 Refill [facility] [address] [place] [phone] Ney Hernandez MD 06/06/2025 1:20 PM EDT Office Visit [facility] [address] [place] [phone] Naomi Caal DO Chronic right shoulder pain (Primary Dx); Rib pain on left side 06/06/2025 Travel 06/06/2025 Telephone [facility] [address] [place] [address] Ney Hernandez MD Nurse Triage 06/03/2025 Refill [facility] [address] [place] [address] Ney Hernandez MD 05/27/2025 Orders Only GENERIC EXTERNAL DATA DEPARTMENT Provider, Generic External Data 05/24/2025 Telephone [facility] [address] [place] [address] Ney Hernandez MD Nurse Triage 05/24/2025 Telephone [facility] [address] [place] [address] Ney Hernandez MD Lab Orders 05/17/2025 11:15 AM EDT Office Visit [facility] [address] [place] [address] Ney Hernandez MD Type 2 diabetes mellitus with hyperglycemia, without long-term current use of insulin ([facility]) (Primary Dx); Anemia due to stage 3 chronic kidney disease, unspecified whether stage 3a or 3b CKD ([facility]); Chronic right shoulder pain 05/17/2025 Travel 05/16/2025 Telephone [facility] [address] [place] [phone] Danette Craig MA chart prep 05/04/2025 Refill [facility] [address] [place] [address] Ney Hernandez MD Chronic bilateral low back pain with left-sided sciatica 04/15/2025 Refill [facility] [address] [place] [address] Ney Hernandez MD 04/09/2025 2:30 PM EDT Office Visit [facility] [address] [place] [address] Eric, Nikki, OD Presbyopia (Primary Dx); Nuclear sclerotic cataract of both eyes; History of proliferative retinopathy due to diabetes mellitus 04/09/2025 Travel 04/03/2025 Refill [facility] [address] [place] [address] Ney Hernandez MD from Last 3 Months Immunizations Immunization Administration [...] Sign Reading Time Taken Comments Blood Pressure 165/89 06/06/2025 1:07 PM EDT Pulse 94 06/06/2025 1:07 PM EDT Temperature 36.6 C (97.9 F) 06/06/2025 1:07 PM EDT Respiratory Rate 18 06/06/2025 1:07 PM EDT Oxygen Saturation 97% 06/06/2025 1:07 PM EDT Inhaled Oxygen Concentration - - Weight 87.1 kg (192 lb) 06/06/2025 1:07 PM EDT Height 160 cm (5' 3 ) 05/17/2025 11:31 AM EDT Body Mass Index 34.01 05/17/2025 11:31 AM EDT Plan of Treatment Upcoming Encounters Date Type Department Care Team (Late st Contact Info) Description 07/30/2025 3:30 PM EST Office Visit [facility] [address] [place] [address] Name, MD Ney [address] [place] [address] Health Maintenance Due Date Last Done Comments [...] 10/28, 11/22/2023, Additional history exists Tobacco Screening 06/06/2026 06/06/2025 DTaP/Tdap/Td Vaccines (2 - Td or Tdap) [...] EDT NT-PROBNP Routine 06/29/2025 1:56 PM EDT LIPASE Routine 06/29/2025 1:56 PM EDT MAGNESIUM Routine 06/29/2025 1:56 PM EDT BASIC METABOLIC PANEL Routine 06/29/2025 1:56 PM EDT HEPATIC FUNCTION PANEL Routine 1:56 PM EDT CBC WITH AUTO DIFFERENTIAL Routine 06/29/2025 1:56 PM EDT XR RIBS 3 VIEWS LEFT W CHEST Routine 06/06/2025 3:00 PM EDT Chronic right shoulder pain Rib pain on left side XR SHOULDER 2+ VIEWS RIGHT Routine 06/06/2025 2:18 PM EDT Chronic right shoulder pain Rib pain on left side PHOSPHOLIPASE A2 RECEPTOR (PLA2R) AB PANEL Routine 05/27/2025 10:45 AM EDT ANCA SCREEN WITH REFLEX TO TITER Routine 05/27/2025 10:45 AM EDT GLOMERULAR BASEMENT MEMBRANE ANTIBODY (IGG) Routine 05/27/2025 10:45 AM EDT PROTEIN, TOTAL AND PROTEIN ELECTROPHORESIS Routine 05/27/2025 10:45 AM EDT ELAYNE SCREEN, IFA, W/REFL TITER AND PATTERN Routine 05/27/2025 10:45 AM EDT PTH, INTACT WITHOUT CALCIUM Routine 05/27/2025 10:45 AM EDT BASIC METABOLIC PANEL Routine 05/27/2025 10:45 AM EDT CBC Routine 05/27/2025 10:45 AM EDT URINE PROTEIN, TOTAL, RANDOM (W/O CREATININE) Routine 05/27/2025 10:37 AM EDT CREATININE, RANDOM URINE Routine 05/27/2025 10:37 AM EDT URINALYSIS, COMPLETE Routine 05/27/2025 10:37 AM EDT POCT GLYCATED HEMOGLOBIN, TOTAL Routine [...] without long-term current use of insulin (CMS/HCC) LIPID PANEL, STANDARD Routine 11/20/2024 10:00 AM [...] Relevant to Health Maintenance Results * (ABNORMAL) Urinalysis, Complete, with Reflex to Culture (06/29/2025 2:15 PM EDT) Color Urine Yellow [facility] Appearance Urine Clear [facility] PH 6.0 5.0 - 9.0 [facility] Glucose Urine UA 500(A) Negative mg/dL [facility] Urine Blood Trace(A) Negative [facility] Specific [place] - Urine 1.020 1.005 - 1.025 [facility] Urine Protein 300 (3+)(A) Neg-Trace mg/dL [facility] Urine Ketones Negative Negative mg/dL [facility] Nitrite Urine Negative Negative [facility] Leukocyte Esterase Urine Negative Negative [facility] RBC Urine 0-2 0 - 2 /HPF [facility] Urine WBC 6-10 0 - 5 /HPF [facility] Urine Squamous Epithelial Cell 3-5 0 - 2 /HPF [facility] Urine Bacteria None Seen None Seen [facility] Hyaline Casts, Urine 0-2 0 - 2 /LPF [facility] 06/29/2025 2:15 PM EDT 06/29/2025 2:21 PM EDT Narrative [facility] - 06/29/2025 2:39 PM EDT [id number], Clean Catch us Generic External Data Provider LAB URINE ORDERAB LES Final Result [facility] [address] [place] [phone] * (ABNORMAL) NT-proBNP (06/29/2025 1:56 PM EDT) NT-proBNP 2,255.4(H ) <300 pg/mL [facility] Comment:Reference Range:Age Group (years) NT-proBNP (pg/ml) InterpretationAll <300 Negative: HF unlikelyFor patients presenting to the ED with clinical suspicion ofnew onset or worsening HF, see below:18 to <50 >299.9 to <450.0 Grayzone: [id number] to 75 >299.9 to <900.0 other causes of>75 >299.9 to <1800.0 NT-proBNP [id number] to <50 >449.9 Positive: HF -37 >899.9>75 >1799.9Note: Elevated NT-proBNP levels should be interpreted inthe context of other clinical information. 06/29/2025 1:56 PM EDT 06/29/2025 2:13 PM EDT us Generic External Data Provider LAB BLOOD ORDERAB LES Final Result [facility] [address] [place] [phone] * (ABNORMAL) CBC auto differential (06/29/2025 1:56 PM EDT) White Blood Count 5.3 4.8 - 10.8 X10*3/uL [facility] Red Blood Count 3.10(L) 4.20 - 5.50 X10*6/uL [facility] Hemoglobin 8.6(L) 12.0 - 16.0 g/dl [facility] Hematocrit 27.3(L) 37.0 - 47.0 % [facility] Mean Corpuscular Volume 88.1 80.0 - 98.0 fL [facility] Mean Corpuscular Hemoglobin 27.7 27.0 - 33.0 pg [facility] Mean Corpuscular HGB Conc 31.5 31.0 - 35.0 g/dl [facility] Red Cell Distribution Width 13.6 11.0 - 16.0 % [facility] Platelet Count 188 160 - 400 X10*3/uL [facility] Mean Platelet Volume 10.8 9.4 - 12.3 fL [facility] Neutrophils Percent Auto 63.3 45 - 73 % [facility] Imm Gran Pct Auto 0.4 0.0 - 0.4 % [facility] Lymphocytes Percent Auto 24.5 20 - 40 % [facility] Monocytes Percent Auto 8.0 2 - 11 % [facility] Eosinophils Percent Auto 3.4 0 - 4 % [facility] Basophils Percent Auto 0.4 0 - 2 % [facility] NRBC Pct Auto 0.0 0.0 - 0.2 /100WBC [facility] Neutrophils Absolute Auto 3.3 2.0 - 8.3 x10*3/uL [facility] Imm Gran Abs Auto 0.02 0.00 - 0.03 X10*3/uL [facility] Lymphocytes Absolute Auto 1.3 1.2 - 4.9 X10*3/uL [facility] Monocytes Absolute Auto 0.4 0.1 - 1.2 X10*3/uL [facility] Eosinophils Absolute Auto 0.2 0.0 - 0.4 X10*3/uL [facility] Basophils Absolute Auto 0.0 0.0 - 0.2 X10*3/uL [facility] NRBC Abs Auto 0.000 0.0 - 0.012 X10*3/uL [facility] 06/29/2025 1:56 PM EDT 06/29/2025 2:13 PM EDT us Generic External Data Provider LAB BLOOD ORDERAB LES Edited Result - Final [facility] [address] [place], [place] [phone] * Magnesium (06/29/2025 1:56 PM EDT) Magnesium 2.0 1.6 - 2.6 mg/dL [facility] 06/29/2025 1:56 PM EDT 06/29/2025 2:13 PM EDT us Generic External Data Provider LAB BLOOD ORDERAB LES Final Result Performing Organization Address [facility]/ZIP Co de Phone Number [facility] [address] [place] [phone] * Lipase (06/29/2025 1:56 PM EDT) Lipase 39 8 - 78 U/L [facility] 06/29/2025 1:56 PM EDT 06/29/2025 2:13 PM EDT Generic External Data Provider LAB BLOOD ORDERAB LES Final Result Performing Organization Address [facility] de Phone Number [facility] [address] [place] [address] [phone] * (ABNORMAL) Hepatic Function Panel (06/29/2025 1:56 PM EDT) Bilirubin, Total 0.2 0.0 - 1.0 mg/dL [facility] Bilirubin, Direct <0.2 0.0 - 0.5 mg/dL [facility] Aspartate Amino Transferase 24 5 - 31 U/L [facility] Alanine Aminotransferase 16 0 - 31 U/L [facility] Total Protein 6.9 6.5 - 8.0 g/dL [facility] Albumin Level 3.1(L) 3.5 - 5.0 g/dL [facility] Alkaline Phosphatase 88 39 - 117 U/L [facility] 06/29/2025 1:56 PM EDT 06/29/2025 2:13 PM EDT Generic External Data Provider LAB BLOOD ORDERAB LES Final Result Performing Organization Address [facility] Co de Phone Number [facility] [address] [place] [phone] * (ABNORMAL) Basic Metabolic Panel (06/29/2025 1:56 PM EDT) Only the most recent of2 resultswithin the time period is included. Sodium 140 135 - 145 mmol/L [facility] Potassium 4.8 3.3 - 5.1 mmol/L [facility] Chloride 113(H) 96 - 108 mmol/L [facility] Carbon Dioxide 17(L) 22 - 29 mmol/L [facility] Anion Gap 15 12 - 20 [facility] Urea Nitrogen (BUN) 45(H) 9 - 16 mg/dL [facility] Creatinine, Serum 4.18(HH) 0.5 - 1.4 mg/dL [facility] Comment:Critical value for C REAT: Results called to and read lauritay: PRISCILA Person calling: DELVINJulia Date: 06/29/25 Time: 1441 Creatinine Clr Calc Pharmacy 16.9 [facility] Comment:Provided height and weight: 160.02 cm,88.2 kg.eGFR (calculated from the MDRD study equation) and eCrCl(calculated from the Cockcroft-Gault equation) are based ondifferent parameters and may not yield comparable results.If eCrCl result is absurd, please check patient'sheight/weight. Estimated Glomerular Filt Rate 11 [facility] Comment:Chronic Kidney Disea se: Estimated GFR < 60 mL/min/1.30c2Qjxxnb Kidney Disease: Estimated GFR < 15 mL/min/1.73m2 Glucose 114 60 - 115 mg/dL [facility] Calcium 8.4 8.4 - 10.2 mg/dL [facility] 06/29/2025 1:56 PM EDT 06/29/2025 2:13 PM EDT us Generic External Data Provider LAB BLOOD ORDERAB LES Final Result [facility] [address] [place] [phone] * XR Ribs 3 Views Left w/ Chest (06/06/2025 3:00 PM EDT) Anatomical Region Laterality Modality Radiographic Marguerite ging 06/06/2025 3:00 PM EDT Narrative 06/06/2025 3:12 PM EDT [address] [address] XRay Report Signed Patient: Franny Delvalle MR#: [id number] 4 : 1975 Acct:[id number] Age/Sex: 50 / F ADM Date: 06/06/25 [facility] Dr: Naomi Caal DO Ordering Physician: Naomi Caal DO Date of Service: 06/06/25 Procedure(s): XR ribs LT min 3V w CXR1V Accession Number(s): [id number] cc: Naomi Caal DO Reason for Exam: lower L rib pain s/p fall EXAMINATION: XR RIBS, LEFT CLINICAL INFORMATION: lower L rib pain s/p fall COMPARISON: 02/09/2024 TECHNIQUE: PA view of the chest, and 3 views of the left ribs were obtained. FINDINGS: Lungs are clear. No consolidation, pneumothorax, or pleural effusion. The cardiomediastinal silhouette and pulmonary vasculature are normal. Osseous structures are unremarkable. Ribs are intact. No fractures are identified. XR/XR ribs LT min 3V w CXR1V IMPRESSION: No active pulmonary disease. No acute findings of the thorax. The ribs appear intact. Electronically signed by: Jeremie Dockery MD 06/06/2025 03:08 PM EDT Dictated By: Jeremie Dockery MD Signed By: <Electronically signed by Jeremie Dockery MD in OV> 06/06/25 1508 DD/ 1500 TD/TT: 06/06/25 1503 Extrusion Former: Procedure Note Donotuseinterpreter, Image - 06/06/[address] [address] XRay Report Signed Patient: Franny DelvalleMR#: [id number] 4 : 1975Acct:[id number] Age/Sex: 50 / FADM Date: 06/06/25 Loc: [facility] Attending Dr: Naomi Caal DO Ordering Physician: Naomi Caal DO Date of Service: 06/06/25 Procedure(s): XR ribs LT min 3V w CXR1V Accession Number(s): [id number] cc: Naomi Caal DO Reason for Exam: lower L rib pain s/p fall EXAMINATION: XR RIBS, LEFT CLINICAL INFORMATION: lower L rib pain s/p fall COMPARISON: 02/09/2024 TECHNIQUE: PA view of the chest, and 3 views of the left ribs were obtained. FINDINGS: Lungs are clear. No consolidation, pneumothorax, or pleural effusion. The cardiomediastinal silhouette and pulmonary vasculature are normal. Osseous structures are unremarkable. Ribs are intact. No fractures are identified. XR/XR ribs LT min 3V w CXR1V IMPRESSION: No active pulmonary disease. No acute findings of the thorax. The ribs appear intact. Electronically signed by: Jeremie Dockery MD 06/06/2025 03:08 PM EDT Dictated By: Jeremie Dockery MD Signed By: <Electronically signed by Jeremie Dockery MD in OV> 06/06/25 1508 DD/ 1500 TD/TT: 06/06/25 1503 Extrusion Former: us Naomi Caal DO IMG XR PROCEDURES Final Resu lt * XR Shoulder 2+ Views Right (06/06/2025 2:18 PM EDT) Anatomical Region Laterality Modality Upper Extremities, Shoulder Right Radi ographic Imaging 06/06/2025 2:18 PM EDT Narrative 06/06/2025 3:12 PM EDT [address] [address] XRay Report Signed Patient: Franny Delvalle MR#: [id number] 4 : 1975 Acct:[id number] Age/Sex: 50 / F ADM Date: 06/06/25 Loc: [facility] Attending Dr: Naomi Caal DO Ordering Physician: Naomi Caal DO Date of Service: 06/06/25 Procedure(s): XR shoulder RT min 2V Accession Number(s): [id number] cc: Naomi Caal DO Reason for Exam: R shoulder pain s/p fall EXAMINATION: XR SHOULDER, RIGHT CLINICAL INFORMATION: R shoulder pain s/p fall COMPARISON: January 30, 2025 TECHNIQUE: AP external rotation, Grashey, scapular Y, and axillary views of the right shoulder. FINDINGS: Linear calcific density extends up 3-4 mm from the greater tuberosity, less dense on the prior. Small marginal osteophyte is present involving the humeral head.. AC joint is intact. There is no dislocation. No fracture is identified. XR/XR shoulder RT min 2V IMPRESSION: Linear calcification extending up from the greater tuberosity could represent a small focus of calcific tendinitis in the rotator cuff. Electronically signed by: Kody Atwood MD 06/06/2025 03:09 PM EDT Dictated By: Kody Atwood MD Signed By: <Electronically signed by Kody Atwood MD in OV> 06/06/25 1509 DD/ 1418 TD/TT: 06/06/25 1503 Extrusion Former: Procedure Note Donotmonicainterpreter, Image - 06/06/2025 [place] [address] XRay Report Signed Patient: Franny Delvalle#: [id number] 4 : 1975Acct:[id number] Age/Sex: 50 / FADM Date: 06/06/25 Loc: [facility] Attending Dr: Naomi Caal DO Ordering Physician: Naomi Caal DO Date of Service: 06/06/25 Procedure(s): XR shoulder RT min 2V Accession Number(s): [id number] cc: Naomi Caal DO Reason for Exam: R shoulder pain s/p fall EXAMINATION: XR SHOULDER, RIGHT CLINICAL INFORMATION: R shoulder pain s/p fall COMPARISON: January 30, 2025 TECHNIQUE: AP external rotation, Grashey, scapular Y, and axillary views of the right shoulder. FINDINGS: Linear calcific density extends up 3-4 mm from the greater tuberosity, less dense on the prior. Small marginal osteophyte is present involving the humeral head.. AC joint is intact. There is no dislocation. No fracture is identified. XR/XR shoulder RT min 2V IMPRESSION: Linear calcification extending up from the greater tuberosity could represent a small focus of calcific tendinitis in the rotator cuff. Electronically signed by: Kody Atwood MD 06/06/2025 03:09 PM EDT RP Dictated By: Kody Atwood MD Signed By: <Electronically signed by Kody Atwood MD in OV> 06/06/25 1509 DD/ 1418 TD/TT: 06/06/25 1503 Extrusion Former: us Naomi Caal DO IMG XR PROCEDURES Final Resu lt * Phospholipase A2 Receptor (PLA2R) Antibody Panel (05/27/2025 10:45 AM EDT) Phospholipase A2 Receptor (PLA2R) Ab, MANNY <4 RU/mL [facility] Comment:Reference Range: <14 : NEGATIVE 14-19: BORDERLINE >19: POSITIVE Phospholipase A2 Receptor (PLA2R) Ab, IFA NEGATIVE NEGATIVE [facility] Comment:THIS TEST WAS PERFOR MED AT:[employer]/[id number] [place] [phone] ABBOTT MD,PHD,AUTUMN 05/27/2025 10:4 5 AM EDT 05/27/2025 10:45 AM EDT us Generic External Data Provider LAB BLOOD ORDERAB LES Final Result [facility] [address] [place] [phone] * ANCA Screen with Reflex to ANCA Titer (05/27/2025 10:45 AM EDT) ANCA Screen NEGATIVE NEGATIVE [facility] Comment:ANCA screen uses ind irect immunofluorescence to detectantibodies to neutrophil cytoplasmic antigens. Apositive screen reflexes to titer and pattern. Patternsinclude cytoplasmic (c-ANCA) and perinuclear (p-ANCA)both of which are associated with vasculitis, andatypical p-ANCA which is associated with inflammatorybowel disease and other disorders.THIS TEST WAS PERFORMED AT:[employer] [address] [phone] KAY RENEE MD P-ANCA Titer COP [facility] Atypical P-ANCA Titer [facility] C-ANCA Titer [facility] 05/27/2025 10:4 5 AM EDT 05/27/2025 10:45 AM EDT Generic External Data Provider LAB BLOOD ORDERAB LES Final Result Performing Organization Address [facility] Co de Phone Number [facility] [address] [place] [phone] * Glomerular Basement Membrane Antibody (IgG) (05/27/2025 10:45 AM EDT) Glomerular Basement Memebrane Antibody (IgG) <1.0 AI [facility] Comment:Value Interpretation ----- <1.0 No Antibody Detected > or = 1.0 Antibody DetectedTHIS TEST WAS PERFORMED AT:[employer] [address] [phone] KAY RENEE MD 05/27/2025 10:4 5 AM EDT 05/27/2025 10:45 AM EDT Generic External Data Provider LAB BLOOD ORDERAB LES Final Result Performing Organization Address [facility] Co de Phone Number [facility] [address] [place] [phone] * (ABNORMAL) CBC (05/27/2025 10:45 AM EDT) White Blood Count 6.9 4.8 - 10.8 X10*3/uL [facility] Red Blood Count 2.87(L) 4.20 - 5.50 X10*6/uL [facility] Hemoglobin 8.1(L) 12.0 - 16.0 g/dl [facility] Hematocrit 24.9(L) 37.0 - 47.0 % [facility] Mean Corpuscular Volume 86.8 80.0 - 98.0 fL [facility] Mean Corpuscular Hemoglobin 28.2 27.0 - 33.0 pg [facility] Mean Corpuscular HGB Conc 32.5 31.0 - 35.0 g/dl [facility] Red Cell Distribution Width 13.4 11.0 - 16.0 % [facility] Platelet Count 274 160 - 400 X10*3/uL [facility] Mean Platelet Volume 10.3 9.4 - 12.3 fL [facility] NRBC Pct Auto 0.0 0.0 - 0.2 /100WBC [facility] NRBC Abs Auto 0.000 0.0 - 0.012 X10*3/uL [facility] 05/27/2025 10:4 5 AM EDT 05/27/2025 10:45 AM EDT us Generic External Data Provider LAB BLOOD ORDERAB LES Final Result [facility] [address] [place] [phone] * ELAYNE Screen,IFA, with Reflex to Titer and Pattern (05/27/2025 10:45 AM EDT) Pathologist [facility] Anti Nuclear Antibody Screen NEGATIVE NEGATIVE [facility] Comment:ELAYNE IFA is a first l ine screen for detecting thepresence of up to approximately 150 autoantibodies invarious autoimmune diseases. A negative ELAYNE IFA resultsuggests an ELAYNE-associated autoimmune disease is notpresent at this time, but is not definitive. If thereis high clinical suspicion for Sjogren's syndrome,testing for anti-SS-A/Ro antibody should be considered.Anti-Delisa-1 antibody should be considered for clinicallysuspected inflammatory myopathies.AC-0: NegativeInternational Consensus on ELAYNE Patterns(https://doi.org/10.1515/lpfp-8222-5105)For additional information, please refer tohttp://education.GalaDo/faq/TVX959(This link is being provided for informational/educational purposes only.)THIS TEST WAS PERFORMED AT:[employer] [place] [phone] KAY RENEE MD ELAYNE Titer TNP [facility] ELAYNE Pattern TNP [facility] ELAYNE Titer 2 TNP [facility] ELAYNE Pattern 2 TNP [facility] E[facility]NE TITER 3 [facility] PATTERN 3 [facility] 05/27/2025 10:4 5 AM EDT 05/27/2025 10:45 AM EDT us Generic External Data Provider LAB BLOOD ORDERAB LES Final Result [facility] [address] [place] [phone] * (ABNORMAL) Protein, Total and Protein??Electrophoresis (05/27/2025 10:45 AM EDT) Prot Elec - Total Protein 6.9 6.1 - 8.1 g/dL [facility] Prot Elec - Albumin 3.2(A) 3.8 - 4.8 g/dL [facility] Prot Elec - Alpha1 0.4(A) 0.2 - 0.3 g/dL [facility] Prot Elec - Alpha2 0.8 0.5 - 0.9 g/dL [facility] Prot Elec - Beta 1 0.5 0.4 - 0.6 g/dL [facility] Prot Elec - Beta 2 0.8(A) 0.2 - 0.5 g/dL [facility] Prot Elec - Gamma 1.2 0.8 - 1.7 g/dL [facility] PES - Abn Protein Band 1 TNP [facility] PES-Abn Protein Band 2 TNP [facility] PES-Abn Protein Band 3 TNP [facility] Prot Elec - Interpretation SEE NOTE [facility] Comment:Suggestive of acute inflammation pattern with elevationof acute phase proteinsTHIS TEST WAS PERFORMED AT:[employer] [place] [phone] KAY RENEE MD 05/27/2025 10:4 5 AM EDT 05/27/2025 10:45 AM EDT Generic External Data Provider LAB BLOOD ORDERAB LES Final Result Performing Organization Address [facility] Co de Phone Number [facility] [address] [place] [phone] * (ABNORMAL) PTH, Intact Without Calcium (05/27/2025 10:45 AM EDT) Parathyroid Hormone, Intact 296.3(H) 8.7 - 77.1 pg/mL [facility] 05/27/2025 10:4 5 AM EDT 05/27/2025 10:45 AM EDT Generic External Data Provider LAB BLOOD ORDERAB LES Final Result Performing Organization Address [facility] Co de Phone Number [facility] [address] [place] [phone] * (ABNORMAL) Urine Protein, Total, Random without Creatinine (05/27/2025 10:37 AM EDT) Protein, Total, Random Urine 422(H) <12 mg/dL [facility] 05/27/2025 10:3 7 AM EDT 05/27/2025 10:47 AM EDT us Generic External Data Provider LAB URINE ORDERAB LES Final Result Performing Organization Address City/[facility]/ZIP Co de Phone Number [facility] [address] [place] [phone] * Creatinine, Random Urine (05/27/2025 10:37 AM EDT) Creatinine, Urine 58.33 mg/dL [facility] 05/27/2025 10:3 7 AM EDT 05/27/2025 10:47 AM EDT Generic External Data Provider LAB URINE ORDERAB LES Final Result Performing Organization Address [facility] Co de Phone Number [facility] [address] [place] [phone] * (ABNORMAL) Urinalysis Complete (05/27/2025 10:37 AM EDT) Color Urine Yellow [facility] Appearance Urine Clear [facility] PH 5.5 5.0 - 9.0 [facility] Glucose Urine UA >=1000(A) Negative mg/dL [facility] Urine Blood Negative Negative [facility] Specific [place] - Urine 1.020 1.005 - 1.025 [facility] Urine Protein 300 (3+)(A) Neg-Trace mg/dL [facility] Urine Ketones Negative Negative mg/dL [facility] Nitrite Urine Negative Negative [facility] Leukocyte Esterase Urine Negative Negative [facility] RBC Urine 0-2 0 - 2 /HPF [facility] Urine WBC 0-5 0 - 5 /HPF [facility] Urine Squamous Epithelial Cell 3-5 0 - 2 /HPF [facility] Urine Bacteria Trace None Seen [facility] Hyaline Casts, Urine 3-5 0 - 2 /LPF [facility] 05/27/2025 10:3 7 AM EDT 05/27/2025 10:47 AM EDT Generic External Data Provider LAB URINE ORDERAB LES Final Result [facility] [address] [place] [phone] * (ABNORMAL) POCT Hgb A1c (05/17/2025 11:52 AM EDT) Hemoglobin A1C 6.8(A) 4.0 - 5.7 % QC Media Lot # [id number] Lot# Expiration Date [id number] Blood 05/17/2025 11:5 2 AM EDT Ney Hernandez MD POINT OF CARE TEST ENTER/EDIT OR DERABLES Final Result * (ABNORMAL) POCT Glucose (05/17/2025 11:46 AM EDT) Glucose Blood, POC 278(A) 60 - 200 mg/dL [employer] Media Lot # [id number] Lot# Expiration Date 31,126 Blood Capillary blood specimen / Unknown 05/17/2025 11:46 AM EDT us Ney Hernandez MD POINT OF CARE TEST ENTER/EDIT OR DERABLES Final Result * (ABNORMAL) POCT Hemoglobin (05/17/2025 11:46 AM EDT) Hemoglobin 9.9(A) 12.0 - 15.0 QC Media Lot # [id number] Lot# Expiration Date 4927 Blood 05/17/2025 11:4 6 AM EDT Ney Hernandez MD POINT OF CARE TEST ENTER/EDIT OR DERABLES Final Result * (ABNORMAL) Lipid Panel, Standard (11/20/2024 10:00 AM EDT) Triglycerides 132 <150 mg/dL [facility] Comment:Desirable Triglyceri de: less than 150 mg/dLBorderline High Triglyceride 150-199 mg/dLHigh Triglyceride: 200-499 mg/dLVery High Triglyceride: greater than or equal to 5OO mg/dL Cholesterol 245(H) <200 mg/dL [facility] Comment:Desirable Cholestero l: less than 200 mg/dLBorderline High Cholesterol: 200-239 mg/dLHigh Cholesterol: greater than 239 mg/dL LDL Cholesterol Calculated 170(H) <100 mg/dL [facility] Comment:Desirable LDL: less than 100 mg/dLNear Optimal/Above Optimal LDL: 110- 129 mg/dLBorderline High LDL: 130-159 mg/dLHigh LDL: 160-189 mg/dLVery High LDL: greater than or equal to 190 mg/dL HDL Cholesterol 49 >40 mg/dL [facility] Comment:Desirable HDL: great er than 40 mg/dL Note: This HDL assay may give artificially low results in patients with liver disease. Blood Venous blood specimen / Unknown 11/20/2024 10:00 AM EDT 11/20/2024 10:06 AM EDT Ney Hernandez MD LAB BLOOD ORDERABLES Final Resul t [facility] [address] [place] [address] [phone] * BI Mammogram Screening Tomosynthesis Bilateral (01/18/2024 10:25 AM EDT) Anatomical Region Laterality Modality Breast Bilateral Mammography 01/18/2024 10:2 5 AM EDT Narrative 02/13/2024 7:41 AM EDT [facility] [address] [place] [address] [place] [address] Mammography Report Signed Patient: Franny Delvalle MR#: [id number] 4 : 1975 Acct:[id number] Age/Sex: 48 / F ADM Date: 01/18/24 Loc: HO.MAMMO Attending Dr: Ney Hernandez MD Ordering Physician: Ney Hernandez MD Results: 1Negative Date of Service: 01/18/24 Follow Up: 1 Year From Orig inal Mammogram Procedure(s): MM tomosynthesis screening BI Accession Number(s): [id number] cc: Ney Hernandez MD EXAMINATION: MM SCREENING [...] in OV> 02/13/24 0738 DD/ 1025 TD/TT: Extrusion Former: Procedure Note Donotuseinterpreter, Image - 02/13/2024 [facility] [address] [place] [address] Mammography Report Signed Patient: Franny Delvalle#: [id number] 4 : 1975Acct:[id number] Age/Sex: 48 / FADM Date: 01/18/24 Loc: FELIPA Attending Dr: Ney Hernandez MD Ordering Physician: Ney Hernandez MDResults: 1Negative Date of Service: 01/18/24Follow Up: 1 Year From Orig inal Mammogram Procedure(s): MM tomosynthesis screening BI Accession Number(s): [id number] cc: Ney Hernandez MD EXAMINATION: MM SCREENING [...] in OV> 02/13/24 0738 DD/ 1025 TD/TT: Extrusion Former: Ney Hernandez MD IMG BI PROCEDURES Final Result * HEPATITIS C AB W/REFL TO HCV RNA, QN, PCR (07/04/2020 9:24 AM EST) HEPATITIS C ANTIBODY NON-REACT MICHELLE NON-REACT MICHELLE [facility] INDEX 0.01 <1.00 [facility] Comment: HCV antibody was non-reactive. There is no laboratory evidence of HCV infection. In most cases, no further action is required. However, if recent HCV exposure is suspected, a test for HCV RNA (test code 01624) is suggested. For additional information please refer to http://education.[employer]Aeromot/faq/JHU15v9 (This link is being provided for informational/ educational purposes only.) 07/04/2020 9:24 AM EST Shakir Corcoran MD HISTORICAL/NON ORDERABLE LABS Fi nal Result [facility] [address] * HIV 1/2 ANTIGEN/ANTIBODY,FOURTH GENERATION W/RFL (07/04/2020 9:24 AM EST) HIV-1/2 ANTIGEN AND ANTIBODIES, 4TH GENERATION W/ REFLEX NON-REACT MICHELLE NON-REACT MICHELLE [facility] Comment: HIV-1 antigen and HIV-1/HIV-2 [...] purpose. For additional information please refer to http://HomeJab.Bbready.com/faq/YRZ462 (This link is being provided for informational/ educational purposes only.) The performance of this assay has not been clinically validated in patients less than 2 years old. 07/04/2020 9:24 AM EST us Shakir Corcoran MD LAB BLOOD ORDERABLES Final Resul t [facility] [address] * HPV mRNA E6/E7 (02/28/2018 2:39 PM EDT) Pathologist [facility] HPV mRNA E6/E7 Not Detected NOT DETECTED [facility] Comment: This test was performed using the APTIMA(R) HPV Assay ([employer] This assay detects E6/E7 viral messenger RNA (mRNA) from 14 high-risk HPV types (16,18,31,33,35,39,45,51, 52,56,58,59,66,68). For additional information please refer to: http://HomeJab.Bbready.com/faq/ETK326p6 (This link is being provided for informational/ educational purposes only.) The analytical performance characteristics of this assay have been determined by [employer] [place], [place]. The modifications have not been cleared or approved by the FDA. This assay has been validated pursuant to the CLIA regulations and is used for clinical purposes. Test Performed by [facility], [facility] [place], [address] [place] [address] Raj Torres M.D., Ph.D., Director of Laboratories , [facility] [id number] Please note: Effective 05/10/2016, HPV testing will be performed using [employer] APTIMA test which targets mRNA. Detecting mRNA instead of DNA, as in older methods, offers significant improvements in specificity. 02/28/2018 2:39 PM EDT us Franny Bass CNM HISTORICAL/NON ORDERABLE LABS Final Result [facility] [address] from Last 3 Months or Most Recently Relevant to Health Maintenance [facility] Care Teams Exhaust Equipment Operator Relationship Specialty Start Date End Date Name, MD Ney [address] [place] [phone] PCP - General Family Medicine 10/28/15 Magaly Sexton Lumber Press OperatorChange Lead 07/28/23 Ronald Gardner Lumber Press OperatorChange Lead 02/16/24 Moe Salmeron Lumber Press OperatorChange Lead 01/24/25
--- OUTSIDE RECORDS SUMMARY | 2025-06-29 14:46 | XMS_ITS | Encounter Summary ---
Author Organization [employer] Address [address] [place] [address] Care Team Providers Care Manager Business Process Name Role Phone Name, Ney LEONG Primary Care Provider Reason for Visit * Reason Comments Med Refill Encounter Details Date Type Department Care Team ([facility] st Contact Info) Description 06/11/2025 Refill [facility] [address] [place], [place] [phone] Name, MD Ney [address] [place] [address] Social History Tobacco Use Types Packs/Day Years [...] 3:30 PM EST Office Visit [facility] [address] [place] [address] Name, MD Ney [address] [place] [address] documented as of this encounter Visit Diagnoses Not on filedocumented in this encounter Additional Health Concerns Assessment Noted Time PHQ-9 Depression Total Score: 4 10/05/19 25 9:05 AM EST documented as of this encounter Care Teams Manager Business Process Relationship Specialty Start Date End Date Name, MD Ney [address] [place] [phone] PCP - General Family Medicine 10/28/15 Magaly Sexton Tutor CoordinatorFish Straightener 07/28/23 Ronald Gardner Tutor CoordinatorFish Straightener 02/16/24 Moe Salmeron Tutor CoordinatorFish Straightener 01/24/25 documented as of this encounter
[2025-06-29 15:28] VITALS: BP 162/80; PULSE 81; RESP 16; TEMP 36.9; O2SAT 100
[2025-06-29] MEDS: Lidocaine 4 % Patch ADH..PATCH 1 PATCH TRANSDERMA (15:58)
[2025-06-29 17:47] VITALS: BP 162/80; PULSE 81; RESP 16; TEMP 36.9; O2SAT 100
== END 2025-06-29 17:49 | disposition home or self-care (01) ==
PROVIDERS: Physician Assistant; Emergency Provider Emergency Medicine Emergency Medical Services; PCP Internal Medicine Geriatric Medicine
DX: M54.50 Low back pain, unspecified (principal); N39.0 Urinary tract infection, site not specified; M79.605 Pain in left leg; E11.22 Type 2 diabetes mellitus with diabetic chronic kidney disease; I12.9 Hypertensive chronic kidney disease with stage 1 through stage 4 chronic kidney disease, or unspecified chronic kidney disease; R60.0 Localized edema; N18.4 Chronic kidney disease, stage 4 (severe); Z79.84 Long term (current) use of oral hypoglycemic drugs; Z79.85 Long-term (current) use of injectable non-insulin antidiabetic drugs; Z79.899 Other long term (current) drug therapy
CPT/HCPCS: 36415; 74176; 80048; 80076; 81001; 83690; 83735; 83880; 85025; 87086; 93971; 99284

== ENCOUNTER → 2025-06-29 13:45 | Outpatient (BNV) | payer MEDICAID, SELFPAY | PROVIDERS: Emergency Provider Emergency Medicine Emergency Medical Services; PCP Internal Medicine Geriatric Medicine; Visit Provider Radiology Diagnostic Radiology | DX: N30.00 Acute cystitis without hematuria (principal); R60.0 Localized edema | CPT/HCPCS: 74176; 93971 ==

== ENCOUNTER 2025-07-01 10:58 | Outpatient (AMB) | payer MEDICAID, SELFPAY ==
--- NOTE | 2025-07-01 10:57 | HO.NEPHOV_ITS ---
Vital Signs 07/01/25 10:58 Height 5 ft 3 in Weight 194 lb BMI 34.4 BP 170/82 H Blood Pressure Location Rt brachial Position Sitting Pulse 96 Pulse Source Pulse Oximeter Pulse Oximetry (%) 96 Oxygen Delivery Method Room Air Intake Visit Reasons: Urgent care [facility] Wafer Fab Operator Required: No Accompanied by: Daughter Allergies oxycodone (OXYCODONE) Allergy (Unknown, Verified 07/15/25 11:36) SEIZURES XIAO Inhibitors Adverse Reaction (Intermediate, Verified 07/15/25 11:36) Cough Medication List - Last Reconciled 07/01/25 by Spencer Bauman MD acetaminophen ER 1,300 mg PO Q8H PRN aspirin 1 tab PO QAM atorvastatin 40 mg PO DAILY dulaglutide (Trulicity) mg subcut QWEEK empagliflozin (Jardiance) 10 mg PO DAILY famotidine (Pepcid) 20 mg PO BID PRN fluticasone propionate 50 mcg/actuation intranasal gabapentin 100 mg PO DAILY glipizide ER 5 mg PO DAILY hydralazine 25 mg PO BID hydroxyzine HCl 25 mg PO Q8H PRN lidocaine 5% 1 patch topical DAILY losartan 50 mg PO DAILY ondansetron 4 mg PO Q8H PRN HPI Comments Details: Franny is a pleasant woman with a history of diabetes mellitus for more than 30 years referred for evaluation of renal insufficiency She tells me that her blood sugar has been reasonably well controlled with a recent A1c of 6.2%. She was recently diagnosed with hypertension. Initially she was started with amlodipine and she started developing swelling. Amlodipine was discontinued. Hydrochlorothiazide 25 mg was added. Edema has subsided. Her baseline serum creatinine was around 1.04 mg/dL in August 2023. In October creatinine bumped up to 1.6 and as of November creatinine was 2.12 and hence this referral. She had a urine analysis which showed significant proteinuria with a urine protein creatinine ratio of 4630. She is on losartan 100 mg a day for control blood pressure and for renal p rotection. She has also been taking NSAIDs every now and then and last dose was 600 mg ibuprofen couple of weeks ago. No history of smoking cigarettes she uses smoke marijuana which he quit 5 months ago. 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 No history of renal colic abuse This is a strong family history of diabetes mellitus and mother from end stage renal disease Today she has no specific complaints. No headache nausea vomiting. No shortness of breath. No polyuria polydipsia. No edema. No rash no fever. 02/01/2024. Given has stopped taking NSAIDs. She complains of left upper back pain. There is some confusion about her medications. She is stopped taking losartan. All medications were reviewed. ; Still with left sided upper back pain 07/17/24; Feels better, Off Metformin 11/20/24: s/p Carpel tunnel surgery Overall doing ok ; A1C was 7.2 in Aug 2024 02/04/25 The patient is a 49 year old female presenting with a follow-up visit regarding her Chronic Kidney Disease. She has a 30-year history of Type 2 Diabetes Mellitus, with her current Hemoglobin A1c being 6.7. Recently, her Trulicity dosage was adjusted to 1.5 mg weekly to aid in weight management, rather than due to any deterioration in her diabetes management. Over time, it has become evident that her renal function is declining, primarily due to the diabetic condition, evidenced by notable proteinuria measuring about 3,000 mg. Despite the administration of losartan, her kidney numbers continue to exhibit a downward trend, raising concerns of potential future dialysis or transplant necessity. She denies any respiratory, gastrointestinal, or urinary symptoms at present. Blood pressure readings are stable at home, though noted hypertensive during this visit. The patient has a maternal history of dialysis and adheres to Tylenol, specifically avoiding NSAIDs. 03/28/25 Doing OK . No new issues 05/27/25 - The patient is a 50-year-old female presenting with a follow-up for Chronic Kidney Disease and Diabetes Mellitus management. - Chronic Kidney Disease: Regular monitoring for kidney function and proteinuria due to diabetes impact. - Diabetes Mellitus: Blood glucose level at 6.8, indicating controlled diabetes. Adherence to medication and lifestyle recommendations. 07/01/2025 The patient is a 50-year-old female presenting with chronic kidney disease id melissa. Her kidney function has declined over the past six months, with the most recent measurement showing a decrease from 15 to 11, indicating progression towards dialysis necessity. The patient also has a history of hypertension, which remains uncontrolled despite current medication regimen including hydralazine and losartan. The hydralazine dosage is being increased to manage her elevated blood pressure. Anemia is another concern, attributed to her kidney condition, and she reports feeling cold frequently. A plan to administer erythropoiesis-stimulating agents has been discussed to address her anemia. The patient has a long-standing history of diabetes mellitus, diagnosed at age 15, which has contributed to her renal issues. She does not monitor her blood glucose levels at home due to aversion to self-testing, but her A1c is reportedly stable. Additionally, she experiences low back pain, which she attributes to osteoporosis and loss of calcium in her bones. She manages her pain with Tylenol, avoiding NSAIDs to prevent further kidney damage. [facility] Medical History Anemia Chronic pain syndrome GERD (gastroesophageal reflux disease) Chronic renal insufficiency Depression Anxiety Diabetes Surgical History Status post right foot surgery History of section History of appendectomy History of tubal ligation S/p bilateral carpal tunnel release Family History Maternal Aunt Throat cancer Social History Alcohol intake: never Substance Use Type: Marijuana Current occupation: rt handed Physical Exam Vital Signs: Last Vital Signs Pulse 96 07/01/25 10:58 BP 170/82 H 07/01/25 10:58 Pulse Ox 96 07/01/25 10:58 Oxygen Delivery Method Room Air 07/01/25 10:58 BMI result Body Mass Index 34.4 Results Reviewed Nephrology Results: Hgb, (12.0-16.0) 8.6 g/dl L 06/29/25 WBC, (4.8-10.8) 5.3 X10*3/uL 06/29/25 Plt Count, (160-400) 188 X10*3/uL Δ 06/29/25 Sodium, (135-145) 140 mmol/L 06/29/25 Potassium, (3.3-5.1) 4.8 mmol/L 06/29/25 Chloride, (96-108) 113 mmol/L H 06/29/25 Carbon Dioxide, (22-29) 17 mmol/L L 06/29/25 BUN, (9-16) 45 mg/dL H 06/29/25 Creatinine, (0.5-1.4) 4.18 mg/dL H* 06/29/25 Calcium, (8.4-10.2) 8.4 mg/dL 06/29/25 PTH Intact, (8.7-77.1) 296.3 pg/mL H 05/27/25 Urine Protein, (Neg-Trace) 300 (3+) mg/dL H 06/29/25 Urine Creatinine 58.33 mg/dL 05/27/25 Renal US 01/20/24 Assessment & Plan Assessment & Plan (1) CKD (chronic kidney disease): Code(s): N18.9 - Chronic kidney disease, unspecified Category: Medical Plan: . (2) Anemia: Code(s): D64.9 - Anemia, unspecified Category: Medical (3) Hypertension: Code(s): I10 - Essential (primary) hypertension Category: Medical (4) Diabetes: Comment: With CKD Code(s): E11.9 - Type 2 diabetes mellitus without complications Category: Medical (5) CKD (chronic kidney disease) stage 4, GFR 15-29 ml/min: Code(s): N18.4 - Chronic kidney disease, stage 4 (severe) Category: Medical Plan Middle aged woman with chronic kidney disease with nephrotic range proteinuria in the setting of longstanding diabetes mellitus. Underlying CKD is most likely due to diabetic kidney disease. However nondiabetic causes should be ruled out. The superimposed ANGELIA may be due to hypoperfusion from use of diuretics along with ARB and NSAIDs. No obstructive uropathy based on renal ultrasonogram . Clinically no reason to believe that she is any active glomerulonephritis or interstitial disease. Recent urinalysis showed bland sediment Creatinine is essentially unchanged No monoclonal proteins Serum complements C3 and C4 are normal. Blood pressure is better controlled and acceptable She is mild anemia Hemoglobin is improved Plan Keep losartan 50 mg daily for renal protection in view of the proteinuria Meantime stay on low-sodium diet and increase fluid intake. I have discussed importance of tight control of blood pressure and blood sugar to slow the progression of renal disease. Continue to avoid nephrotoxic agents including NSAIDs. continue with SGLT2 inhibitors for cardiorenal protection. 02/04/25 I discussed with the patient her current kidney function, noting its decline secondary to her diabetic condition. Emphasizing the importance of proteinuria management through losartan, I also highlighted potential future interventions, including dialysis or transplant. Blood pressure control was reviewed, with no immediate changes advised. I advised on maintaining water intake and reducing dietary sodium. We went over her current anemia management, considering her hemoglobin levels do not yet require treatment beyond monitoring. I reiterated avoiding NSAIDs, recommending Tylenol for analgesia. A follow-up in six weeks was scheduled to reassess kidney function, with a consideration of a kidney biopsy if warranted. 03/28/25 BP acceptable Renal fx stable Fluid status OK Mild anemia due to CKD NO changes today Maintain BP < 130/80 and A1C < 7% 05/27/25 Worsening renal function Diabetic nephropathy Complete serology work up to r/o non diabetic causes Natural progression Optimize BP And blood sugar Keep on ARB 07/01/2023. Advanced renal failure approaching end stage renal disease. Blood pressure still suboptimal. Increase hydralazine. We will arrange for Epogen to correct anemia. All questions were answered. Medications: Changed From hydralazine 25 mg PO BID 180 tabs 0RF To hydralazine 50 mg PO TID 270 tabs 0RF Coding Level of Care Code Est Pt Level 4 (00335) Diagnoses CKD (chronic kidney disease) N18.9 Anemia D64.9 Hypertension I10 Diabetes E11.9 CKD (chronic kidney disease) stage 4, GFR 15-29 ml/min N18.4
[2025-07-01 10:58] VITALS: BP 170/82; PULSE 96; O2SAT 96; BMI 34.4
--- OUTSIDE RECORDS SUMMARY | 2025-07-01 13:46 | XMS_ITS | Encounter Summary ---
Demographics Address [address] [place] [address] Home Phone Mobile Phone Preferred Language es Marital Status Single Samaritan Affiliation Unknown Race White Ethnic Group Unknown Author Organization [facility] Address [address] [place] [address] Phone Care Team Providers Care Behavioral Health Professional Name Role Phone Name, Ney LEONG Primary Care Provider [phone] Encounter Details Date Type Department Care Team (Late st Contact Info) Description 12/24/2021 Documentation Only [facility], [address] [place] [address] Name, MD N[address] [place] [address] Social History Tobacco Use Types Packs/Day Years [...] on filedocumented in this encounter Care Teams Behavioral Health Professional Relationship Specialty Start Date End Date Name, MD Ney [address] [place] [address] PCP - General 07/03/19 documented as of this encounter
--- OUTSIDE RECORDS SUMMARY | 2025-07-01 13:46 | XMS_ITS | Encounter Summary ---
Demographics Address [address] [place] [address] Home Phone Mobile Phone Preferred Language es Marital Status Single Sikh Affiliation Unknown Race White Ethnic Group Unknown Author Organization [facility] Address [address] [place] [address] Phone Care Team Providers Care Architectural Coating Finisher Name Role Phone Name, Ney LEONG Primary Care Provider [phone] Encounter Details Date Type Department Care Team (Late st Contact Info) Description 12/24/2021 Documentation Only [facility] [place], [address] [place] [address] Name, MD [address] [place] [address] Social History Tobacco Use Types Packs/Day Years [...] on filedocumented in this encounter Care Teams Architectural Coating Finisher Relationship Specialty Start Date End Date Name, MD [address] [place] [address] PCP - General 07/03/19 documented as of this encounter
--- OUTSIDE RECORDS SUMMARY | 2025-07-01 13:46 | XMS_ITS | Clinical Summary ---
Author Organization [facility] [place] [facility], Address [address] [place] [address] [place] [address] Phone Care Team Providers Care Product Support Manager Name Role Phone Name, Ney LEONG Primary Care Provider [phone] Allergies No known active allergies Medications Lancets [...] hours 2 Active Blood Glucose Monitoring Suppl (National Institutes of Health (NIH) Lite) w/Device kit TEST BLOOD SUGAR TWICE [...] PM EST) Hemoglobin A1C 10.2(H) (4.0-5.6) % [facility] Comment: Effective 10/01/19, hemoglobin A1c reference range changed. MONITORING: In known diabetic patients, hemoglobin A1c targets should be discussed with health care provider. DIAGNOSTIC USE: The [place] Diabetes Association (ADA) and the World Health [...] Supplement 1 Testing performed or reported by [facility], a Service of [facility], [address] [place] [id number] Shante Delgado MD, Implant Polisher Blood specimen (specimen) Venous blood / Unknown 10/22/2019 2:40 PM EST 10/22/2019 2:41 PM EST Homero Ortiz MD LAB BLOOD ORDERABLES Final Result JERROD from Last 3 Months or Most Recently Relevant to Health Maintenance Insurance Medicaid [address], [place] [address] [address], [place] [address] Care Teams Product Support Manager Relationship Specialty Start Date End Date Name, MD [address] [place] [address] PCP - General 07/03/19
== END 2025-07-01 11:19 | disposition home or self-care (01) ==
LOC: HO.HKA 10:59
PROVIDERS: PCP Internal Medicine Geriatric Medicine; Visit Provider Internal Medicine Hypertension Specialist
DX: N18.9 Chronic kidney disease, unspecified (principal); D64.9 Anemia, unspecified; I12.9 Hypertensive chronic kidney disease with stage 1 through stage 4 chronic kidney disease, or unspecified chronic kidney disease; E11.9 Type 2 diabetes mellitus without complications; N18.4 Chronic kidney disease, stage 4 (severe)
CPT/HCPCS: 99214

== ENCOUNTER → 2025-07-01 10:58 | Outpatient (BNVA) | payer MEDICAID, SELFPAY | PROVIDERS: PCP Internal Medicine Geriatric Medicine; Visit Provider Internal Medicine Hypertension Specialist | DX: I12.9 Hypertensive chronic kidney disease with stage 1 through stage 4 chronic kidney disease, or unspecified chronic kidney disease (principal); E11.22 Type 2 diabetes mellitus with diabetic chronic kidney disease; N18.4 Chronic kidney disease, stage 4 (severe); D63.1 Anemia in chronic kidney disease | CPT/HCPCS: 99212 ==

== ENCOUNTER 2025-07-15 11:30 | Outpatient (AMB) | payer MEDICAID, SELFPAY ==
[2025-07-15 11:34] VITALS: BP 146/78; PULSE 91; O2SAT 99; BMI 34.5
--- NOTE | 2025-07-15 11:34 | HO.NEPHOV ---
Vital Signs 07/15/25 11:34 Height 5 ft 3 in Weight 195 lb BMI 34.5 BP 146/78 H Blood Pressure Location Rt brachial Position Sitting Pulse 91 Pulse Source Pulse Oximeter Pulse Oximetry (%) 99 Oxygen Delivery Method Room Air Intake Visit Reasons: 2 wks Retacrit Refractory Grinder Operator Required: No Accompanied by: Daughter Allergies oxycodone (OXYCODONE) Allergy (Unknown, Verified 07/15/25 11:36) SEIZURES XIAO Inhibitors Adverse Reaction (Intermediate, Verified 07/15/25 11:36) Cough Medication List - Last Reconciled 07/15/25 by Spencer Bauman MD acetaminophen ER 1,300 mg PO Q8H PRN aspirin 1 tab PO QAM atorvastatin 40 mg PO DAILY dulaglutide (Trulicity) mg subcut QWEEK empagliflozin (Jardiance) 10 mg PO DAILY famotidine (Pepcid) 20 mg PO BID PRN fluticasone propionate 50 mcg/actuation intranasal gabapentin 100 mg PO DAILY glipizide ER 5 mg PO DAILY hydralazine 50 mg PO TID hydroxyzine HCl 25 mg PO Q8H PRN lidocaine 5% 1 patch topical DAILY losartan 50 mg PO DAILY ondansetron 4 mg PO Q8H PRN HPI Comments Details: Franny is a pleasant woman with a history of diabetes mellitus for more than 30 years referred for evaluation of renal insufficiency She tells me that her blood sugar has been reasonably well controlled with a recent A1c of 6.2%. She was recently diagnosed with hypertension. Initially she was started with amlodipine and she started developing swelling. Amlodipine was discontinued. Hydrochlorothiazide 25 mg was added. Edema has subsided. Her baseline serum creatinine was around 1.04 mg/dL in August 2023. In October creatinine bumped up to 1.6 and as of November creatinine was 2.12 and hence this referral. She had a urine analysis which showed significant proteinuria with a urine protein creatinine ratio of 4630. She is on losartan 100 mg a day for control blood pressure and for renal protection. She has also been taking NSAIDs every now and then and last dose was 600 mg ibuprofen couple of weeks ago. No history of smoking cigarettes she uses smoke marijuana which he quit 5 months ago. 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 No history of renal colic abuse This is a strong family history of diabetes mellitus and mother from end stage renal disease Today she has no specific complaints. No headache nausea vomiting. No shortness of breath. No polyuria polydipsia. No edema. No rash no fever. 02/01/2024. Given has stopped taking NSAIDs. She complains of left upper back pain. There is some confusion about her medications. She is stopped taking losartan. All medications were reviewed. ; Still with left sided upper back pain 07/17/24; Feels better, Off Metformin 11/20/24: s/p Carpel tunnel surgery Overall doing ok ; A1C was 7.2 in Aug 2024 02/04/25 The patient is a 49 year old female presenting with a follow-up visit regarding her Chronic Kidney Disease. She has a 30-year history of Type 2 Diabetes Mellitus, with her current Hemoglobin A1c being 6.7. Recently, her Trulicity dosage was adjusted to 1.5 mg weekly to aid in weight management, rather than due to any deterioration in her diabetes management. Over time, it has become evident that her renal function is declining, primarily due to the diabetic condition, evidenced by notable proteinuria measuring about 3,000 mg. Despite the administration of losartan, her kidney numbers continue to exhibit a downward trend, raising concerns of potential future dialysis or transplant necessity. She denies any respiratory, gastrointestinal, or urinary symptoms at present. Blood pressure readings are stable at home, though noted hypertensive during this visit. The patient has a maternal history of dialysis and adheres to Tylenol, specifically avoiding NSAIDs. 03/28/25 Doing OK . No new issues 05/27/25 - The patient is a 50-year-old female presenting with a follow-up for Chronic Kidney Disease and Diabetes Mellitus management. - Chronic Kidney Disease: Regular monitoring for kidney function and proteinuria due to diabetes impact. - Diabetes Mellitus: Blood glucose level at 6.8, indicating controlled diabetes. Adherence to medication and lifestyle 07/15/25 . The patient is a 50-year-old female presenting with CKD ,anemia and diabetes mellitus. The anemia has been persistent, with a current hemoglobin level of 8.6 g/dL, which is considered very low. The patient is receiving injections to stimulate erythropoiesis, with the goal of increasing hemoglobin levels to between 10 and 11 g/dL. The patient has a long-standing history of diabetes mellitus, having been diagnosed at the age of 15, which accounts for a 34-year history of the condition. The patient does not regularly monitor blood glucose levels and primarily manages diabetes under the care of Dr. Hernandez. There is no reported swelling in the legs, and the patient denies any nausea or vomiting. [facility] Medical History Anemia Chronic pain syndrome GERD (gastroesophageal reflux disease) Chronic renal insufficiency Depression Anxiety Diabetes Surgical History Status post right foot surgery History of section History of appendectomy History of tubal ligation S/p bilateral carpal tunnel release Family History Maternal Aunt Throat cancer Social History Alcohol intake: never Substance Use Type: Marijuana Current occupation: rt handed Physical Exam Vital Signs: Last Vital Signs Pulse 91 07/15/25 11:34 BP 146/78 H 07/15/25 11:34 Pulse Ox 99 07/15/25 11:34 Oxygen Delivery Method Room Air 07/15/25 11:34 BMI result Body Mass Index 34.5 Comfortable Neck supple no JVD. Lungs entry equal no rales. Heart S1-S2 heard no gallop or rub. Abdomen soft nontender. Neuro alert awake oriented. No asterixis. Extremities no edema. Office Meds epoetin [id number] 20,000 unit/mL injection solution Performing Provider: Spencer Bauman MD Performing Location: [facility] [place] [facility] Administered by: Spencer Bauman MD on 07/15/25 11:49 Dose Route Admin Location Dispensed Lot Number Expiration Date [facility] [employer]her [employer]sembler 20,000 unit subcut LEFT ARM 1 mL [id number] 10/26/26 2516-4728-37 [facility] Total Dispensed Waste 1 mL 0 % Results Reviewed Nephrology Results: Hgb, (12.0-16.0) 8.6 g/dl L 06/29/25 WBC, (4.8-10.8) 5.3 X10*3/uL 06/29/25 Plt Count, (160-400) 188 X10*3/uL Δ 06/29/25 Sodium, (135-145) 140 mmol/L 06/29/25 Potassium, (3.3-5.1) 4.8 mmol/L 06/29/25 Chloride, (96-108) 113 mmol/L H 06/29/25 Carbon Dioxide, (22-29) 17 mmol/L L 06/29/25 BUN, (9-16) 45 mg/dL H 06/29/25 Creatinine, (0.5-1.4) 4.18 mg/dL H* 06/29/25 Calcium, (8.4-10.2) 8.4 mg/dL 06/29/25 PTH Intact, (8.7-77.1) 296.3 pg/mL H 05/27/25 Urine Protein, (Neg-Trace) 300 (3+) mg/dL H 06/29/25 Urine Creatinine 58.33 mg/dL 05/27/25 Renal US 01/20/24 Assessment & Plan Assessment & Plan (1) CKD (chronic kidney disease): Code(s): N18.9 - Chronic kidney disease, unspecified Category: Medical Plan: . (2) Anemia: Code(s): D64.9 - Anemia, unspecified Category: Medical (3) Hypertension: Code(s): I10 - Essential (primary) hypertension Category: Medical (4) Diabetes: Code(s): E11.9 - Type 2 diabetes mellitus without complications Category: Medical (5) CKD (chronic kidney disease) stage 4, GFR 15-29 ml/min: Code(s): N18.4 - Chronic kidney disease, stage 4 (severe) Category: Medical Plan Middle aged woman with chronic kidney disease with nephrotic range proteinuria in the setting of longstanding diabetes mellitus. Underlying CKD is most likely due to diabetic kidney disease. However nondiabetic causes should be ruled out. The superimposed ANGELIA may be due to hypoperfusion from use of diuretics along with ARB and NSAIDs. No obstructive uropathy based on renal ultrasonogram . Clinically no reason to believe that she is any active glomerulonephritis or interstitial disease. Recent urinalysis showed bland sediment Creatinine is essentially unchanged No monoclonal proteins Serum complements C3 and C4 are normal. Blood pressure is better controlled and acceptable She is mild anemia Hemoglobin is improved Plan Keep losartan 50 mg daily for renal protection in view of the proteinuria Meantime stay on low-sodium diet and increase fluid intake. I have discussed importance of tight control of blood pressure and blood sugar to slow the progression of renal disease. Continue to avoid nephrotoxic agents including NSAIDs. continue with SGLT2 inhibitors for cardiorenal protection. 02/04/25 I discussed with the patient her current kidney function, noting its decline secondary to her diabetic condition. Emphasizing the importance of proteinuria management through losartan, I also highlighted potential future interventions, including dialysis or transplant. Blood pressure control was reviewed, with no immediate changes advised. I advised on maintaining water intake and reducing dietary sodium. We went over her current anemia management, considering her hemoglobin levels do not yet require treatment beyond monitoring. I reiterated avoiding NSAIDs, recommending Tylenol for analgesia. A follow-up in six weeks was scheduled to reassess kidney function, with a consideration of a kidney biopsy if warranted. 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 Administered Retacrit today Next dose in 3-4 weeks Seen by Dialysis education nurse referred to Health Data Administrator Orders: Orders Basic Metabolic Panel 3 Weeks D64.9 - Anemia, unspecified, N18.5 - Chronic kidney disease, stage 5 Complete Blood Count no Diff 3 Weeks D64.9 - Anemia, unspecified, N18.5 - Chronic kidney disease, stage 5 AMB Epoetin Injection Practice Supplied Today D64.9 - Anemia, unspecified Referrals Back Maker Nutrition Referral E11.9 - Type 2 diabetes mellitus without complications Coding Level of Care Code Est Pt Level 4 (19925) Diagnoses CKD (chronic kidney disease) N18.9 Anemia D64.9 Hypertension I10 Diabetes E11.9 CKD (chronic kidney disease) stage 4, GFR 15-29 ml/min N18.4
== END 2025-07-15 13:43 | disposition home or self-care (01) ==
LOC: HO.HKA 11:31
PROVIDERS: PCP Internal Medicine Geriatric Medicine; Visit Provider Internal Medicine Hypertension Specialist
DX: N18.9 Chronic kidney disease, unspecified (principal); D64.9 Anemia, unspecified; I12.9 Hypertensive chronic kidney disease with stage 1 through stage 4 chronic kidney disease, or unspecified chronic kidney disease; E11.9 Type 2 diabetes mellitus without complications; N18.4 Chronic kidney disease, stage 4 (severe)
CPT/HCPCS: 99214

== ENCOUNTER → 2025-07-15 11:30 | Outpatient (BNVA) | payer MEDICAID, SELFPAY | PROVIDERS: PCP Internal Medicine Geriatric Medicine; Visit Provider Internal Medicine Hypertension Specialist | DX: I12.9 Hypertensive chronic kidney disease with stage 1 through stage 4 chronic kidney disease, or unspecified chronic kidney disease (principal); E11.22 Type 2 diabetes mellitus with diabetic chronic kidney disease; N18.4 Chronic kidney disease, stage 4 (severe); D63.1 Anemia in chronic kidney disease | CPT/HCPCS: 96372; 99212; Q5106 ==

== ENCOUNTER 2025-07-17 12:11 | Outpatient (AMB) | payer MEDICAID, SELFPAY ==
--- NOTE | 2025-07-17 12:32 | MHC.AMNUTRGE ---
VS Expanded 07/17/25 12:33 07/17/25 12:47 Height 5 ft 3 in 5 ft 3 in Weight 193 lb 193 lb BMI 34.2 34.2 Intake Visit Reasons: Type 2 diabetes mellitus without complications Allergies oxycodone (OXYCODONE) Allergy (Unknown, Verified 07/15/25 11:36) SEIZURES XIAO Inhibitors Adverse Reaction (Intermediate, Verified 07/15/25 11:36) Cough Nutrition Presentation Details: Pt presents for MNT for T2DM with CKD Pt reports having T2DM since 15 yrs of age. Pt reports most recent A1c at 6.2%, Pt does not self monitor BG Pt admits to increased intake of soda and ice tea Typical meal 10am -coffee, creamer splenda , 1 wheat toasts, 2 eggs, 3-4 pm : rice brown beans,chicken, or pork chop , (not fried) snack banana , oranges food frequency fish: 0-1/wk fruits: 0-1/d veg:daily salads milk: omiting d/t lactose intolerance BS Monitoring Most Recent Diabetes Results: Creatinine, (0.5-1.4) 4.18 mg/dL H* 06/29/25 BUN, (9-16) 45 mg/dL H 06/29/25 Sodium, (135-145) 140 mmol/L 06/29/25 Potassium, (3.3-5.1) 4.8 mmol/L 06/29/25 Chloride, (96-108) 113 mmol/L H 06/29/25 Carbon Dioxide, (22-29) 17 mmol/L L 06/29/25 Calcium, (8.4-10.2) 8.4 mg/dL 06/29/25 AST, (5-31) 24 U/L 06/29/25 ALT, (0-31) 16 U/L 06/29/25 Total Protein, (6.5-8.0) 6.9 g/dL 06/29/25 Albumin, (3.5-5.0) 3.1 g/dL L 06/29/25 FBM-Vuguqka-Lu.Jeor Equation Height: 5 ft 3 in Weight: 193 lb Resting Metabolic Rate: 1467.68 Calculated Activity Level: Sedentary Calories Needed to Maintain Weight: 1761.22 Diagnosis Nutrition problem #1: altered nutrition labs As related to (etiology) #1: diagnosis As evidenced by (sign/symptom) #1: knowledge deficit of diet [facility] Medical History Anemia Chronic pain syndrome GERD (gastroesophageal reflux disease) Chronic renal insufficiency Depression Anxiety Diabetes Surgical History Status post right foot surgery History of section History of appendectomy History of tubal ligation S/p bilateral carpal tunnel release Family History Maternal Aunt Throat cancer Social History Alcohol intake: never Substance Use Type: Marijuana Current occupation: rt handed Assessment & Plan Assessment & Plan (1) Diabetes: Comment: With CKD Code(s): E11.9 - Type 2 diabetes mellitus without complications Category: Medical Plan: current wt: 88kg ( 11-25 ) est kcal needs as per MSJ: 1800 est protein needs as per 1 g/kg BW: 90 est fluid needs as per 30 ml/kg BW: 2600 Recommended fiber > 12 g /day and gradually increase up to 25-28 g /day or as tolerated Recommended sodium intake less than 2000 mg per day unless otherwise specified by Nutrition topics discussed : Reviewed (R), Pt verbalized understanding (V) , not applicable (N/A) R, : Healthy Plate Method Concept: R, : Carbohydrates: food sources of carbohydrates, relationship of carbohydrates to blood glucose, fatty liver GI health. Recommended total amount of carbohydrates per meals and snack. Differences between simple carbohydrates and complex carbohydrates R, : Lean protein foods including vegan , vegetarian sources of protein. Benefits of protein (including but not limited to healing, nutritional value , benefits in weight loss, glucose control R, V, N/A: Fats : Source of fats, benefits of fats. Difference between saturated and unsaturated fats. Saturated fats and its contribution to inflammation R, V, N/A: Fiber: food sources and role of fiber in the diet (including but not limited to its role as a prebiotic, benefits in constipation, role in IBS , role in glucose control and cholesterol level) R, V, N/A: Hydration: role of hydration and prevention of dehydration or over hydration. Foods and water content. R, V, N/A: Vitamins and Minerals in foods and supplements R, V, N/A: Interpreting food labels, including serving size, macronutrients, vitamins, minerals, allergens, ingredient list , % daily value Patient Instructions: Follow healthy plate method at dinnertime, including lean protein foods (fish at least twice a week, poultry, eggs Choose Less ultra processed foods (fried, pastries, salami similar foods) Coding Level of Care Code Nutr Indiv Intake (36731) Diagnoses Diabetes E11.9 Time Spent (min) 30
[2025-07-17 12:33] VITALS: BMI 34.2
--- OUTSIDE RECORDS SUMMARY | 2025-07-17 23:18 | XMS_ITS | Clinical Summary ---
Author Organization [facility], Address [address] [place] [address] [place] [address] Phone Care Team Providers Care Process Development Engineer Name Role Phone Name, Ney LEONG Primary Care Provider [phone] Allergies No known active allergies Medications Lancets [...] hours 2 Active Blood Glucose Monitoring Suppl ([employer]) w/Device kit TEST BLOOD SUGAR TWICE [...] PM EST) Hemoglobin A1C 10.2(H) (4.0-5.6) % [facility] Comment: Effective 10/01/19, hemoglobin A1c reference range changed. MONITORING: In known diabetic patients, hemoglobin A1c targets should be discussed with health care provider. DIAGNOSTIC USE: The [place] Diabetes Association (ADA) and the World Health [...] Supplement 1 Testing performed or reported by [facility], a Service of [facility], [address] [place] [id number] Shante Delgado MD, Sports Specialist Blood specimen (specimen) Venous blood / Unknown 10/22/2019 2:40 PM EST 10/22/2019 2:41 PM EST Homero Ortiz MD LAB BLOOD ORDERABLES Final Result JERROD from Last 3 Months or Most Recently Relevant to Health Maintenance Insurance Medicaid [place] [address] [place] [address] [place] [address] Care Teams Process Development Engineer Relationship Specialty Start Date End Date Name, MD Ney [address] [place] [address] PCP - General 07/03/19
--- OUTSIDE RECORDS SUMMARY | 2025-07-17 23:18 | XMS_ITS | Encounter Summary ---
Demographics Address [address] [place] [address] Home Phone Mobile Phone Preferred Language es Marital Status Single Sabianism Affiliation Unknown Race White Ethnic Group Unknown Author Organization [facility] Address [address] [place] [address] Phone Care Team Providers Care Manager Commodities Name Role Phone Name, Ney LEONG Primary Care Provider [phone] Encounter Details Date Type Department Care Team (Late st Contact Info) Description 12/24/2021 Documentation Only [facility], [address] [place] [address] Name, MD [address] [place] [address] Social History Tobacco Use Types Packs/Day Years [...] on filedocumented in this encounter Care Teams Manager Commodities Relationship Specialty Start Date End Date Name, MD N[address] [place] [address] PCP - General 07/03/19 documented as of this encounter
--- OUTSIDE RECORDS SUMMARY | 2025-07-17 23:18 | XMS_ITS | Encounter Summary ---
Demographics Address [address] [place] [address] Home Phone Mobile Phone Preferred Language es Marital Status Single Orthodoxy Affiliation Unknown Race White Ethnic Group Unknown Author Organization [facility] Address [address] [place] [address] Phone Care Team Providers Care Tour Agent Name Role Phone Name, Ney LEONG Primary Care Provider [phone] Encounter Details Date Type Department Care Team (Late st Contact Info) Description 12/24/2021 Documentation Only [facility], [address] [place] [address] Name, MD [address] [place] [address] Social History Tobacco Use Types Packs/Day Years [...] on filedocumented in this encounter Care Teams Tour Agent Relationship Specialty Start Date End Date Name, MD [address] [place] [address] PCP - General 07/03/19 documented as of this encounter
[2025-07-22 10:13] VITALS: BMI 34.2
== END 2025-07-17 13:10 | disposition home or self-care (01) ==
LOC: HO.ENCR 12:12
PROVIDERS: PCP Internal Medicine Geriatric Medicine; Visit Provider Dietitian, Registered
DX: E11.9 Type 2 diabetes mellitus without complications (principal)

== ENCOUNTER → 2025-07-17 12:11 | Outpatient (BNVA) | payer MEDICAID, SELFPAY | PROVIDERS: PCP Internal Medicine Geriatric Medicine; Visit Provider Dietitian, Registered | DX: E11.9 Type 2 diabetes mellitus without complications (principal) | CPT/HCPCS: 97802 ==

== ENCOUNTER 2025-08-01 11:55 | Outpatient (REF) | payer MEDICAID, SELFPAY ==
--- NOTE | ~2025-08-01 | XR_ITS ---
EXAMINATION: XR FOOT, LEFT CLINICAL INFORMATION: left heel pain, difficulites walking due to pain COMPARISON: March 08, 2012 is not available on PACS system. TECHNIQUE: AP, lateral, and oblique views of the left foot. FINDINGS: No acute cortical disruption or malalignment. No lytic or blastic lesions. No bony erosions. Joint space narrowing in the distal interphalangeal joints of the second third fourth and fifth toes. No subcutaneous emphysema. Vascular calcifications. No joint effusion, anterior tibiotarsal bursa. XR/XR foot LT min 3V IMPRESSION: Mild osteoarthritis/osteoarthrosis. Atherosclerosis disease, peripheral. Electronically signed by: Reese Rhodes MD 08/01/2025 12:26 PM EST
[2025-08-01 12:29] LABS: Hematocrit 27.3 % (37.0-47.0); Hemoglobin 9.0 g/dl (12.0-16.0); Mean Corpuscular HGB Conc 33.0 g/dl (31.0-35.0); Mean Corpuscular Hemoglobin 28.0 pg (27.0-33.0); Mean Corpuscular Volume 85.0 fL (80.0-98.0); NRBC Abs Auto 0.000 X10*3/uL (0.0-0.012); NRBC Pct Auto 0.0 /100WBC (0.0-0.2); Platelet Count 256 X10*3/uL (160-400); Red Blood Count 3.21 X10*6/uL (4.20-5.50); White Blood Count 6.6 X10*3/uL (4.8-10.8)
[2025-08-01 12:59] LABS: Anion Gap 14 (12-20); Blood Urea Nitrogen 69 mg/dL (9-16); Calcium 8.4 mg/dL (8.4-10.2); Carbon Dioxide 18 mmol/L (22-29); Chloride 110 mmol/L (96-108); Estimated Glomerular Filt Rate 9; Potassium 4.7 mmol/L (3.3-5.1); Sodium 137 mmol/L (135-145)
[2025-08-01 13:24] LABS: Appearance Urine Clear; Glucose Urine UA >=1000 mg/dL (Negative); PH 6.0 (5.0-9.0); Specific Gravity - Urine 1.020 (1.005-1.025); UMIC TRIGGER UA YES
== END 2025-08-01 11:56 | disposition home or self-care (01) ==
LOC: HO.XRAY 11:55
PROVIDERS: Absent Provider Internal Medicine Hypertension Specialist; PCP Internal Medicine Geriatric Medicine; Visit Provider Internal Medicine Geriatric Medicine
DX: M79.672 Pain in left foot (principal); N18.5 Chronic kidney disease, stage 5; D64.9 Anemia, unspecified
CPT/HCPCS: 36415; 73630; 80048; 81001; 81003; 85027

== ENCOUNTER → 2025-08-01 12:15 | Outpatient (BNV) | payer MEDICAID, SELFPAY | PROVIDERS: Absent Provider Internal Medicine Hypertension Specialist; PCP Internal Medicine Geriatric Medicine; Visit Provider Radiology Diagnostic Radiology | DX: M19.072 Primary osteoarthritis, left ankle and foot (principal); I73.9 Peripheral vascular disease, unspecified | CPT/HCPCS: 73630 ==

== ENCOUNTER 2025-08-01 13:07 | Outpatient (RCR) | payer MEDICAID, SELFPAY | END 2025-08-13 13:18 | disposition home or self-care (01) | LOC: HO.PT 13:07 | PROVIDERS: PCP Internal Medicine Geriatric Medicine; Visit Provider Internal Medicine Geriatric Medicine | DX: M25.511 Pain in right shoulder (principal); G89.29 Other chronic pain | CPT/HCPCS: 97110; 97140; 97162; 97535 ==

== ENCOUNTER 2025-08-02 10:01 | Outpatient (AMB) | payer MEDICAID, SELFPAY ==
--- NOTE | 2025-08-02 10:03 | HO.NEPHOV ---
Vital Signs 08/02/25 10:04 Height 5 ft 3 in Weight 194 lb BMI 34.4 BP 140/62 H Blood Pressure Location Lt brachial Position Sitting Pulse 123 H Pulse Source Pulse Oximeter Pulse Oximetry (%) 98 Oxygen Delivery Method Room Air Intake Visit Reasons: 8 wks f/u w/ labs Director Of Corporate Strategy Required: No Accompanied by: Self / Same As Patient Allergies oxycodone (OXYCODONE) Allergy (Unknown, Verified 08/02/25 10:04) SEIZURES XIAO Inhibitors Adverse Reaction (Intermediate, Verified 08/02/25 10:04) Cough HPI Comments Details: Franny is a pleasant woman with a history of diabetes mellitus for more than 30 years referred for evaluation of renal insufficiency She tells me that her blood sugar has been reasonably well controlled with a recent A1c of 6.2%. She was recently diagnosed with hypertension. Initially she was started with amlodipine and she started developing swelling. Amlodipine was discontinued. Hydrochlorothiazide 25 mg was added. Edema has subsided. Her baseline serum creatinine was around 1.04 mg/dL in August 2023. In October creatinine bumped up to 1.6 and as of November creatinine was 2.12 and hence this referral. She had a urine analysis which showed significant proteinuria with a urine protein creatinine ratio of 4630. She is on losartan 100 mg a day for control blood pressure and for renal protection. She has also been taking NSAIDs every now and then and last dose was 600 mg ibuprofen couple of weeks ago. No history of smoking cigarettes she uses smoke marijuana which he quit 5 months ago. 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 No history of renal colic abuse This is a strong family history of diabetes mellitus and mother from end stage renal disease Today she has no specific complaints. No headache nausea vomiting. No shortness of breath. No polyuria polydipsia. No edema. No rash no fever. 02/01/2024. Given has stopped taking NSAIDs. She complains of left upper back pain. There is some confusion about her medications. She is stopped taking losartan. All medications were reviewed. ; Still with left sided upper back pain 07/17/24; Feels better, Off Metformin 11/20/24: s/p Carpel tunnel surgery Overall doing ok ; A1C was 7.2 in Aug 2024 02/04/25 The patient is a 49 year old female presenting with a follow-up visit regarding her Chronic Kidney Disease. She has a 30-year history of Type 2 Diabetes Mellitus, with her current Hemoglobin A1c being 6.7. Recently, her Trulicity dosage was adjusted to 1.5 mg weekly to aid in weight management, rather than due to any deterioration in her diabetes management. Over time, it has become evident that her renal function is declining, primarily due to the diabetic condition, evidenced by notable proteinuria measuring about 3,000 mg. Despite the administration of losartan, her kidney numbers continue to exhibit a downward trend, raising concerns of potential future dialysis or transplant necessity. She denies any respiratory, gastrointestinal, or urinary symptoms at present. Blood pressure readings are stable at home, though noted hypertensive during this visit. The patient has a maternal history of dialysis and adheres to Tylenol, specifically avoiding NSAIDs. 03/28/25 Doing OK . No new issues 05/27/25 - The patient is a 50-year-old female presenting with a follow-up for Chronic Kidney Disease and Diabetes Mellitus management. - Chronic Kidney Disease: Regular monitoring for kidney function and proteinuria due to diabetes impact. - Diabetes Mellitus: Blood glucose level at 6.8, indicating controlled diabetes. Adherence to medication and lifestyle 07/15/25 . The patient is a 50-year-old female presenting with CKD ,anemia and diabetes mellitus. The anemia has been persistent, with a current hemoglobin level of 8.6 g/dL, which is considered very low. The patient is receiving injections to stimulate erythropoiesis, with the goal of increasing hemoglobin levels to between 10 and 11 g/dL. The patient has a long-standing history of diabetes mellitus, having been diagnosed at the age of 15, which accounts for a 34-year history of the condition. The patient does not regularly monitor blood glucose levels and primarily manages diabetes under the care of Dr. Hernandez. There is no reported swelling in the legs, and the patient denies any nausea or vomiting. 08/02/25 The patient is a 50 year old female presenting for a follow-up visit for chronic kidney disease and anemia. She reports persistent weakness, despite her hemoglobin improving from 8.1 to 9.0 g/dL after receiving an injection two weeks ago. Her kidney function remains low, and she continues to have proteinuria. The patient reports new symptoms of muscle fasciculations and cramps, which occur throughout the day but are more pronounced at night. These symptoms are causing her anxiety and interfering with her sleep, for which she has asked her doctor for sleeping medication. She currently takes gabapentin. Her blood sugar is reportedly under control following a recent primary care visit where no medication changes were made. She denies any nausea or vomiting and reports a good appetite. Regarding future renal replacement therapy, she has previously met with a dialysis nurse and is now strongly considering at-home peritoneal dialysis. [facility] Medical History Anemia Chronic pain syndrome GERD (gastroesophageal reflux disease) Chronic renal insufficiency Depression Anxiety Diabetes Surgical History Status post right foot surgery History of section History of appendectomy History of tubal ligation S/p bilateral carpal tunnel release Family History Maternal Aunt Throat cancer Social History Alcohol intake: never Substance Use Type: Marijuana Current occupation: rt handed Physical Exam Vital Signs: Last Vital Signs Pulse 123 H 08/02/25 10:04 BP 140/62 H 08/02/25 10:04 Pulse Ox 98 08/02/25 10:04 Oxygen Delivery Method Room Air 08/02/25 10:04 BMI result Body Mass Index 34.4 Comfortable Neck supple no JVD. Lungs entry equal no rales. Heart S1-S2 heard no gallop or rub. Abdomen soft nontender. Neuro alert awake oriented. No asterixis. Extremities no edema. Office Meds epoetin chika-epbx 20,000 unit/mL injection solution Performing Provider: Spencer Bauman MD Performing Location: [facility] Administered by: Spencer Buaman MD on 08/02/25 10:14 Dose Route Admin Location Dispensed Lot Number Expiration Date [facility] Project Facilitator 20,000 unit subcut left arm 1 mL [id number] 03/28/26 7736-5997-52 [employer] Total Dispensed Waste 1 mL 0 % Results Reviewed Nephrology Results: Hgb, (12.0-16.0) 9.0 g/dl L 08/01/25 WBC, (4.8-10.8) 6.6 X10*3/uL 08/01/25 Plt Count, (160-400) 256 X10*3/uL Δ 08/01/25 Sodium, (135-145) 137 mmol/L 08/01/25 Potassium, (3.3-5.1) 4.7 mmol/L 08/01/25 Chloride, (96-108) 110 mmol/L H 08/01/25 Carbon Dioxide, (22-29) 18 mmol/L L 08/01/25 BUN, (9-16) 69 mg/dL H 08/01/25 Creatinine, (0.5-1.4) 5.33 mg/dL H* 08/01/25 Calcium, (8.4-10.2) 8.4 mg/dL 08/01/25 Urine Protein, (Neg-Trace) 300 (3+) mg/dL H 08/01/25 Renal US 01/20/24 Assessment & Plan Assessment & Plan (1) Anemia: Code(s): D64.9 - Anemia, unspecified Category: Medical (2) Diabetes: Comment: With CKD Code(s): E11.9 - Type 2 diabetes mellitus without complications Category: Medical Plan Middle aged woman with chronic kidney disease with nephrotic range proteinuria in the setting of longstanding diabetes mellitus. Underlying CKD is most likely due to diabetic kidney disease. However nondiabetic causes should be ruled out. The superimposed ANGELIA may be due to hypoperfusion from use of diuretics along with ARB and NSAIDs. No obstructive uropathy based on renal ultrasonogram . Clinically no reason to believe that she is any active glomerulonephritis or interstitial disease. Recent urinalysis showed bland sediment Creatinine is essentially unchanged No monoclonal proteins Serum complements C3 and C4 are normal. Blood pressure is better controlled and acceptable She is mild anemia Hemoglobin is improved Plan Keep losartan 50 mg daily for renal protection in view of the proteinuria Meantime stay on low-sodium diet and increase fluid intake. I have discussed importance of tight control of blood pressure and blood sugar to slow the progression of renal disease. Continue to avoid nephrotoxic agents including NSAIDs. continue with SGLT2 inhibitors for cardiorenal protection. 02/04/25 I discussed with the patient her current kidney function, noting its decline secondary to her diabetic condition. Emphasizing the importance of proteinuria management through losartan, I also highlighted potential future interventions, including dialysis or transplant. Blood pressure control was reviewed, with no immediate changes advised. I advised on maintaining water intake and reducing dietary sodium. We went over her current anemia management, considering her hemoglobin levels do not yet require treatment beyond monitoring. I reiterated avoiding NSAIDs, recommending Tylenol for analgesia. A follow-up in six weeks was scheduled to reassess kidney function, with a consideration of a kidney biopsy if warranted. 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 - The patient has considered her options and is interested in pursuing peritoneal dialysis. - Will check labs for calcium, phosphorus, and other electrolytes to assess for imbalances contributing to her symptoms. - Plan to follow up in 4 weeks to continue monitoring. Anemia - The patient is responding well to treatment, with hemoglobin improving from 8.1 to 9.0 g/dL after her last injection. - Persistent weakness is likely multifactorial due to both anemia and uremia from her underlying kidney disease. - Continue current anemia management. Administere REtacrit [id number] U sq Orders: Orders AMB Epoetin Injection Practice Supplied Today D64.9 - Anemia, unspecified, N18.5 - Chronic kidney disease, stage 5 Basic Metabolic Panel 4 Weeks D64.9 - Anemia, unspecified, N18.5 - Chronic kidney disease, stage 5 Complete Blood Count no Diff 4 Weeks D64.9 - Anemia, unspecified, N18.5 - Chronic kidney disease, stage 5 Parathyroid Hormone Intact Today D64.9 - Anemia, unspecified, N18.5 - Chronic kidney disease, stage 5 Magnesium Today D64.9 - Anemia, unspecified, N18.5 - Chronic kidney disease, stage 5 Phosphorus Today D64.9 - Anemia, unspecified, N18.5 - Chronic kidney disease, stage 5 Coding Level of Care Code Est Pt Level 4 (83814) Diagnoses Anemia D64.9 Diabetes E11.9
[2025-08-02 10:04] VITALS: BP 140/62; PULSE 123; O2SAT 98; BMI 34.4
== END 2025-08-02 10:19 | disposition home or self-care (01) ==
LOC: HO.HKA 10:02
PROVIDERS: PCP Internal Medicine Geriatric Medicine; Visit Provider Internal Medicine Hypertension Specialist
DX: N18.5 Chronic kidney disease, stage 5 (principal); D64.9 Anemia, unspecified; E11.9 Type 2 diabetes mellitus without complications
CPT/HCPCS: 99214

== ENCOUNTER → 2025-08-02 10:01 | Outpatient (BNVA) | payer MEDICAID, SELFPAY | PROVIDERS: PCP Internal Medicine Geriatric Medicine; Visit Provider Internal Medicine Hypertension Specialist | DX: E11.22 Type 2 diabetes mellitus with diabetic chronic kidney disease (principal); I12.9 Hypertensive chronic kidney disease with stage 1 through stage 4 chronic kidney disease, or unspecified chronic kidney disease; Z79.84 Long term (current) use of oral hypoglycemic drugs; Z79.85 Long-term (current) use of injectable non-insulin antidiabetic drugs; N18.4 Chronic kidney disease, stage 4 (severe); D64.9 Anemia, unspecified; Z79.82 Long term (current) use of aspirin | CPT/HCPCS: 96372; 99212; Q5106 ==